=== PATIENT | female | born 1945 | race Caucasian/White ===

== ENCOUNTER 2018-11-26 12:26 | Inpatient (IN) | payer MEDICARE, OTHER ==
[2018-11-26 18:19] VITALS: BMI 45.7
[2018-11-26] MEDS ORDERED: HEPARIN SODIUM,PORCINE 5,000 UNIT/ML 1 ML VIAL SQ SCH (21:00)
[2018-11-26] MEDS ORDERED: ACETAMINOPHEN TAB 500 MG TAB PO PRN (21:32)
[2018-11-26] MEDS ORDERED: ALPRAZolam 0.25 MG TAB PO PRN (21:32)
[2018-11-26] MEDS ORDERED: VANCOMYCIN IV PER PHARMACY 1 EACH MISC MISCELLANE PRN ×3 (21:36→21:44)
[2018-11-26] MEDS ORDERED: VANCOMYCIN 1,750 MG in SODIUM CHLORIDE 0.9% 500 ML 500 ML IVPB SCH (21:45)
[2018-11-26] MEDS: FAMOTIDINE 20 MG TAB PO SCH (22:37)
[2018-11-26 22:56] LABS: Calcium 7.9 mg/dL (8.4-10.2); Potassium 4.1 mmol/L (3.5-5.1)
[2018-11-27] MEDS ORDERED: PIPERACILLIN-TAZOBACTAM 3.375 GM in SODIUM CHLORIDE 0.9% 100 ML IVPB SCH ×2
[2018-11-27] MEDS: SODIUM CHLORIDE 0.9% 1,000 ML IV SCH ×2 (00:52→13:46)
[2018-11-27] MEDS: CEFEPIME 1 GM in SODIUM CHLORIDE 0.9% 50 ML IVPB SCH ×2 (03:07→23:19)
[2018-11-27] MEDS: MULTIVITAMINS, THERA 1 EACH TAB PO SCH (07:45)
[2018-11-27] MEDS: FAMOTIDINE 20 MG TAB PO SCH (07:45)
[2018-11-27] MEDS: LOSARTAN 25 MG TAB PO SCH (07:46)
[2018-11-27] MEDS: CYANOCOBALAMIN 500 MCG TAB PO SCH (07:46)
[2018-11-27] MEDS: CARVEDILOL 6.25 MG TAB PO SCH ×2 (07:46→17:16)
[2018-11-27] MEDS: FUROSEMIDE 20 MG TAB PO SCH (07:46)
[2018-11-27] MEDS: APIXABAN 5 MG TAB PO SCH ×2 (07:46→22:28)
[2018-11-27] MEDS: NYSTATIN 100,000UNIT/GM CREAM 30 GM TUBE TOPICAL SCH ×3 (08:46→22:29)
--- NOTE | 2018-11-27 09:31 | P.CONS ---
History of Present Illness - Reason for Consult Consult date: 11/27/18 Wound care - History of Present Illness This is a 73-year-old female currently living at home with her son. She states that Tin morning she woke up and was unable to walk had extreme weakness to her lower extremities bilaterally. She was able to maneuver herself to the bathroom but was unable to get herself off the toilet. She denies having any falls and no recent injuries. She initially presented to [facility] was also found to have cellulitis. She was seen by infectious disease at that time. She presented with lactic acidosis with initial lactic acid 3.1 and a repeat down to 1.1, BUN 20 creatinine 1.3, albumin 1.9, A1c 6.2, hemoglobin 11.4, WBC 10.7 and platelet count 209. At [facility] she received Unasyn, Zosyn and vancomycin and was started on Silvadene wraps. Patient was subsequently transferred to [facility] as a direct admission for neurology consult. There is also consult in for nephrology for acute kidney injury. Wound care consult is also in place. She is currently on cefepime and vancomycin wound culture is in progress. Review of Systems Constitutional: Reports fatigue, Reports weakness, Denies chills, Denies fever, Denies malaise, Denies poor appetite Eyes: denies blurred vision, denies pain Ears, nose, mouth and throat: Denies dental pain, Denies epistaxis, Denies headache, Denies mouth pain, Denies nasal congestion, Denies nasal discharge, Denies sore throat, Denies vertigo Cardiovascular: Reports leg edema, Denies chest pain, Denies decreased exercise tolerance, Denies dyspnea on exertion, Denies edema, Denies lightheadedness, Denies palpitations, Denies shortness of breath, Denies syncope Respiratory: Denies cough, Denies cough with sputum, Denies dyspnea, Denies excessive sputum, Denies hemoptysis, Denies home oxygen, Denies wheezing Gastrointestinal: Denies abdominal pain, Denies diarrhea, Denies loss of appetite, Denies nausea, Denies vomiting Genitourinary: Denies dysuria, Denies hematuria, Denies urgency, Denies urinary frequency Musculoskeletal: Reports gait dysfunction, Reports muscle weakness, Denies frequent falls, Denies myalgias Integumentary: Reports color changes, Reports darkening of skin, Reports wounds, Denies pruritus, Denies rash Neurological: Reports gait dysfunction, Reports motor disturbance, Denies change in mentation, Denies change in speech, Denies head injury, Denies headaches, Denies numbness, Denies syncope, Denies weakness Psychiatric: Denies anxiety, Denies depression Endocrine: Denies fatigue, Denies weight change Past Medical History Past Medical History: Hypertension, Pulmonary Embolus (PE) Additional Past Medical History / Comment(s): PE in lung, hypertention, cellulitis History of Any Multi-Drug Resistant Organisms: None Reported Past Surgical History: Hysterectomy Additional Past Surgical History / Comment(s): hysterectomy 9 years ago, arm tumor removal 15 years ago Past Anesthesia/Blood Transfusion Reactions: No Reported Reaction Smoking Status: Never smoker Additional Past Alcohol Use History / Comment(s): Patient is a lifelong nonsmoker, no illicit drug use, no alcohol use. She lives at home with her son Bridger. 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. - Past Family History Mother Family Medical History: Cancer, Diabetes Mellitus Father Family Medical History: Pulmonary Embolus Additional Family Medical History / Comment(s): PE in lung, hip replacement Medications and Allergies Home Medications Medication Instructions Recorded Confirmed Type Apixaban [Eliquis] 5 mg PO BID 11/26/18 11/26/18 History Apixaban [Eliquis] 5 mg PO BID 11/26/18 11/26/18 History Aspirin EC [Ecotrin Low Dose] 81 mg PO HS 11/26/18 11/26/18 History Carvedilol [Coreg] 6.25 mg PO BID 11/26/18 11/26/18 History Cyanocobalamin [Vitamin B-12] 500 mcg PO DAILY 11/26/18 11/26/18 History Furosemide [Lasix] 20 mg PO DAILY 11/26/18 11/26/18 History Losartan [Cozaar] 25 mg PO DAILY 11/26/18 11/26/18 History Multivitamins, Thera [Multivitamin 1 tab PO DAILY 11/26/18 11/26/18 History (formulary)] Simvastatin [Zocor] 20 mg PO HS 11/26/18 11/26/18 History hydrALAZINE HCL 25 mg PO QID PRN 11/26/18 11/26/18 History Allergies Allergy/AdvReac Type Severity Reaction Status Date / Time No Known Allergies Allergy Verified 11/26/18 18:43 Physical Exam Vitals: Vital Signs Temp Pulse Resp BP Pulse Ox 11/27/18 06:49 98.0 F 81 16 147/77 92 L 11/27/18 05:29 98.4 F 86 20 152/63 94 L 11/26/18 21:30 98.9 F 79 20 127/52 94 L 11/26/18 17:30 99.6 F 80 16 132/58 97 Intake and Output 11/26/18 11/27/18 11/27/18 22:59 06:59 14:59 Intake Total 200 100 Balance 200 100 Intake: Oral 200 100 Other: Voiding Method Bedpan # Voids 1 3 1 Weight 113.398 kg Gen: This is a 73-year-old morbidly obese female. Patient is resting in bed and appears to be comfortable and in no acute distress. HEENT: Head is atraumatic, normocephalic. Pupils equal, round. Sclerae is anicteric. Conjunctiva are pink. Extremities of the mouth are moist. Patient has dentures on the top only. No thrush noted. NECK: Supple. No JVD. No lymphadenopathy. No thyromegaly. LUNGS: Clear to auscultation. No wheezes or rhonchi. No intercostal retra ctions. HEART: Regular rate and rhythm. No murmur. ABDOMEN: Soft. Bowel sounds are present. No masses. No tenderness. Minimal redness under abdominal apron. EXTREMITIES: 2+ bilateral pedal edema. Dressings in place bilateral lower extremities which were not removed for evaluation. NEUROLOGICAL: Patient is awake, alert and oriented x3. Cranial nerves 2 through 12 are grossly intact. Results Results: Laboratory Results Sodium 137 mmol/L (137-145) 11/26/18 22:30 Potassium 4.1 mmol/L (3.5-5.1) 11/26/18 22:30 Chloride 107 mmol/L (98-107) 11/26/18 22:30 Carbon Dioxide 25 mmol/L (22-30) 11/26/18 22:30 Anion Gap 5 mmol/L 11/26/18 22:30 BUN 22 mg/dL (7-17) H 11/26/18 22:30 Creatinine 1.44 mg/dL (0.52-1.04) H 11/26/18 22:30 Est GFR (CKD-EPI)AfAm 42 (>60 ml/min/1.73 sqM) 11/26/18 22:30 Est GFR (CKD-EPI)NonAf 36 (>60 ml/min/1.73 sqM) 11/26/18 22:30 Glucose 87 mg/dL (74-99) 11/26/18 22:30 Calcium 7.9 mg/dL (8.4-10.2) L 11/26/18 22:30 CBC & Chem 7: 11/26/18 22:30 Labs: Abnormal Lab Results - Last 24 Hours (Table) 11/26/18 Range/Units 22:30 BUN 22 H (7-17) mg/dL Creatinine 1.44 H (0.52-1.04) mg/dL Calcium 7.9 L (8.4-10.2) mg/dL Assessment and Plan Plan: This is a 73-year-old female who presents for hospital with bilateral lower extremity weakness and bilateral lower extremity cellulitis with lactic acidosis, acute kidney injury. Neurology is on consult for lower extremity weakness. Local wound care will be addressed and wound care consult is in place. Patient is currently on cefepime and vancomycin. Continue supportive care. Further recommendations as patient progresses. The above dictated assessment and findings were discussed with Dr. Colby. The impression and plan of care have been directed as dictated. Payton Landry nurse practitioner acting as scribe for Dr. Colby.
[2018-11-27 10:03] LABS: Basophils # (A) 0.1 k/uL (0-0.2); Basophils % (A) 1 %; Eosinophils # (A) 0.6 k/uL (0-0.7); Eosinophils % (A) 8 %; HCT 34.4 % (34.0-46.0); HGB 10.9 gm/dL (11.4-16.0); Lymphocytes # (A) 1.1 k/uL (1.0-4.8); Lymphocytes % (A) 13 %; MCH 30.3 pg (25.0-35.0); MCHC 31.5 g/dL (31.0-37.0); MCV 96.2 fL (80.0-100.0); Mean Platelet Volume 6.6; Monocytes # (A) 0.4 k/uL (0-1.0); Monocytes % (A) 5 %; Neutrophils # (A) 5.7 k/uL (1.3-7.7); Neutrophils % (A) 71 %; Platelet Count 213 k/uL (150-450); RBC 3.58 m/uL (3.80-5.40); WBC 8.1 k/uL (3.8-10.6)
[2018-11-27 10:14] LABS: Calcium 7.9 mg/dL (8.4-10.2); Potassium 3.7 mmol/L (3.5-5.1)
--- NOTE | 2018-11-27 12:31 | P.HPIM ---
History of Present Illness Li Bradley 73 y.o.femaleadmitted to the hospital with cellulitis of bilateral lower extremities.Patient states she has had chronic cellulitis of her bilateral lower extremities ongoing since July. States 2 days ago her lower extremities became weak, and she is not ambulatory. Also noticed increasing redness of bilateral lower extremities at this time. Denies leg pain. Elevated lactic acid at 3.1, started on IV rehydration, lactic acid improved to 1.1. White count elevated 11.5 on admission.Did have fever 101during hospitalization of 1.1, currently afebrile. Receiving antimicrobial therapy with vancomycin and Zosyn. Patient is maintained on anticoagulation with Eliquis, currently on 10 mg twice daily has history of pulmonary embolism. Creatinine elevated to 1.4 on admission, unsure of previous baseline, did improve to 1.3 with IV rehydration. Patient is maintained on Lasix 20 mg daily at home. Due to patient's bilateral lower extremity weakness patient will be transferred to [facility] with neurology consultation. Also recommend consultation to infectious disease. Currently hemodynamically stable. Blood cultures were collected, currently pending. Infectious disease team already evaluated the patient and recommended to continue with vancomycin and Zosyn or cefepime. On admission her creatinine was 1.3, went up to 1.4 and today is 1.2, nephrology consult is been called also. Anesthesia/sedation showing normal WBC as came back to normal at 8.28, hemoglobin 10.9, creatinine 1.2, echo is within normal limits. Blood culture has been sent Review of Systems CONSTITUTIONAL: No fever, no malaise, no fatigue. HEENT: No recent visual problems or hearing problems. Denied any sore throat. CARDIOVASCULAR: No orthopnea, PND, no palpitations, no syncope. PULMONARY: No shortness of breath, no cough, no hemoptysis. GASTROINTESTINAL: No diarrhea, no nausea, no vomiting, no abdominal pain. Normoactive bowel sounds. NEUROLOGICAL: No headaches, no numbness. HEMATOLOGICAL: Denies any bleeding or petechiae. GENITOURINARY: Denies any burning micturition, frequency, or urgency. MUSCULOSKELETAL/RHEUMATOLOGICAL: Denies any joint swelling, redness ENDOCRINE: Denies any polyuria or polydipsia. Past Medical History Past Medical History: Hypertension, Pulmonary Embolus (PE) Additional Past Medical History / Comment(s): PE in lung, hypertention, cellulitis History of Any Multi-Drug Resistant Organisms: None Reported Past Surgical History: Hysterectomy Additional Past Surgical History / Comment(s): hysterectomy 9 years ago, arm tumor removal 15 years ago Past Anesthesia/Blood Transfusion Reactions: No Reported Reaction Smoking Status: Never smoker Additional Past Alcohol Use History / Comment(s): Patient is a lifelong nonsmoker, no illicit drug use, no alcohol use. She lives at home with her son Bridger. 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. - Past Family History Mother Family Medical History: Cancer, Diabetes Mellitus Father Family Medical History: Pulmonary Embolus Additional Family Medical History / Comment(s): PE in lung, hip replacement Medications and Allergies Home Medications Medication Instructions Recorded Confirmed Type Apixaban [Eliquis] 5 mg PO BID 11/26/18 11/26/18 History Apixaban [Eliquis] 5 mg PO BID 11/26/18 11/26/18 History Aspirin EC [Ecotrin Low Dose] 81 mg PO HS 11/26/18 11/26/18 History Carvedilol [Coreg] 6.25 mg PO BID 11/26/18 11/26/18 History Cyanocobalamin [Vitamin B-12] 500 mcg PO DAILY 11/26/18 11/26/18 History Furosemide [Lasix] 20 mg PO DAILY 11/26/18 11/26/18 History Losartan [Cozaar] 25 mg PO DAILY 11/26/18 11/26/18 History Multivitamins, Thera [Multivitamin 1 tab PO DAILY 11/26/18 11/26/18 History (formulary)] Simvastatin [Zocor] 20 mg PO HS 11/26/18 11/26/18 History hydrALAZINE HCL 25 mg PO QID PRN 11/26/18 11/26/18 History Allergies Allergy/AdvReac Type Severity Reaction Status Date / Time No Known Allergies Allergy Verified 11/26/18 18:43 Physical Exam Vitals: Vital Signs Temp Pulse Resp BP Pulse Ox 11/27/18 08:00 16 11/27/18 06:49 98.0 F 81 16 147/77 92 L 11/27/18 05:29 98.4 F 86 20 152/63 94 L 11/26/18 21:30 98.9 F 79 20 127/52 94 L 11/26/18 17:30 99.6 F 80 16 132/58 97 Intake and Output 11/26/18 11/27/18 11/27/18 22:59 06:59 14:59 Intake Total 200 100 Balance 200 100 Intake: Oral 200 100 Other: Voiding Method Bedpan Bedpan # Voids 1 3 1 Weight 113.398 kg GENERAL: The patient is alert and oriented x3, not in any acute distress. Well developed, well nourished. HEENT: Pupils are round and equally reacting to light. EOMI. No scleral icterus. No conjunctival pallor. Normocephalic, atraumatic. No pharyngeal erythema. No thyromegaly. CARDIOVASCULAR: S1 and S2 present. No murmurs, rubs, or gallops. PULMONARY: Chest is clear to auscultation, no wheezing or crackles. ABDOMEN: Soft, nontender, nondistended, normoactive bowel sounds. No palpable organomegaly. MUSCULOSKELETAL: No joint swelling or deformity. -EXTREMITIES: No cyanosis, clubbing, or pedal edema. Bilateral leg cellulitis with oozing once throughout both legs between the knee and ankles, with dry scaling NEUROLOGICAL: Gross neurological examination did not reveal any focal deficits. SKIN: No rashes. No petechiae Results CBC & Chem 7: 11/27/18 09:19 11/27/18 09:19 Labs: Abnormal Lab Results - Last 24 Hours (Table) 11/26/18 11/27/18 11/27/18 Range/Units 22:30 09: 09:19 RBC 3.58 L (3.80-5.40) m/uL Hgb 10.9 L (11.4-16.0) gm/dL Chloride 110 H (98-107) mmol/L BUN 22 H 20 H (7-17) mg/dL Creatinine 1.44 H 1.28 H (0.52-1.04) mg/dL Glucose 144 H (74-99) mg/dL Calcium 7.9 L 7.9 L (8.4-10.2) mg/dL Microbiology - Last 24 Hours (Table) 11/27/18 00:00 Anaerobic Culture - Preliminary Leg - Left 11/27/18 00:00 Anaerobic Culture - Preliminary Leg - Right Thrombosis Risk Factor Assmnt - Choose All That Apply Any of the Below Risk Factors Present?: Yes Each Risk Factor Represents 2 Points: Age 61-74 years, Patient confined to bed Each Risk Factor Represents 3 Points: Family history of DVT/PE, History of DVT/PE Thrombosis Risk Factor Assessment Total Risk Factor Score: 10 Thrombosis Risk Factor Assessment Level: High Risk Assessment and Plan Assessment: Cellulitis of both legs Weakness of both legs, could be related to her leg cellulitis, knee ost eoarthritis. However rule out neurological disease Difficulty walking secondary to above Essential hypertension Morbid obesity Hyperlipidemia Chronic kidney disease, stage III History of PE on Eliquis Plan: This is a pleasant 73 years old female who presents with bilateral lower leg cellulitis and weakness. Follow-up recommendation from infectious, nephrology and neurology consultation. Continue with antibiotics. Continue with IV flu ids. Follow-up culture results Labs and medication were reviewed.. Continue same treatment. Continue with symptomatic treatment. Resume home medication. Monitor lytes and vitals. DVT and GI prophylaxis. Further recommendations of the clinical course of the patient DVT prophylaxis: Eliquis GI Prophylaxis: Pepcid PT/OT: Pending Prognosis is guarded
--- NOTE | 2018-11-27 21:22 | P.CNNES ---
History of Present Illness Consult date: 11/27/18 Reason for Consult: Sudden bilateral Chief complaint: History and weakness to her lower extremities bilaterally History of Present Illness: HISTORY OF PRESENT ILLNESS: Thank you for allowing me to evaluate Mrs. Li Santamaria. Ms. Santamaria is a 73-year-old female past medical history of hypertension, pulmonary embolus, cellulitis, presenting with sudden onset difficulty LE weakness. Patient states that she's been having issues with cellulitis since 07/2018. She underwent physical therapy but she was initially not given any antibiotics. Patient has never had these symptoms previously even with cellulitis. Patient reports stiffness in her LE bilaterally and some pain. She does not report any numbness or tingling sensation. Denies any headache, nausea, vomiting, dizziness, LOC, CP, SOB, double/blurry vision, urinary/bowel incontinence. Patient does not endorse any weakness of her hands or arms. No recent sickness other than her LE weakness. No fever, coughing, sneezing, abdominal pain, diarrhea or constipation. Does not endorse any improvement in LE weakness early in the morning or late in the afternoon. Denies any dysphagia, dyspnea, droopy eyelids. PAST MEDICAL HISTORY: hypertension, pulmonary embolus, cellulitis PAST SURGICAL HISTORY: Hysterectomy, arm tumor removal 15 years ago HOME MEDICATIONS: Simvastatin, multivitamin, furosemide, cyanocobalamin, carvedilol, aspirin, apixaban, hydralazine, losartan ALLERGIES: NKDA SOCIAL HISTORY: Never smoker. Denies any alcohol or illicit drug abuse history. She lives at home with her son. 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 FAMILY HISTORY: Mother with cancer and diabetes. Father had similar embolus. REVIEW OF SYSTEMS: The 14 systems are reviewed and no additional points are identified compared to the review of systems documented history and physical PHYSICAL EXAMINATION: VITAL SIGNS: T 98.0 HR 81 RR 16 BP 147/77 O2 sat 92% on RA GEN.: Morbid obesity, NAD, pleasant and cooperative HEENT: NCAT, sclera without icterus NECK: Supple SKIN AND EXTREMITIES: Warm to touch, no edema NEURO: MENTAL STATUS: Patient alert and oriented to self, place, time. Able to name the current president. Speech fluent, able to name and repeat, following all commands readily. No right and left disorientation, neglect. CRANIAL NERVES II THROUGH XII: II: Pupils are equal and reactive to light symmetrically. No afferent pupillary defect. Visual avendaño are intact. III, IV, : No ptosis. Extraocular movements full. No nystagmus. V: Facial sensation intact from V1-3. VII. No clear facial asymmetry. VIII: Hearing intact to finger rub bilaterally. IX, X: Symmetric palate elevation. XI: Shoulder shrug intact. XII: Tongue midline without fasciculation or atrophy. MOTOR: Normal bulk/tone. No pronator drift or tremor. Strength is in b/l UE. LE hip flexor/extensor, knee flexor/extensor, plantarflexion/dorsiflexion at least 4+/5 strength, but patient having difficulty standing up from chair and taking steps forward while using a walker SENSORY: Intact to light touch in all 4 extremities. REFLEXES: mute throughout. Toes are mute. No clonus. COORDINATION: Finger to nose intact. No dysmetria. GAIT: Barely able to stand on her own while using walker as support. DIAGNOSTIC TESTING: LABORATORY: WBC 8.1 hemoglobin 10.9 platelet 213 sodium 139 potassium 3.7 chloride 110 bicarb 24 BUN 20 creatinine 1.28 glucose 144 IMAGING: No brain imaging available at this time. ASSESSMENT: Ms. Santamaria is a 73-year-old female past medical history of hypertension, pulmonary embolus, cellulitis, presenting with sudden onset difficulty LE weakness. Patient with difficulty standing up from sitting position along with taking steps forward even in the setting of patient having at least 4+/5 strength in different LE muscle groups. High on the differential at this time is myopathy, and differential for myopathy include inflammatory (such as polymyosit is, dermatomyositis, inclusion body myositis), infection, toxic (such as steroids, statins, EtOH, amiodarone, etc) and systemic (such as thyroid disorder, autoimmune, amyloid). highest on my differential at this time is inflammatory etiology of myopathy, but we would need EMG/NCS along with muscle b iopsy for diagnosis. RECOMMENDATIONS: 1. Will order ESR, CRP, CK, CARRILLO, RF, TSH, LFT, parathyroid hormone 2. Will consider treatment with IV steroids (inclusion body myositis is not responsive to steroid treatment, unfortunately) 3. Patient will need follow up with neurology within 1-2 weeks of discharge, especially for EMG/NCS and muscle biopsy 4. Neurology will continue to follow. Past Medical History Past Medical History: Hypertension, Pulmonary Embolus (PE) Additional Past Medical History / Comment(s): PE in lung, hypertention, cellulitis History of Any Multi-Drug Resistant Organisms: None Reported Past Surgical History: Hysterectomy Additional Past Surgical History / Comment(s): hysterectomy 9 years ago, arm tu mor removal 15 years ago Past Anesthesia/Blood Transfusion Reactions: No Reported Reaction Smoking Status: Never smoker Additional Past Alcohol Use History / Comment(s): Patient is a lifelong nonsmoker, no illicit drug use, no alcohol use. She lives at home with her son Bridger. 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. - Past Family History Mother Family Medical History: Cancer, Diabetes Mellitus Father Family Medical History: Pulmonary Embolus Additional Family Medical History / Comment(s): PE in lung, hip replacement Medications and Allergies Home Medications Medication Instructions Recorded Confirmed Type Apixaban [Eliquis] 5 mg PO BID 11/26/18 11/26/18 History Apixaban [Eliquis] 5 mg PO BID 11/26/18 11/26/18 History Aspirin EC [Ecotrin Low Dose] 81 mg PO HS 11/26/18 11/26/18 History Carvedilol [Coreg] 6.25 mg PO BID 11/26/18 11/26/18 History Cyanocobalamin [Vitamin B-12] 500 mcg PO DAILY 11/26/18 11/26/18 History Furosemide [Lasix] 20 mg PO DAILY 11/26/18 11/26/18 History Losartan [Cozaar] 25 mg PO DAILY 11/26/18 11/26/18 History Multivitamins, Thera [Multivitamin 1 tab PO DAILY 11/26/18 11/26/18 History (formulary)] Simvastatin [Zocor] 20 mg PO HS 11/26/18 11/26/18 History hydrALAZINE HCL 25 mg PO QID PRN 11/26/18 11/26/18 History Allergies Allergy/AdvReac Type Severity Reaction Status Date / Time No Known Allergies Allergy Verified 11/26/18 18:43 Physical Examination - Vital Signs Vital Signs: Vital Signs Temp Pulse Resp BP Pulse Ox 11/27/18 06:49 98.0 F 81 16 147/77 92 L 11/27/18 05:29 98.4 F 86 20 152/63 94 L 11/26/18 21:30 98.9 F 79 20 127/52 94 L 11/26/18 17:30 99.6 F 80 16 132/58 97 Intake and Output 11/26/18 11/27/18 11/27/18 22:59 06:59 14:59 Intake Total 200 100 Balance 200 100 Intake: Oral 200 100 Other: Voiding Method Bedpan # Voids 1 3 1 Weight 113.398 kg Results - Laboratory Findings CBC and BMP: 11/27/18 09:19 11/27/18 09:19 Abnormal Lab Findings: Abnormal Labs 11/26/18 11/27/18 11/27/18 22:30 09:19 09:19 RBC 3.58 L Hgb 10.9 L Chloride 110 H BUN 22 H 20 H Creatinine 1.44 H 1.28 H Glucose 144 H Calcium 7.9 L 7.9 L
--- NOTE | 2018-11-27 22:01 | P.CON ---
Consult Note - . Consult date: 11/27/18 Assessment/Plan:: This is a 73-year-old female currently living at home with her son. She states that Tin morning she woke up and was unable to walk had extreme weakness to her lower extremities bilaterally. She was able to maneuver herself to the bathroom but was unable to get herself off the toilet. She denies having any falls and no recent injuries. She initially presented to [facility] was also found to have cellulitis. She was seen by infectious disease at that time. She presented with lactic acidosis with initial lactic acid 3.1 and a repeat down to 1.1, BUN 20 creatinine 1.3, albumin 1.9, A1c 6.2, hemoglobin 11.4, WBC 10.7 and platelet count 209. At [facility] she received Unasyn, Zosyn and vancomycin and was started on Silvadene wraps. Patient was subsequently transferred to [facility] as a direct admission for neurology consult. There is also consult in for nephrology for acute kidney injury. Wound care consult is also in place. She is currently on cefepime and vancomycin wound culture is in progress. Please see the consult note is dictated by nurse practitioner Mrs. Payton Landry. He has noted the patient was seen at the outside hospital prior to her transfer to our facility. She is relating that since she has been placed on antibiotic therapy she started to feel somewhat better. Neurologic evaluation is in process. Portion she certainly feels somewhat better. She finds the Silvadene and leg wraps has been extremely helpful for the discomfort to her legs. She believes that she is getting some improved strength. She is denying high-grade fevers chills rigors or sweats. Antibiotic therapy at this time while cultures are processes with cefepime and vancomycin given her prior history and concerns to pseudomonas and MRSA. Her progress will be followed and plans for her ongoing antibiotic therapy. I believe she will be going to rehabilitation and consequently completion of a course of antibiotic therapy should be extremely helpful. I agree with evaluation, assessment and plan as dictated by nurse practitioner Mrs. Payton Landry.
--- NOTE | 2018-11-27 22:25 | CONS ---
CONSULTATION REASON FOR CONSULT: Renal failure. HISTORY OF PRESENT ILLNESS: Patient is a 73-year-old female who was admitted to the hospital for pain and swelling in her lower extremities. She is currently being treated for bilateral lower extremity cellulitis. Currently patient is maintained on vancomycin. She states that her kidney function was weak on one of her previous admissions as well for cellulitis. Her creatinine is noted to be 1.4 mg/dL yesterday. Today it is down to 1.28. Review of previous labs shows a creatinine of 0.97 on 08/20/2018. Blood pressure has not been significantly low. At home, patient was taking Cozaar. I do not see any nonsteroidal anti-inflammatory agents on her med list and patient denies use of any NSAIDs. She has been voiding fairly okay. Currently patient is status post IV fluids. She does take Lasix at home. PAST MEDICAL HISTORY: Significant for obesity, hypertension, history of PE, previous lower extremity cellulitis. 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 SOCIAL HISTORY: Negative for smoking, drug abuse or alcohol abuse. MEDICATIONS: Medications at home prior to admission included Eliquis, aspirin, Coreg, vitamin B12, Lasix, Cozaar, multivitamin, Zocor, hydralazine. ALLERGIES: None. REVIEW OF SYSTEMS: As per HPI. Other systems negative. PHYSICAL EXAMINATION: Patient is comfortable, awake, alert, oriented x3, not in any acute distress. On examination, blood pressure is 141/67, heart rate 74 per minute. She is afebrile. Examination of the heart S1, S2. Examination of the lungs, bilateral breath sounds are heard. ABDOMEN: Soft. Morbidly obese. Examination of lower extremities shows bilateral extremities to be wrapped. LABS: Labs show sodium 139, potassium 3.7, BUN 20, creatinine 1.28, hemoglobin 10.9 g/dL. ASSESSMENT: Acute kidney injury, mostly associated with underlying infection. Check urinalysis. If renal function does not improve further, we will need to check a bladder scan to rule out underlying urine retention. May continue with the Cozaar for now as serum creatinine is improving. Continue with the IV fluids and we need to be careful with the vancomycin and monitor levels closely. Thank you for this consultation. We will continue to follow the patient with you during her hospitalization. MMODL / IJN: [id number] /
[2018-11-27] MEDS: ASPIRIN 81 MG PO SCH (22:28)
[2018-11-27] MEDS: ATORVASTATIN 10 MG TAB PO SCH (22:28)
[2018-11-28] MEDS: SODIUM CHLORIDE 0.9% 1,000 ML IV SCH ×2 (06:14→15:08)
[2018-11-28] MEDS: CARVEDILOL 6.25 MG TAB PO SCH ×2 (07:57→15:07)
[2018-11-28] MEDS: LOSARTAN 25 MG TAB PO SCH (07:57)
[2018-11-28] MEDS: MULTIVITAMINS, THERA 1 EACH TAB PO SCH (07:57)
[2018-11-28] MEDS: APIXABAN 5 MG TAB PO SCH ×2 (07:58→21:52)
[2018-11-28] MEDS: CYANOCOBALAMIN 500 MCG TAB PO SCH (07:58)
[2018-11-28] MEDS: FAMOTIDINE 20 MG TAB PO SCH (07:58)
[2018-11-28] MEDS: FUROSEMIDE 20 MG TAB PO SCH (07:58)
[2018-11-28] MEDS: NYSTATIN 100,000UNIT/GM CREAM 30 GM TUBE TOPICAL SCH ×3 (07:59→21:54)
--- NOTE | 2018-11-28 08:26 | P.PN ---
Subjective Li Bradley 73 y.o.femaleadmitted to the hospital with cellulitis of bilateral lower extremities.Patient states she has had chronic cellulitis of her bilateral lower extremities ongoing since July. States 2 days ago her lower extremities became weak, and she is not ambulatory. Also noticed increasing redness of bilateral lower extremities at this time. Denies leg pain. Elevated lactic acid at 3.1, started on IV rehydration, lactic acid improved to 1.1. White count elevated 11.5 on admission.Did have fever 101during hospitaliz ation of 1.1, currently afebrile. Receiving antimicrobial therapy with vancomycin and Zosyn. Patient is maintained on anticoagulation with Eliquis, currently on 10 mg twice daily has history of pulmonary embolism. Creatinine elevated to 1.4 on admission, unsure of previous baseline, did improve to 1.3 with IV rehydration. Patient is maintained on Lasix 20 mg daily at home. Due to patient's bilateral lower extremity weakness patient will be transferred to [facility] with neurology consultation. Also recommend consultation to infectious disease. Currently hemodynamically stable. Blood cultures were collected, currently pending. Infectious disease team already evaluated the patient and recommended to continue with vancomycin and Zosyn or cefepime. On admission her creatinine was 1.3, went up to 1.4 and today is 1.2, nephrology consult is been called also. Anesthesia/sedation showing normal WBC as came back to normal at 8.28, hemoglobin 10.9, creatinine 1.2, echo is within normal limits. Blood culture has been sent 11/28/2018 Patient is a little short of breath today, however she denies chest pain or abdominal pain, no coughing. No change in urine or bowel habits. She says that she can move her legs little bit better today. She is currently on antibiotics as per ID team for her bilateral lower extremity with cellulitis. Vitals are stable and patient is afebrile. Labs from today are still pending. Nephrology input is appreciated she recommended a bladder scan and urinalysis. Continue with Cozaar on gentle hydration will monitor vancomycin. Risk of nephrotoxicity is explained to the patient and Mr. Sparks son at bedside yesterday and both agre ed to continue with antibiotics for now. Patient is currently on cefepime and vancomycin given her prior history of similar denies and MRSA as per infectious disease recommendation. 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 Review of systems CONSTITUTIONAL: No fever, no malaise, no fatigue. HEENT: No recent visual problems or hearing problems. Denied any sore throat. CARDIOVASCULAR: No orthopnea, PND, no palpitations, no syncope. PULMONARY: no hemoptysis. GASTROINTESTINAL: Normoactive bowel sounds. NEUROLOGICAL: No headaches, no weakness, no numbness. HEMATOLOGICAL: Denies any bleeding or petechiae. GENITOURINARY: Denies any burning micturition, frequency, or urgency. MUSCULOSKELETAL/RHEUMATOLOGICAL: Denies any joint pain, swelling ENDOCRINE: Denies any polyuria or polydipsia. Active Medications Generic Name Dose Route Start Last Admin Trade Name Freq PRN Reason Stop Dose Admin Acetaminophen 500 mg 11/26/18 21:32 Tylenol Tab PO Q6HR PRN Fever and/ or Pain Alprazolam 0.25 mg 11/26/18 21:32 Xanax PO TID PRN Anxiety Apixaban 5 mg 11/27/18 09:00 11/28/18 07:58 Eliquis PO 5 mg BID YONG Administration Aspirin 81 mg 11/27/18 21:00 11/27/18 22:28 Aspirin PO 81 mg HS YONG Administration Atorvastatin Calcium 10 mg 11/27/18 21:00 11/27/18 22:28 Lipitor PO 10 mg HS YONG Administration Carvedilol 6.25 mg 11/27/18 07:30 11/28/18 07:57 Coreg PO 6.25 mg AC-BID YONG Administration Cyanocobalamin 500 mcg 11/27/18 09:00 11/28/18 07:58 Vitamin B-12 PO 500 mcg DAILY YONG Administration Famotidine 20 mg 11/28/18 09:00 11/28/18 07:58 Pepcid PO 20 mg DAILY YONG Administration Furosemide 20 mg 11/27/18 09:00 11/28/18 07:58 Lasix PO 20 mg DAILY YONG Administration Hydralazine HCl 25 mg 11/26/18 21:31 Apresoline PO QID PRN systolic >150 Cefepime HCl 1 gm/ Sodium 50 mls @ 100 mls/hr 11/26/18 23:15 11/27/18 23:19 Chloride IVPB 100 mls/hr Q24H YONG Administration Sodium Chloride 1,000 mls @ 75 mls/hr 11/26/18 23:15 11/28/18 06:14 Saline 0.9% IV 75 mls/hr .[id number] YONG Administration Vancomycin HCl 1,750 mg/ 500 mls @ 167 mls/hr 11/28/18 22:00 Sodium Chloride IVPB Q48H YONG Losartan Potassium 25 mg 11/27/18 09:00 11/28/18 07:57 Cozaar PO 25 mg DAILY YONG Administration Multivitamins 1 each 11/27/18 09:00 11/28/18 07:57 Theragran PO 1 each DAILY YONG Administration Nystatin 1 applic 11/27/18 09:00 11/28/18 07:59 Mycostatin Cream TOPICAL 1 applic TID YONG Administration Objective - Vital Signs Vital signs: Vital Signs Temp 98 F 11/28/18 04:48 Pulse 78 11/28/18 04:48 Resp 20 11/28/18 04:48 BP 136/69 11/28/18 04:48 Pulse Ox 95 11/28/18 04:48 Intake & Output 11/27/18 11/28/18 11/28/18 18:59 06:59 18:59 Intake Total 800 300 Output Total 1 Balance 800 299 Intake: Oral 800 300 Output: Urine/Stool Mix 1 Other: Voiding Method Bedpan Bedpan Bedpan # Voids 4 1 # Bowel Movements 2 1 - Exam GENERAL: The patient is alert and oriented x3, not in any acute distress. Well developed, well nourished. HEENT: Pupils are round and equally reacting to light. EOMI. No scleral icterus. No conjunctival pallor. Normocephalic, atraumatic. No pharyngeal erythema. No thyromegaly. CARDIOVASCULAR: S1 and S2 present. No murmurs, rubs, or gallops. PULMONARY: Chest is clear to auscultation, no wheezing or crackles. ABDOMEN: Soft, nontender, nondistended, normoactive bowel sounds. No palpable organomegaly. MUSCULOSKELETAL: No joint swelling or deformity. -EXTREMITIES: No cyanosis, clubbing, or pedal edema. Bilateral leg cellulitis with oozing once throughout both legs between the knee and ankles, with dry scaling NEUROLOGICAL: Gross neurological examination did not reveal any focal deficits. SKIN: No rashes. No petechiae - Labs CBC & Chem 7: 11/27/18 09:19 11/27/18 09:19 Labs: Abnormal Lab Results - Last 24 Hours (Table) 11/27/18 11/27/18 11/27/18 Range/Units :19 09: 09:19 RBC 3.58 L (3.80-5.40) m/uL Hgb 10.9 L (11.4-16.0) gm/dL ESR 72 H (0-20) mm/hr Chloride 110 H (98-107) mmol/L BUN 20 H (7-17) mg/dL Creatinine 1.28 H (0.52-1.04) mg/dL Glucose 144 H (74-99) mg/dL Calcium 7.9 L (8.4-10.2) mg/dL Microbiology - Last 24 Hours (Table) 11/27/18 00:00 Gram Stain - Preliminary Leg - Left Wound Culture - Preliminary 11/27/18 00:00 Gram Stain - Preliminary Leg - Right Wound Culture - Preliminary 11/27/18 00:00 Anaerobic Culture - Preliminary Leg - Left 11/27/18 00:00 Anaerobic Culture - Preliminary Leg - Right Assessment and Plan Assessment: Cellulitis of both legs Weakness of both legs, 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 Follow-up recommendation from infectious, nephrology and neurology consultation. Continue with antibiotics. Continue with IV fluids and gentle hydration. Follow-up culture results. Monitor creatinine closely. Monitor vancomycin closely. Follow-up neurology recommendation with workup Labs and medication were reviewed.. Continue same treatment. Continue with symptomatic treatment. Resume home medication. Monitor lytes and vitals. DVT and GI prophylaxis. Further recommendations of the clinical course of the patient DVT prophylaxis: Eliquis GI Prophylaxis: Pepcid PT/OT: Pending Prognosis is guarded
[2018-11-28 09:01] LABS: Basophils % (A) 0 %; Eosinophils # (A) 0.6 k/uL (0-0.7); Eosinophils % (A) 7 %; HCT 34.2 % (34.0-46.0); HGB 10.7 gm/dL (11.4-16.0); Lymphocytes # (A) 1.2 k/uL (1.0-4.8); Lymphocytes % (A) 14 %; MCH 29.7 pg (25.0-35.0); MCHC 31.2 g/dL (31.0-37.0); Mean Platelet Volume 6.3; Monocytes # (A) 0.4 k/uL (0-1.0); Monocytes % (A) 5 %; Neutrophils # (A) 6.2 k/uL (1.3-7.7); Neutrophils % (A) 72 %; Platelet Count 240 k/uL (150-450); RDW 14.3 % (11.5-15.5); WBC 8.6 k/uL (3.8-10.6)
[2018-11-28 09:15] LABS: Albumin 2.5 g/dL (3.5-5.0); C Reactive Protein 27.3 mg/L (<10.0); Calcium 7.9 mg/dL (8.4-10.2); Total Bilirubin 0.2 mg/dL (0.2-1.3); Total Protein 5.6 g/dL (6.3-8.2)
[2018-11-28 09:18] LABS: Vancomycin,Random 10.7 ug/mL
--- NOTE | 2018-11-28 09:18 | XR ---
EXAMINATION TYPE: XR chest 1V DATE OF EXAM: 11/28/2018 COMPARISON: NONE HISTORY: Wheezing TECHNIQUE: Single frontal view of the chest is obtained. FINDINGS: There is no focal air space opacity, pleural effusion, or pneumothorax seen. The cardiac silhouette size is within normal limits. The osseous structures are intact. Limited inspiration wit h arthropathy of the shoulders. Heart is enlarged. Hypertrophic change of the spine. Mild central pro minence of the interstitium. IMPRESSION: 1. Mild central prominence of the interstitium may be related to poor inspiration rather than early i nterstitial pneumonitis or venous congestion. Correlate clinically.
[2018-11-28 10:39] LABS: T4, Free (Free Thyroxine) 1.42 ng/dL (0.78-2.19)
--- NOTE | 2018-11-28 11:35 | CDI ---
Documentation Clarification Form Date: 11/28/2018 11:28:25 AM From: Jamia Duron RN, CCDS Admit Date: 11/26/2018 5:10:00 PM Patient Name: Li Santamaria Visit Number: [id number] ATTENTION: The Clinical Documentation Specialists (CDI) and [facility] Coding Staff appreciate your assistance in clarifying documentation. Please respond to the clarification below the line at the bottom and electronically sign. The CDI & [facility] Coding staff will review the response and follow-up if needed. Please note: Queries are made part of the Legal Health Record. If you have any questions, please contact the author of this message via ITS. Dr. Viramontes Sheet A declining Hgb and Hct hve been noted and lacks specificity to accurately reflect your patients severity of condition and clarification is needed. History/Risk Factors: CKD Stage 3, Hx of PE on Eliquis, New onset dyspnea Clinical indicators: Hemoglobin: 10.9/10.7 Hematocrit: 34.4/34.2 Treatment: Labs AM Daily IVF @ 75 cc/hr In order to capture the severity of condition, please clarify the clincal significance of the low Hgb and etiology if known: Acute on chronic blood loss anemia Chronic blood loss anemia Iron deficiency anemia Drug induced anemia Nutritional anemia Anemia of chronic kidney disease Unable to determine Other, please specify (Last Revision: November 2016) Unable to determine now MTDD
[2018-11-28] MEDS ORDERED: VANCOMYCIN 2,000 MG in SODIUM CHLORIDE 0.9% 500 ML 500 ML IVPB SCH (12:00)
[2018-11-28 13:26] LABS: Appearance,Urine Clear (Clear); Bilirubin,Urine Negative (Negative); Blood,Urine Negative (Negative); Color,Urine Light Yellow; Glucose,Urine (UA) Negative (Negative); Ketones,Urine Negative (Negative); Leukocyte Esterase,Urine Negative (Negative); Nitrite,Urine Negative (Negative); Protein,Urine Negative (Negative); Specific Gravity,Urine 1.007 (1.001-1.035); Urobilinogen,Urine <2.0 mg/dL (<2.0)
[2018-11-28 17:43] LABS: Rheumatoid Factor <4 IU/mL (0-15)
--- NOTE | 2018-11-28 20:29 | P.PN ---
Progress Note - Text Progress Note Date: 11/28/18 SUBJECTIVE/INTERVAL EVENTS: No acute overnight events. Patient has been doing better. Her LE strength is improving, and she was able to actually take several steps today. Denies any headache, nausea, vomiting. PHYSICAL EXAMINATION: VITAL SIGNS: T 98.4 HR 77 RR 18 BP 152/71 O2 sat 95% on RA GEN.: Morbid obesity, NAD, pleasant and cooperative HEENT: NCAT, sclera without icterus NECK: Supple SKIN AND EXTREMITIES: Warm to touch, no edema NEURO: MENTAL STATUS: Patient alert and oriented to self, place, time. Able to name the current president. Speech fluent, able to name and repeat, following all commands readily. No right and left disorientation, neglect. CRANIAL NERVES II THROUGH XII: II: Pupils are equal and reactive to light symmetrically. No afferent pupillary defect. Visual avendaño are intact. III, IV, : No ptosis. Extraocular movements full. No nystagmus. V: Facial sensation intact from V1-3. VII. No clear facial asymmetry. VIII: Hearing intact to finger rub bilaterally. IX, X: Symmetric palate elevation. XI: Shoulder shrug intact. XII: Tongue midline without fasciculation or atrophy. MOTOR: Normal bulk/tone. No pronator drift or tremor. Strength is in b/l UE. LE hip flexor/extensor, knee flexor/extensor, plantarflexion/dorsiflexion at least 4+/5 strength. Patient able to lift b/l LE against gravity while lying down. Did not walk her today. SENSORY: Intact to light touch in all 4 extremities. REFLEXES: mute throughout. Toes are mute. No clonus. COORDINATION: Finger to nose intact. No dysmetria. DIAGNOSTIC TESTING: LABORATORY: WBC 8.1 hemoglobin 10.9 platelet 213 sodium 139 potassium 3.7 chloride 110 bicarb 24 BUN 20 creatinine 1.28 glucose 144 ESR 72 CRP 27.3 CK, CARRILLO positive, RF <4, TSH 6.5 fT4 1.42 OT 156.5 (H) AST 21 ALT 17 AlkPhos 53 IMAGING: No brain imaging available at this time. ASSESSMENT: Ms. Santamaria is a 73-year-old female past medical history of hypertension, pulmonary embolus, cellulitis, presenting with sudden onset difficulty LE weakness. Patient with difficulty standing up from sitting position along with taking steps forward even in the setting of patient having at least 4+/5 s trength in different LE muscle groups. High on the differential at this time is myopathy, and differential for myopathy include inflammatory (such as polymyositis, dermatomyositis, inclusion body myositis), infection, toxic (such as steroids, statins, EtOH, amiodarone, etc) and systemic (such as thyroid disorder, autoimmune, amyloid). highest on my differential at this time is inflammatory etiology of myopathy, but we would need EMG/NCS along with muscle biopsy for diagnosis. Patient with more proximal than distal LE weakness. Patient with no rash other than her LE cellulitis bilaterally. Patient's strength is improving. Patient is currently getting treated for UTI, and as such, would start steroid treatment as outpatient. RECOMMENDATIONS: 1. ESR/CRP/parathyroid hormone high, CARRILLO reactive, RF neg, TSH high but fT4 normal, LFT unremarkable; awaiting CK level 2. Patient will need follow up with neurology within 1-2 weeks of discharge, especially for EMG/NCS and muscle biopsy and possible steroid treatment 3. PT/OT 4. Neurology will continue to follow.
[2018-11-28] MEDS: ASPIRIN 81 MG PO SCH (21:52)
[2018-11-28] MEDS: ATORVASTATIN 10 MG TAB PO SCH (21:52)
[2018-11-28] MEDS ORDERED: VANCOMYCIN 1,750 MG in SODIUM CHLORIDE 0.9% 500 ML 500 ML IVPB SCH (22:00)
[2018-11-28] MEDS: CEFEPIME 1 GM in SODIUM CHLORIDE 0.9% 50 ML IVPB SCH (22:19)
[2018-11-29] MEDS: SODIUM CHLORIDE 0.9% 1,000 ML IV SCH (04:40)
[2018-11-29] MEDS: CARVEDILOL 6.25 MG TAB PO SCH ×2 (07:05→16:58)
[2018-11-29] MEDS: CYANOCOBALAMIN 500 MCG TAB PO SCH (07:05)
[2018-11-29] MEDS: FAMOTIDINE 20 MG TAB PO SCH (07:05)
[2018-11-29] MEDS: FUROSEMIDE 20 MG TAB PO SCH (07:06)
[2018-11-29] MEDS: NYSTATIN 100,000UNIT/GM CREAM 30 GM TUBE TOPICAL SCH ×3 (07:06→21:23)
[2018-11-29] MEDS: LOSARTAN 25 MG TAB PO SCH (07:06)
[2018-11-29] MEDS: MULTIVITAMINS, THERA 1 EACH TAB PO SCH (07:06)
[2018-11-29] MEDS: APIXABAN 5 MG TAB PO SCH ×2 (07:06→21:19)
--- NOTE | 2018-11-29 09:16 | P.PN ---
Subjective Li Bradley 73 y.o.femaleadmitted to the hospital with cellulitis of bilateral lower extremities.Patient states she has had chronic cellulitis of her bilateral lower extremities ongoing since July. States 2 days ago her lower extremities became weak, and she is not ambulatory. Also noticed increasing redness of bilateral lower extremities at this time. Denies leg pain. Elevated lactic acid at 3.1, started on IV rehydration, lactic acid improved to 1.1. White count elevated 11.5 on admission.Did have fever 101during hospitaliz ation of 1.1, currently afebrile. Receiving antimicrobial therapy with vancomycin and Zosyn. Patient is maintained on anticoagulation with Eliquis, currently on 10 mg twice daily has history of pulmonary embolism. Creatinine elevated to 1.4 on admission, unsure of previous baseline, did improve to 1.3 with IV rehydration. Patient is maintained on Lasix 20 mg daily at home. Due to patient's bilateral lower extremity weakness patient will be transferred to [facility] with neurology consultation. Also recommend consultation to infectious disease. Currently hemodynamically stable. Blood cultures were collected, currently pending. Infectious disease team already evaluated the patient and recommended to continue with vancomycin and Zosyn or cefepime. On admission her creatinine was 1.3, went up to 1.4 and today is 1.2, nephrology consult is been called also. Anesthesia/sedation showing normal WBC as came back to normal at 8.28, hemoglobin 10.9, creatinine 1.2, echo is within normal limits. Blood culture has been sent 11/28/2018 Patient is a little short of breath today, however she denies chest pain or abdominal pain, no coughing. No change in urine or bowel habits. She says that she can move her legs little bit better today. She is currently on antibiotics as per ID team for her bilateral lower extremity with cellulitis. Vitals are stable and patient is afebrile. Labs from today are still pending. Nephrology input is appreciated she recommended a bladder scan and urinalysis. Continue with Cozaar on gentle hydration will monitor vancomycin. Risk of nephrotoxicity is explained to the patient and Mr. Sparks son at bedside yesterday and both agre ed to continue with antibiotics for now. Patient is currently on cefepime and vancomycin given her prior history of similar denies and MRSA as per infectious disease recommendation. 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 11/29/2018 Patient is breathing quietly. She is awake and oriented. She denies chest pain or abdominal pain. Her both lower legs are still treated with broad-spectrum antibiotics per infectious disease Bill is place, however her weakness in her both lower extremity most likely from myopathy are improving. Yesterday patient could use a walker and walk to the chair for some distance which sounds and she could not do her coming to the hospital and she is happy about that. Neurology team R following the case for her lower extremity weakness and recommended an neurology follow-up as an outpatient. However given the complex medical course of the patient she might benefit from ECF for rehab upon discharge. Currently patient is hemodynamically stable and her labs show no elvia kocytosis and creatinine down to 1.1 yesterday, repeat labs from today are pending. C-reactive protein and ESR are elevated. Wound culture is growing staph and beta-hemolytic streptococcus Objective - Vital Signs Vital signs: Vital Signs Temp 98.1 F 11/29/18 05:25 Pulse 80 11/29/18 05:25 Resp 18 11/29/18 05:25 BP 155/74 11/29/18 05:25 Pulse Ox 93 L 11/29/18 05:25 Intake & Output 11/28/18 11/29/18 11/29/18 18:59 06:59 18:59 Other: Voiding Method Bedside Commode Bedside Commode Bedside Commode # Voids 0 1 2 # Bowel Movements 1 1 - Exam GENERAL: The patient is alert and oriented x3, not in any acute distress. Well developed, well nourished. HEENT: Pupils are round and equally reacting to light. EOMI. No scleral icterus. No conjunctival pallor. Normocephalic, atraumatic. No pharyngeal erythema. No thyromegaly. CARDIOVASCULAR: S1 and S2 present. No murmurs, rubs, or gallops. PULMONARY: Chest is clear to auscultation, no wheezing or crackles. ABDOMEN: Soft, nontender, nondistended, normoactive bowel sounds. No palpable organomegaly. MUSCULOSKELETAL: No joint swelling or deformity. -EXTREMITIES: No cyanosis, clubbing, or pedal edema. Bilateral leg cellulitis with oozing once throughout both legs between the knee and ankles, with dry scaling NEUROLOGICAL: Gross neurological examination did not reveal any focal deficits. SKIN: No rashes. No petechiae - Labs CBC & Chem 7: 11/28/18 08:24 11/28/18 08:24 Labs: Abnormal Lab Results - Last 24 Hours (Table) 11/28/18 11/28/18 11/28/18 Range/Units 08:24 08:24 08:24 Chloride 110 H (98-107) mmol/L BUN 19 H (7-17) mg/dL Creatinine 1.18 H (0.52-1.04) mg/dL Glucose 113 H (74-99) mg/dL Calcium 7.9 L (8.4-10.2) mg/dL C-Reactive Protein 27.3 H (<10.0) mg/L Total Protein 5.6 L (6.3-8.2) g/dL Albumin 2.5 L (3.5-5.0) g/dL TSH 6.500 H (0.465-4.680) mIU/L PTH Intact 156.5 H (14.0-72.0) pg/mL CARRILLO Screen POSITIVE H (NEGATIVE) Microbiology - Last 24 Hours (Table) 11/27/18 00:00 Gram Stain - Preliminary Leg - Left Wound Culture - Preliminary Beta Hemolytic Strep Group G 11/27/18 00:00 Gram Stain - Preliminary Leg - Right Wound Culture - Preliminary Presumptive Staph aureus Beta Hemolytic Strep Group G Assessment and Plan Assessment: Cellulitis of both legs Weakness of both legs, 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 Resolved Essential hypertension Morbid obesity Hyperlipidemia Chronic kidney disease, stage III History of PE on Eliquis Plan: This is a pleasant 73 years old female who presents with bilateral lower leg cellulitis and weakness. Follow-up recommendation from infectious, nephrology and neurology consultation. Continue with antibiotics. Continue with IV fluids and gentle hydration. Follow-up culture results. Monitor creatinine closely. Monitor vancomycin closely. Follow-up neurology recommendation with workup Labs and medication were reviewed.. Continue same treatment. Continue with symptomatic treatment. Resume home medication. Monitor lytes and vitals. DVT and GI prophylaxis. Further recommendations of the clinical course of the patient DVT prophylaxis: Eliquis GI Prophylaxis: Pepcid PT/OT: Pending Prognosis is guarded
[2018-11-29 09:22] LABS: Basophils % (A) 0 %; Eosinophils # (A) 0.6 k/uL (0-0.7); Eosinophils % (A) 7 %; HCT 33.3 % (34.0-46.0); HGB 10.3 gm/dL (11.4-16.0); Lymphocytes % (A) 12 %; MCH 29.6 pg (25.0-35.0); MCHC 30.9 g/dL (31.0-37.0); MCV 95.6 fL (80.0-100.0); Mean Platelet Volume 6.4; Monocytes # (A) 0.4 k/uL (0-1.0); Monocytes % (A) 5 %; Neutrophils # (A) 6.4 k/uL (1.3-7.7); Neutrophils % (A) 74 %; Platelet Count 212 k/uL (150-450); RBC 3.48 m/uL (3.80-5.40); RDW 14.3 % (11.5-15.5); WBC 8.7 k/uL (3.8-10.6)
[2018-11-29 09:31] LABS: Calcium 7.6 mg/dL (8.4-10.2); Potassium 3.8 mmol/L (3.5-5.1)
--- NOTE | 2018-11-29 09:53 | P.PN ---
Progress Note - Text Progress Note Date: 11/29/18 SUBJECTIVE/INTERVAL EVENTS: No acute overnight events. Patient doing well. Denies any worsening weakness, numbness or tingling. Patient with difficulty sitting up but she was able to sit up on her own. Patient able to take at least 10 steps on her own with a walker, which she was not able to do 2 days ago. PHYSICAL EXAMINATION: VITAL SIGNS: T 98.1 H$ 80 RR 18 BP 155/74 O2 sat 93% on RA GEN.: Morbid obesity, NAD, pleasant and cooperative HEENT: NCAT, sclera without icterus NECK: Supple SKIN AND EXTREMITIES: Warm to touch, no edema NEURO: MENTAL STATUS: Patient alert and oriented to self, place, time. Able to name the current president. Speech fluent, able to name and repeat, following all commands readily. No right and left disorientation, neglect. CRANIAL NERVES II THROUGH XII: II: Pupils are equal and reactive to light symmetrically. No afferent pupillary defect. Visual avendaño are intact. III, IV, : No ptosis. Extraocular movements full. No nystagmus. V: Facial sensation intact from V1-3. VII. No clear facial asymmetry. VIII: Hearing intact to finger rub bilaterally. IX, X: Symmetric palate elevation. XI: Shoulder shrug intact. XII: Tongue midline without fasciculation or atrophy. MOTOR: Normal bulk/tone. No pronator drift or tremor. Strength is in b/l UE. LE hip flexor/extensor, knee flexor/extensor, plantarflexion/dorsiflexion at least 4+/5 strength. Patient able to lift b/l LE against gravity while lying down. Did not walk her today. SENSORY: Intact to light touch in all 4 extremities. REFLEXES: mute throughout. Toes are mute. No clonus. COORDINATION: Finger to nose intact. No dysmetria. DIAGNOSTIC TESTING: LABORATORY: WBC 8.1 hemoglobin 10.9 platelet 213 sodium 139 potassium 3.7 chloride 110 bicarb 24 BUN 20 creatinine 1.28 glucose 144 ESR 72 CRP 27.3 CK, CARRILLO positive, RF <4, TSH 6.5 fT4 1.42 OT 156.5 (H) AST 21 ALT 17 AlkPhos 53 CK 1.2 IMAGING: No brain imaging available at this time. ASSESSMENT: Ms. Santamaria is a 73-year-old female past medical history of hypertension, pulmonary embolus, cellulitis, presenting with sudden onset difficulty LE weakness. Patient with difficulty standing up from sitting position along with taking steps forward even in the setting of patient having at least 4+/5 strength in different LE muscle groups. High on the differential at this time is myopathy, and differential for myopathy include inflammatory (such as polymyositis, dermatomyositis, inclusion body myositis), infection, toxic (such as steroids, statins, EtOH, amiodarone, etc) and systemic (such as thyroid disorder, autoimmune, amyloid). highest on my differential at this time is inflammatory etiology of myopathy, but we would need EMG/NCS along with muscle biopsy for diagnosis. Patient with more proximal than distal LE weakness. Patient with no rash other than her LE cellulitis bilaterally. Patient's strength is improving. CK is normal, myopathy lower on the differential at this time and higher on the differential is her cellulitis causing generalized LE weakness. Patient is currently getting treated for UTI RECOMMENDATIONS: 1. ESR/CRP/parathyroid hormone high, CARRILLO reactive, RF neg, TSH high but fT4 normal, LFT unremarkable; CK normal 2. Patient will need follow up with neurology within 1-2 weeks of discharge, especially for EMG/NCS and muscle biopsy 3. PT/OT 4. Neurology will sign off at this time. Neurology is not available over the weekend in-house. However, feel free to [employer] message me over the weekend if you have any questions or concerns
[2018-11-29 12:13] LABS: ANA Pattern Speckled
[2018-11-29] MEDS: VANCOMYCIN 2,000 MG in SODIUM CHLORIDE 0.9% 500 ML 500 ML IVPB SCH (13:36)
--- NOTE | 2018-11-29 18:26 | PN ---
PROGRESS NOTE Patient is seen for followup for acute kidney injury. Patient was admitted to the hospital with cellulitis. She is maintained on antibiotics. Renal function has been improving. Creatinine is down from 1.4 to 1.01 mg/dL. Patient is maintained on vancomycin. Levels have not been high. On examination, blood pressure this morning was 155/74, heart rate 80 per minute. Patient is afebrile. EXAMINATION OF THE HEART: S1 and S2. EXAMINATION OF LUNGS: Bilateral breath sounds are heard. ABDOMEN: Soft, obese. Examination of lower extremities shows bilateral extremities to be wrapped. Labs show sodium 139, potassium 3.8, BUN 18, creatinine 1.01, calcium 7.6, hemoglobin 10.3 g/dL. ASSESSMENT: 1. Acute kidney injury secondary to underlying infection, currently improved. May continue with the low-dose angiotensin receptor blockers, as blood pressure is not low and renal function continues to improve. We may also continue with the vancomycin with close monitoring of levels. 2. Lower extremity cellulitis, maintained on antibiotics. 3. Morbid obesity. PLAN: Encourage increased oral intake. Discontinue IV fluids. Hold off on Lasix as well. Repeat labs in a.m. Monitor vancomycin levels closely. MMODL / IJN: [id number] /
[2018-11-29] MEDS: ATORVASTATIN 10 MG TAB PO SCH (21:19)
[2018-11-29] MEDS: ASPIRIN 81 MG PO SCH (21:19)
[2018-11-29] MEDS: CEFEPIME 1 GM in SODIUM CHLORIDE 0.9% 50 ML IVPB SCH (23:36)
[2018-11-30 07:52] LABS: Calcium 7.9 mg/dL (8.4-10.2); Potassium 3.8 mmol/L (3.5-5.1)
[2018-11-30] MEDS: MULTIVITAMINS, THERA 1 EACH TAB PO SCH (08:11)
[2018-11-30] MEDS: CYANOCOBALAMIN 500 MCG TAB PO SCH (08:11)
[2018-11-30] MEDS: FAMOTIDINE 20 MG TAB PO SCH (08:11)
[2018-11-30] MEDS: APIXABAN 5 MG TAB PO SCH ×2 (08:11→21:39)
[2018-11-30] MEDS: LOSARTAN 25 MG TAB PO SCH (08:11)
[2018-11-30] MEDS: CARVEDILOL 6.25 MG TAB PO SCH ×2 (08:11→17:37)
[2018-11-30] MEDS: NYSTATIN 100,000UNIT/GM CREAM 30 GM TUBE TOPICAL SCH ×3 (10:00→21:39)
--- NOTE | 2018-11-30 10:38 | P.PN ---
Subjective Patient is seen in follow for acute kidney injury. Renal function is fairly stable. Oral intake is good. No vomiting or diarrhea. Denies chest pain or shortness of breath. Vital signs are stable. General: The patient appeared well nourished and normally developed. HEENT: Head exam is unremarkable. Neck is without jugular venous distension. LUNGS: Lungs are clear to auscultation and percussion. Breath sounds decreased. HEART: Rate and Rhythm are regular. First and second heart sounds normal. No murmurs, rubs or gallops. ABDOMEN: Abdominal exam reveals normal bowel sounds. Non-tender and non- distended. Obese. EXTREMITITES: Trace edema. Chronic changes noted. Objective - Vital Signs Vital signs: Vital Signs Temp 98.6 F 11/30/18 07:00 Pulse 83 11/30/18 07:00 Resp 16 11/30/18 07:00 BP 175/71 11/30/18 07:00 Pulse Ox 95 11/30/18 07:00 Intake & Output 11/29/18 11/30/18 11/30/18 18:59 06:59 18:59 Intake Total 540 Balance 540 Intake: Oral 540 Other: Voiding Method Bedside Commode Bedside Commode # Voids 1 1 1 # Bowel Movements 1 - Labs CBC & Chem 7: 11/29/18 08:45 11/30/18 07:12 Labs: Abnormal Lab Results - Last 24 Hours (Table) 11/30/18 Range/Units 07:12 Chloride 110 H (98-107) mmol/L Creatinine 1.09 H (0.52-1.04) mg/dL Calcium 7.9 L (8.4-10.2) mg/dL Microbiology - Last 24 Hours (Table) 11/27/18 00:00 Anaerobic Culture - Preliminary Leg - Right 11/27/18 00:00 Gram Stain - Final Leg - Left Wound Culture - Final Beta Hemolytic Strep Group G 11/27/18 00:00 Gram Stain - Final Leg - Right Wound Culture - Final Staphylococcus aureus Beta Hemolytic Strep Group G Assessment and Plan Plan: Assessment: 1. Acute kidney injury mostly prerenal secondary to infection. Renal function stable. Urinalysis benign. 2. Lower extremity cellulitis maintained on antibiotics. 3. Morbid obesity. 4. Benign hypertension. Controlled. Plan: Remains off IV fluids and diuretics. Continue to monitor renal function and urine output. Monitor vancomycin levels.
--- NOTE | 2018-11-30 12:13 | P.PN ---
Subjective Li Bradley 73 y.o.femaleadmitted to the hospital with cellulitis of bilateral lower extremities.Patient states she has had chronic cellulitis of her bilateral lower extremities ongoing since July. States 2 days ago her lower extremities became weak, and she is not ambulatory. Also noticed increasing redness of bilateral lower extremities at this time. Denies leg pain. Elevated lactic acid at 3.1, started on IV rehydration, lactic acid improved to 1.1. White count elevated 11.5 on admission.Did have fever 101during hospitaliz ation of 1.1, currently afebrile. Receiving antimicrobial therapy with vancomycin and Zosyn. Patient is maintained on anticoagulation with Eliquis, currently on 10 mg twice daily has history of pulmonary embolism. Creatinine elevated to 1.4 on admission, unsure of previous baseline, did improve to 1.3 with IV rehydration. Patient is maintained on Lasix 20 mg daily at home. Due to patient's bilateral lower extremity weakness patient will be transferred to [facility] with neurology consultation. Also recommend consultation to infectious disease. Currently hemodynamically stable. Blood cultures were collected, currently pending. Infectious disease team already evaluated the patient and recommended to continue with vancomycin and Zosyn or cefepime. On admission her creatinine was 1.3, went up to 1.4 and today is 1.2, nephrology consult is been called also. Anesthesia/sedation showing normal WBC as came back to normal at 8.28, hemoglobin 10.9, creatinine 1.2, echo is within normal limits. Blood culture has been sent 11/28/2018 Patient is a little short of breath today, however she denies chest pain or abdominal pain, no coughing. No change in urine or bowel habits. She says that she can move her legs little bit better today. She is currently on antibiotics as per ID team for her bilateral lower extremity with cellulitis. Vitals are stable and patient is afebrile. Labs from today are still pending. Nephrology input is appreciated she recommended a bladder scan and urinalysis. Continue with Cozaar on gentle hydration will monitor vancomycin. Risk of nephrotoxicity is explained to the patient and Mr. Sparks son at bedside yesterday and both agre ed to continue with antibiotics for now. Patient is currently on cefepime and vancomycin given her prior history of similar denies and MRSA as per infectious disease recommendation. 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 11/29/2018 Patient is breathing quietly. She is awake and oriented. She denies chest pain or abdominal pain. Her both lower legs are still treated with broad-spectrum antibiotics per infectious disease Bill is place, however her weakness in her both lower extremity most likely from myopathy are improving. Yesterday patient could use a walker and walk to the chair for some distance which sounds and she could not do her coming to the hospital and she is happy about that. Neurology team R following the case for her lower extremity weakness and recommended an neurology follow-up as an outpatient. However given the complex medical course of the patient she might benefit from ECF for rehab upon discharge. Currently patient is hemodynamically stable and her labs show no elvia kocytosis and creatinine down to 1.1 yesterday, repeat labs from today are pending. C-reactive protein and ESR are elevated. Wound culture is growing staph and beta-hemolytic streptococcus 11/30/2018 Patient lower extremity are significantly improving and her erythema and inflammation are regressing. Patient states that her gait is improving gradually and now she is up to 50% of her usual state. Vital signs stable. Creatinine 1.09 and her IV fluids and Lasix were held. A culture of the wound is showing staph aureus with beta-hemolytic streptococcus. Rest of the cultures are pending to finalize. Chest x-ray is of poor inspiration quality. Patient remains on Eliquis as well as IV vancomycin and cefepime. Objective - Vital Signs Vital signs: Vital Signs Temp 98.6 F 11/30/18 07:00 Pulse 83 11/30/18 07:00 Resp 16 11/30/18 07:00 BP 175/71 11/30/18 07:00 Pulse Ox 95 11/30/18 07:00 Intake & Output 11/29/18 11/30/18 11/30/18 18:59 06:59 18:59 Intake Total 540 Balance 540 Intake: Oral 540 Other: Voiding Method Bedside Commode Bedside Commode # Voids 1 1 1 # Bowel Movements 1 - Exam GENERAL: The patient is alert and oriented x3, not in any acute distress. Well developed, well nourished. HEENT: Pupils are round and equally reacting to light. EOMI. No scleral icterus. No conjunctival pallor. Normocephalic, atraumatic. No pharyngeal erythema. No thyromegaly. CARDIOVASCULAR: S1 and S2 present. No murmurs, rubs, or gallops. PULMONARY: Chest is clear to auscultation, no wheezing or crackles. ABDOMEN: Soft, nontender, nondistended, normoactive bowel sounds. No palpable organomegaly. MUSCULOSKELETAL: No joint swelling or deformity. -EXTREMITIES: No cyanosis, clubbing, or pedal edema. Bilateral leg cellulitis with oozing once throughout both legs between the knee and ankles, with dry scaling, improvement NEUROLOGICAL: Gross neurological examination did not reveal any focal deficits. SKIN: No rashes. No petechiae - Labs CBC & Chem 7: 11/29/18 08:45 11/30/18 07:12 Labs: Abnormal Lab Results - Last 24 Hours (Table) 11/30/18 Range/Units 07:12 Chloride 110 H (98-107) mmol/L Creatinine 1.09 H (0.52-1.04) mg/dL Calcium 7.9 L (8.4-10.2) mg/dL Microbiology - Last 24 Hours (Table) 11/27/18 00:00 Anaerobic Culture - Preliminary Leg - Right 11/27/18 00:00 Gram Stain - Final Leg - Left Wound Culture - Final Beta Hemolytic Strep Group G 11/27/18 00:00 Gram Stain - Final Leg - Right Wound Culture - Final Staphylococcus aureus Beta Hemolytic Strep Group G Assessment and Plan Assessment: Cellulitis of both legs. 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 Resolved Essential hypertension Morbid obesity Hyperlipidemia Chronic kidney disease, stage III History of PE on Eliquis Plan: This is a pleasant 73 years old female who presents with bilateral lower leg cellulitis and weakness. Follow-up recommendation from infectious, nephrology and neurology consultation. Continue with antibiotics. Continue with IV fluids and gentle hydration. Follow-up culture results. Monitor creatinine closely. Monitor vancomycin closely. Follow-up neurology recommendation with workup Labs and medication were reviewed.. Continue same treatment. Continue with symptomatic treatment. Resume home medication. Monitor lytes and vitals. DVT and GI prophylaxis. Further recommendations of the clinical course of the patient DVT prophylaxis: Eliquis GI Prophylaxis: Pepcid PT/OT: Pending Prognosis is guarded
[2018-11-30] MEDS: VANCOMYCIN 2,000 MG in SODIUM CHLORIDE 0.9% 500 ML 500 ML IVPB SCH (12:21)
[2018-11-30] MEDS: ASPIRIN 81 MG PO SCH (21:39)
[2018-11-30] MEDS: ATORVASTATIN 10 MG TAB PO SCH (21:39)
[2018-12-01] MEDS: CEFEPIME 1 GM in SODIUM CHLORIDE 0.9% 50 ML IVPB SCH ×2 (00:47→22:11)
[2018-12-01 06:04] LABS: Calcium 7.8 mg/dL (8.4-10.2); Potassium 3.9 mmol/L (3.5-5.1)
[2018-12-01] MEDS: FAMOTIDINE 20 MG TAB PO SCH (08:43)
[2018-12-01] MEDS: LOSARTAN 25 MG TAB PO SCH (08:43)
[2018-12-01] MEDS: CARVEDILOL 6.25 MG TAB PO SCH ×2 (08:43→17:47)
[2018-12-01] MEDS: MULTIVITAMINS, THERA 1 EACH TAB PO SCH (08:43)
[2018-12-01] MEDS: APIXABAN 5 MG TAB PO SCH ×2 (08:44→22:02)
[2018-12-01] MEDS: CYANOCOBALAMIN 500 MCG TAB PO SCH (08:44)
[2018-12-01] MEDS: NYSTATIN 100,000UNIT/GM CREAM 30 GM TUBE TOPICAL SCH ×3 (08:44→22:02)
--- NOTE | 2018-12-01 10:50 | P.PN ---
Subjective Patient is seen in follow for acute kidney injury. Renal function is better. Oral intake is good. No vomiting or diarrhea. Denies chest pain or shortness of breath. No active complaints at this time. Vital signs are stable. General: The patient appeared well nourished and normally developed. HEENT: Head exam is unremarkable. Neck is without jugular venous distension. LUNGS: Lungs are clear to auscultation and percussion. Breath sounds decreased. HEART: Rate and Rhythm are regular. First and second heart sounds normal. No murmurs, rubs or gallops. ABDOMEN: Abdominal exam reveals normal bowel sounds. Non-tender and non- distended. Obese. EXTREMITITES: Trace edema. Chronic changes noted. Objective - Vital Signs Vital signs: Vital Signs Temp 97.8 F 12/01/18 04:30 Pulse 84 12/01/18 04:30 Resp 20 12/01/18 04:30 BP 158/75 12/01/18 04:30 Pulse Ox 97 12/01/18 04:30 Intake & Output 11/30/18 12/01/18 12/01/18 18:59 06:59 18:59 Other: Voiding Method Bedside Commode # Voids 0 3 1 # Bowel Movements 0 1 - Labs CBC & Chem 7: 11/29/18 08:45 12/01/18 05:17 Labs: Abnormal Lab Results - Last 24 Hours (Table) 12/01/18 Range/Units 05:17 Chloride 111 H (98-107) mmol/L BUN 18 H (7-17) mg/dL Glucose 105 H (74-99) mg/dL Calcium 7.8 L (8.4-10.2) mg/dL Microbiology - Last 24 Hours (Table) 11/27/18 00:00 Anaerobic Culture - Final Leg - Left 11/27/18 00:00 Anaerobic Culture - Final Leg - Right Assessment and Plan Plan: Assessment: 1. Acute kidney injury mostly prerenal secondary to infection. Renal function stable. Urinalysis benign. 2. Lower extremity cellulitis maintained on antibiotics. 3. Morbid obesity. 4. Benign hypertension. Blood pressure has been on the higher side. Plan: Remains off IV fluids and diuretics. Continue to monitor renal function and urine output. Monitor vancomycin levels. Increase Cozaar to 50 mg daily.
[2018-12-01] MEDS ORDERED: VANCOMYCIN TROUGH DUE 1 EACH MISC MISCELLANE ONE (11:00)
--- NOTE | 2018-12-01 11:57 | P.PN ---
Subjective Li Bradley 73 y.o.femaleadmitted to the hospital with cellulitis of bilateral lower extremities.Patient states she has had chronic cellulitis of her bilateral lower extremities ongoing since July. States 2 days ago her lower extremities became weak, and she is not ambulatory. Also noticed increasing redness of bilateral lower extremities at this time. Denies leg pain. Elevated lactic acid at 3.1, started on IV rehydration, lactic acid improved to 1.1. White count elevated 11.5 on admission.Did have fever 101during hospitaliz ation of 1.1, currently afebrile. Receiving antimicrobial therapy with vancomycin and Zosyn. Patient is maintained on anticoagulation with Eliquis, currently on 10 mg twice daily has history of pulmonary embolism. Creatinine elevated to 1.4 on admission, unsure of previous baseline, did improve to 1.3 with IV rehydration. Patient is maintained on Lasix 20 mg daily at home. Due to patient's bilateral lower extremity weakness patient will be transferred to [facility] with neurology consultation. Also recommend consultation to infectious disease. Currently hemodynamically stable. Blood cultures were collected, currently pending. Infectious disease team already evaluated the patient and recommended to continue with vancomycin and Zosyn or cefepime. On admission her creatinine was 1.3, went up to 1.4 and today is 1.2, nephrology consult is been called also. Anesthesia/sedation showing normal WBC as came back to normal at 8.28, hemoglobin 10.9, creatinine 1.2, echo is within normal limits. Blood culture has been sent 11/28/2018 Patient is a little short of breath today, however she denies chest pain or abdominal pain, no coughing. No change in urine or bowel habits. She says that she can move her legs little bit better today. She is currently on antibiotics as per ID team for her bilateral lower extremity with cellulitis. Vitals are stable and patient is afebrile. Labs from today are still pending. Nephrology input is appreciated she recommended a bladder scan and urinalysis. Continue with Cozaar on gentle hydration will monitor vancomycin. Risk of nephrotoxicity is explained to the patient and Mr. Sparks son at bedside yesterday and both agre ed to continue with antibiotics for now. Patient is currently on cefepime and vancomycin given her prior history of similar denies and MRSA as per infectious disease recommendation. 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 11/29/2018 Patient is breathing quietly. She is awake and oriented. She denies chest pain or abdominal pain. Her both lower legs are still treated with broad-spectrum antibiotics per infectious disease [facility] is place, however her weakness in her both lower extremity most likely from myopathy are improving. Yesterday patient could use a walker and walk to the chair for some distance which sounds and she could not do her coming to the hospital and she is happy about that. Neurology team R following the case for her lower extremity weakness and recommended an neurology follow-up as an outpatient. However given the complex medical course of the patient she might benefit from ECF for rehab upon discharge. Currently patient is hemodynamically stable and her labs show no elvia kocytosis and creatinine down to 1.1 yesterday, repeat labs from today are pending. C-reactive protein and ESR are elevated. Wound culture is growing staph and beta-hemolytic streptococcus 11/30/2018 Patient lower extremity are significantly improving and her erythema and inflammation are regressing. Patient states that her gait is improving gradually and now she is up to 50% of her usual state. Vital signs stable. Creatinine 1.09 and her IV fluids and Lasix were held. A culture of the wound is showing staph aureus with beta-hemolytic streptococcus. Rest of the cultures are pending to finalize. Chest x-ray is of poor inspiration quality. Patient remains on Eliquis as well as IV vancomycin and cefepime. 12/01/2018 Patient keep improving regarding her still O2 sats of her both legs and her walking however is not back to normal or usual state. Vitals are stable and blood pressure 158/78 creatinine is at normal level of 0.9. And vancomycin trough is 16.2.. Nephrology follow-up is appreciated. We'll keep monitoring Objective - Vital Signs Vital signs: Vital Signs Temp 97.8 F 12/01/18 04:30 Pulse 84 12/01/18 04:30 Resp 20 12/01/18 04:30 BP 158/75 12/01/18 04:30 Pulse Ox 97 12/01/18 04:30 Intake & Output 11/30/18 12/01/18 12/01/18 18:59 06:59 18:59 Other: Voiding Method Bedside Commode # Voids 0 3 1 # Bowel Movements 0 1 - Exam GENERAL: The patient is alert and oriented x3, not in any acute distress. Well developed, well nourished. HEENT: Pupils are round and equally reacting to light. EOMI. No scleral icterus. No conjunctival pallor. Normocephalic, atraumatic. No pharyngeal erythema. No thyromegaly. CARDIOVASCULAR: S1 and S2 present. No murmurs, rubs, or gallops. PULMONARY: Chest is clear to auscultation, no wheezing or crackles. ABDOMEN: Soft, nontender, nondistended, normoactive bowel sounds. No palpable organomegaly. MUSCULOSKELETAL: No joint swelling or deformity. -EXTREMITIES: No cyanosis, clubbing, or pedal edema. Bilateral leg cellulitis with oozing once throughout both legs between the knee and ankles, with dry scaling, improvement NEUROLOGICAL: Gross neurological examination did not reveal any focal deficits. SKIN: No rashes. No petechiae - Labs CBC & Chem 7: 11/29/18 08:45 12/01/18 05:17 Labs: Abnormal Lab Results - Last 24 Hours (Table) 12/01/18 Range/Units 05:17 Chloride 111 H (98-107) mmol/L BUN 18 H (7-17) mg/dL Glucose 105 H (74-99) mg/dL Calcium 7.8 L (8.4-10.2) mg/dL Microbiology - Last 24 Hours (Table) 11/27/18 00:00 Anaerobic Culture - Final Leg - Left 11/27/18 00:00 Anaerobic Culture - Final Leg - Right Assessment and Plan Assessment: Cellulitis of both legs. 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 Resolved Essential hypertension Morbid obesity Hyperlipidemia Chronic kidney disease, stage III History of PE on Eliquis Plan: This is a pleasant 73 years old female who presents with bilateral lower leg cellulitis and weakness. Follow-up recommendation from infectious, nephrology and neurology consultation. Continue with antibiotics. Continue with IV fluids and gentle hydration. Follow-up culture results. Monitor creatinine closely. Monitor vancomycin closely. Follow-up neurology recommendation with workup Labs and medication were reviewed.. Continue same treatment. Continue with symptomatic treatment. Resume home medication. Monitor lytes and vitals. DVT and GI prophylaxis. Further recommendations of the clinical course of the patient DVT prophylaxis: Eliquis GI Prophylaxis: Pepcid PT/OT: Pending Prognosis is guarded
[2018-12-01] MEDS: VANCOMYCIN 2,000 MG in SODIUM CHLORIDE 0.9% 500 ML 500 ML IVPB SCH (12:26)
[2018-12-01] MEDS: ASPIRIN 81 MG PO SCH (22:02)
[2018-12-01] MEDS: ATORVASTATIN 10 MG TAB PO SCH (22:02)
[2018-12-02 08:00] LABS: Basophils # (A) 0.1 k/uL (0-0.2); Basophils % (A) 1 %; Eosinophils # (A) 0.7 k/uL (0-0.7); Eosinophils % (A) 7 %; HCT 34.2 % (34.0-46.0); HGB 11.2 gm/dL (11.4-16.0); Lymphocytes # (A) 1.3 k/uL (1.0-4.8); Lymphocytes % (A) 13 %; MCH 30.8 pg (25.0-35.0); MCHC 32.7 g/dL (31.0-37.0); Mean Platelet Volume 6.4; Monocytes # (A) 0.6 k/uL (0-1.0); Monocytes % (A) 6 %; Neutrophils # (A) 6.9 k/uL (1.3-7.7); Neutrophils % (A) 70 %; Platelet Count 255 k/uL (150-450); RBC 3.64 m/uL (3.80-5.40); RDW 14.7 % (11.5-15.5); WBC 9.8 k/uL (3.8-10.6)
[2018-12-02 08:11] LABS: Calcium 8.1 mg/dL (8.4-10.2)
[2018-12-02] MEDS: MULTIVITAMINS, THERA 1 EACH TAB PO SCH (08:11)
[2018-12-02] MEDS: LOSARTAN 50 MG TAB PO SCH (08:11)
[2018-12-02] MEDS: CARVEDILOL 6.25 MG TAB PO SCH ×2 (08:11→16:53)
[2018-12-02] MEDS: APIXABAN 5 MG TAB PO SCH ×2 (08:11→21:57)
[2018-12-02] MEDS: CYANOCOBALAMIN 500 MCG TAB PO SCH (08:11)
[2018-12-02] MEDS: FAMOTIDINE 20 MG TAB PO SCH (08:11)
[2018-12-02] MEDS: NYSTATIN 100,000UNIT/GM CREAM 30 GM TUBE TOPICAL SCH ×2 (08:12→16:53)
[2018-12-02] MEDS: VANCOMYCIN 2,000 MG in SODIUM CHLORIDE 0.9% 500 ML 500 ML IVPB SCH (11:14)
--- NOTE | 2018-12-02 13:46 | PN ---
PROGRESS NOTE Patient is seen for followup for acute kidney injury. Her renal function has improved. She is currently walking with the physical therapy. PHYSICAL EXAMINATION: On examination today, blood pressure was 159/75, heart rate 87 per minute, she is afebrile. Examination shows bilateral extremities to be wrapped. Abdomen is morbidly obese. LABS: Show sodium 141, potassium 4.0, chloride 112, BUN 15, creatinine 0.9, hemoglobin 11.2 g/dL. ASSESSMENT: 1. Acute kidney injury, currently improved. 2. Bilateral lower extremity cellulitis, maintained on antibiotics. 3. Morbid obesity. 4. Hypertension, currently controlled. PLAN: Continue to monitor vancomycin levels closely. May continue with the Cozaar. Once patient is discharged, her labs should be monitored for electrolytes and renal function. MMODL / IJN: [id number] /
--- NOTE | 2018-12-02 21:16 | PN ---
PROGRESS NOTE 73-year-old white female with severe cellulitis of the legs. Remains on IV vancomycin. Dr. Colby apparently saw her and is going to switch to oral antibiotics for discharge tomorrow. She wants to go home. Sitting up in a chair. She has lymphedema type changes. Extreme large amounts of peripheral edema in her legs, in her entire legs and her abdomen area. She remains on diuretics once a day. She states she is back to her baseline. Wants to go home. Her legs looks extremely swollen, red, swollen with scab formation. She has got Otis wraps on. CARDIOVASCULAR: S1, S2. Lungs clear. ASSESSMENT: 1. Lymphedema type changes. 2. Severe cellulitis of the legs. Continue with IV antibiotics. Switch to oral diuretics. Possible discharge home tomorrow. MMODL / IJN: [id number] /
[2018-12-02] MEDS: ASPIRIN 81 MG PO SCH (21:57)
[2018-12-02] MEDS: ATORVASTATIN 10 MG TAB PO SCH (21:57)
[2018-12-02] MEDS: hydrALAZINE HCL 25 MG TAB PO PRN (22:04)
--- NOTE | 2018-12-02 22:16 | P.PN ---
Subjective Progress Note Date: 12/02/18 This is a 73-year-old female currently living at home with her son. She states that Tin morning she woke up and was unable to walk had extreme weakness to her lower extremities bilaterally. She was able to maneuver herself to the bathroom but was unable to get herself off the toilet. She denies having any falls and no recent injuries. She initially presented to [facility] was also found to have cellulitis. She was seen by infectious disease at that time. She presented with lactic acidosis with initial lactic acid 3.1 and a repeat down to 1.1, BUN 20 creatinine 1.3, albumin 1.9, A1c 6.2, hemoglobin 11.4, WBC 10.7 and platelet count 209. At [facility] she received Unasyn, Zosyn and vancomycin and was started on Silvadene wraps. Patient was subsequently transferred to [facility] as a direct admission for neurology consult. There is also consult in for nephrology for acute kidney injury. Wound care consult is also in place. She is currently on cefepime and vancomycin wound culture is in progress. 12/02/2018 the patient is now had a marked improvement. She did develop by neurology in there are plans for her to go home with home PT and OT. Objective - Vital Signs Vital signs: Vital Signs Temp 98.3 F 12/02/18 13:30 Pulse 74 12/02/18 13:30 Resp 16 12/02/18 16:00 BP 172/73 12/02/18 13:30 Pulse Ox 97 12/02/18 13:30 Intake & Output 12/02/18 12/02/18 12/03/18 06:59 18:59 06:59 Intake Total 1530 900 Balance 1530 900 Intake: Intake, IV Titration 150 Amount Cefepime 1 gm In Sodium 150 Chloride 0.9% 50 ml @ 100 mls/hr IVPB Q24H [facility] Rx# :[id number] Oral 1380 900 Other: Voiding Method Bedside Commode Bedside Commode # Voids 2 2 # Bowel Movements 1 - Exam Gen: This is a 73-year-old morbidly obese female. Patient is resting in bed and appears to be comfortable and in no acute distress. HEENT: Head is atraumatic, normocephalic. Pupils equal, round. Sclerae is anicteric. Conjunctiva are pink. Extremities of the mouth are moist. Patient has dentures on the top only. No thrush noted. NECK: Supple. No JVD. No lymphadenopathy. No thyromegaly. LUNGS: Clear to auscultation. No wheezes or rhonchi. No intercostal retractions. HEART: Regular rate and rhythm. No murmur. ABDOMEN: Soft. Bowel sounds are present. No masses. No tenderness. Minimal redness under abdominal apron. EXTREMITIES: 2+ bilateral pedal edema. The bilateral lower extremities evidence of chronic venous stasis with chronic venous stasis changes and some evidence of some chronic ulcerations. Right leg is a few more ulcerations in the left naris and some scant bloody drainage. However the overall edema continues to improve with the Silvadene rolled gauze and Otis wrap therapy that has been utilized. The patient's considerably more comfortable and is pleased that she's had such a marked improvement. NEUROLOGICAL: Patient is awake, alert and oriented x3. the lower extremity weakness has improved - Labs CBC & Chem 7: 12/02/18 07:21 12/02/18 07:21 Labs: Abnormal Lab Results - Last 24 Hours (Table) 12/02/18 12/02/18 Range/Units 07: 07:21 RBC 3.64 L (3.80-5.40) m/uL Hgb 11.2 L (11.4-16.0) gm/dL Chloride 112 H (98-107) mmol/L Glucose 103 H (74-99) mg/dL Calcium 8.1 L (8.4-10.2) mg/dL Laboratory Results WBC 9.8 k/uL (3.8-10.6) 12/02/18 07:21 RBC 3.64 m/uL (3.80-5.40) L 12/02/18 07:21 Hgb 11.2 gm/dL (11.4-16.0) L 12/02/18 07:21 Hct 34.2 % (34.0-46.0) 12/02/18 07:21 MCV 94.0 fL (80.0-100.0) 12/02/18 07:21 MCH 30.8 pg (25.0-35.0) 12/02/18 07:21 MCHC 32.7 g/dL (31.0-37.0) 12/02/18 07:21 RDW 14.7 % (11.5-15.5) 12/02/18 07:21 Plt Count 255 k/uL (150-450) 12/02/18 07:21 Neutrophils % 70 % 12/02/18 07:21 Lymphocytes % 13 % 12/02/18 07:21 Monocytes % 6 % 12/02/18 07:21 Eosinophils % 7 % 12/02/18 07:21 Basophils % 1 % 12/02/18 07:21 Neutrophils # 6.9 k/uL (1.3-7.7) 12/02/18 07:21 Lymphocytes # 1.3 k/uL (1.0-4.8) 12/02/18 07:21 Monocytes # 0.6 k/uL (0-1.0) 12/02/18 07:21 Eosinophils # 0.7 k/uL (0-0.7) 12/02/18 07:21 Basophils # 0.1 k/uL (0-0.2) 12/02/18 07:21 ESR 72 mm/hr (0-20) H 11/27/18 09:19 Sodium 141 mmol/L (137-145) 12/02/18 07:21 Potassium 4.0 mmol/L (3.5-5.1) 12/02/18 07:21 Chloride 112 mmol/L (98-107) H 12/02/18 07:21 Carbon Dioxide 22 mmol/L (22-30) 12/02/18 07:21 Anion Gap 7 mmol/L 12/02/18 07:21 BUN 15 mg/dL (7-17) 12/02/18 07:21 Creatinine 0.90 mg/dL (0.52-1.04) 12/02/18 07:21 Est GFR (CKD-EPI)AfAm 74 (>60 ml/min/1.73 sqM) 12/02/18 07:21 Est GFR (CKD-EPI)NonAf 64 (>60 ml/min/1.73 sqM) 12/02/18 07:21 Glucose 103 mg/dL (74-99) H 12/02/18 07:21 Calcium 8.1 mg/dL (8.4-10.2) L 12/02/18 07:21 Total Bilirubin 0.2 mg/dL (0.2-1.3) 11/28/18 08:24 AST 21 U/L (14-36) 11/28/18 08:24 ALT 17 U/L (9-52) 11/28/18 08:24 Alkaline Phosphatase 53 U/L (38-126) 11/28/18 08:24 CK-MB (CK-2) 1.2 ng/mL (0.0-2.4) 11/29/18 08:45 C-Reactive Protein 27.3 mg/L (<10.0) H 11/28/18 08:24 Total Protein 5.6 g/dL (6.3-8.2) L 11/28/18 08:24 Albumin 2.5 g/dL (3.5-5.0) L 11/28/18 08:24 TSH 6.500 mIU/L (0.465-4.680) H 11/28/18 08:24 Free T4 1.42 ng/dL (0.78-2.19) 11/28/18 08:24 PTH Intact 156.5 pg/mL (14.0-72.0) H 11/28/18 08:24 Urine Color Light Yellow 11/27/18 13:09 Urine Appearance Clear (Clear) 11/27/18 13:09 Urine pH 5.0 (5.0-8.0) 11/27/18 13:09 Ur Specific [place] 1.007 (1.001-1.035) 11/27/18 13:09 Urine Protein Negative (Negative) 11/27/18 13:09 Urine Glucose (UA) Negative (Negative) 11/27/18 13:09 Urine Ketones Negative (Negative) 11/27/18 13:09 Urine Blood Negative (Negative) 11/27/18 13:09 Urine Nitrite Negative (Negative) 11/27/18 13:09 Urine Bilirubin Negative (Negative) 11/27/18 13:09 Urine Urobilinogen <2.0 mg/dL (<2.0) 11/27/18 13:09 Ur Leukocyte Esterase Negative (Negative) 11/27/18 13:09 Vancomycin Trough 16.2 ug/mL 12/01/18 11:10 Random Vancomycin 15.3 ug/mL 11/29/18 08:45 Rheumatoid Factor <4 IU/mL (0-15) 11/28/18 08:24 CARRILLO Screen POSITIVE (NEGATIVE) H 11/28/18 08:24 CARRILLO Titer Titer 1:80 11/28/18 08:24 CARRILLO Pattern Speckled 11/28/18 08:24 Microbiology 11/27/18 00:00 Leg - Left Anaerobic Culture - Final 11/27/18 00:00 Leg - Right Anaerobic Culture - Final 11/27/18 00:00 Leg - Left Gram Stain - Final 11/27/18 00:00 Leg - Left Wound Culture - Final Beta Hemolytic Strep Group G 11/27/18 00:00 Leg - Right Gram Stain - Final 11/27/18 00:00 Leg - Right Wound Culture - Final Staphylococcus aureus Beta Hemolytic Strep Group G Assessment and Plan (1) Bilateral lower leg cellulitis Narrative/Plan: As noted the patient was seen at the outside hospital prior to her transfer to our facility. She is relating that since she has been placed on antibiotic therapy she started to feel somewhat better. Neurologic evaluation is in process. Portion she certainly feels somewhat better. She finds the Silvadene and leg wraps has been extremely helpful for the discomfort to her legs. She believes that she is getting some improved strength. She is denying high-grade fevers chills rigors or sweats. Antibiotic therapy at this time while cultures are processes with cefepime and vancomycin given her prior history and concerns to pseudomonas and MRSA. Her progress will be followed and plans for her ongoing antibiotic therapy. I believe she will be going to rehabilitation and consequently completion of a course of antibiotic therapy should be extremely helpful. December 02 2018 reveals the patient be considerably improved. The edema lower extremities improved. He open ulcerations have improved originally some scant pinpoint areas in the right leg that had some bloody drainage otherwise is improvement of the skin the edema and the discomfort lower extremities. Her weakness is also improved. With culture showing MSSA and strep species will de-escalate antibiotic therapy to Ancef until her discharge. The oral cephalexin 100 mg 8 hours will be utilized in the home setting. Local wound care should continue with the Silvadene wraps with follow-up in the outpatient clinic. Current Visit: Yes Status: Acute Code(s): L03.116 - CELLULITIS OF LEFT LOWER LIMB; L03.115 - CELLULITIS OF RIGHT LOWER LIMB SNOMED Code(s): 779778636 (2) Weakness Current Visit: Yes Status: Acute Code(s): R53.1 - WEAKNESS SNOMED Code(s): 16855931
[2018-12-03] MEDS: NYSTATIN 100,000UNIT/GM CREAM 30 GM TUBE TOPICAL SCH ×3 (00:48→16:06)
[2018-12-03] MEDS: APIXABAN 5 MG TAB PO SCH (08:03)
[2018-12-03] MEDS: CYANOCOBALAMIN 500 MCG TAB PO SCH (08:03)
[2018-12-03] MEDS: FAMOTIDINE 20 MG TAB PO SCH (08:04)
[2018-12-03] MEDS: hydrALAZINE HCL 25 MG TAB PO PRN (08:04)
[2018-12-03] MEDS: LOSARTAN 50 MG TAB PO SCH (08:04)
[2018-12-03] MEDS: MULTIVITAMINS, THERA 1 EACH TAB PO SCH (08:04)
[2018-12-03] MEDS: CARVEDILOL 6.25 MG TAB PO SCH (08:04)
[2018-12-03 08:08] LABS: Calcium 8.3 mg/dL (8.4-10.2)
[2018-12-03 08:19] LABS: Basophils # (A) 0.1 k/uL (0-0.2); Basophils % (A) 1 %; Eosinophils # (A) 0.5 k/uL (0-0.7); Eosinophils % (A) 5 %; HCT 32.5 % (34.0-46.0); HGB 10.5 gm/dL (11.4-16.0); Lymphocytes # (A) 1.5 k/uL (1.0-4.8); Lymphocytes % (A) 17 %; MCH 30.2 pg (25.0-35.0); MCHC 32.4 g/dL (31.0-37.0); MCV 93.5 fL (80.0-100.0); Mean Platelet Volume 6.5; Monocytes # (A) 0.6 k/uL (0-1.0); Monocytes % (A) 7 %; Neutrophils # (A) 6.3 k/uL (1.3-7.7); Neutrophils % (A) 68 %; Platelet Count 229 k/uL (150-450); RBC 3.47 m/uL (3.80-5.40); RDW 14.7 % (11.5-15.5); WBC 9.2 k/uL (3.8-10.6)
--- NOTE | 2018-12-03 13:03 | P.DS ---
Providers Date of admission: 11/26/18 17:10 Expected date of discharge: 12/03/18 Attending physician: Howie Ching Consults: 11/26/18 18:30 Consult Physician Routine Consulting Provider: Rachel Joseph Consult Reason/Comments: sudden bilateral weakness Do you want consulting provider notified?: Yes Placement Type Exists?: Yes 11/26/18 21:29 Consult Physician Routine Consulting Provider: Howie Colby Consult Reason/Comments: wound care Do you want consulting provider notified?: Yes, Notify in am 11/26/18 23:15 Consult Physician Routine Consulting Provider: Courtney Villavicencio Consult Reason/Comments: acute kidney injury Do you want consulting provider notified?: Yes Primary care physician: [facility] Course: Final Diagnoses: Cellulitis of both legs cultures reporting MSSA and strep species. Improving. Weakness of both legs, 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 Resolved Essential hypertension Morbid obesity Hyperlipidemia Chronic kidney disease, stage III History of PE on Eliquis History of present illness:Li Bradley 73 y.o.femaleadmitted to the hospital with cellulitis of bilateral lower extremities.Patient states she has had chronic cellulitis of her bilateral lower extremities ongoing since July. States 2 days ago her lower extremities became weak, and she is not ambulatory. Also noticed increasing redness of bilateral lower extremities at this time. Denies leg pain. Elevated lactic acid at 3.1, started on IV rehydration, lactic acid improved to 1.1. White count elevated 11.5 on admission.Did have fever 101during hospitalization of 1.1, currently afebrile. Receiving antimicrobial therapy with vancomycin and Zosyn. Patient is maintained on anticoagulation with Eliquis, currently on 10 mg twice daily has history of pulmonary embolism. Creatinine elevated to 1.4 on admission, unsure of previous baseline, did improve to 1.3 with IV rehydration. Patient is maintained on Lasix 20 mg daily at home. Due to patient's bilateral lower extremity weakness patient will be transferred to [facility] with neurology consultation. Also recommend consultation to infectious disease. Currently hemodynamically stable. Blood cultures were collected, currently pending. Infectious disease team already evaluated the patient and recommended to cont inue with vancomycin and Zosyn or cefepime. On admission her creatinine was 1.3, went up to 1.4 and today is 1.2, nephrology consult is been called also. Anesthesia/sedation showing normal WBC as came back to normal at 8.28, hemoglobin 10.9, creatinine 1.2, echo is within normal limits. Blood culture has been sent Evaluated by nephrology, neurology, infectious disease. Maintained on IV antibiotics. Cultures reporting MSSA and strep species. Antibiotics further adjusted per ID. Patient cleared for discharge per all consults. Diuretics/Lasix remains on hold, Yasmeenzaar felipe as per nephrology. Significant clinical improvement. Patient is being discharged home in a stable condition with guarded prognosis. EXAM:GENERAL: alert and oriented x3, not in any acute distress. CARDIOVASCULAR: S1 and S2 present. No murmurs, rubs, or gallops. PULMONARY: Chest is clear to auscultation, no wheezing or crackles. ABDOMEN: Soft, nontender, nondistended, normoactive bowel sounds. No palpable or ganomegaly. EXTREMITIES: Bilateral lower leg dressings with Otis wraps clean ,dry and intact NEUROLOGICAL: Gross neurological examination did not reveal any focal deficits. Microbiology 11/27/18 00:00 Leg - Left Anaerobic Culture - Final 11/27/18 00:00 Leg - Right Anaerobic Culture - Final 11/27/18 00:00 Leg - Left Gram Stain - Final 11/27/18 00:00 Leg - Left Wound Culture - Final Beta Hemolytic Strep Group G 11/27/18 00:00 Leg - Right Gram Stain - Final 11/27/18 00:00 Leg - Right Wound Culture - Final Staphylococcus aureus Beta Hemolytic Strep Group G The impression and plan of care has been dictated as directed. : I performed a history and examination of this patient, discussed the same with the dictator. I agree with the dictator's note ,documented as a scribe. Any additional findings or plans will be noted. Patient Condition at Discharge: Stable Plan - Discharge Summary Discharge Rx Participant: No New Discharge Prescriptions: New Cephalexin [Keflex] 500 mg PO Q8HR #42 cap Losartan [Cozaar] 50 mg PO DAILY #30 tab Nystatin 100,000Unit/gm Cream [Mycostatin Cream] 1 applic TOPICAL TID applic Famotidine [Pepcid] 20 mg PO DAILY #30 tab SILVER sulfADIAZINE CREAM [Silvadene Cream] 1 applic TOPICAL DAILY #400 gm Continue Simvastatin [Zocor] 20 mg PO HS Multivitamins, Thera [Multivitamin (formulary)] 1 tab PO DAILY Cyanocobalamin [Vitamin B-12] 500 mcg PO DAILY Carvedilol [Coreg] 6.25 mg PO BID Aspirin EC [Ecotrin Low Dose] 81 mg PO HS Apixaban [Eliquis] 5 mg PO BID hydrALAZINE HCL 25 mg PO QID PRN PRN Reason: systolic >150 Discontinued Furosemide [Lasix] 20 mg PO DAILY Apixaban [Eliquis] 5 mg PO BID Losartan [Cozaar] 25 mg PO DAILY Discharge Medication List Apixaban [Eliquis] 5 mg PO BID 11/26/18 [History] Aspirin EC [Ecotrin Low Dose] 81 mg PO HS 11/26/18 [History] Carvedilol [Coreg] 6.25 mg PO BID 11/26/18 [History] Cyanocobalamin [Vitamin B-12] 500 mcg PO DAILY 11/26/18 [History] Multivitamins, Thera [Multivitamin (formulary)] 1 tab PO DAILY 11/26/18 [History] Simvastatin [Zocor] 20 mg PO HS 11/26/18 [History] hydrALAZINE HCL 25 mg PO QID PRN 11/26/18 [History] Cephalexin [Keflex] 500 mg PO Q8HR #42 cap 12/02/18 [Rx] Famotidine [Pepcid] 20 mg PO DAILY #30 tab 12/03/18 [Rx] Losartan [Cozaar] 50 mg PO DAILY #30 tab 12/03/18 [Rx] Nystatin 100,000Unit/gm Cream [Mycostatin Cream] 1 applic TOPICAL TID applic 12/03/18 [Rx] SILVER sulfADIAZINE CREAM [Silvadene Cream] 1 applic TOPICAL DAILY #400 gm 12/03/18 [Rx] Follow up Appointment(s)/Referral(s): Howie Ching MD [Primary Care Provider] - 1 Week [facility], [NON-STAFF] - Raimundo Guerra MD [STAFF PHYSICIAN] - 1 Week (schedule EMG / muscle biopsy for 1-2 weeks) Claudio Green DO [STAFF PHYSICIAN] - 1 Week Ambulatory/Diagnostic Orders: Complete Blood Count w/diff [LAB.AMB] Time Frame: 3 Days, Location: None Selected Activity/Diet/Wound Care/Special Instructions: Please arrange appointment at wound care center prior to discharge. Lasix/diuretics currently on hold secondary to renal function/Kelsey wang as per nephrology.
[2018-12-03 14:23] VITALS: BP 155/83; PULSE 77; RESP 18; TEMP 98.7
--- NOTE | 2018-12-03 19:56 | P.PN ---
Subjective Progress Note Date: 12/03/18 This is a 73-year-old female currently living at home with her son. She states that Tin morning she woke up and was unable to walk had extreme weakness to her lower extremities bilaterally. She was able to maneuver herself to the bathroom but was unable to get herself off the toilet. She denies having any falls and no recent injuries. She initially presented to [facility] was also found to have cellulitis. She was seen by infectious disease at that time. She presented with lactic acidosis with initial lactic acid 3.1 and a repeat down to 1.1, BUN 20 creatinine 1.3, albumin 1.9, A1c 6.2, hemoglobin 11.4, WBC 10.7 and platelet count 209. At [facility] she received Unasyn, Zosyn and vancomycin and was started on Silvadene wraps. Patient was subsequently transferred to [facility] as a direct admission for neurology consult. There is also consult in for nephrology for acute kidney injury. Wound care consult is also in place. She is currently on cefepime and vancomycin wound culture is in progress. 12/02/2018 the patient is now had a marked improvement. She did develop by neurology in there are plans for her to go home with home PT and OT. 12/03/2018 patient has improved is ready for discharge to home with home care for wound care. Also will have neurology follow up. Objective - Vital Signs Vital signs: Vital Signs Temp 98.7 F 12/03/18 13:34 Pulse 77 12/03/18 13:34 Resp 18 12/03/18 13:34 BP 155/83 12/03/18 13:34 Pulse Ox 96 12/03/18 13:34 Intake & Output 12/03/18 12/03/18 12/04/18 06:59 18:59 06:59 Intake Total 300 540 Output Total 2 Balance 298 540 Weight 113.398 kg Intake: Oral 300 540 Output: Urine 1 Urine/Stool Mix 1 Other: Voiding Method Bedside Commode # Voids 1 2 # Bowel Movements 1 1 - Exam Gen: This is a 73-year-old morbidly obese female. Patient is resting in bed and appears to be comfortable and in no acute distress. HEENT: Head is atraumatic, normocephalic. Pupils equal, round. Sclerae is anicteric. Conjunctiva are pink. Extremities of the mouth are moist. Patient has dentures on the top only. No thrush noted. NECK: Supple. No JVD. No lymphadenopathy. No thyromegaly. LUNGS: Clear to auscultation. No wheezes or rhonchi. No intercostal retractions. HEART: Regular rate and rhythm. No murmur. ABDOMEN: Soft. Bowel sounds are present. No masses. No tenderness. Minimal redness under abdominal apron. EXTREMITIES: 2+ bilateral pedal edema. The bilateral lower extremities evidence of chronic venous stasis with chronic venous stasis changes and some evidence of some chronic ulcerations. Right leg is a few more ulcerations in the left naris and some scant bloody drainage. However the overall edema continues to improve with the Silvadene rolled gauze and Otis wrap therapy that has been utilized. The patient's considerably more comfortable and is pleased that she's had such a marked improvement. NEUROLOGICAL: Patient is awake, alert and oriented x3. the lower extremity weakness has improved - Labs CBC & Chem 7: 12/03/18 07:24 12/03/18 07:24 Labs: Abnormal Lab Results - Last 24 Hours (Table) 12/03/18 12/03/18 Range/Units 07:24 07:24 RBC 3.47 L (3.80-5.40) m/uL Hgb 10.5 L (11.4-16.0) gm/dL Hct 32.5 L (34.0-46.0) % Chloride 111 H (98-107) mmol/L Calcium 8.3 L (8.4-10.2) mg/dL Laboratory Results WBC 9.2 k/uL (3.8-10.6) 12/03/18 07:24 RBC 3.47 m/uL (3.80-5.40) L 12/03/18 07:24 Hgb 10.5 gm/dL (11.4-16.0) L 12/03/18 07:24 Hct 32.5 % (34.0-46.0) L 12/03/18 07:24 MCV 93.5 fL (80.0-100.0) 12/03/18 07:24 MCH 30.2 pg (25.0-35.0) 12/03/18 07:24 MCHC 32.4 g/dL (31.0-37.0) 12/03/18 07:24 RDW 14.7 % (11.5-15.5) 12/03/18 07:24 Plt Count 229 k/uL (150-450) 12/03/18 07:24 Neutrophils % 68 % 12/03/18 07:24 Lymphocytes % 17 % 12/03/18 07:24 Monocytes % 7 % 12/03/18 07:24 Eosinophils % 5 % 12/03/18 07:24 Basophils % 1 % 12/03/18 07:24 Neutrophils # 6.3 k/uL (1.3-7.7) 12/03/18 07:24 Lymphocytes # 1.5 k/uL (1.0-4.8) 12/03/18 07:24 Monocytes # 0.6 k/uL (0-1.0) 12/03/18 07:24 Eosinophils # 0.5 k/uL (0-0.7) 12/03/18 07:24 Basophils # 0.1 k/uL (0-0.2) 12/03/18 07:24 ESR 72 mm/hr (0-20) H 11/27/18 09:19 Sodium 140 mmol/L (137-145) 12/03/18 07:24 Potassium 4.0 mmol/L (3.5-5.1) 12/03/18 07:24 Chloride 111 mmol/L (98-107) H 12/03/18 07:24 Carbon Dioxide 25 mmol/L (22-30) 12/03/18 07:24 Anion Gap 4 mmol/L 12/03/18 07:24 BUN 16 mg/dL (7-17) 12/03/18 07:24 Creatinine 0.98 mg/dL (0.52-1.04) 12/03/18 07:24 Est GFR (CKD-EPI)AfAm 67 (>60 ml/min/1.73 sqM) 12/03/18 07:24 Est GFR (CKD-EPI)NonAf 58 (>60 ml/min/1.73 sqM) 12/03/18 07:24 Glucose 94 mg/dL (74-99) 12/03/18 07:24 Calcium 8.3 mg/dL (8.4-10.2) L 12/03/18 07:24 Total Bilirubin 0.2 mg/dL (0.2-1.3) 11/28/18 08:24 AST 21 U/L (14-36) 11/28/18 08:24 ALT 17 U/L (9-52) 11/28/18 08:24 Alkaline Phosphatase 53 U/L (38-126) 11/28/18 08:24 CK-MB (CK-2) 1.2 ng/mL (0.0-2.4) 11/29/18 08:45 C-Reactive Protein 27.3 mg/L (<10.0) H 11/28/18 08:24 Total Protein 5.6 g/dL (6.3-8.2) L 11/28/18 08:24 Albumin 2.5 g/dL (3.5-5.0) L 11/28/18 08:24 TSH 6.500 mIU/L (0.465-4.680) H 11/28/18 08:24 Free T4 1.42 ng/dL (0.78-2.19) 11/28/18 08:24 PTH Intact 156.5 pg/mL (14.0-72.0) H 11/28/18 08:24 Urine Color Light Yellow 11/27/18 13:09 Urine Appearance Clear (Clear) 11/27/18 13:09 Urine pH 5.0 (5.0-8.0) 11/27/18 13:09 Ur Specific [place] 1.007 (1.001-1.035) 11/27/18 13:09 Urine Protein Negative (Negative) 11/27/18 13:09 Urine Glucose (UA) Negative (Negative) 11/27/18 13:09 Urine Ketones Negative (Negative) 11/27/18 13:09 Urine Blood Negative (Negative) 11/27/18 13:09 Urine Nitrite Negative (Negative) 11/27/18 13:09 Urine Bilirubin Negative (Negative) 11/27/18 13:09 Urine Urobilinogen <2.0 mg/dL (<2.0) 11/27/18 13:09 Ur Leukocyte Esterase Negative (Negative) 11/27/18 13:09 Vancomycin Trough 16.2 ug/mL 12/01/18 11:10 Random Vancomycin 15.3 ug/mL 11/29/18 08:45 Rheumatoid Factor <4 IU/mL (0-15) 11/28/18 08:24 CARRILLO Screen POSITIVE (NEGATIVE) H 11/28/18 08:24 CARRILLO Titer Titer 1:80 11/28/18 08:24 CARRILLO Pattern Speckled 11/28/18 08:24 Microbiology 11/27/18 00:00 Leg - Left Anaerobic Culture - Final 11/27/18 00:00 Leg - Right Anaerobic Culture - Final 11/27/18 00:00 Leg - Left Gram Stain - Final 11/27/18 00:00 Leg - Left Wound Culture - Final Beta Hemolytic Strep Group G 11/27/18 00:00 Leg - Right Gram Stain - Final 11/27/18 00:00 Leg - Right Wound Culture - Final Staphylococcus aureus Beta Hemolytic Strep Group G Assessment and Plan (1) Bilateral lower leg cellulitis Narrative/Plan: As noted the patient was seen at the outside hospital prior to her transfer to our facility. She is relating that since she has been placed on antibiotic therapy she started to feel somewhat better. Neurologic evaluation is in process. Portion she certainly feels somewhat better. She finds the Silvadene and leg wraps has been extremely helpful for the discomfort to her legs. She believes that she is getting some improved strength. She is denying high-grade fevers chills rigors or sweats. Antibiotic therapy at this time while cultures are processes with cefepime and vancomycin given her prior history and concerns to pseudomonas and MRSA. Her progress will be followed and plans for her ongoing antibiotic therapy. I believe she will be going to rehabilitation and consequently completion of a course of antibiotic therapy should be extremely helpful. December 02 2018 reveals the patient be considerably improved. The edema lower extremities improved. He open ulcerations have improved originally some scant pinpoint areas in the right leg that had some bloody drainage otherwise is improvement of the skin the edema and the discomfort lower extremities. Her weakness is also improved. With culture showing MSSA and strep species will de-escalate antibiotic therapy to Ancef until her discharge. The oral cephalexin 500 mg 8 hours will be utilized in the home setting. Local wound care should continue with the Silvadene wraps with follow-up in the outpatient clinic. 12/03/2018 now improving with local care and antibiotics, continue with silvadene and OTIS wraps foot to knee, antibiotic sent to pharmacy Status: Acute Code(s): L03.116 - CELLULITIS OF LEFT LOWER LIMB; L03.115 - CELLULITIS OF RIGHT LOWER LIMB SNOMED Code(s): 845693667 (2) Weakness Status: Acute Code(s): R53.1 - WEAKNESS SNOMED Code(s): 59564979
== END 2018-12-03 16:47 | disposition home health service (06) | DRG 603 ==
LOC: 4MS4W 17:10
PROVIDERS: ADMIT Family Medicine; ATTEND Family Medicine
DX: L03.116 Cellulitis of left lower limb (principal); Z68.42 Body mass index [BMI] 45.0-49.9, adult; E87.2 Acidosis; N17.9 Acute kidney failure, unspecified; N39.0 Urinary tract infection, site not specified; L03.115 Cellulitis of right lower limb; E66.01 Morbid (severe) obesity due to excess calories; E78.5 Hyperlipidemia, unspecified; I12.9 Hypertensive chronic kidney disease with stage 1 through stage 4 chronic kidney disease, or unspecified chronic kidney disease; I89.0 Lymphedema, not elsewhere classified; M17.10 Unilateral primary osteoarthritis, unspecified knee; N18.3 Chronic kidney disease, stage 3 (moderate); Z79.01 Long term (current) use of anticoagulants; Z79.899 Other long term (current) drug therapy; Z79.82 Long term (current) use of aspirin; Z80.9 Family history of malignant neoplasm, unspecified; Z83.3 Family history of diabetes mellitus; Z86.711 Personal history of pulmonary embolism; Z90.710 Acquired absence of both cervix and uterus; Z83.2 Family history of diseases of the blood and blood-forming organs and certain disorders involving the immune mechanism; G72.9 Myopathy, unspecified; R26.2 Difficulty in walking, not elsewhere classified; B95.61 Methicillin susceptible Staphylococcus aureus infection as the cause of diseases classified elsewhere; B95.4 Other streptococcus as the cause of diseases classified elsewhere
CPT/HCPCS: 71045; 80048; 80053; 80202; 81003; 82553; 83970; 84439; 84443; 85025; 85652; 86038; 86039; 86140; 86431; 87070; 87075; 87077; 87186; 87205

== ENCOUNTER → 2019-01-30 | Outpatient (CLI) | payer MEDICARE ==
--- NOTE | 2019-01-30 10:05 | US ---
EXAMINATION TYPE: US abdomen limited DATE OF EXAM: 01/30/2019 COMPARISON: NONE CLINICAL HISTORY: R19.04 ABD SWELLING. Morbidly obese patient with lower abdominal area of swelling a nd redness Lower abdomen area of concern: edematous tissue, no solid mass or fluid collections seen at this time . IMPRESSION: Edematous tissue without evidence for abscess.
== END ==
LOC: RADUSWWP 09:23
PROVIDERS: ATTEND Family Medicine
DX: R60.0 Localized edema (principal)
CPT/HCPCS: 76705

== ENCOUNTER 2020-02-08 09:07 | Inpatient (IN) | payer MEDICARE ==
--- NOTE | 2020-02-08 09:19 | ED ---
General Adult HPI - General Stated complaint: Weakness Time Seen by Provider: 02/08/20 09:12 Source: patient, EMS, RN notes reviewed, old records reviewed Mode of arrival: EMS Limitations: no limitations - History of Present Illness Initial comments: Patient is a pleasant 74-year-old female presenting to the emergency Department with bilateral leg weakness. Onset of symptoms was around a year ago, symptoms are worsened today. Patient is unable to get up on her own and bear weight. No confusion. No fever. No trauma. No lower back pain. No loss of sensation. - Related Data Home Medications Medication Instructions Recorded Confirmed Apixaban [Eliquis] 5 mg PO BID 11/26/18 11/26/18 Aspirin EC [Ecotrin Low Dose] 81 mg PO HS 11/26/18 11/26/18 Cyanocobalamin [Vitamin B-12] 500 mcg PO DAILY 11/26/18 11/26/18 Multivitamins, Thera [Multivitamin 1 tab PO DAILY 11/26/18 11/26/18 (formulary)] Simvastatin [Zocor] 20 mg PO HS 11/26/18 11/26/18 carvediloL [Coreg] 6.25 mg PO BID 11/26/18 11/26/18 hydrALAZINE HCL 25 mg PO QID PRN 11/26/18 11/26/18 Previous Rx's Medication Instructions Recorded Cephalexin [Keflex] 500 mg PO Q8HR #42 cap 12/02/18 Famotidine [Pepcid] 20 mg PO DAILY #30 tab 12/03/18 Furosemide [Lasix] 20 mg PO DAILY #1 tab 12/03/18 Losartan [Cozaar] 50 mg PO DAILY #30 tab 12/03/18 Nystatin 100,000Unit/gm Cream 1 applic TOPICAL TID applic 12/03/18 [Mycostatin Cream] SILVER sulfADIAZINE CREAM 1 applic TOPICAL DAILY #400 gm 12/03/18 [Silvadene Cream] Allergies Allergy/AdvReac Type Severity Reaction Status Date / Time No Known Allergies Allergy Verified 02/08/20 11:05 Review of Systems ROS Statement: Those systems with pertinent positive or pertinent negative responses have been documented in the HPI. ROS Other: All systems not noted in ROS Statement are negative. Constitutional: Denies: fever Eyes: Denies: eye pain ENT: Denies: ear pain Respiratory: Denies: cough Cardiovascular: Denies: chest pain Endocrine: Denies: fatigue Gastrointestinal: Denies: abdominal pain Genitourinary: Denies: dysuria Musculoskeletal: Denies: back pain Skin: Denies: rash Neurological: Reports: as per HPI, weakness. Denies: headache, paresthesias, confusion Past Medical History Past Medical History: Hypertension, Pulmonary Embolus (PE) Additional Past Medical History / Comment(s): PE in lung, hypertention, cellul itis History of Any Multi-Drug Resistant Organisms: None Reported Past Surgical History: Hysterectomy Additional Past Surgical History / Comment(s): hysterectomy 9 years ago, arm tumor removal 15 years ago Past Anesthesia/Blood Transfusion Reactions: No Reported Reaction Additional Past Alcohol Use History / Comment(s): Patient is a lifelong nonsmoker, no illicit drug use, no alcohol use. She lives at home with her son Bridger. 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. - Past Family History Mother Family Medical History: Cancer, Diabetes Mellitus Father Family Medical History: Pulmonary Embolus Additional Family Medical History / Comment(s): PE in lung, hip replacement General Exam Limitations: no limitations General appearance: alert, in no apparent distress, obese Head exam: Present: normocephalic Eye exam: Present: normal appearance, PERRL, EOMI ENT exam: Present: normal oropharynx Neck exam: Present: normal inspection Respiratory exam: Present: normal lung sounds bilaterally Cardiovascular Exam: Present: regular rate, normal rhythm GI/Abdominal exam: Present: soft. Absent: tenderness Extremities exam: Present: pedal edema. Absent: calf tenderness Neurological exam: Present: alert Expanded Neurological exam: Present: protecting the airway Patient oriented to: Present: person, place, time Speech: Present: fluid speech Sensory exam: Upper Extremity Light Touch: Normal, Lower Extremity Light Touch: Normal Motor strength exam: RUE: 5, LUE: 5, RLE: 3, LLE: 3 Eye Response: (4) open spontaneously Motor Response: (6) obeys commands Verbal Response: (5) oriented Psychiatric exam: Present: normal affect, normal mood Skin exam: Present: erythema (Bilateral lower legs) Course Vital Signs 02/08/20 02/08/20 02/08/20 09:09 09:13 09:30 Temperature 98.7 F Pulse Rate 113 H Respiratory 19 Rate Blood Pressure 143/77 143/77 O2 Sat by Pulse 96 98 Oximetry 02/08/20 02/08/20 10:00 10:30 Temperature Pulse Rate 96 Respiratory 18 Rate Blood Pressure 143/77 138/61 O2 Sat by Pulse 96 Oximetry - Reevaluation(s) Reevaluation #1: 02/08/20 10:14 Patient has ideal body weight of 110 pounds, 50 kg. Patient will be provided 30 mL/kg of ideal body weight being 1500 mL. Patient is a 5 foot 2 female. 02/08/20 11:06 Patient does meet criteria for sepsis diagnosed at 11 AM. Blood culture and lactic acid and IV antibiotics ordered. Fluid bolus ordered. EKG Findings - EKG Comments: EKG Findings:: White QRS rhythm with rate of 109. QRS 160. QT 408. QTC 549. Left axis. Left bundle branch block. Nonspecific ST-T. Medical Decision Making - Medical Decision Making Patient reevaluated and updated. Dr. Ching has been paged for admission of his patient. - Lab Data Result diagrams: 02/08/20 09:39 02/08/20 09:39 Lab Results 02/08/20 02/08/20 02/08/20 Range/Units 09:39 09:39 09:39 WBC 15.1 H (3.8-10.6) k/uL RBC 3.38 L (3.80-5.40) m/uL Hgb 10.9 L (11.4-16.0) gm/dL Hct 32.4 L (34.0-46.0) % MCV 95.7 (80.0-100.0) fL MCH 32.1 (25.0-35.0) pg MCHC 33.6 (31.0-37.0) g/dL RDW 15.0 (11.5-15.5) % Plt Count 404 (150-450) k/uL MPV 7.0 Neutrophils % 77 % Lymphocytes % 13 % Monocytes % 4 % Eosinophils % 4 % Basophils % 1 % Neutrophils # 11.6 H (1.3-7.7) k/uL Lymphocytes # 1.9 (1.0-4.8) k/uL Monocytes # 0.7 (0-1.0) k/uL Eosinophils # 0.5 (0-0.7) k/uL Basophils # 0.1 (0-0.2) k/uL PT 10.2 (9.0-12.0) sec INR 1.0 (<1.2) APTT 24.6 (22.0-30.0) sec Sodium (137-145) mmol/L Potassium (3.5-5.1) mmol/L Chloride (98-107) mmol/L Carbon Dioxide (22-30) mmol/L Anion Gap mmol/L BUN (7-17) mg/dL Creatinine (0.52-1.04) mg/dL Est GFR (CKD-EPI)AfAm (>60 ml/min/1.73 sqM) Est GFR (CKD-EPI)NonAf (>60 ml/min/1.73 sqM) Glucose (74-99) mg/dL Plasma Lactic Acid Braydon (0.7-2.0) mmol/L Calcium (8.4-10.2) mg/dL Phosphorus (2.5-4.5) mg/dL Magnesium (1.6-2.3) mg/dL Total Bilirubin (0.2-1.3) mg/dL AST (14-36) U/L ALT (4-34) U/L Alkaline Phosphatase (38-126) U/L Troponin I (0.000-0.034) ng/mL Total Protein (6.3-8.2) g/dL Albumin (3.5-5.0) g/dL TSH (0.465-4.680) mIU/L Free T4 (0.78-2.19) ng/dL Free T3 pg/mL (2.8-5.3) pg/ml Urine Color Yellow Urine Appearance Cloudy H (Clear) Urine pH 5.5 (5.0-8.0) Ur Specific Dahlgren 1.023 (1.001-1.035) Urine Protein 1+ H (Negative) Urine Glucose (UA) Negative (Negative) Urine Ketones Negative (Negative) Urine Blood Large H (Negative) Urine Nitrite Negative (Negative) Urine Bilirubin Negative (Negative) Urine Urobilinogen 2.0 (<2.0) mg/dL Ur Leukocyte Esterase Large H (Negative) Urine RBC 6 H (0-5) /hpf Urine WBC 7 H (0-5) /hpf Ur Squamous Epith Cells 5 H (0-4) /hpf Urine Bacteria Rare H (None) /hpf Hyaline Casts 4 H (0-2) /lpf 02/08/20 02/08/20 02/08/20 Range/Units 09:39 09:39 09:39 WBC (3.8-10.6) k/uL RBC (3.80-5.40) m/uL Hgb (11.4-16.0) gm/dL Hct (34.0-46.0) % MCV (80.0-100.0) fL MCH (25.0-35.0) pg MCHC (31.0-37.0) g/dL RDW (11.5-15.5) % Plt Count (150-450) k/uL MPV Neutrophils % % Lymphocytes % % Monocytes % % Eosinophils % % Basophils % % Neutrophils # (1.3-7.7) k/uL Lymphocytes # (1.0-4.8) k/uL Monocytes # (0-1.0) k/uL Eosinophils # (0-0.7) k/uL Basophils # (0-0.2) k/uL PT (9.0-12.0) sec INR (<1.2) APTT (22.0-30.0) sec Sodium 136 L (137-145) mmol/L Potassium 3.8 (3.5-5.1) mmol/L Chloride 107 (98-107) mmol/L Carbon Dioxide 18 L (22-30) mmol/L Anion Gap 11 mmol/L BUN 36 H (7-17) mg/dL Creatinine 1.58 H (0.52-1.04) mg/dL Est GFR (CKD-EPI)AfAm 37 (>60 ml/min/1.73 sqM) Est GFR (CKD-EPI)NonAf 32 (>60 ml/min/1.73 sqM) Glucose 166 H (74-99) mg/dL Plasma Lactic Acid Braydon 4.4 H* (0.7-2.0) mmol/L Calcium 8.0 L (8.4-10.2) mg/dL Phosphorus 3.5 (2.5-4.5) mg/dL Magnesium 2.1 (1.6-2.3) mg/dL Total Bilirubin 0.5 (0.2-1.3) mg/dL AST 46 H (14-36) U/L ALT 29 (4-34) U/L Alkaline Phosphatase 84 (38-126) U/L Troponin I 0.013 (0.000-0.034) ng/mL Total Protein 6.0 L (6.3-8.2) g/dL Albumin 2.8 L (3.5-5.0) g/dL TSH 7.600 H (0.465-4.680) mIU/L Free T4 1.64 (0.78-2.19) ng/dL Free T3 pg/mL 2.6 L (2.8-5.3) pg/ml Urine Color Urine Appearance (Clear) Urine pH (5.0-8.0) Ur Specific Dahlgren (1.001-1.035) Urine Protein (Negative) Urine Glucose (UA) (Negative) Urine Ketones (Negative) Urine Blood (Negative) Urine Nitrite (Negative) Urine Bilirubin (Negative) Urine Urobilinogen (<2.0) mg/dL Ur Leukocyte Esterase (Negative) Urine RBC (0-5) /hpf Urine WBC (0-5) /hpf Ur Squamous Epith Cells (0-4) /hpf Urine Bacteria (None) /hpf Hyaline Casts (0-2) /lpf - Radiology Data Radiology results: report reviewed (Computed tomography scan of the brain shows no acute process), image reviewed (Chest x-ray shows no acute process) Critical Care Time Critical Care Time: Yes Total Critical Care Time: 33 Disposition Clinical Impression: Bilateral lower leg cellulitis, Weakness, Septic shock Disposition: ADMITTED IP TO THIS HOSP Is patient prescribed a controlled substance at d/c from ED?: No Referrals: Howie Ching MD [Primary Care Provider] - 1-2 days Decision Time: 11:06
[2020-02-08 09:59] LABS: Basophils # (A) 0.1 k/uL (0-0.2); Basophils % (A) 1 %; Eosinophils # (A) 0.5 k/uL (0-0.7); Eosinophils % (A) 4 %; HCT 32.4 % (34.0-46.0); HGB 10.9 gm/dL (11.4-16.0); Lymphocytes # (A) 1.9 k/uL (1.0-4.8); Lymphocytes % (A) 13 %; MCH 32.1 pg (25.0-35.0); MCHC 33.6 g/dL (31.0-37.0); MCV 95.7 fL (80.0-100.0); Monocytes # (A) 0.7 k/uL (0-1.0); Monocytes % (A) 4 %; Neutrophils # (A) 11.6 k/uL (1.3-7.7); Neutrophils % (A) 77 %; Platelet Count 404 k/uL (150-450); RBC 3.38 m/uL (3.80-5.40); WBC 15.1 k/uL (3.8-10.6)
[2020-02-08 10:10] LABS: Albumin 2.8 g/dL (3.5-5.0); Magnesium 2.1 mg/dL (1.6-2.3); Phosphorus 3.5 mg/dL (2.5-4.5); Potassium 3.8 mmol/L (3.5-5.1); Total Bilirubin 0.5 mg/dL (0.2-1.3)
[2020-02-08 10:11] LABS: Appearance,Urine Cloudy (Clear); Bacteria,Urine Rare /hpf; Bilirubin,Urine Negative (Negative); Blood,Urine Large (Negative); Color,Urine Yellow; Glucose,Urine (UA) Negative (Negative); Hyaline Casts,Urine 4 /lpf (0-2); Ketones,Urine Negative (Negative); Leukocyte Esterase,Urine Large (Negative); Nitrite,Urine Negative (Negative); PH, Urine 5.5 (5.0-8.0); Protein,Urine 1+ (Negative); RBC,Urine 6 /hpf (0-5); Specific Gravity,Urine 1.023 (1.001-1.035); Squamous Epithelial Cell,Urine 5 /hpf (0-4); WBC,Urine 7 /hpf (0-5)
[2020-02-08] MEDS ORDERED: SODIUM CHLORIDE 0.9% 1,000 ML IV STA (10:14)
[2020-02-08] MEDS ORDERED: SODIUM CHLORIDE 0.9% 500 ML 500 ML IV STA (10:14)
[2020-02-08 10:21] LABS: Partial Thromboplastin Time 24.6 sec (22.0-30.0); Prothrombin Time 10.2 sec (9.0-12.0)
[2020-02-08 10:26] LABS: T4, Free (Free Thyroxine) 1.64 ng/dL (0.78-2.19)
--- NOTE | 2020-02-08 10:42 | CT ---
EXAMINATION TYPE: CT brain wo con DATE OF EXAM: 02/08/2020 COMPARISON: None HISTORY: Weakness Unenhanced CT of the brain was performed. The ventricles, basal cisterns and sulci overlying the cerebral convexities demonstrate mild enlargem ent. There is no evidence for intracranial hemorrhage or sulcal effacement. There is decreased attenuation about the periventricular white matter and deep white matter of both c erebral hemispheres, compatible with chronic small vessel ischemia. Differential diagnosis does inclu de demyelination. No mass effects are seen.No midline shift. Osseous calvarium is intact. If symptoms persist consider MRI. IMPRESSION: 1. Age related atrophic and chronic small vessel ischemic change without acute intracranial process s een at this time.
--- NOTE | 2020-02-08 10:43 | XR ---
EXAMINATION TYPE: XR chest 2V DATE OF EXAM: 02/08/2020 COMPARISON: 11/28/2018 HISTORY: Shortness of breath TECHNIQUE: Frontal and lateral views of the chest are obtained. FINDINGS: Scattered senescent parenchymal changes noted. Hyperinflation compatible with COPD. No evidence for infiltrate. No evidence for atelectasis. Heart size is stable. Mediastinal structures are stable and grossly unremarkable. No evidence for hilar prominence. Degenerative changes dorsal spine. IMPRESSION: 1. No evidence for acute pulmonary disease.
[2020-02-08] MEDS ORDERED: AMPICILLIN-SULBACTAM 3 GM in SODIUM CHLORIDE 0.9% 100 ML IVPB STA (11:06)
[2020-02-08] MEDS ORDERED: VANCOMYCIN IV PER PHARMACY 1 EACH MISC MISCELLANE PRN (11:06)
[2020-02-08] MEDS ORDERED: NALOXONE 0.4 MG/ML 1 ML VIAL IV PRN (11:07)
[2020-02-08] MEDS ORDERED: VANCOMYCIN 2,250 MG in SODIUM CHLORIDE 0.9% 500 ML 500 ML IVPB ONE (11:30)
[2020-02-08] MEDS: SODIUM CHLORIDE 0.9% 1,000 ML IV SCH ×2 (11:41→21:52)
[2020-02-08] MEDS ORDERED: hydrALAZINE HCL 25 MG TAB PO PRN (15:08)
--- NOTE | 2020-02-08 15:41 | HP ---
HISTORY AND PHYSICAL 74 -year-old white female with bilateral leg weakness. Symptoms worse over the past year, unable to get up on her own and bear weight. No confusion. No fever. No trauma. No lower back pain or loss of sensation. She was found to have elevated lactic acid and elevated white count. No difficulty with history atrial fibrillation, dyslipidemia, hypertension, diastolic heart failure. Home medicines: Eliquis 5 mg b.i.d., aspirin 81 daily, B12 500 daily, multivitamin daily, Zocor 20 daily, Coreg 6.25 b.i.d., hydralazine 25 q.i.d., Keflex 500 q.8h, Pepcid 20 mg daily, Lasix 20 mg daily, Cozaar 50 mg daily. Nystatin suspension topical cream b.i.d. Silvadene cream daily. ALLERGIES: Negative. REVIEW OF SYSTEMS: Fourteen-point review of systems negative except for mentioned in HPI. PAST MEDICAL HISTORY: Pulmonary embolism, hypertension, A-fib, cellulitis of the legs, diastolic heart failure. SURGICAL HISTORY: Hysterectomy 9 years ago, arm tumor removal 15 years ago. SOCIAL HISTORY: Lives at home with her son Bridger. No drugs or alcohol. Nonsmoker. 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. FAMILY HISTORY: Mother cancer and diabetes mellitus. Father of pulmonary embolism. PE of the lung. PHYSICAL EXAMINATION: No acute distress. Pupils equal, round, reactive. Lungs are clear. CARDIAC: S1, S2. Extremities: Pedal edema bilaterally. Negative Homans. She is alert, giving appropriate answers. Cranial nerves are intact. Strength apparently is 3 out of 5 in the lower extremities, 5 out of 5 in the uppers. Obeying commands. Alert, oriented x3. Erythema with pedal edema bilateral legs, lower legs, temp 98.7, pulse 113, respiratory rate 16 to 18, blood pressure 140s/70s, O2 96 to 98%. EKG some sinus rhythm. White count 15.1, hemoglobin 10.9, BUN 16, creatinine 1.53, sodium 136. Chest x-ray is negative. ASSESSMENT: 1. Lactic acidosis. 2. Hypothyroidism with elevated TSH. 3. Right lower leg cellulitis. 4. Weakness. 5. Septic shock. Continue current treatment. Broad-spectrum antibiotics. Consult Dr. Evin. Await for further recommendations. Possible cardiology will be involved. MMODL / IJN: [id number] /
[2020-02-08] MEDS: carvediloL 6.25 MG TAB PO SCH (17:16)
[2020-02-08] MEDS ORDERED: AMPICILLIN-SULBACTAM 1.5 GM in SODIUM CHLORIDE 0.9% 50 ML IVPB SCH ×2 (18:00→21:00)
[2020-02-08] MEDS: ASPIRIN 81 MG PO SCH (22:00)
[2020-02-08] MEDS: NYSTATIN 100,000 UNIT/GM POWD 15 GM TOPICAL SCH (22:01)
[2020-02-08] MEDS: APIXABAN 5 MG TAB PO SCH (22:01)
[2020-02-08] MEDS: ATORVASTATIN 20 MG TAB PO SCH (22:01)
[2020-02-09] MEDS: LEVOTHYROXINE 75 MCG TAB PO SCH (05:19)
--- NOTE | 2020-02-09 05:41 | CONS ---
CONSULTATION DATE OF SERVICE: 02/08/2020 REASON FOR CONSULTATION: Bilateral lower extremity cellulitis and extensive chronic kidney disease. HISTORY OF PRESENT ILLNESS: The patient is a 74-year-old female presenting to the ER this morning for evaluation of bilateral lower extremity weakness in this patient who has been complaining of increasing swelling and redness to the lower extremities. She has been complaining of pain, more of a dull aching, 4-5 out of 10 and no radiation. The patient did not have any skin breakdown or any drainage. The patient also noted to have significant cutaneous candidiasis over bilateral groin and breast fold area. The patient did have some dull aching at times sharp pain 3-4 out of 10 and no radiation. On arrival to the ER, the patient was afebrile. Patient did have white count 15.1. Creatinine was 1.5. Lactic acid was 4.4. Urine was positive. Foley PCR was negative. She was started on Unasyn and admitted to the hospital. Infectious Disease was consulted for further management of antibiotic therapy. The patient did have a chest x- ray that was negative for any acute pulmonary process. REVIEW OF SYSTEMS: Positive points have been mentioned in HPI. Rest of systems are negative. PAST MEDICAL HISTORY: Hypertension, pulmonary embolism, bilateral lower extremity lymphedema and cellulitis. PAST SURGICAL HISTORY: Hysterectomy. SOCIAL HISTORY: Denies smoking, drinking or drug use. FAMILY HISTORY: Mother history of cancer and diabetes mellitus. ALLERGIES: No known drug allergies. MEDICATIONS: Medications include the patient is currently on Unasyn, Tylenol, Eliquis, aspirin, Lipitor, Coreg, Pepcid, Lasix, hydralazine, Cozaar, Theragran, K-Dur. PHYSICAL EXAMINATION: Blood pressure 126/64 with a pulse of 82, temperature 98.6. She is 93% on room air. General description is an elderly female lying in bed in no distress. No tachypnea or accessory muscle of respiration use. HEENT: Examination showed pallor, no scleral icterus. Oral mucous membranes dry. NECK: Trachea central. No thyromegaly. LUNGS: Unlabored breathing, clear to auscultation anteriorly. No wheeze or crackle. HEART: S1, S2. Regular rate and rhythm. ABDOMEN: Soft, no tenderness. EXTREMITIES: Did have diffuse swelling, redness throughout the lower extremities; also having extensive cutaneous candidiasis of bilateral groin and breast fold area with secondary cellulitis. NEUROLOGICAL: The patient is awake, alert, oriented x3. Mood and affect normal. LABS: Hemoglobin 10.9, white count 15.1, BUN 36, creatinine 1.58. Urine is positive. DIAGNOSTIC IMPRESSION: 1. Patient admitted to the hospital with generalized weakness in this patient who did have significant cellulitis of the lower extremity with diffuse swelling, redness and evidence of likely streptococcal disease. 2. Extensive groin and breast wall fold cutaneous candidiasis. PLAN: 1. Discontinue Unasyn. 2. Start cefazolin 2 grams q.12 hours. 3. Mycostatin powder to bilateral groin and breast fold area twice daily. 4. We will follow on clinical condition and culture to further adjust medication if needed. Thank you for this consultation. Will Follow this patient along with you. CARLYLEL / TONIEN: [id number] /
[2020-02-09 08:11] LABS: Basophils % (A) 0 %; Eosinophils # (A) 0.6 k/uL (0-0.7); Eosinophils % (A) 5 %; HCT 30.3 % (34.0-46.0); Lymphocytes # (A) 0.9 k/uL (1.0-4.8); Lymphocytes % (A) 9 %; MCH 32.1 pg (25.0-35.0); MCHC 33.2 g/dL (31.0-37.0); MCV 96.9 fL (80.0-100.0); Mean Platelet Volume 6.5; Monocytes # (A) 0.3 k/uL (0-1.0); Monocytes % (A) 3 %; Neutrophils # (A) 8.8 k/uL (1.3-7.7); Neutrophils % (A) 82 %; Platelet Count 377 k/uL (150-450); RBC 3.12 m/uL (3.80-5.40); WBC 10.8 k/uL (3.8-10.6)
[2020-02-09] MEDS: CHOLECALCIFEROL 1,000 UNIT TAB PO SCH (08:42)
[2020-02-09] MEDS: MULTIVITAMINS, THERA 1 EACH TAB PO SCH (08:42)
[2020-02-09] MEDS: FAMOTIDINE 20 MG TAB PO SCH (08:42)
[2020-02-09] MEDS: LOSARTAN 50 MG TAB PO SCH (08:42)
[2020-02-09] MEDS: APIXABAN 5 MG TAB PO SCH ×2 (08:42→21:35)
[2020-02-09] MEDS: carvediloL 6.25 MG TAB PO SCH ×2 (08:43→16:34)
[2020-02-09] MEDS: CYANOCOBALAMIN 500 MCG TAB PO SCH (08:43)
[2020-02-09] MEDS: NYSTATIN 100,000 UNIT/GM POWD 15 GM TOPICAL SCH ×2 (08:44→21:38)
[2020-02-09] MEDS ORDERED: LEVOTHYROXINE 100 MCG TAB PO SCH (09:00)
[2020-02-09] MEDS ORDERED: FUROSEMIDE 20 MG TAB PO SCH (09:00)
[2020-02-09] MEDS ORDERED: POTASSIUM CHLORIDE ER 20 MEQ TAB.ER PO SCH (09:00)
[2020-02-09 11:48] LABS: African American GFR (CKD) 47.1 (60.0-200.0); Anion Gap 6.1 mmol/L (4.00-12.00); BUN/Creat Ratio 23.08 Ratio (12.00-20.00); Calcium 7.7 mg/dL (8.7-10.3); Carbon Dioxide 22.9 mmol/L (21.6-31.8); Non-African American GFR(CKD) 40.7 (60.0-200.0); Potassium 3.9 mmol/L (3.5-5.5)
[2020-02-09 11:51] LABS: Vancomycin,Random 13.9 ug/mL (0.0-40.0)
--- NOTE | 2020-02-09 14:28 | P.CNNES ---
History of Present Illness Consult date: 02/09/20 Requesting physician: Sheng Randle Reason for Consult: weakness History of Present Illness: This is a 74-year-old woman with medical history of hypertension, pulmonary embolism and bilateral lower extremity cellulitis who presented emergency department on 02/08/2020 for bilateral leg weakness for the past 1-2 day. She has been having the cellulitis of the lower extremities since July 2018 and has been on/off antibiotic for the past 1 1/2 years. She said that since 02/07/2020 she noticed weakness of her bilateral lower extremity. She feels its entire bilateral lower extremity. She denies any the trauma to her back, denies any lower back pain, denies any bladder or bowel incontinence or frequency. She stated that she does have numbness of the bilateral feet it's been going on for last couple months at least. Again she denies any trauma to her lower back or to the lower extremity. She uses a walker at home. She said that she had a similar episode about 1 year ago and the she was scheduled for an EMG with nerve conduction study as an outpatient but was not able to do that because of her cellulitis and edema lower extremities. She does not remember the name of this facility that she went to for EMG. She does not follow up with a neurologist as an outpatient. She denies of any neck pain, any focal weakness, denies any visual disturbance, any difficulty swallowing. Patient stated that she lives alone but her son lives with her one that helps out. Work-up in the hospital consisted of: CT of the head is reported as age-related atrophic and chronic small vessel ischemic change without acute intracranial process seen at this time. Review of Systems Review of system: The 12 point system was reviewed and apparent positive and negative per HPI. Past Medical History Past Medical History: Hypertension, Pulmonary Embolus (PE) Additional Past Medical History / Comment(s): PE in lung, hypertention, cellulitis History of Any Multi-Drug Resistant Organisms: None Reported Past Surgical History: Hysterectomy Additional Past Surgical History / Comment(s): hysterectomy 9 years ago, arm tumor removal 15 years ago Past Anesthesia/Blood Transfusion Reactions: No Reported Reaction Smoking Status: Never smoker Past Alcohol Use History: None Reported Additional Past Alcohol Use History / Comment(s): Patient is a lifelong nonsmoker, no illicit drug use, no alcohol use. She lives at home with her son Bridger. 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. Past Drug Use History: None Reported - Past Family History Mother Family Medical History: Cancer, Diabetes Mellitus Father Family Medical History: Pulmonary Embolus Additional Family Medical History / Comment(s): PE in lung, hip replacement Medications and Allergies Home Medications Medication Instructions Recorded Confirmed Type Apixaban [Eliquis] 5 mg PO BID 11/26/18 02/08/20 History Aspirin EC [Ecotrin Low Dose] 81 mg PO HS 11/26/18 02/08/20 History Cyanocobalamin [Vitamin B-12] 500 mcg PO DAILY 11/26/18 02/08/20 History Multivitamins, Thera [Multivitamin 1 tab PO DAILY 11/26/18 02/08/20 History (formulary)] carvediloL [Coreg] 6.25 mg PO BID 11/26/18 02/08/20 History hydrALAZINE HCL 25 mg PO QID PRN 11/26/18 02/08/20 History Famotidine [Pepcid] 20 mg PO DAILY #30 tab 12/03/18 02/08/20 Rx Furosemide [Lasix] 20 mg PO DAILY #1 tab 12/03/18 02/08/20 Rx Losartan [Cozaar] 50 mg PO DAILY #30 tab 12/03/18 02/08/20 Rx Cephalexin [Keflex] 500 mg PO BID 02/08/20 02/08/20 History Cholecalciferol [Vitamin D3 (25 5,000 unit PO DAILY 02/08/20 02/08/20 History Mcg = 1000 Iu)] Levothyroxine Sodium [Synthroid] 100 mcg PO DAILY 02/08/20 02/08/20 History Potassium Chloride ER [K-Dur 20] 20 meq PO DAILY 02/08/20 02/08/20 History Simvastatin [Zocor] 40 mg PO HS 02/08/20 02/08/20 History Allergies Allergy/AdvReac Type Severity Reaction Status Date / Time No Known Allergies Allergy Verified 02/08/20 11:05 Physical Examination - Vital Signs Vital Signs: Vital Signs Temp Pulse Resp BP Pulse Ox 02/09/20 08:00 16 02/09/20 07:51 98.9 F 83 16 147/61 91 L 02/09/20 01:40 98.5 F 84 18 104/53 95 02/08/20 18:53 98.6 F 82 16 126/64 93 L 02/08/20 13:20 98.4 F 102 H 19 122/67 96 Intake and Output 02/08/20 02/09/20 02/09/20 22:59 06:59 14:59 Intake Total 540 Balance 540 Intake: Oral 540 Other: # Voids 1 GENERAL: The patient is morbidly obese, lying in bed and is not in acute distress. CHEST: The heart rate is regular rate rhythm. No murmurs to auscultation. LUNG: Clear to auscultation bilaterally no wheezing noted throughout. Not labored breathing. ABDOMEN/GI: Bowel sounds present in all 4 quadrants. No tenderness to palpation throughout. INTEGUMENTARY: Bilateral lower extremities almost just distal to the knee to the proximal ankle it's the earth Jossie bilaterally as well as the warm. She has like lymphedema of bilateral lower extremity compared to upper extremities at. NEUROLOGICAL: Higher mental function: The patient is awake, alert, oriented to self, place and time. Patient is following commands. No aphasia and no neglect. Cranial nerves: The pupils are round, equal and reactive to light and accommodation. Visual avendaño are full to confrontation throughout. Extraocular movement is intact no nystagmus is noted. Facial sensation is normal to touch throughout. The facial strength is normal throughout. Hearing is normal bilaterally to hand rub. Tongue is midline and moved [id number] without any difficulty. No dysarthria is noted. Shoulder shrug is normal bilaterally. Motor: Gait is deferred because of her condition. The strength in proximal lower extremities is 3-4 bilaterally; knee extension and flexion 4+ bilaterally; ankle flexion and extension is 5/5. Otherwise upper are 5 over 5 throughout. Normal tone and bulk. Cerebellum: Normal finger to nose bilaterally. Sensation: Sensation is normal to touch throughout. Reflexes (right/left): 2+ throughout except ankle is 0 bilaterally. Plantars are mute bilaterally. Results Patient will blood cells is 15.1 which is the elevated and is mostly neutrophilic. The plasma lactic acid the vein is 4.4. Magnesium is 2.1 which is normal. TSH is 7.6 which is elevated but the free T4 is 1.64 which is normal but the free T3 is low. Urinalysis at looks cloudy, urine nitrite was negative, leukocyte esterase is large, urine white blood cells 7, urine bacteria was rare - Laboratory Findings CBC and BMP: 02/09/20 07:41 02/09/20 07:41 Abnormal Lab Findings: Abnormal Labs 02/08/20 02/08/20 02/08/20 09:39 09:39 09:39 WBC 15.1 H RBC 3.38 L Hgb 10.9 L Hct 32.4 L Neutrophils # 11.6 H Lymphocytes # Sodium 136 L Chloride Carbon Dioxide 18 L BUN 36 H Creatinine 1.58 H Est GFR (CKD-EPI)AfAm Est GFR (CKD-EPI)NonAf BUN/Creatinine Ratio Glucose 166 H Plasma Lactic Acid Braydon Calcium 8.0 L AST 46 H Total Protein 6.0 L Albumin 2.8 L TSH 7.600 H Free T3 pg/mL 2.6 L Urine Appearance Cloudy H Urine Protein 1+ H Urine Blood Large H Ur Leukocyte Esterase Large H Urine RBC 6 H Urine WBC 7 H Ur Squamous Epith Cells 5 H Urine Bacteria Rare H Hyaline Casts 4 H 02/08/20 02/09/20 02/09/20 09:39 07:41 07:41 WBC 10.8 H RBC 3.12 L Hgb 10.0 L Hct 30.3 L Neutrophils # 8.8 H Lymphocytes # 0.9 L Sodium Chloride 111 H Carbon Dioxide BUN 30.0 H Creatinine Est GFR (CKD-EPI)AfAm 47.1 L Est GFR (CKD-EPI)NonAf 40.7 L BUN/Creatinine Ratio 23.08 H Glucose Plasma Lactic Acid Braydon 4.4 H* Calcium 7.7 L AST Total Protein Albumin TSH Free T3 pg/mL Urine Appearance Urine Protein Urine Blood Ur Leukocyte Esterase Urine RBC Urine WBC Ur Squamous Epith Cells Urine Bacteria Hyaline Casts Assessment and Plan Assessment: Acute Bilateral lower extreme any weakness. One of the possibility is a lumbar lesion. Another differential is a due to worsening bilateral lower extremity cellulitis and this could be limiting to her to ambulate. Leukocytosis likely due to cellulitis Ongoing Chronic cellulitis of the lower extremity History of pulmonary embolism Hypertension Plan: I will order a CT of the lumbar spine to rule out any lesion causing lower extremity weakness. Patient cannot get MRI because of her morbid obesity. I consulted the physical therapy and occupation therapy. I recommend the patient to get the EMG nerve conduction study as an outpatient. I ordered vitamin B12, folate and hemoglobin A1c Patient is on the vitamin B12 500 g daily. Patient is on Eliquis 5 mg 1 tablet twice a day for the history of pulmonary embolism Patient was started on the Synthroid 150mcg daily by the primary team. Infection disease is consulted for cellulitis. Upon discharge the patient needs to follow-up with a neurologist within 1-2 weeks. The plan was discussed with the patient as well as the patient's nurse. Thank you for the consultation. Raimundo Daniels M.D. Neuro-hospitalist Time with Patient: Greater than 30
--- NOTE | 2020-02-09 16:47 | CT ---
EXAMINATION TYPE: CT lumbar spine wo con DATE OF EXAM: 02/09/2020 COMPARISON: None HISTORY: 74-year-old female Low back pain. TECHNIQUE: Contiguous axial scanning of the lumbar spine without IV contrast. Coronal and sagittal re constructions performed. CT DLP: 2839.4 mGycm Automated exposure control for dose reduction was used. FINDINGS: Extensive artifacts related to patient's large body habitus. Underlying gallstones are suspected. Baastrup's disease. Grade 1 anterolisthesis at both L3-L4 and L4-L5 as well as L5-S1. Advanced hypertrophic facet arthropathy throughout the lumbar spine. There is mild multilevel degener ative disc disease. Spinal canal assessment is very limited but suspect at least mild spinal canal stenosis at multiple l evels. On the left, there may be a moderate neuroforaminal stenosis at L1-L2, mild to moderate at L5-S1, and mild at additional levels. On the right, there is at least moderate neuroforaminal stenoses at L2-L3, L3-L4, L4-L5, L5-S1. Vertebral body heights are preserved. IMPRESSION: 1. 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 2. DEGENERATIVE GRADE 1 ANTEROLISTHESIS L3-S1 LEVELS. 3. AT LEAST MODERATE NEUROFORAMINAL STENOSES ON THE RIGHT FROM L2 THROUGH S1 LEVELS. ON THE LEFT AT L 1-L2. 4. NOTE EXTENSIVE ARTIFACTS RELATING TO LARGE PATIENT BODY HABITUS LIMITING ASSESSMENT.
[2020-02-09] MEDS ORDERED: GABAPENTIN 100 MG CAP PO SCH (20:24)
[2020-02-09] MEDS ORDERED: GABAPENTIN 100 MG CAP PO PRN (20:25)
[2020-02-09] MEDS: ASPIRIN 81 MG PO SCH (21:36)
[2020-02-09] MEDS: GABAPENTIN 400 MG CAP PO SCH (21:36)
[2020-02-09] MEDS: ATORVASTATIN 20 MG TAB PO SCH (21:36)
--- NOTE | 2020-02-09 23:49 | PN ---
PROGRESS NOTE DATE OF SERVICE: 02/09/2020 REASON FOR FOLLOWUP: Bilateral lower extremity cellulitis and groin cutaneous candidiasis. INTERVAL HISTORY: The patient is currently afebrile. The patient is breathing comfortably, still having swelling to the leg. No worsening. No chest pain, shortness of breath or cough. No abdominal pain or diarrhea. PHYSICAL EXAMINATION: Blood pressure 110/59, pulse of 74, temperature 98.5. She is 92% on room air. General description: The patient is an elderly female lying in bed in no distress. Respiratory system: Unlabored breathing, clear to auscultation anteriorly. Heart S1, S2. Regular rate and rhythm. Abdomen soft, no tenderness. Legs did have significant swelling, minimal redness, no open wound or any drainage. LABS: Hemoglobin is 10, white count 10.8, BUN of 30, creatinine 1.3. DIAGNOSTIC IMPRESSION AND PLAN: 1. Patient with bilateral lower extremity cellulitis. The patient did have diffuse swelling and redness, likely streptococcal disease. Patient to continue cefazolin, local care with Otis wrap to the leg to keep the swelling down. 2. Groin area cutaneous candidiasis. Nystatin powder should continue to the bilateral breast wall area. 3. Continue supportive care. MMODL / IJN: [id number] /
--- NOTE | 2020-02-10 00:04 | PN ---
PROGRESS NOTE Li Santamaria is a 74-year-old white female who has severe fungal infection, severe leg cellulitis burning down the right leg for which can be started. Discussed the EMG as an outpatient. Remains on cefazolin for leg end cellulitis, do a BNP for CHF. Echo for CHF. Continue current treatment. Follow up in next 24 to 48 hours cardiovascular S1-S2 lungs clear. GI soft. Hematology negative Homans. Hemoglobin is 10.8, white count 7.8, hemoglobin is 10. B12 level is high. Calcium is 7.7. BNP is 2030. Continue with diuresis. Vancomycin. Await for Infectious Disease, to see as well as echo for Cardiology input. MMODL / IJN: [id number] /
[2020-02-10 00:19] LABS: Hemoglobin A1C 5.6 % (4.0-6.0)
[2020-02-10] MEDS: LEVOTHYROXINE 75 MCG TAB PO SCH (05:06)
[2020-02-10] MEDS ORDERED: FUROSEMIDE 10 MG/ML 2 ML VIAL IV ONE (08:35)
[2020-02-10] MEDS: carvediloL 6.25 MG TAB PO SCH ×2 (08:45→17:20)
[2020-02-10] MEDS: GABAPENTIN 400 MG CAP PO SCH ×3 (08:45→21:56)
[2020-02-10] MEDS: CYANOCOBALAMIN 500 MCG TAB PO SCH (08:45)
[2020-02-10] MEDS: LOSARTAN 50 MG TAB PO SCH (08:45)
[2020-02-10] MEDS: CHOLECALCIFEROL 1,000 UNIT TAB PO SCH (08:45)
[2020-02-10] MEDS: FAMOTIDINE 20 MG TAB PO SCH (08:45)
[2020-02-10] MEDS: MULTIVITAMINS, THERA 1 EACH TAB PO SCH (08:45)
[2020-02-10] MEDS: APIXABAN 5 MG TAB PO SCH ×2 (08:45→21:56)
[2020-02-10] MEDS: SPIRONOLACTONE 25 MG TAB PO SCH (08:52)
[2020-02-10] MEDS: NYSTATIN 100,000 UNIT/GM POWD 15 GM TOPICAL SCH ×2 (08:53→21:56)
[2020-02-10] MEDS ORDERED: IPRATROPIUM-ALBUTEROL 3 ML NEB INHALATION STA (10:15)
--- NOTE | 2020-02-10 10:18 | ECHOF ---
Referral Reason:chf MEASUREMENTS -------- HEIGHT: 157.5 cm WEIGHT: 127.0 kg BP: RVIDd: 3.8 cm (< 3.3) IVSd: 1.3 cm (0.6 - 1.1) LVIDd: 4.4 cm (3.9 - 5.3) LVPWd: 1.4 cm (0.6 - 1.1) IVSs: 1.5 cm LVIDs: 2.5 cm LVPWs: 2.4 cm Ao Diam: 3.3 cm (2.0 - 3.7) AV Cusp: 2.0 cm (1.5 - 2.6) LA Diam: 4.8 cm (2.7 - 3.8) MV EXCURSION: 19.913 mm (> 18.000) MV EF SLOPE: 76 mm/s (70 - 150) EPSS: 0.6 cm MV E Cabrera: 0.87 m/s MV DecT: 193 ms MV A Cabrera: 0.83 m/s MV E/A Ratio: 1.04 RAP: 5.00 mmHg RVSP: 15.17 mmHg FINDINGS -------- Sinus rhythm. This was a technically adequate study. Morbid Obesity The left ventricular size is normal. There is mild concentric left ventricular hypertrophy. Overa ll left ventricular systolic function is normal with, an EF between 55 - 60 %. The right ventricle is mild to moderately enlarged. The left atrial size is normal. The right atrial size is normal. The aortic valve is trileaflet, and appears structurally normal. No aortic stenosis or regurgitation. Mild mitral regurgitation is present. Mild tricuspid regurgitation present. Right ventricular systolic pressure is normal at < 35 mmHg. There is no pulmonic regurgitation present. The aortic root size is normal. There is no pericardial effusion. CONCLUSIONS -------- 1. This was a technically adequate study. 2. Morbid Obesity 3. The left ventricular size is normal. 4. There is mild concentric left ventricular hypertrophy. 5. Overall left ventricular systolic function is normal with, an EF between 55 - 60 %. 6. The right ventricle is mild to moderately enlarged. 7. The left atrial size is normal. 8. The right atrial size is normal. 9. Mild mitral regurgitation is present. 10. Mild tricuspid regurgitation present. 11. The aortic root size is normal. 12. There is no pericardial effusion. PRECISION ASSEMBLER: Jo Arora RDCS
--- NOTE | 2020-02-10 10:20 | P.CRDCN ---
History of Present Illness History of present illness: HISTORY OF PRESENTING ILLNESS This is a pleasant 74-year-old female past medical history significant for hypertension, pulmonary embolism, dyslipidemia, hypothyroidism, frequent lo wer extremity cellulitis and morbid obesity. She denies prior history of coronary artery disease and does not follow in the office with a business law instructor. We have been asked to see in consultation for heart failure. Isn't is in the hospital with bilateral lower extremity swelling, redness and weakness. She was diagnosed with cellulitis and sepsis. Lactic acid was elevated on admission prompting fluid administration. She is currently maintained on IV antibiotics, infectious disease is following. She is seen and examined sitting up in no acute distress. She denies symptoms of shortness of breath, dizziness, chest pain or palpitations. DIAGNOSTICS EKG reveals left bundle branch block. Chest xray negative for an acute cardiopulmonary process. Laboratory reviewed, WBC on admission 15.1 repeat today 10.8, hemoglobin 10, platelets 377, sodium 140, potassium 3.9, creatinine on admission 1.50 8 repeat today 1.3, lactic acid on admission 4. 4 repeat after hydration 1.6, troponin negative 1, and T proBNP 2030 after fluid administration, TSH 7.6, free T4 1.64 and free T3 2.6. Current cardiac medications include Eliquis 5 mg twice a day secondary to history of PE, aspirin 81 mg daily, Coreg 6.25 mg twice a day, losartan 50 mg daily, Lasix 20 mg daily and simvastatin 40 mg at bedtime. REVIEW OF SYSTEMS At the time of my exam: CONSTITUTIONAL: Denies fever or chills. CARDIOVASCULAR: Denies chest pain, shortness of breath, orthopnea, PND or palpitations. RESPIRATORY: Denies cough. GASTROINTESTINAL: Denies abdominal pain, diarrhea, constipation, nausea or vomiting. MUSCULOSKELETAL: Complains of bilateral lower extremity weakness. Denies myalgias. NEUROLOGIC: Denies numbness, tingling or weakness. ENDOCRINE: Denies fatigue, weight change, polydipsia or polyurina. GENITOURINARY: Denies burning, hematuria or urgency with micturation. HEMATOLOGIC: Denies history of anemia or bleeding. PHYSICAL EXAMINATION Blood pressure 134/62 heart rate 82 afebrile and maintaining oxygen saturation on room air. CONSTITUTIONAL: No apparent distress. Morbidly obese. HEENT: Head is normocephalic. Pupils are equal, round. Sclerae anicteric. Mucous membranes of the mouth are moist. No JVD. No carotid bruit. CHEST EXAMINATION: Bronchial wheezing. No rales or rhonchi. No chest wall tend erness is noted on palpation or with deep breathing. HEART EXAMINATION: Regular rate and rhythm. S1, S2 heard. No murmurs, gallops or rub. Distant heart sounds. ABDOMEN: Soft, nontender. Positive bowel sounds. EXTREMITIES: Bilateral lower extremity erythema and chronic skin changes. No significant pitting edema. NEUROLOGIC EXAMINATION: Patient is awake, alert and oriented x3. ASSESSMENT Bilateral lower extremity cellulitis Fluid overload secondary to fluid administration Lactic acidosis Hypertension Dyslipidemia Morbid obesity, BMI 51 History of pulmonary embolism maintained on long-term anticoagulation PLAN No evidence to suggest heart failure. Give one DuoNeb updraft treatment secondary to bronchial wheezing. Give IV Lasix 20 mg 1 now. Echocardiogram has been obtained and will be reviewed. Discontinue aspirin as she is on Eliquis. She has no prior history of coronary artery disease. Add small dose of Aldactone 12.5 mg daily and discontinue daily potassium supplementation. Ongoing medical management and treatment of lower extremity cellulitis. Thank you kindly for this consultation. Nurse Practitioner note has been reviewed, I agree with a documented findings and plan of care. Patient was seen and examined. Past Medical History Past Medical History: Hypertension, Pulmonary Embolus (PE) Additional Past Medical History / Comment(s): PE in lung, hypertention, cellulitis History of Any Multi-Drug Resistant Organisms: None Reported Past Surgical History: Hysterectomy Additional Past Surgical History / Comment(s): hysterectomy 9 years ago, arm tumor removal 15 years ago Past Anesthesia/Blood Transfusion Reactions: No Reported Reaction Smoking Status: Never smoker Past Alcohol Use History: None Reported Additional Past Alcohol Use History / Comment(s): Patient is a lifelong nonsmoker, no illicit drug use, no alcohol use. She lives at home with her son Bridger. 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. Past Drug Use History: None Reported - Past Family History Mother Family Medical History: Cancer, Diabetes Mellitus Father Family Medical History: Pulmonary Embolus Additional Family Medical History / Comment(s): PE in lung, hip replacement Medications and Allergies Home Medications Medication Instructions Recorded Confirmed Type Apixaban [Eliquis] 5 mg PO BID 11/26/18 02/08/20 History Aspirin EC [Ecotrin Low Dose] 81 mg PO HS 11/26/18 02/08/20 History Cyanocobalamin [Vitamin B-12] 500 mcg PO DAILY 11/26/18 02/08/20 History Multivitamins, Thera [Multivitamin 1 tab PO DAILY 11/26/18 02/08/20 History (formulary)] carvediloL [Coreg] 6.25 mg PO BID 11/26/18 02/08/20 History hydrALAZINE HCL 25 mg PO QID PRN 11/26/18 02/08/20 History Famotidine [Pepcid] 20 mg PO DAILY #30 tab 12/03/18 02/08/20 Rx Furosemide [Lasix] 20 mg PO DAILY #1 tab 12/03/18 02/08/20 Rx Losartan [Cozaar] 50 mg PO DAILY #30 tab 12/03/18 02/08/20 Rx Cephalexin [Keflex] 500 mg PO BID 02/08/20 02/08/20 History Cholecalciferol [Vitamin D3 (25 5,000 unit PO DAILY 02/08/20 02/08/20 History Mcg = 1000 Iu)] Levothyroxine Sodium [Synthroid] 100 mcg PO DAILY 02/08/20 02/08/20 History Potassium Chloride ER [K-Dur 20] 20 meq PO DAILY 02/08/20 02/08/20 History Simvastatin [Zocor] 40 mg PO HS 02/08/20 02/08/20 History Allergies Allergy/AdvReac Type Severity Reaction Status Date / Time No Known Allergies Allergy Verified 02/08/20 11:05 Physical Exam Vitals: Vital Signs Temp Pulse Resp BP Pulse Ox 02/10/20 02:29 97.9 F 83 16 120/66 93 L 02/09/20 20:00 74 16 02/09/20 19:41 98.5 F 74 16 110/59 92 L 02/09/20 15:30 98.8 F 83 16 136/88 91 L Intake and Output 02/09/20 02/10/20 02/10/20 22:59 06:59 14:59 Output Total 250 Balance -250 Output: Urine 250 Other: # Voids 4 # Bowel Movements 2 Results 02/09/20 07:41 02/09/20 07:41 Comprehensive Metabolic Panel 02/09/20 Range/Units 07:41 Sodium 140 (135-145) mmol/L Potassium 3.9 (3.5-5.5) mmol/L Chloride 111 H (96-109) mmol/L Carbon Dioxide 22.9 (21.6-31.8) mmol/L BUN 30.0 H (9.0-27.0) mg/dL Creatinine 1.3 (0.6-1.5) mg/dL Glucose 97 (70-110) mg/dL Calcium 7.7 L (8.7-10.3) mg/dL Current Medications Generic Name Dose Route Start Last Admin Trade Name Freq PRN Reason Stop Dose Admin Acetaminophen 650 mg 02/08/20 11:07 Acetaminophen Tab 325 Mg Tab PO Q6HR PRN Mild Pain or Fever > 100.5 Apixaban 5 mg 02/08/20 21:00 02/09/20 21:35 Apixaban 5 Mg Tab PO 5 mg BID YONG Administration Aspirin 81 mg 02/08/20 21:00 02/09/20 21:36 Aspirin 81 Mg PO 81 mg HS YONG Administration Atorvastatin Calcium 20 mg 02/08/20 21:00 02/09/20 21:36 Atorvastatin 20 Mg Tab PO 20 mg HS YONG Administration Carvedilol 6.25 mg 02/08/20 17:30 02/09/20 16:34 Carvedilol 6.25 Mg Tab PO 6.25 mg BID-W/MEALS YONG Administration Cholecalciferol 5,000 unit 02/09/20 09:00 02/09/20 08:42 Cholecalciferol 1,000 Unit Tab PO 5,000 unit DAILY YONG Administration Cyanocobalamin 500 mcg 02/09/20 09:00 02/09/20 08:43 Cyanocobalamin 500 Mcg Tab PO 500 mcg DAILY YONG Administration Famotidine 20 mg 02/09/20 09:00 02/09/20 08:42 Famotidine 20 Mg Tab PO 20 mg DAILY YONG Administration Furosemide 20 mg 02/09/20 09:00 02/09/20 08:43 Furosemide 20 Mg Tab PO 20 mg DAILY YONG Administration Gabapentin 800 mg 02/09/20 22:00 02/09/20 21:36 Gabapentin 400 Mg Cap PO 800 mg TID YONG Administration Gabapentin 100 mg 02/09/20 20:25 Gabapentin 100 Mg Cap PO TID PRN Pain Hydralazine HCl 25 mg 02/08/20 15:08 Hydralazine Hcl 25 Mg Tab PO QID PRN systolic >150 Cefazolin Sodium 2 gm/ Sodium 50 mls @ 100 mls/hr 02/08/20 21:00 02/09/20 21 :36 Chloride IVPB 100 mls/hr Q12HR YONG Administration Levothyroxine Sodium 150 mcg 02/09/20 06:30 02/10/20 05:06 Levothyroxine 75 Mcg Tab PO 150 mcg DAILY@0630 YONG Administration Losartan Potassium 50 mg 02/09/20 09:00 02/09/20 08:42 Losartan 50 Mg Tab PO 50 mg DAILY YONG Administration Multivitamins 1 each 02/09/20 09:00 02/09/20 08:42 Multivitamins, Thera 1 Each Tab PO 1 each DAILY YONG Administration Naloxone HCl 0.2 mg 02/08/20 11:07 Naloxone 0.4 Mg/Ml 1 Ml Vial IV Q2M PRN Opioid Reversal Nystatin 1 applic 02/08/20 21:00 02/09/20 21:38 Nystatin 100,000 Unit/Gm Powd 15 Gm TOPICAL 1 applic BID YONG Administration Potassium Chloride 20 meq 02/09/20 09:00 02/09/20 08:42 Potassium Chloride Er 20 Meq Tab.Er PO 20 meq DAILY YONG Administration Intake and Output 02/09/20 02/10/20 02/10/20 22:59 06:59 14:59 Output Total 250 Balance -250 Output: Urine 250 Other: # Voids 4 # Bowel Movements 2 02/09/20 07:41 02/09/20 07:41
[2020-02-10 15:06] VITALS: BMI 51.2
--- NOTE | 2020-02-10 16:49 | P.PN ---
Subjective Progress Note Date: 02/10/20 Patient was seen at bedside and she stated that she's doing somewhat better today compared to yesterday. Denies any worsening weakness of lower extremities. Denies any urinary bowel problems. Denies of any upper extremity weakness. Denies of any visual disturbance or difficulty in her words out. Objective - Vital Signs Vital signs: Vital Signs Temp 98.0 F 02/10/20 14:00 Pulse 109 H 02/10/20 14:00 Resp 22 02/10/20 14:00 BP 116/65 02/10/20 14:00 Pulse Ox 99 02/10/20 14:00 Intake & Output 02/09/20 02/10/20 02/10/20 18:59 06:59 18:59 Output Total 250 Balance -250 Weight 127.006 kg Output: Urine 250 Other: # Voids 4 # Bowel Movements 2 - Exam GENERAL: The patient is morbidly obese, lying in bed and is not in acute distre ss. INTEGUMENTARY: Bilateral lower extremities almost just distal to the knee to the proximal ankle it's the earth Jossie bilaterally as well as the warm. She has like lymphedema of bilateral lower extremity compared to upper extremities at. NEUROLOGICAL: Higher mental function: The patient is awake, alert, oriented to self, place and time. Patient is following commands. No aphasia and no neglect. Cranial nerves: The pupils are round, equal and reactive to light and accommodation. Visual avendaño are full to confrontation throughout. Extraocular movement is intact no nystagmus is noted. Facial sensation is normal to touch throughout. The facial strength is normal throughout. Hearing is normal bilaterally to hand rub. Tongue is midline and moved [id number] without any difficulty. No dysarthria is noted. Shoulder shrug is normal bilaterally. Motor: Gait is deferred because of her condition. The strength in proximal lower extremities is 3-4 bilaterally; knee extension and flexion 4+ bilaterally; ankle flexion and extension is 5/5. Otherwise upper are 5 over 5 throughout. N ormal tone and bulk. Cerebellum: Normal finger to nose bilaterally. Sensation: Sensation is normal to touch throughout. Reflexes (right/left): 2+ throughout except ankle is 0 bilaterally. Plantars are mute bilaterally. - Labs CBC & Chem 7: 02/09/20 07:41 02/09/20 07:41 Labs: Abnormal Lab Results - Last 24 Hours (Table) 02/08/20 02/09/20 Range/Units 13:30 13:36 Vitamin B12 2114.0 H (200.0-944.0) pg/mL RBC Folate 1,383 H (280 - 791) ng/mL Microbiology - Last 24 Hours (Table) 02/08/20 09:39 Blood Culture - Preliminary Blood No Growth after 48 hours Assessment and Plan Assessment: Acute Bilateral lower extreme any weakness due to Lumbosacral spondylosis. Leukocytosis likely due to cellulitis Ongoing Chronic cellulitis of the lower extremity History of pulmonary embolism Hypertension Plan: * CT of the lumbar spine: Reported as advanced hypertrophic facet arthropathic 3 at throughout as well as Basstrup's Disease. Degenerative grade 1 anterolishtesis L3-S1 levels. At least moderate neural foraminal stenosis on the right from L2 through S1 levels. On the left at L1 to L2. Note extensive artifacts relating to a large patient body habitus limiting assessment * Patient cannot get MRI because of her morbid obesity. * I told orthopedic surgery and the per the patient's she stated that she was told that no intervention is needed for her lumbar region and that she is to follow up with orthopedic surgeon as an outpatient. * Physical therapy and occupation therapy are consulted. * I recommend the patient to get the EMG nerve conduction study as an outpatient. * Vitamin B12: 2114 (high which is considered normal). * Folate: 1383 (high which is considered normal). * Hemoglobin A1c: 5.6 (normal). * Patient is on the vitamin B12 500 g daily (home dose). * Patient is on Eliquis 5 mg 1 tablet twice a day for the history of pulmonary embolism * Patient was started on the Synthroid 150mcg daily by the primary team. * Infection disease is consulted for cellulitis. Upon discharge the patient needs to follow-up with a neurologist within 1-2 weeks. The plan was discussed with the patient as well as the patient's nurse. Raimundo Daniels M.D. Neuro-hospitalist Time with Patient: Less than 30
--- NOTE | 2020-02-10 17:06 | P.CNOR ---
History of Present Illness - [facility] Consult date: 02/10/20 Requesting physician: Raimundo Daniels Consult reason: other (Lower extremity weakness and radiculopathy) History of present illness: Patient is a very pleasant 74-year-old female who is seen and examined at bedside for further evaluation of her lumbar spine and consultation was placed for lower extremity numbness and radiculopathy. Patient states at the bedside today she is not currently experiencing any significant back pain or lower extremity radiculopathy. She does have some generalized weakness. She admits she is not very active and spends most of her day sitting at home. She states she does not have very much activity to do so she does not significantly ambulate. She denies any recent injuries. She does not have significant cellulitis with swelling of the bilateral lower extremities which has been ongoing since July 2018. Prior to being seen at the bedside she has had CT imaging of the lumbar spine. She has been seen by neurology, cardiology and medicine. Patient states at the bedside she did have an episode of general weakness previously about 2 years ago and was treated with medication and her symptoms improved. She strongly states at the bedside she does not wish to have any surgical intervention at her lumbar spine. She would be willing to work through conservative treatment as needed. Patient's past medical history includes hypertension, lower extremity cellulitis, morbid obesity and history of pulmonary embolism. Patient denies previous surgical intervention to her lumbosacral spine. Past Medical History Past Medical History: Hypertension, Pulmonary Embolus (PE) Additional Past Medical History / Comment(s): PE in lung, hypertention, cellulitis History of Any Multi-Drug Resistant Organisms: None Reported Past Surgical History: Hysterectomy Additional Past Surgical History / Comment(s): hysterectomy 9 years ago, arm tumor removal 15 years ago Past Anesthesia/Blood Transfusion Reactions: No Reported Reaction Smoking Status: Never smoker Past Alcohol Use History: None Reported Additional Past Alcohol Use History / Comment(s): Patient is a lifelong nonsmoker, no illicit drug use, no alcohol use. She lives at home with her son Bridger. 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. Past Drug Use History: None Reported - Past Family History Mother Family Medical History: Cancer, Diabetes Mellitus Father Family Medical History: Pulmonary Embolus Additional Family Medical History / Comment(s): PE in lung, hip replacement Medications and Allergies Home Medications Medication Instructions Recorded Confirmed Type Apixaban [Eliquis] 5 mg PO BID 11/26/18 02/08/20 History Aspirin EC [Ecotrin Low Dose] 81 mg PO HS 11/26/18 02/08/20 History Cyanocobalamin [Vitamin B-12] 500 mcg PO DAILY 11/26/18 02/08/20 History Multivitamins, Thera [Multivitamin 1 tab PO DAILY 11/26/18 02/08/20 History (formulary)] carvediloL [Coreg] 6.25 mg PO BID 11/26/18 02/08/20 History hydrALAZINE HCL 25 mg PO QID PRN 11/26/18 02/08/20 History Famotidine [Pepcid] 20 mg PO DAILY #30 tab 12/03/18 02/08/20 Rx Furosemide [Lasix] 20 mg PO DAILY #1 tab 12/03/18 02/08/20 Rx Losartan [Cozaar] 50 mg PO DAILY #30 tab 12/03/18 02/08/20 Rx Cephalexin [Keflex] 500 mg PO BID 02/08/20 02/08/20 History Cholecalciferol [Vitamin D3 (25 5,000 unit PO DAILY 02/08/20 02/08/20 History Mcg = 1000 Iu)] Levothyroxine Sodium [Synthroid] 100 mcg PO DAILY 02/08/20 02/08/20 History Potassium Chloride ER [K-Dur 20] 20 meq PO DAILY 02/08/20 02/08/20 History Simvastatin [Zocor] 40 mg PO HS 02/08/20 02/08/20 History Allergies Allergy/AdvReac Type Severity Reaction Status Date / Time No Known Allergies Allergy Verified 02/08/20 11:05 Physical Examination Physical Exam: Patient is awake, alert, and oriented 3; patient currently receiving a breathing treatment Vital signs stable Adequate chest excursion with deep inspiration and expiration No signs or symptoms of DVT; no calf pain Evidence of significant swelling of the bilateral lower extremities Cellulitis of the lower extremities bilaterally below the knee Evidence of significant skin change of the bilateral lower extremities below the knees Extensor hallucis longus, plantarflexion, and dorsiflexion positive sustained bilateral lower extremities Patient has some difficulty with lifting her legs off the bed No pain with palpation along the lumbar spine Examination of the lumbar spine shows no erythema, bruising, laceration, or obvious sign of infection No hyperreflexia bilateral lower extremities Neurovascular intact bilateral lower extremities Results Assessment: CT of the lumbar spine taken on 12/10/2019: L4-5 spondylolisthesis; L5-S1 spondylolisthesis; multilevel moderate foraminal stenosis on the right at L2-S1 and on the left L3-S1; advanced facet degenerative changes; extensive artifact related to patient's body habitus; Baastrup's disease - Labs Labs: Abnormal Lab Results - Last 24 Hours (Table) 02/08/20 02/09/20 Range/Units 13:30 13:36 Vitamin B12 2114.0 H (200.0-944.0) pg/mL RBC Folate 1,383 H (280 - 791) ng/mL Microbiology - Last 24 Hours (Table) 02/08/20 09:39 Blood Culture - Preliminary Blood No Growth after 48 hours H & H 02/08/20 02/09/20 Range/Units 09:39 07:41 Hgb 10.9 L 10.0 L (11.4-16.0) gm/dL Hct 32.4 L 30.3 L (34.0-46.0) % Coagulation 02/08/20 Range/Units 09:39 INR 1.0 (<1.2) Result Diagrams: 02/09/20 07:41 02/09/20 07:41 Assessment and Plan Assessment: Assessment: L4-5 spondylolisthesis L5-S1 spondylolisthesis Lumbar neuroforaminal stenosis Advanced facet degenerative changes Lower extremity weakness Baastrup's disease Skin changes bilateral lower extremities Chronic bilateral lower extremity cellulitis Hypertension Morbid obesity History of pulmonary embolism (1) Lower extremity weakness Current Visit: Yes Status: Acute Code(s): R29.898 - OTH SYMPTOMS AND SIGNS INVOLVING THE MUSCULOSKELETAL SYSTEM SNOMED Code(s): 956738929 (2) Spondylolisthesis, lumbar region Current Visit: Yes Status: Acute Code(s): M43.16 - SPONDYLOLISTHESIS, LUMBAR REGION SNOMED Code(s): 570256580237647 (3) Spondylolisthesis, lumbosacral region Current Visit: Yes Status: Acute Code(s): M43.17 - SPONDYLOLISTHESIS, LUMBOSACRAL REGION SNOMED Code(s): 784421161 (4) Foraminal stenosis of lumbar region Current Visit: Yes Status: Acute Code(s): M48.061 - SPINAL STENOSIS, LUMBAR REGION WITHOUT NEUROGENIC AKIRA SNOMED Code(s): 775329470 (5) Facet arthritis, degenerative, lumbar spine Current Visit: Yes Status: Acute Code(s): M47.816 - SPONDYLOSIS W/O MYELOPATHY OR RADICULOPATHY, LUMBAR REGION SNOMED Code(s): 756245698 (6) Baastrup's syndrome Current Visit: Yes Status: Acute Code(s): M48.20 - KISSING SPINE, SITE UNSPECIFIED SNOMED Code(s): 32570547 (7) Cellulitis Current Visit: Yes Status: Acute Code(s): L03.90 - CELLULITIS, UNSPECIFIED SNOMED Code(s): 569186318 (8) Hypertension Current Visit: Yes Status: Acute Code(s): I10 - ESSENTIAL (PRIMARY) HYPERTENSION SNOMED Code(s): 01595153 (9) Morbid obesity with BMI of 50.0-59.9, adult Current Visit: Yes Status: Acute Code(s): E66.01 - MORBID (SEVERE) OBESITY DUE TO EXCESS CALORIES; Z68.43 - BODY MASS INDEX [BMI] 50.0-59.9, ADULT SNOMED Code(s): 099805576 (10) History of pulmonary embolism Current Visit: Yes Status: Acute Code(s): Z86.711 - PERSONAL HISTORY OF PULMONARY EMBOLISM SNOMED Code(s): 106973769 Plan: Plan: 1. After physical examination the patient, further discussion with the patient, and reviewed of imaging, we are not currently planning for any surgical intervention in regards to her lumbar spine. She does have significant degenerative changes at her lumbar spine. Patient states she does not wish to have any surgical intervention at her lumbar spine. She would be willing to work through conservative treatment. She has had an episode of generalized weakness approximately 2 years ago which improved during hospitalization with conservative treatment. She is not currently complaining of any low back pain or significant lower extremity radiculopathy. At this time we would defer from consultation with pain management given her lack of pain. At this time patient may continue with conservative treatment as set forth by medicine and other caregivers. From an orthopedic spine standpoint, patient is clear for discharge. We will plan to have the patient follow-up in the outpatient setting on as-needed basis. 2. Patient may continue following other medical providers including medicine, neurology, and cardiology Time with Patient: Greater than 30 (Including obtaining history, physical examination, reviewing of imaging, and dictation.)
[2020-02-10] MEDS: ATORVASTATIN 20 MG TAB PO SCH (21:56)
--- NOTE | 2020-02-10 23:14 | PN ---
PROGRESS NOTE DATE OF SERVICE: 02/10/2020. REASON FOR FOLLOWUP: Bilateral lower extremity INTERVAL HISTORY: The patient is afebrile. Patient is breathing comfortably. swelling in the legs. Redness has decreased. PHYSICAL EXAMINATION: Blood pressure . He is 93% on room air. General description: The patient is an elderly female up in the chair in no distress. clear to auscultation anteriorly. Heart S1, S2 abdomen soft, swelling. LABS: No new labs obtained. Blood culture negative. DIAGNOSTIC IMPRESSION AND PLAN: 1. Patient with bilateral lower extremity cellulitis in this patient who did have diffuse swelling and redness likely streptococcal disease responding to cefazolin to continue along with Otis wrap to the leg to keep the swelling down. 2. Patient bilateral breast wall cutaneous candidiasis. Nystatin powder. MMODL / IJN: [id number] /
[2020-02-11] MEDS: LEVOTHYROXINE 75 MCG TAB PO SCH (06:12)
[2020-02-11] MEDS: CHOLECALCIFEROL 1,000 UNIT TAB PO SCH (08:22)
[2020-02-11] MEDS: FUROSEMIDE 20 MG TAB PO SCH (08:23)
[2020-02-11] MEDS: CYANOCOBALAMIN 500 MCG TAB PO SCH (08:23)
[2020-02-11] MEDS: carvediloL 6.25 MG TAB PO SCH ×2 (08:23→17:25)
[2020-02-11] MEDS: APIXABAN 5 MG TAB PO SCH ×2 (08:23→20:58)
[2020-02-11] MEDS: SPIRONOLACTONE 25 MG TAB PO SCH (08:23)
[2020-02-11] MEDS: LOSARTAN 50 MG TAB PO SCH (08:23)
[2020-02-11] MEDS: FAMOTIDINE 20 MG TAB PO SCH (08:23)
[2020-02-11] MEDS: GABAPENTIN 400 MG CAP PO SCH ×3 (08:23→20:58)
[2020-02-11] MEDS: NYSTATIN 100,000 UNIT/GM POWD 15 GM TOPICAL SCH ×2 (08:24→20:58)
[2020-02-11] MEDS: MULTIVITAMINS, THERA 1 EACH TAB PO SCH (08:24)
--- NOTE | 2020-02-11 11:15 | P.PN ---
Subjective Progress Note Date: 02/11/20 Patient was seen at bedside and the she stated that the she said feeling minimally at a better of her lower externa compared to prior. She denies of any lower back pain, urinary or bowel frequency urgency or incontinence. She denies of any numbness or any worsening of her weakness. Denies of upper extremity weakness numbness. Denies of difficulty getting her words out visual disturbance. Objective - Vital Signs Vital signs: Vital Signs Temp 98 F 02/11/20 07:29 Pulse 76 02/11/20 07:29 Resp 23 02/11/20 07:29 BP 118/67 02/11/20 07:29 Pulse Ox 95 02/11/20 07:29 Intake & Output 02/10/20 02/11/20 02/11/20 18:59 06:59 18:59 Intake Total 540 Output Total 400 1000 Balance -400 -460 Weight 127.006 kg Intake: Oral 540 Output: Urine 400 1000 Other: Voiding Method Indwelling Catheter # Voids 4 # Bowel Movements 2 - Exam GENERAL: The patient is morbidly obese, lying in bed and is not in acute distress. INTEGUMENTARY: Bilateral lower extremities almost just distal to the knee to the proximal ankle it's the earth Jossie bilaterally as well as the warm. She has like lymphedema of bilateral lower extremity compared to upper extremities at. NEUROLOGICAL: Higher mental function: The patient is awake, alert, oriented to self, place and time. Patient is following commands. No aphasia and no neglect. Cranial nerves: The pupils are round, equal and reactive to light and accommodation. Visual avendaño are full to confrontation throughout. Extraocular movement is intact no nystagmus is noted. Facial sensation is normal to touch throughout. The facial strength is normal throughout. Hearing is normal b ilaterally to hand rub. Tongue is midline and moved [id number] without any difficulty. No dysarthria is noted. Shoulder shrug is normal bilaterally. Motor: Gait is deferred because of her condition. The strength in proximal lower extremities is 3-4 bilaterally; knee extension and flexion 4+ bilaterally; ankle flexion and extension is 5/5. Otherwise upper are 5 over 5 throughout. Normal tone and bulk. Cerebellum: Normal finger to nose bilaterally. Sensation: Sensation is normal to touch throughout. Reflexes (right/left): 2+ throughout except ankle is 0 bilaterally. Plantars are mute bilaterally. - Labs CBC & Chem 7: 02/09/20 07:41 02/09/20 07:41 Labs: Abnormal Lab Results - Last 24 Hours (Table) 02/09/20 Range/Units 13:36 RBC Folate 1,383 H (280 - 791) ng/mL Microbiology - Last 24 Hours (Table) 02/08/20 09:39 Blood Culture - Preliminary Blood No Growth after 48 hours Assessment and Plan Assessment: Acute Bilateral lower extreme any weakness due to Lumbosacral spondylosis. Lumbosacral spondylosis (L3 to S1) Baastrup's disease Leukocytosis likely due to cellulitis Ongoing Chronic cellulitis of the lower extremity History of pulmonary embolism Hypertension Morbid Obesity Plan: * CT of the lumbar spine: Reported as advanced hypertrophic facet arthropathic 3 at throughout as well as Basstrup's Disease. Degenerative grade 1 anterolishtesis L3-S1 levels. At least moderate neural foraminal stenosis on the right from L2 through S1 levels. On the left at L1 to L2. Note extensive artifacts relating to a large patient body habitus limiting assessment * Patient cannot get MRI because of her morbid obesity. * Orthopedic surgery on board and they stated that the patient the does not wish to have any surgical intervention at her lumbar spine that. And rather wishes conservative treatment. * Physical therapy and occupation therapy are consulted. * I recommended the patient to follow-up with a neurologist as an outpatient and to see if she can get MRI of the lumbar spine if possible as an outpatient (at facility where she can fit for MRI). I also recommended that she follows up with a neurosurgeon as an outpatient. * I recommend the patient to get the EMG nerve conduction study as an outpatient. * Vitamin B12: 2114 (high which is considered normal). * Folate: 1383 (high which is considered normal). * Hemoglobin A1c: 5.6 (normal). * Patient is on the vitamin B12 500 g daily (home dose). * Patient is on Eliquis 5 mg 1 tablet twice a day for the history of pulmonary embolism * Patient was started on the Synthroid 150mcg daily by the primary team. * Infection disease is consulted for cellulitis. Upon discharge the patient needs to follow-up with a neurologist within 1-2 weeks. The plan was discussed with the patient as well as the patient's nurse. Raimundo Daniels M.D. Neuro-hospitalist Time with Patient: Less than 30
--- NOTE | 2020-02-11 18:12 | PN ---
PROGRESS NOTE DATE OF SERVICE: 02/10/2020 This patient came in with bilateral lower extremity cellulitis. She is afebrile, breathing comfortably. Swelling in her legs is improving. Redness is improving. Her vital signs are stable. She is 93% on room air. She has lymphedema-type changes, anasarca-type changes. HEART: S1, S2. Lungs clear. Abdomen soft. Extremities have extreme edema. The culture is negative. ASSESSMENT: 1. Bilateral lower extremity cellulitis with streptococcal disease. Cefazolin . 2. Cutaneous candidiasis bilaterally, breast wall and abdomen. Nystatin powder. Wait for Cardiology to review the echo and get their opinion. Physical therapy will be ordered. MMODL / IJN: [id number] /
--- NOTE | 2020-02-11 18:33 | PN ---
PROGRESS NOTE This is a 74-year-old white female with lymphedema, cellulitis of extremities infection, hypocalcemia. BNP is 2030. She had a normal echo. Cardiology saw her for lymphedema, shortness of breath. EKG shows left bundle branch block. ASSESSMENT: 1. Bilateral lower extremity cellulitis. 2. Fluid overload. 3. Lactic acidosis. 4. Hypertension. 5. Dyslipidemia. 6. Obesity. 7. on anticoagulation. We gave her some Lasix, DuoNeb. Continue with Eliquis. They added Aldactone. Discontinue potassium. Prognosis guarded. Please see further orders. PT/OT. Possible discharge home soon. MMODL / IJN: [id number] /
[2020-02-11] MEDS: ATORVASTATIN 20 MG TAB PO SCH (20:57)
--- NOTE | 2020-02-11 23:05 | PN ---
PROGRESS NOTE DATE OF SERVICE: 02/11/2020 REASON FOR FOLLOWUP: 1. Bilateral lower extremity cellulitis. 2. Groin and breast fold areas cutaneous candidiasis. INTERVAL HISTORY: The patient is currently afebrile. The patient did have significant swelling of the lower extremities. Unfortunately Otis wraps were not applied as requested. Denies having any chest pain or shortness of breath or cough. No abdominal pain or diarrhea. PHYSICAL EXAMINATION: Blood pressure 124/60 with a pulse of 78, temperature 98.1. She is 91% on room air. General description is an elderly female lying in bed in no distress. RESPIRATORY SYSTEM: Unlabored breathing with decreased intensity of breath sounds. No wheeze. HEART: S1, S2. Regular rate and rhythm. ABDOMEN: Soft. No tenderness. LABS: Creatinine is up to 1.3. DIAGNOSTIC IMPRESSION AND PLAN: 1. Patient with bilateral lower extremity cellulitis in this patient who did have overall improvement in her kidney function. Cellulitis is not improving; more likely related to the low-dose cefazolin. Will adjust the cefazolin back to 3 grams q.8 hours. Otis wraps to the legs. 2. Bilateral groin and breast fold areas cutaneous candidiasis. Nystatin powder to bilateral groin and breast fold areas. MMODL / IJN: [id number] /
[2020-02-12] MEDS: ceFAZolin 3 GM in SODIUM CHLORIDE 0.9% 100 ML IVPB SCH ×4 (00:45→23:08)
[2020-02-12] MEDS: ACETAMINOPHEN TAB 325 MG TAB PO PRN ×2 (02:43→11:28)
[2020-02-12] MEDS: LEVOTHYROXINE 75 MCG TAB PO SCH (05:19)
[2020-02-12] MEDS: CHOLECALCIFEROL 1,000 UNIT TAB PO SCH (07:44)
[2020-02-12] MEDS: SPIRONOLACTONE 25 MG TAB PO SCH (07:44)
[2020-02-12] MEDS: GABAPENTIN 400 MG CAP PO SCH ×3 (07:45→20:14)
[2020-02-12] MEDS: MULTIVITAMINS, THERA 1 EACH TAB PO SCH (07:45)
[2020-02-12] MEDS: FAMOTIDINE 20 MG TAB PO SCH (07:45)
[2020-02-12] MEDS: carvediloL 6.25 MG TAB PO SCH ×2 (07:45→17:32)
[2020-02-12] MEDS: CYANOCOBALAMIN 500 MCG TAB PO SCH (07:45)
[2020-02-12] MEDS: LOSARTAN 50 MG TAB PO SCH (07:45)
[2020-02-12] MEDS: APIXABAN 5 MG TAB PO SCH ×2 (07:45→20:14)
[2020-02-12] MEDS: FUROSEMIDE 20 MG TAB PO SCH (07:45)
[2020-02-12] MEDS: NYSTATIN 100,000 UNIT/GM POWD 15 GM TOPICAL SCH ×2 (07:46→20:14)
--- NOTE | 2020-02-12 12:54 | P.PN ---
Subjective Progress Note Date: 02/12/20 The patient was seen at bedside and she stated she is feeling better compared to her initial presentation. She is on IV antibiotics. She denies any worsening of her weakness. Denies of any numbness, urinary bowel incontinence. Denies visual disturbance. Denies difficulty getting her words out. Objective - Vital Signs Vital signs: Vital Signs Temp 98.7 F 02/12/20 07:49 Pulse 72 02/12/20 07:49 Resp 18 02/12/20 02:45 BP 113/59 02/12/20 07:49 Pulse Ox 90 L 02/12/20 07:49 Intake & Output 02/11/20 02/12/20 02/12/20 18:59 06:59 18:59 Intake Total 540 Output Total 1450 1450 510 Balance -1450 -1450 30 Intake: Oral 540 Output: Urine 1450 1450 510 Other: Voiding Method Indwelling Catheter Indwelling Catheter # Voids 3 900 # Bowel Movements 1 1 - Exam GENERAL: The patient is morbidly obese, lying in bed and is not in acute distress. INTEGUMENTARY: Bilateral lower extremities almost just distal to the knee to the proximal ankle it's the earth Jossie bilaterally as well as the warm. She has like lymphedema of bilateral lower extremity compared to upper extremities at. NEUROLOGICAL: Higher mental function: The patient is awake, alert, oriented to self, place and time. Patient is following commands. No aphasia and no neglect. Cranial nerves: The pupils are round, equal and reactive to light and accommodation. Visual avendaño are full to confrontation throughout. Extraocular movement is intact no nystagmus is noted. Facial sensation is normal to touch throughout. The facial strength is normal throughout. Hearing is normal bilaterally to hand rub. Tongue is midline and moved [id number] without any difficulty. No dysarthria is noted. Shoulder shrug is normal bilaterally. Motor: Gait is deferred because of her condition. The strength in proximal lower extremities is 3-4 bilaterally; knee extension and flexion 4+ bilaterally; ankle flexion and extension is 5/5. Otherwise upper are 5 over 5 throughout. Normal tone and bulk. Cerebellum: Normal finger to nose bilaterally. Sensation: Sensation is normal to touch throughout. Reflexes (right/left): 2+ throughout except ankle is 0 bilaterally. Plantars are mute bilaterally. - Labs CBC & Chem 7: 02/09/20 07:41 02/09/20 07:41 Labs: Microbiology - Last 24 Hours (Table) 02/08/20 09:39 Blood Culture - Preliminary Blood No Growth after 96 hours Assessment and Plan Assessment: Acute Bilateral lower extreme any weakness due to Lumbosacral spondylosis. Lumbosacral spondylosis (L3 to S1) Baastrup's disease Leukocytosis likely due to cellulitis Ongoing Chronic cellulitis of the lower extremity History of pulmonary embolism Hypertension Morbid Obesity Plan: * CT of the lumbar spine: Reported as advanced hypertrophic facet arthropathic 3 at throughout as well as Basstrup's Disease. Degenerative grade 1 anterolishtesis L3-S1 levels. At least moderate neural foraminal stenosis on the right from L2 through S1 levels. On the left at L1 to L2. Note extensive artifacts relating to a large patient body habitus limiting assessment * Patient cannot get MRI because of her morbid obesity. * Orthopedic surgery on board and they stated that the patient the does not wish to have any surgical intervention at her lumbar spine that. And rather wishes conservative treatment. * Physical therapy and occupation therapy are consulted. * I recommended the patient to follow-up with a neurologist as an outpatient and to see if she can get MRI of the lumbar spine if possible as an outpatient (at facility where she can fit for MRI). I also recommended that she follows up with a neurosurgeon as an outpatient. * I recommend the patient to get the EMG nerve conduction study as an outpatient. * Vitamin B12: 2114 (high which is considered normal). * Folate: 1383 (high which is considered normal). * Hemoglobin A1c: 5.6 (normal). * Patient is on the vitamin B12 500 g daily (home dose). * Patient is on Eliquis 5 mg 1 tablet twice a day for the history of pulmonary embolism * Patient was started on the Synthroid 150mcg daily by the primary team. * Infection disease are on board for cellulitis. Upon discharge the patient needs to follow-up with a neurologist within 1-2 weeks. The plan was discussed with the patient. There is no further work-up from neurology perspective. We will sign off. Please reconsult if needed. Raimundo Daniels M.D. Neuro-hospitalist Time with Patient: Less than 30
[2020-02-12] MEDS: ATORVASTATIN 20 MG TAB PO SCH (20:14)
--- NOTE | 2020-02-12 23:20 | PN ---
PROGRESS NOTE DATE OF SERVICE: 02/12/2020 REASON FOR FOLLOWUP: 1. Bilateral lower extremity cellulitis. 2. Breast and groin area fold cutaneous candidiasis. INTERVAL HISTORY: The patient is currently afebrile. The patient is feeling slightly better today, breathing comfortably. Denies having any chest pain or cough. No abdominal pain. Swelling to the back has slightly decreased. PHYSICAL EXAMINATION: Her blood pressure 113/55 with a pulse of 81, temperature 98.2. She is 90% on room air. General description is an elderly female lying in bed in no distress. RESPIRATORY SYSTEM: Unlabored breathing. Clear to auscultation anteriorly. HEART: S1, S2. Regular rate and rhythm. ABDOMEN: Soft. No tenderness. Legs are currently wrapped up. Redness has slightly decreased. DIAGNOSTIC IMPRESSION AND PLAN: 1. Patient with bilateral lower extremity cellulitis in this patient who did have diffuse swelling and redness, likely streptococcal disease, currently covered with cefazolin along with Otis wrap to keep the swelling down. 2. Patient with bilateral groin fold as well as breast fold area cutaneous candidiasis, covered with nystatin powder. Continue with supportive care. MMODL / IJN: [id number] /
[2020-02-13] MEDS: LEVOTHYROXINE 75 MCG TAB PO SCH (05:35)
[2020-02-13 07:00] LABS: Basophils % (A) 0 %; Eosinophils # (A) 0.4 k/uL (0-0.7); Eosinophils % (A) 4 %; HCT 31.7 % (34.0-46.0); HGB 10.6 gm/dL (11.4-16.0); Lymphocytes # (A) 1.3 k/uL (1.0-4.8); Lymphocytes % (A) 13 %; MCH 31.9 pg (25.0-35.0); MCHC 33.4 g/dL (31.0-37.0); MCV 95.5 fL (80.0-100.0); Mean Platelet Volume 6.5; Monocytes # (A) 0.4 k/uL (0-1.0); Monocytes % (A) 4 %; Neutrophils # (A) 7.5 k/uL (1.3-7.7); Neutrophils % (A) 77 %; Platelet Count 356 k/uL (150-450); RBC 3.32 m/uL (3.80-5.40); RDW 15.4 % (11.5-15.5); WBC 9.8 k/uL (3.8-10.6)
[2020-02-13] MEDS: NYSTATIN 100,000 UNIT/GM POWD 15 GM TOPICAL SCH ×2 (08:04→21:23)
[2020-02-13] MEDS: CYANOCOBALAMIN 500 MCG TAB PO SCH (08:04)
[2020-02-13] MEDS: ceFAZolin 3 GM in SODIUM CHLORIDE 0.9% 100 ML IVPB SCH ×3 (08:04→23:34)
[2020-02-13] MEDS: CHOLECALCIFEROL 1,000 UNIT TAB PO SCH (08:04)
[2020-02-13] MEDS: APIXABAN 5 MG TAB PO SCH ×2 (08:05→21:23)
[2020-02-13] MEDS: GABAPENTIN 400 MG CAP PO SCH ×3 (08:05→21:23)
[2020-02-13] MEDS: SPIRONOLACTONE 25 MG TAB PO SCH (08:05)
[2020-02-13] MEDS: LOSARTAN 50 MG TAB PO SCH (08:05)
[2020-02-13] MEDS: FUROSEMIDE 20 MG TAB PO SCH (08:05)
[2020-02-13] MEDS: MULTIVITAMINS, THERA 1 EACH TAB PO SCH (08:05)
[2020-02-13] MEDS: FAMOTIDINE 20 MG TAB PO SCH (08:05)
[2020-02-13] MEDS: carvediloL 6.25 MG TAB PO SCH ×2 (08:05→17:07)
[2020-02-13] MEDS: ACETAMINOPHEN TAB 325 MG TAB PO PRN (10:55)
[2020-02-13 10:57] LABS: African American GFR (CKD) 51.9 (60.0-200.0); Anion Gap 4.2 mmol/L (4.00-12.00); BUN/Creat Ratio 33.33 Ratio (12.00-20.00); C Reactive Protein 1.9 mg/dL (0.0-0.8); Calcium 8.2 mg/dL (8.7-10.3); Carbon Dioxide 25.8 mmol/L (21.6-31.8); Non-African American GFR(CKD) 44.8 (60.0-200.0)
[2020-02-13] MEDS: ATORVASTATIN 20 MG TAB PO SCH (21:23)
--- NOTE | 2020-02-13 22:45 | PN ---
PROGRESS NOTE DATE OF SERVICE: 02/13/2020 REASON FOR FOLLOWUP: Bilateral lower extremity cellulitis, groin and breast fold cutaneous candidiasis. INTERVAL HISTORY: The patient is currently afebrile. The patient is feeling better. Breathing comfortably. Denies having any chest pain or shortness of breath or cough. No nausea. No vomiting. No abdominal pain or pain to the lower extremity. PHYSICAL EXAMINATION: Blood pressure 127/72 with a pulse of 73, temperature 98.6. She is 91% on room air. General description: The patient is an elderly female lying in bed in no distress. Respiratory system: Unlabored breathing. Clear to auscultation anteriorly. Heart S1, S2. Regular rate and rhythm. Neck: Swelling persists. Redness has improved. LABS: Hemoglobin is 10.2, white count 9.8. BUN of 14, creatinine is 1.2. DIAGNOSTIC IMPRESSION AND PLAN: 1. Patient with bilateral lower extremity cellulitis with diffuse swelling and redness, likely streptococcal disease, clinically responding to cefazolin finished the oral Keflex. 2. Groin and breast fold cutaneous candidiasis continue with nystatin powder and monitor clinical course closely. MMODL / IJN: [id number] /
[2020-02-14] MEDS: LEVOTHYROXINE 75 MCG TAB PO SCH (05:54)
[2020-02-14] MEDS: carvediloL 6.25 MG TAB PO SCH ×2 (08:41→16:15)
[2020-02-14] MEDS: FAMOTIDINE 20 MG TAB PO SCH (08:41)
[2020-02-14] MEDS: APIXABAN 5 MG TAB PO SCH ×2 (08:41→22:07)
[2020-02-14] MEDS: GABAPENTIN 400 MG CAP PO SCH ×3 (08:41→22:07)
[2020-02-14] MEDS: FUROSEMIDE 20 MG TAB PO SCH (08:42)
[2020-02-14] MEDS: SPIRONOLACTONE 25 MG TAB PO SCH (08:42)
[2020-02-14] MEDS: CHOLECALCIFEROL 1,000 UNIT TAB PO SCH (08:42)
[2020-02-14] MEDS: LOSARTAN 50 MG TAB PO SCH (08:42)
[2020-02-14] MEDS: ceFAZolin 3 GM in SODIUM CHLORIDE 0.9% 100 ML IVPB SCH ×3 (08:42→23:07)
[2020-02-14] MEDS: CYANOCOBALAMIN 500 MCG TAB PO SCH (08:42)
[2020-02-14] MEDS: MULTIVITAMINS, THERA 1 EACH TAB PO SCH (08:42)
[2020-02-14] MEDS: NYSTATIN 100,000 UNIT/GM POWD 15 GM TOPICAL SCH ×2 (08:43→22:09)
--- NOTE | 2020-02-14 12:09 | P.PN ---
Subjective Patient is admitted for bilateral lower x-ray cellulitis patient is on Keflex. Patient was also treated for fluid overload with the Lasix 20 mg daily and patient is presently on that medication. Patient at creatinine is 1.2 and is stable at that level. Physical therapy and occupational therapy evaluated the patient and they recommended subacute rehabitation patient will be discharged to subacute rehab on Sunday. Constitutional: Denied any fatigue denied any fever. Cardio vascular: denied any chest pain, palpitations Gastrointestinal denied any nausea vomiting Pulmonary: Denied any shortness of breath cough Neurologic denied any new focal deficits All inpatient medications were reviewed and appropriate changes in these medications as dictated in the interval history and assessment and plan. Objective - Vital Signs Vital signs: Vital Signs Temp 98.6 F 02/14/20 08:00 Pulse 102 H 02/14/20 08:00 Resp 17 02/14/20 08:00 BP 128/62 02/14/20 08:00 Pulse Ox 91 L 02/14/20 08:00 Intake & Output 02/13/20 02/14/20 02/14/20 18:59 06:59 18:59 Intake Total 760 200 800 Output Total 3100 1000 Balance -2340 -800 800 Intake: Oral 760 200 800 Output: Urine 3100 1000 Uretheral (Covarrubias) 1000 Other: Voiding Method Indwelling Catheter Indwelling Catheter Indwelling Catheter # Voids 1,000 - Exam PHYSICAL EXAMINATION: GENERAL: The patient is alert and oriented x3, not in any acute distress. Well developed, well nourished. HEENT: Pupils are round and equally reacting to light. EOMI. No scleral icterus. No conjunctival pallor. Normocephalic, atraumatic. No pharyngeal erythema. No thyromegaly. CARDIOVASCULAR: S1 and S2 present. No murmurs, rubs, or gallops. PULMONARY: Chest is clear to auscultation, no wheezing or crackles. ABDOMEN: Soft, nontender, nondistended, normoactive bowel sounds. No palpable organomegaly. MUSCULOSKELETAL: No joint swelling or deformity. EXTREMITIES: No cyanosis, clubbing, patient has a bilateral lower extremity swelling and some redness NEUROLOGICAL: Gross neurological examination did not reveal any focal deficits. SKIN: No rashes. - Labs CBC & Chem 7: 02/13/20 06:35 02/13/20 06:35 Labs: Microbiology - Last 24 Hours (Table) 02/08/20 09:39 Blood Culture - Final Blood No Growth after 144 hours Assessment and Plan Plan: Bilateral lower extremity cellulitis: Patient on Keflex which will be continued Fluid overload secondary to fluid administration: Patient is on oral Lasix Hypertension Dyslipidemia Morbid obesity, BMI 51 History of pulmonary embolism maintained on long-term anticoagulation -Generalized deconditioning: Patient will need subacute rehabilitation.
[2020-02-14] MEDS: ATORVASTATIN 20 MG TAB PO SCH (22:07)
--- NOTE | 2020-02-15 01:16 | PN ---
PROGRESS NOTE DATE OF SERVICE: 02/14/2020 REASON FOR FOLLOWUP: Bilateral lower extremity cellulitis and breast/groin cutaneous candidiasis. INTERIM HISTORY: The patient is currently afebrile. The patient is breathing comfortably. Denies any chest pain or shortness of breath or cough. No nausea, no vomiting or diarrhea. No abdominal pain. PHYSICAL EXAMINATION: Blood pressure 130/55 with a pulse of 91. Temperature 97.8. She is 92% on room air. General description: The patient is an elderly female lying in bed in no distress. Respiratory system: Unlabored breathing, clear to auscultation anteriorly. Heart S1, S2. Regular rate and rhythm. Abdomen soft, no tenderness. LABS: No new labs have been obtained today. DIAGNOSTIC IMPRESSION AND PLAN: Patient with bilateral lower extremity cellulitis in this patient with diffuse tenderness likely streptococcal disease and is currently covered with cefazolin to continue. patient with groin and breast fold cutaneous candidiasis. Continue with Nystatin powder. MMODL / IJN: [id number] /
[2020-02-15] MEDS: LEVOTHYROXINE 75 MCG TAB PO SCH (05:56)
[2020-02-15] MEDS: LOSARTAN 50 MG TAB PO SCH (08:23)
[2020-02-15] MEDS: APIXABAN 5 MG TAB PO SCH ×2 (08:23→20:14)
[2020-02-15] MEDS: GABAPENTIN 400 MG CAP PO SCH ×3 (08:23→20:14)
[2020-02-15] MEDS: MULTIVITAMINS, THERA 1 EACH TAB PO SCH (08:24)
[2020-02-15] MEDS: CHOLECALCIFEROL 1,000 UNIT TAB PO SCH (08:24)
[2020-02-15] MEDS: SPIRONOLACTONE 25 MG TAB PO SCH (08:24)
[2020-02-15] MEDS: FUROSEMIDE 20 MG TAB PO SCH (08:24)
[2020-02-15] MEDS: carvediloL 6.25 MG TAB PO SCH ×2 (08:25→15:52)
[2020-02-15] MEDS: FAMOTIDINE 20 MG TAB PO SCH (08:25)
[2020-02-15] MEDS: ceFAZolin 3 GM in SODIUM CHLORIDE 0.9% 100 ML IVPB SCH ×3 (08:25→23:02)
[2020-02-15] MEDS: CYANOCOBALAMIN 500 MCG TAB PO SCH (08:25)
[2020-02-15] MEDS: NYSTATIN 100,000 UNIT/GM POWD 15 GM TOPICAL SCH ×2 (08:27→20:14)
--- NOTE | 2020-02-15 12:28 | P.PN ---
Subjective Patient is admitted for bilateral lower x-ray cellulitis patient is on Keflex. Patient was also treated for fluid overload with the Lasix 20 mg daily and patient is presently on that medication. Patient at creatinine is 1.2 and is stable at that level. Physical therapy and occupational therapy evaluated the patient and they recommended subacute rehabitation patient will be discharged to subacute rehab on Sunday. 02/15/2020 I do not have any labs available at this time. No significant change compared to yesterday. Constitutional: Denied any fatigue denied any fever. Cardio vascular: denied any chest pain, palpitations Gastrointestinal denied any nausea vomiting Pulmonary: Denied any shortness of breath cough Neurologic denied any new focal deficits All inpatient medications were reviewed and appropriate changes in these medications as dictated in the interval history and assessment and plan. Objective - Vital Signs Vital signs: Vital Signs Temp 98.3 F 02/15/20 07:38 Pulse 82 02/15/20 07:38 Resp 16 02/15/20 07:38 BP 138/70 02/15/20 07:38 Pulse Ox 90 L 02/15/20 07:38 Intake & Output 02/14/20 02/15/20 02/15/20 18:59 06:59 18:59 Intake Total 1340 200 Balance 1340 200 Intake: Oral 1340 200 Other: Voiding Method Indwelling Catheter Bedside Commode Bedpan # Voids 2 5 # Bowel Movements 1 - Exam PHYSICAL EXAMINATION: GENERAL: The patient is alert and oriented x3, not in any acute distress. Well developed, well nourished. HEENT: Pupils are round and equally reacting to light. EOMI. No scleral icterus. No conjunctival pallor. Normocephalic, atraumatic. No pharyngeal erythema. No thyromegaly. CARDIOVASCULAR: S1 and S2 present. No murmurs, rubs, or gallops. PULMONARY: Chest is clear to auscultation, no wheezing or crackles. ABDOMEN: Soft, nontender, nondistended, normoactive bowel sounds. No palpable organomegaly. MUSCULOSKELETAL: No joint swelling or deformity. EXTREMITIES: No cyanosis, clubbing, patient has a bilateral lower extremity sw elling and some redness NEUROLOGICAL: Gross neurological examination did not reveal any focal deficits. SKIN: No rashes. - Labs CBC & Chem 7: 02/13/20 06:35 02/13/20 06:35 Labs: Microbiology - Last 24 Hours (Table) 02/08/20 09:39 Blood Culture - Final Blood No Growth after 144 hours Assessment and Plan Plan: Bilateral lower extremity cellulitis: Patient on Keflex which will be continued Fluid overload secondary to fluid administration: Patient is on oral Lasix Hypertension Dyslipidemia Morbid obesity, BMI 51 History of pulmonary embolism maintained on long-term anticoagulation -Generalized deconditioning: Patient will need subacute rehabilitation.
[2020-02-15 12:31] LABS: African American GFR (CKD) 51.9 (60.0-200.0); Anion Gap 7.4 mmol/L (4.00-12.00); BUN/Creat Ratio 32.5 Ratio (12.00-20.00); Calcium 8.7 mg/dL (8.7-10.3); Carbon Dioxide 28.6 mmol/L (21.6-31.8); Non-African American GFR(CKD) 44.8 (60.0-200.0); Potassium 4.5 mmol/L (3.5-5.5)
[2020-02-15] MEDS: ATORVASTATIN 20 MG TAB PO SCH (20:14)
--- NOTE | 2020-02-15 23:36 | PN ---
PROGRESS NOTE DATE OF SERVICE: 02/15/2020 REASON FOR FOLLOWUP: 1. Bilateral lower extremity cellulitis. 2. Groin and breast fold cutaneous candidiasis. INTERVAL HISTORY: The patient is currently afebrile. Patient is breathing comfortably. The patient denies having any chest pain. No shortness of breath or cough. No abdominal pain or pain to the lower extremities. No diarrhea with antibiotic therapy. PHYSICAL EXAMINATION: Blood pressure 131/77, pulse of 82, temperature 98.2. She is 94% on room air. General description: The patient is an elderly female lying in bed in no distress. Respiratory system: Unlabored breathing, clear to auscultation anteriorly. Heart S1, S2. Regular rate and rhythm. Abdomen soft, no tenderness. LABS: Hemoglobin is 10.7, white count 9.8, BUN of 39, creatinine 1.2. DIAGNOSTIC IMPRESSION AND PLAN: 1. Patient with bilateral lower extremity cellulitis in this patient who did have diffuse swelling and redness, likely streptococcal disease. The patient is currently covered with cefazolin. Finish therapy with oral Keflex. 2. Patient with bilateral groin and breast fold cutaneous candidiasis. Nystatin powder to continue for about a week. MMODL / IJN: [id number] /
[2020-02-16] MEDS: LEVOTHYROXINE 75 MCG TAB PO SCH (05:34)
[2020-02-16] MEDS: FAMOTIDINE 20 MG TAB PO SCH (07:30)
[2020-02-16] MEDS: APIXABAN 5 MG TAB PO SCH ×2 (07:30→20:22)
[2020-02-16] MEDS: CYANOCOBALAMIN 500 MCG TAB PO SCH (07:30)
[2020-02-16] MEDS: LOSARTAN 50 MG TAB PO SCH (07:30)
[2020-02-16] MEDS: GABAPENTIN 400 MG CAP PO SCH ×3 (07:30→20:22)
[2020-02-16] MEDS: CHOLECALCIFEROL 1,000 UNIT TAB PO SCH (07:30)
[2020-02-16] MEDS: FUROSEMIDE 20 MG TAB PO SCH (07:31)
[2020-02-16] MEDS: SPIRONOLACTONE 25 MG TAB PO SCH (07:31)
[2020-02-16] MEDS: carvediloL 6.25 MG TAB PO SCH ×2 (07:31→17:22)
[2020-02-16] MEDS: MULTIVITAMINS, THERA 1 EACH TAB PO SCH (07:31)
[2020-02-16] MEDS: NYSTATIN 100,000 UNIT/GM POWD 15 GM TOPICAL SCH ×2 (07:31→20:22)
[2020-02-16] MEDS: ceFAZolin 3 GM in SODIUM CHLORIDE 0.9% 100 ML IVPB SCH ×3 (07:41→23:31)
[2020-02-16 09:49] LABS: African American GFR (CKD) 57.7 (60.0-200.0); BUN/Creat Ratio 38.18 Ratio (12.00-20.00); Non-African American GFR(CKD) 49.8 (60.0-200.0)
--- NOTE | 2020-02-16 10:30 | XR ---
EXAMINATION TYPE: XR chest 1V DATE OF EXAM: 02/16/2020 COMPARISON: Prior chest x-ray 02/08/2020 HISTORY: Congestive heart failure, shortness of breath TECHNIQUE: Single frontal view of the chest is obtained. FINDINGS: Patient is rotated. Lung volumes are low. Question some minimal patchy subsegmental basilar atelectatic changes. Arthropathy noted in the shoulders. There is no focal air space opacity, pleur al effusion, or pneumothorax seen. The cardiac silhouette size is within normal limits. The osseou s structures are intact. IMPRESSION: Possible basilar atelectatic changes. Rotated expiratory exam
--- NOTE | 2020-02-16 11:15 | P.DS ---
Providers Date of admission: 02/08/20 11:07 Attending physician: Howie Ching Consults: 02/08/20 11:07 Consult Physician Urgent Consulting Provider: Indy Cleary Consult Reason/Comments: cellulitis, sepsis Do you want consulting provider notified?: Yes 02/08/20 11:08 Consult Physician Routine Consulting Provider: Mai Hernandez Consult Reason/Comments: weakness Do you want consulting provider notified?: Yes, Notify in am 02/08/20 15:18 Consult Physician Routine Consulting Provider: Indy Cleary Consult Reason/Comments: sepsis Do you want consulting provider notified?: Yes 02/09/20 23:40 Consult Physician Routine Consulting Provider: Parker Morrell Consult Reason/Comments: chf Do you want consulting provider notified?: Yes Primary care physician: [facility] Course: Patient is admitted for bilateral lower x-ray cellulitis patient is on Keflex. Patient was also treated for fluid overload with the Lasix 20 mg daily and patient is presently on that medication. Patient at creatinine is 1.2 and is stable at that level. Physical therapy and occupational therapy evaluated the patient and they recommended subacute rehabitation patient will be discharged to subacute rehab on Sunday. 02/15/2020 I do not have any labs available at this time. No significant change compared to yesterday. 02/16/2020 Chest x-ray from today showing bibasilar atelectasis serum potassium remains at 5 because of which Aldactone will be discontinued patient will continue her losartan and patient will be discharged on Keflex for 7 days to subacute rehabilitation. PHYSICAL EXAMINATION: GENERAL: The patient is alert and oriented x3, not in any acute distress. Well developed, well nourished. HEENT: Pupils are round and equally reacting to light. EOMI. No scleral icterus. No conjunctival pallor. Normocephalic, atraumatic. No pharyngeal erythema. No thyromegaly. CARDIOVASCULAR: S1 and S2 present. No murmurs, rubs, or gallops. PULMONARY: Chest is clear to auscultation, no wheezing or crackles. ABDOMEN: Soft, nontender, nondistended, normoactive bowel sounds. No palpable organomegaly. MUSCULOSKELETAL: No joint swelling or deformity. EXTREMITIES: No cyanosis, clubbing, patient has a bilateral lower extremity swelling and some redness NEUROLOGICAL: Gross neurological examination did not reveal any focal deficits. SKIN: No rashes. Assessment and Plan Plan: Bilateral lower extremity cellulitis: Patient on Keflex which will be continued Fluid overload secondary to fluid administration: Patient is on oral Lasix Hypertension Dyslipidemia Morbid obesity, BMI 51 History of pulmonary embolism maintained on long-term anticoagulation -Generalized deconditioning: Patient will need subacute rehabilitation. Plan - Discharge Summary Discharge Rx Participant: Yes New Discharge Prescriptions: New Nystatin 100,000 Unit/gm Powd [Mycostatin Powder] 1 applic TOPICAL TID #1 day Gabapentin [Neurontin] 600 mg PO TID #10 cap Continue Multivitamins, Thera [Multivitamin (formulary)] 1 tab PO DAILY Cyanocobalamin [Vitamin B-12] 500 mcg PO DAILY carvediloL [Coreg] 6.25 mg PO BID Aspirin EC [Ecotrin Low Dose] 81 mg PO HS Apixaban [Eliquis] 5 mg PO BID hydrALAZINE HCL 25 mg PO QID PRN PRN Reason: systolic >150 Losartan [Cozaar] 50 mg PO DAILY #30 tab Famotidine [Pepcid] 20 mg PO DAILY #30 tab Furosemide [Lasix] 20 mg PO DAILY #1 tab Simvastatin [Zocor] 40 mg PO HS Cholecalciferol [Vitamin D3 (25 Mcg = 1000 Iu)] 5,000 unit PO DAILY Levothyroxine Sodium [Synthroid] 100 mcg PO DAILY Changed Cephalexin [Keflex] 500 mg PO TID #21 Discontinued Potassium Chloride ER [K-Dur 20] 20 meq PO DAILY Discharge Medication List Apixaban [Eliquis] 5 mg PO BID 11/26/18 [History] Aspirin EC [Ecotrin Low Dose] 81 mg PO HS 11/26/18 [History] Cyanocobalamin [Vitamin B-12] 500 mcg PO DAILY 11/26/18 [History] Multivitamins, Thera [Multivitamin (formulary)] 1 tab PO DAILY 11/26/18 [History] carvediloL [Coreg] 6.25 mg PO BID 11/26/18 [History] hydrALAZINE HCL 25 mg PO QID PRN 11/26/18 [History] Famotidine [Pepcid] 20 mg PO DAILY #30 tab 12/03/18 [Rx] Furosemide [Lasix] 20 mg PO DAILY #1 tab 12/03/18 [Rx] Losartan [Cozaar] 50 mg PO DAILY #30 tab 12/03/18 [Rx] Cholecalciferol [Vitamin D3 (25 Mcg = 1000 Iu)] 5,000 unit PO DAILY 02/08/20 [History] Levothyroxine Sodium [Synthroid] 100 mcg PO DAILY 02/08/20 [History] Simvastatin [Zocor] 40 mg PO HS 02/08/20 [History] Cephalexin [Keflex] 500 mg PO TID #21 02/16/20 [Rx] Gabapentin [Neurontin] 600 mg PO TID #10 cap 02/16/20 [Rx] Nystatin 100,000 Unit/gm Powd [Mycostatin Powder] 1 applic TOPICAL TID #1 day 02/16/20 [Rx] Follow up Appointment(s)/Referral(s): Herminio Walters PAC [PHYSICIAN PROTEIN CHEMIST] - As Needed (Patient may follow-up with Herminio Walters PA-C or Dr. Dihn Hogue at [facility] on an as-needed basis weeks following discharge. ) Howie Ching MD [Primary Care Provider] - 1-2 days
[2020-02-16] MEDS: ATORVASTATIN 20 MG TAB PO SCH (20:22)
--- NOTE | 2020-02-16 23:27 | PN ---
PROGRESS NOTE DATE OF SERVICE: 02/16/2020 REASON FOR FOLLOWUP: 1. Bilateral lower extremity cellulitis. 2. Groin and breast fold cutaneous candidiasis. INTERVAL HISTORY: The patient is currently afebrile. Patient is breathing comfortably. The patient denies having any chest pain. No shortness of breath or cough. No nausea. No abdominal pain. No diarrhea. Currently waiting for placement. PHYSICAL EXAMINATION: Blood pressure 121/70 with a pulse of 87, temperature 99.8. She is 90% on room air. General description is an elderly female up in the chair in no distress. Respiratory system: Unlabored breathing. Clear to auscultation anteriorly. Heart S1, S2. Regular rate and rhythm. ABDOMEN: Soft, no tenderness. LABS: BUN of 42, creatinine 1.1. DIAGNOSTIC IMPRESSION AND PLAN: 1. Patient with bilateral lower extremity cellulitis in this patient currently responding to the cefazolin. Finish therapy with oral Keflex for about a week. 2. Patient with bilateral groin and left breast wall cutaneous candidiasis to continue with nystatin powder. MMODL / IJN: [id number] /
[2020-02-17] MEDS: LEVOTHYROXINE 75 MCG TAB PO SCH (05:59)
[2020-02-17 07:11] VITALS: BP 137/67; PULSE 80; RESP 16; TEMP 98.6
[2020-02-17] MEDS: FAMOTIDINE 20 MG TAB PO SCH (08:24)
[2020-02-17] MEDS: LOSARTAN 50 MG TAB PO SCH (08:24)
[2020-02-17] MEDS: APIXABAN 5 MG TAB PO SCH (08:24)
[2020-02-17] MEDS: CHOLECALCIFEROL 1,000 UNIT TAB PO SCH (08:24)
[2020-02-17] MEDS: MULTIVITAMINS, THERA 1 EACH TAB PO SCH (08:24)
[2020-02-17] MEDS: FUROSEMIDE 20 MG TAB PO SCH (08:25)
[2020-02-17] MEDS: carvediloL 6.25 MG TAB PO SCH (08:25)
[2020-02-17] MEDS: GABAPENTIN 400 MG CAP PO SCH (08:25)
[2020-02-17] MEDS: CYANOCOBALAMIN 500 MCG TAB PO SCH (08:25)
[2020-02-17] MEDS: NYSTATIN 100,000 UNIT/GM POWD 15 GM TOPICAL SCH (08:25)
[2020-02-17] MEDS: SPIRONOLACTONE 25 MG TAB PO SCH (08:25)
[2020-02-17] MEDS: ceFAZolin 3 GM in SODIUM CHLORIDE 0.9% 100 ML IVPB SCH (08:33)
--- NOTE | 2020-02-17 14:47 | PN ---
PROGRESS NOTE DATE OF SERVICE: 02/17/2020. REASON FOR FOLLOWUP: 1. Bilateral lower extremity cellulitis. 2. Groin and breast fold cutaneous candidiasis. INTERVAL HISTORY: The patient is currently afebrile. The patient is feeling comfortably. Denies having any chest. No shortness of breath or cough. No abdominal pain. No diarrhea. PHYSICAL EXAMINATION: Blood pressure 137/67 with pulse of 80, temperature 98.6. She is 94% on room air. General description is an elderly female lying in bed in no distress. RESPIRATORY SYSTEM: Unlabored breathing, clear to auscultation anteriorly. HEART: S1, S2. Regular rate and rhythm. ABDOMEN: Soft, no tenderness. Legs improved. LABS: Creatinine is 1.1. DIAGNOSTIC IMPRESSION AND PLAN: 1. Patient with bilateral lower extremity cellulitis in this patient who did . 2. Patient with groin and breast fold cutaneous candidiasis. To continue nystatin powder twice a day for about a week. MMODL / IJN: [id number] /
--- NOTE | 2020-02-17 17:26 | PN ---
PROGRESS NOTE I am covering for Dr. Howie Ching. DATE OF SERVICE: 02/17/2020 This 74-year-old woman was admitted with bilateral leg cellulitis and is being closely monitored. ECF rehab is being planned at this time. The patient also had some gait dysfunction. Fluid overload secondary to fluid retention was also noted. No chest pain. No palpitations. No fever. PHYSICAL EXAMINATION: Alert and oriented x3. Pulse 85, blood pressure 152/78, respirations 17, temperature 98 degrees, pulse ox 90% on room air. HEENT: Conjunctivae normal. NECK: No jugular venous distention. CARDIOVASCULAR SYSTEM: S1, S2 muffled. RESPIRATORY SYSTEM: Breath sounds diminished at the bases. No rhonchi. No crackles. ABDOMEN: Soft, non-tender. NERVOUS SYSTEM: No focal deficit. LEGS: Bilateral leg cellulitis. LABS: Hemoglobin 10.6. Other labs are reviewed. ASSESSMENT: 1. Acute bilateral leg cellulitis. 2. Fluid overload secondary to fluid administration. 3. Hypertension. 4. Dyslipidemia. 5. Obesity. 6. History of pulmonary embolism. RECOMMENDATIONS AND DISCUSSION: I recommend to continue current medications, continue with the monitoring, symptomatic treatment. Continue with antibiotics. PT/OT evaluation and possible ECF rehab. Dr. Ching will follow. MMODL / IJN: [id number] /
--- NOTE | 2020-02-24 16:43 | CDI ---
Documentation Clarification Form Date: 02/24/2020 04:29:00 PM From: Deborah Campbell Phone: If you have a question about this query, please contact Na Almeida Pony Worker at [phone] between 8am and 5pm. Admit Date: 02/08/2020 11:07:00 AM Patient Name: Li Santamaria Visit Number: [id number] Discharge Date: 02/17/2020 01:30:00 PM ATTENTION: The Clinical Documentation Specialists (CDI) and [facility] Coding Staff appreciate your assistance in clarifying documentation. Please respond to the clarification below the line at the bottom and electronically sign. The CDI & [facility] Coding staff will review the response and follow-up if needed. Please note: Queries are made part of the Legal Health Record. If you have any questions, please contact the author of this message via ITS. Dr. Howie Ching Septic shock is documented in ED notes and H and P. Cardiac consult documents patient admitted with cellulitis and sepsis. Documentation of sepsis is not carried through chart. History/Risk Factors: chronic cellulitis WBC/Left Shift: 15.1 Lactic acid: 4.4 Blood cultures: negative Vitals signs on admission: 98.7 F, 113 bpm, 143/77, 96 RA Treatment: Cefazolin 2 gms q 12 hrs. ID Consult: cellulitis Antibiotics:Cefazolin In your professional opinion, can you please clarify if these findings signify one of the following conditions, whether the condition is POA, and cause, if known? SIRS, without underlying infectious process Sepsis Severe Sepsis Septic Shock Unable to determine Other, please specify Shock SIRS Criteria (2 or more of the following may indicate SIRS): -Core Temperature: < 96.8F(36C) or > 101.3F (38.5C) -Heart Rate: Tachycardia > 2 SD above normal for age or Bradycardia <10th percentile for age (not due to other stimuli or specific causes) -Respiratory Rate: > 2 SD above normal for age or mechanical ventilation (not due to anesthesia or neuromuscular disease) -White Blood Cell Count: Elevated or depressed for age or > 10% bands (not due to chemo) MTDD
--- NOTE | 2020-02-28 11:34 | PN ---
PROGRESS NOTE ADDENDUM: Please add sepsis. CARLYLEL / IJN: [id number] /
== END 2020-02-17 13:30 | DRG 871 ==
LOC: EC 09:07 → 4SSUR 11:07
PROVIDERS: ADMIT Family Medicine; ATTEND Family Medicine
DX: A41.9 Sepsis, unspecified organism (principal); R65.21 Severe sepsis with septic shock; L03.115 Cellulitis of right lower limb; E87.2 Acidosis; J98.11 Atelectasis; I13.0 Hypertensive heart and chronic kidney disease with heart failure and stage 1 through stage 4 chronic kidney disease, or unspecified chronic kidney disease; I50.30 Unspecified diastolic (congestive) heart failure; Z68.43 Body mass index [BMI] 50.0-59.9, adult; L03.116 Cellulitis of left lower limb; E66.01 Morbid (severe) obesity due to excess calories; B37.2 Candidiasis of skin and nail; Z86.711 Personal history of pulmonary embolism; Z79.01 Long term (current) use of anticoagulants; Z20.828 Contact with and (suspected) exposure to other viral communicable diseases; E03.9 Hypothyroidism, unspecified; E78.5 Hyperlipidemia, unspecified; E83.51 Hypocalcemia; M51.36 Other intervertebral disc degeneration, lumbar region; M48.061 Spinal stenosis, lumbar region without neurogenic claudication; M43.16 Spondylolisthesis, lumbar region; M43.17 Spondylolisthesis, lumbosacral region; M48.20 Kissing spine, site unspecified; N18.9 Chronic kidney disease, unspecified; I44.7 Left bundle-branch block, unspecified; I48.91 Unspecified atrial fibrillation; M47.817 Spondylosis without myelopathy or radiculopathy, lumbosacral region; Z79.82 Long term (current) use of aspirin; Z79.890 Hormone replacement therapy; Z79.899 Other long term (current) drug therapy; Z83.3 Family history of diabetes mellitus; Z90.710 Acquired absence of both cervix and uterus; Z80.9 Family history of malignant neoplasm, unspecified; R26.9 Unspecified abnormalities of gait and mobility
CPT/HCPCS: 36415; 70450; 71045; 71046; 72131; 80048; 80053; 80202; 81001; 82607; 82747; 83036; 83605; 83735; 83880; 84100; 84439; 84443; 84481; 84484; 85025; 85610; 85730; 86140; 87040; 87635; 93005; 93306; 94640; 94760; 96360; 96361; 99291

== ENCOUNTER 2021-02-06 14:20 | Inpatient (IN) | payer MEDICARE ==
--- NOTE | 2021-02-06 15:18 | XR ---
EXAMINATION TYPE: XR chest 1V portable DATE OF EXAM: 02/06/2021 COMPARISON: NONE HISTORY: Short of breath. Cough TECHNIQUE: Single view FINDINGS: There is some patchy interstitial and airspace infiltrates throughout both lungs. Heart is borderline enlarged. There is arthritic changes in the left shoulder joint. IMPRESSION: Bilateral moderate interstitial and airspace pneumonia which is new compared to old exam. No pleural fluid seen to suggest heart failure. Heart failure not excluded.
[2021-02-06 15:24] LABS: Basophils # (A) 0.1 k/uL (0-0.2); Basophils % (A) 1 %; Eosinophils % (A) 0 %; HCT 42.2 % (34.0-46.0); HGB 14.1 gm/dL (11.4-16.0); Lymphocytes # (A) 0.7 k/uL (1.0-4.8); Lymphocytes % (A) 6 %; MCH 30.2 pg (25.0-35.0); MCHC 33.3 g/dL (31.0-37.0); MCV 90.8 fL (80.0-100.0); Monocytes # (A) 0.3 k/uL (0-1.0); Monocytes % (A) 2 %; Neutrophils # (A) 10.9 k/uL (1.3-7.7); Neutrophils % (A) 90 %; Platelet Count 212 k/uL (150-450); RBC 4.65 m/uL (3.80-5.40); RDW 13.8 % (11.5-15.5); WBC 12.2 k/uL (3.8-10.6)
--- NOTE | 2021-02-06 15:33 | ED ---
SOB HPI - General Chief Complaint: Shortness of Breath Stated Complaint: covid+/weakness Time Seen by Provider: 02/06/21 14:20 Source: patient, EMS, RN notes reviewed, old records reviewed Mode of arrival: EMS Limitations: no limitations - History of Present Illness Initial Comments: 75-year-old female presents by EMS with complaints of cough and shortness of breath with fatigue and exertional dyspnea. Patient was diagnosed with COVID-19 6 days ago. She denies any current fevers chills or sweats she does have a cough along with this shortness of breath she states. Minimal phlegm production MD Complaint: shortness of breath - Related Data Home Medications Medication Instructions Recorded Confirmed Apixaban [Eliquis] 5 mg PO BID 11/26/18 02/06/21 Aspirin EC [Ecotrin Low Dose] 81 mg PO DAILY 11/26/18 02/06/21 Cyanocobalamin [Vitamin B-12] 500 mcg PO DAILY 11/26/18 02/06/21 Multivitamins, Thera [Multivitamin 1 tab PO DAILY 11/26/18 02/06/21 (formulary)] carvediloL [Coreg] 6.25 mg PO BID 11/26/18 02/06/21 hydrALAZINE HCL 25 mg PO QID PRN 11/26/18 02/06/21 Levothyroxine Sodium [Synthroid] 100 mcg PO DAILY 02/08/20 02/06/21 Simvastatin [Zocor] 40 mg PO HS 02/08/20 02/06/21 Cholecalciferol [Vitamin D3 (125 125 mcg PO DAILY 02/06/21 02/06/21 Mcg = 5000 Iu)] Dexamethasone 6 mg PO DAILY 02/06/21 02/06/21 Famotidine [Pepcid AC] 20 mg PO DAILY 02/06/21 02/06/21 Furosemide [Lasix] 40 mg PO DAILY 02/06/21 02/06/21 Potassium Chloride ER [K-Dur 20] 20 meq PO DAILY 02/06/21 02/06/21 Previous Rx's Medication Instructions Recorded Losartan [Cozaar] 50 mg PO DAILY #30 tab 12/03/18 Allergies Allergy/AdvReac Type Severity Reaction Status Date / Time No Known Allergies Allergy Verified 02/06/21 16:52 Review of Systems ROS Statement: Those systems with pertinent positive or pertinent negative responses have been documented in the HPI. ROS Other: All systems not noted in ROS Statement are negative. Past Medical History Past Medical History: Hypertension, Pulmonary Embolus (PE) Additional Past Medical History / Comment(s): PE in lung, hypertention, cellulitis History of Any Multi-Drug Resistant Organisms: None Reported Past Surgical History: Hysterectomy Additional Past Surgical History / Comment(s): hysterectomy 9 years ago, arm tumor removal 15 years ago Past Anesthesia/Blood Transfusion Reactions: No Reported Reaction Smoking Status: Never smoker Past Alcohol Use History: None Reported Past Drug Use History: None Reported - Past Family History Mother Family Medical History: Cancer, Diabetes Mellitus Father Family Medical History: Pulmonary Embolus Additional Family Medical History / Comment(s): PE in lung, hip replacement General Exam - General Exam Comments Initial Comments: Is a well-developed well-nourished awake alert oriented 3 female Limitations: no limitations General appearance: alert, in no apparent distress Head exam: Present: atraumatic, normocephalic, normal inspection Eye exam: Present: normal appearance, PERRL, EOMI. Absent: scleral icterus, conjunctival injection, periorbital swelling ENT exam: Present: mucous membranes dry Neck exam: Present: normal inspection, full ROM, other. Absent: tenderness, meningismus, lymphadenopathy Respiratory exam: Present: normal lung sounds bilaterally, rhonchi (No history of urinary bruits), decreased breath sounds. Absent: respiratory distress, wheezes, rales, stridor Cardiovascular Exam: Present: regular rate, normal rhythm, normal heart sounds. Absent: systolic murmur, diastolic murmur, rubs, gallop, clicks GI/Abdominal exam: Present: soft, normal bowel sounds. Absent: distended, tenderness, guarding, rebound, rigid Extremities exam: Present: full ROM, normal capillary refill, other (Edema with evidence of cellulitis). Absent: tenderness, pedal edema, joint swelling, calf tenderness Back exam: Present: normal inspection Neurological exam: Present: alert, oriented X3, CN II-XII intact Psychiatric exam: Present: normal affect, normal mood Skin exam: Present: warm, dry, intact, normal color. Absent: rash Course Vital Signs 02/06/21 02/06/21 14:21 15:06 Temperature 98.7 F Pulse Rate 78 Respiratory 20 20 Rate Blood Pressure 136/86 O2 Sat by Pulse 95 94 L Oximetry Medical Decision Making - Medical Decision Making I did discuss findings with the patient and with Dr. Ching patient will be admitted for inpatient evaluation and treatment she does appear to have bilateral infiltrates pneumonia is considered as the patient is coated positive. She does have elevated white count with left shift which may indicate bacterial component. She will be started on IV antibiotics and dizzy she did appear to be clinically dehydrated over BNP is elevated. The patient does have an elevated lactic acid partially due to avascular viral depletion infectious etiology not totally ruled out - Lab Data Result diagrams: 02/06/21 15:05 02/06/21 15:05 Lab Results 02/06/21 02/06/21 02/06/21 Range/Units 15:05 15:05 15:05 WBC 12.2 H (3.8-10.6) k/uL RBC 4.65 (3.80-5.40) m/uL Hgb 14.1 (11.4-16.0) gm/dL Hct 42.2 (34.0-46.0) % MCV 90.8 (80.0-100.0) fL MCH 30.2 (25.0-35.0) pg MCHC 33.3 (31.0-37.0) g/dL RDW 13.8 (11.5-15.5) % Plt Count 212 (150-450) k/uL MPV 8.0 Neutrophils % 90 % Lymphocytes % 6 % Monocytes % 2 % Eosinophils % 0 % Basophils % 1 % Neutrophils # 10.9 H (1.3-7.7) k/uL Lymphocytes # 0.7 L (1.0-4.8) k/uL Monocytes # 0.3 (0-1.0) k/uL Eosinophils # 0.0 (0-0.7) k/uL Basophils # 0.1 (0-0.2) k/uL PT 11.0 (9.0-12.0) sec INR 1.0 (<1.2) APTT 22.9 (22.0-30.0) sec D-Dimer 6.46 H (<0.60) mg/L FEU Sodium 132 L (137-145) mmol/L Potassium 4.5 (3.5-5.1) mmol/L Chloride 102 (98-107) mmol/L Carbon Dioxide 22 (22-30) mmol/L Anion Gap 8 mmol/L BUN 41 H (7-17) mg/dL Creatinine 1.37 H (0.52-1.04) mg/dL Est GFR (CKD-EPI)AfAm 44 (>60 ml/min/1.73 sqM) Est GFR (CKD-EPI)NonAf 38 (>60 ml/min/1.73 sqM) Glucose 118 H (74-99) mg/dL Plasma Lactic Acid Braydon (0.7-2.0) mmol/L Calcium 8.4 (8.4-10.2) mg/dL Magnesium 1.6 (1.6-2.3) mg/dL Total Bilirubin 1.5 H (0.2-1.3) mg/dL AST 59 H (14-36) U/L ALT 24 (4-34) U/L Alkaline Phosphatase 48 (38-126) U/L Lactate Dehydrogenase 1348 H (313-618) U/L Troponin I (0.000-0.034) ng/mL C-Reactive Protein 5.3 H (<1.0) mg/dL NT-Pro-B Natriuret Pep pg/mL Total Protein 7.0 (6.3-8.2) g/dL Albumin 3.3 L (3.5-5.0) g/dL Coronavirus (PCR) (Not Detectd) 02/06/21 02/06/21 02/06/21 Range/Units 15:05 15:05 15:05 WBC (3.8-10.6) k/uL RBC (3.80-5.40) m/uL Hgb (11.4-16.0) gm/dL Hct (34.0-46.0) % MCV (80.0-100.0) fL MCH (25.0-35.0) pg MCHC (31.0-37.0) g/dL RDW (11.5-15.5) % Plt Count (150-450) k/uL MPV Neutrophils % % Lymphocytes % % Monocytes % % Eosinophils % % Basophils % % Neutrophils # (1.3-7.7) k/uL Lymphocytes # (1.0-4.8) k/uL Monocytes # (0-1.0) k/uL Eosinophils # (0-0.7) k/uL Basophils # (0-0.2) k/uL PT (9.0-12.0) sec INR (<1.2) APTT (22.0-30.0) sec D-Dimer (<0.60) mg/L FEU Sodium (137-145) mmol/L Potassium (3.5-5.1) mmol/L Chloride (98-107) mmol/L Carbon Dioxide (22-30) mmol/L Anion Gap mmol/L BUN (7-17) mg/dL Creatinine (0.52-1.04) mg/dL Est GFR (CKD-EPI)AfAm (>60 ml/min/1.73 sqM) Est GFR (CKD-EPI)NonAf (>60 ml/min/1.73 sqM) Glucose (74-99) mg/dL Plasma Lactic Acid Braydon 2.1 H* (0.7-2.0) mmol/L Calcium (8.4-10.2) mg/dL Magnesium (1.6-2.3) mg/dL Total Bilirubin (0.2-1.3) mg/dL AST (14-36) U/L ALT (4-34) U/L Alkaline Phosphatase (38-126) U/L Lactate Dehydrogenase (313-618) U/L Troponin I 0.021 (0.000-0.034) ng/mL C-Reactive Protein (<1.0) mg/dL NT-Pro-B Natriuret Pep 04263 pg/mL Total Protein (6.3-8.2) g/dL Albumin (3.5-5.0) g/dL Coronavirus (PCR) (Not Detectd) 02/06/21 Range/Units 15:06 WBC (3.8-10.6) k/uL RBC (3.80-5.40) m/uL Hgb (11.4-16.0) gm/dL Hct (34.0-46.0) % MCV (80.0-100.0) fL MCH (25.0-35.0) pg MCHC (31.0-37.0) g/dL RDW (11.5-15.5) % Plt Count (150-450) k/uL MPV Neutrophils % % Lymphocytes % % Monocytes % % Eosinophils % % Basophils % % Neutrophils # (1.3-7.7) k/uL Lymphocytes # (1.0-4.8) k/uL Monocytes # (0-1.0) k/uL Eosinophils # (0-0.7) k/uL Basophils # (0-0.2) k/uL PT (9.0-12.0) sec INR (<1.2) APTT (22.0-30.0) sec D-Dimer (<0.60) mg/L FEU Sodium (137-145) mmol/L Potassium (3.5-5.1) mmol/L Chloride (98-107) mmol/L Carbon Dioxide (22-30) mmol/L Anion Gap mmol/L BUN (7-17) mg/dL Creatinine (0.52-1.04) mg/dL Est GFR (CKD-EPI)AfAm (>60 ml/min/1.73 sqM) Est GFR (CKD-EPI)NonAf (>60 ml/min/1.73 sqM) Glucose (74-99) mg/dL Plasma Lactic Acid Braydon (0.7-2.0) mmol/L Calcium (8.4-10.2) mg/dL Magnesium (1.6-2.3) mg/dL Total Bilirubin (0.2-1.3) mg/dL AST (14-36) U/L ALT (4-34) U/L Alkaline Phosphatase (38-126) U/L Lactate Dehydrogenase (313-618) U/L Troponin I (0.000-0.034) ng/mL C-Reactive Protein (<1.0) mg/dL NT-Pro-B Natriuret Pep pg/mL Total Protein (6.3-8.2) g/dL Albumin (3.5-5.0) g/dL Coronavirus (PCR) Detected A (Not Detectd) - EKG Data -: EKG Interpreted by Nh EKG shows normal: sinus rhythm EKG Comments: Sinus rhythm with frequent PVCs rate 74. Interval 192 QRS 170 QT since QTC 480/532 that exodeviation left bundle-branch block - Radiology Data Radiology results: report reviewed (Imaging reviewed evidence of bilateral infiltrates no PE.), image reviewed Disposition Clinical Impression: Pneumonia due to COVID-19 virus, Dehydration, Failure of outpatient treatment, Elevated lactic acid level, Elevated d-dimer Disposition: ADMITTED IP TO THIS HOSP Condition: Fair Referrals: Howie Ching MD [Primary Care Provider] - 1-2 days
[2021-02-06 15:36] LABS: Albumin 3.3 g/dL (3.5-5.0); C Reactive Protein 5.3 mg/dL (<1.0); Calcium 8.4 mg/dL (8.4-10.2); Magnesium 1.6 mg/dL (1.6-2.3); Potassium 4.5 mmol/L (3.5-5.1); Total Bilirubin 1.5 mg/dL (0.2-1.3)
[2021-02-06 15:47] LABS: Partial Thromboplastin Time 22.9 sec (22.0-30.0)
[2021-02-06] MEDS ORDERED: SODIUM CHLORIDE 0.9% 1,000 ML IV STA ×2 (15:52)
--- NOTE | 2021-02-06 17:11 | CT ---
EXAMINATION TYPE: CT angio chest DATE OF EXAM: 02/06/2021 COMPARISON: None HISTORY: Covid, elevated d-dimer. CT DLP: 962.9 mGycm Automated exposure control for dose reduction was used. CONTRAST: Performed with IV Contrast, patient injected with 80ml mL of Isovue 370. There are 3-D post processed images. There is extensive patchy interstitial and airspace infiltrates in both lungs. Heart is enlarged. The re is no pericardial effusion. Exam limited slightly by motion and patient's size. There is no eviden ce of filling defect in the pulmonary arteries. There is no hilar mass. There are a few paratracheal lymph nodes up to 1.5 cm. There is spurring in the thoracic spine. IMPRESSION: No evidence of pulmonary embolism. Extensive bilateral pulmonary infiltrates consistent with multifocal pneumonia or RDS. Cardiomegaly.
[2021-02-06] MEDS ORDERED: PNEUMONIA PROTOCOL UTILIZED 1 EACH MISC PO PRN (17:33)
[2021-02-06] MEDS ORDERED: AZITHROMYCIN 500 MG in SODIUM CHLORIDE 0.9% 250 ML IVPB STA (17:33)
[2021-02-06] MEDS ORDERED: hydrALAZINE HCL 25 MG TAB PO PRN (17:38)
[2021-02-06] MEDS: carvediloL 6.25 MG TAB PO SCH (18:59)
[2021-02-06] MEDS: ATORVASTATIN 20 MG TAB PO SCH (20:19)
[2021-02-06] MEDS: APIXABAN 5 MG TAB PO SCH (20:19)
[2021-02-07] MEDS: LEVOTHYROXINE 100 MCG TAB PO SCH (05:41)
[2021-02-07] MEDS: FAMOTIDINE 20 MG TAB PO SCH (08:55)
[2021-02-07] MEDS: CYANOCOBALAMIN 500 MCG TAB PO SCH (08:55)
[2021-02-07] MEDS: MULTIVITAMINS, THERA 1 EACH TAB PO SCH (08:55)
[2021-02-07] MEDS: CHOLECALCIFEROL 125 MCG (5000 IU) TABLET PO SCH (08:55)
[2021-02-07] MEDS: POTASSIUM CHLORIDE ER 20 MEQ TAB.ER PO SCH (08:55)
[2021-02-07] MEDS: LOSARTAN 50 MG TAB PO SCH (08:56)
[2021-02-07] MEDS: carvediloL 6.25 MG TAB PO SCH ×2 (08:56→16:51)
[2021-02-07] MEDS: ASPIRIN 81 MG PO SCH (08:56)
[2021-02-07] MEDS: AZITHROMYCIN 500 MG TAB PO SCH (08:56)
[2021-02-07] MEDS: FUROSEMIDE 40 MG TAB PO SCH (08:56)
[2021-02-07] MEDS: APIXABAN 5 MG TAB PO SCH ×2 (08:56→20:01)
[2021-02-07] MEDS ORDERED: dexAMETHasone 2 MG TAB PO SCH (09:00)
--- NOTE | 2021-02-07 09:40 | P.CNPUL ---
History of Present Illness Consult date: 02/07/21 Reason for consult: dyspnea, cough, hypoxemia, pneumonia Chief complaint: Progressive shortness of breath History of present illness: Patient is a 75-year-old non-vaccinated female came into the hospital with progressive shortness of breath, patient was diagnosed COVID-19 infection 6 days ago, initially patient was asymptomatic but progressively started developing symptoms associated with cough shortness of breath and weakness came into the hospital for further evaluation, patient has prior history of pulmonary embolism has been on direct oral anticoagulant also hypertension hypertensive cardiovascular disease and chronic cellulitis of the lower extremity, initial chest x-ray upon in for bilateral interstitial opacities, computed tomography scan of the chest confirmed the finding bilaterally diffuse however negative for pulmonary embolism, labs were significant for white cell count of 12,400, d- dimer 6.46, sodium 132, BUN/creatinine 41/1.37, lactic acid is 2.1 came down to 1.4, LDH is 1348, C-reactive protein is 5.3, currently patient is treated with the L request 5 mg 2 times a day Zithromax and Rocephin dexamethasone by mouth Past Medical History Past Medical History: Hypertension, Pulmonary Embolus (PE) Additional Past Medical History / Comment(s): PE in lung, hypertention, cellulitis History of Any Multi-Drug Resistant Organisms: None Reported Past Surgical History: Hysterectomy Additional Past Surgical History / Comment(s): hysterectomy 9 years ago, arm tumor removal 15 years ago Past Anesthesia/Blood Transfusion Reactions: No Reported Reaction Past Psychological History: No Psychological Hx Reported Smoking Status: Never smoker Past Alcohol Use History: None Reported Additional Past Alcohol Use History / Comment(s): Patient is a lifelong nonsmoker, no illicit drug use, no alcohol use. She lives at home with her son Bridger. 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. Past Drug Use History: None Reported - Past Family History Mother Family Medical History: Cancer, Diabetes Mellitus Father Family Medical History: Pulmonary Embolus Additional Family Medical History / Comment(s): PE in lung, hip replacement Medications and Allergies Home Medications Medication Instructions Recorded Confirmed Type Apixaban [Eliquis] 5 mg PO BID 11/26/18 02/06/21 History Aspirin EC [Ecotrin Low Dose] 81 mg PO DAILY 11/26/18 02/06/21 History Cyanocobalamin [Vitamin B-12] 500 mcg PO DAILY 11/26/18 02/06/21 History Multivitamins, Thera [Multivitamin 1 tab PO DAILY 11/26/18 02/06/21 History (formulary)] carvediloL [Coreg] 6.25 mg PO BID 11/26/18 02/06/21 History hydrALAZINE HCL 25 mg PO QID PRN 11/26/18 02/06/21 History Losartan [Cozaar] 50 mg PO DAILY #30 tab 12/03/18 02/06/21 Rx Levothyroxine Sodium [Synthroid] 100 mcg PO DAILY 02/08/20 02/06/21 History Simvastatin [Zocor] 40 mg PO HS 02/08/20 02/06/21 History Cholecalciferol [Vitamin D3 (125 125 mcg PO DAILY 02/06/21 02/06/21 History Mcg = 5000 Iu)] Dexamethasone 6 mg PO DAILY 02/06/21 02/06/21 History Famotidine [Pepcid AC] 20 mg PO DAILY 02/06/21 02/06/21 History Furosemide [Lasix] 40 mg PO DAILY 02/06/21 02/06/21 History Potassium Chloride ER [K-Dur 20] 20 meq PO DAILY 02/06/21 02/06/21 History Allergies Allergy/AdvReac Type Severity Reaction Status Date / Time No Known Allergies Allergy Verified 02/06/21 16:52 Physical Exam Vitals: Vital Signs Temp Pulse Pulse Resp BP BP Pulse Ox 02/07/21 05:43 97.6 F 63 16 139/70 95 02/07/21 02:34 97.5 F L 68 147/64 95 02/06/21 21:17 18 02/06/21 20:19 74 18 137/63 95 02/06/21 18:53 98.9 F 68 20 144/62 95 02/06/21 15:06 20 94 L 02/06/21 14:21 98.7 F 78 20 136/86 95 Intake and Output 02/06/21 02/07/21 02/07/21 22:59 06:59 14:59 Output Total 800 Balance -800 Output: Urine 800 Other: Voiding Method Indwelling Catheter # Bowel Movements 0 Weight 141 kg - Constitutional General appearance: average body habitus, cooperative, disheveled - EENT Eyes: EOMI, PERRLA Ears: bilateral: normal - Neck Neck: normal ROM Carotids: bilateral: upstroke normal Thyroid: bilateral: normal size - Respiratory Respiratory: bilateral: rhonchi, wheezing - Cardiovascular Rhythm: regular Heart sounds: normal: S1, S2 - Gastrointestinal General gastrointestinal: normal bowel sounds - Integumentary Integumentary: normal turgor - Neurologic Neurologic: CNII-XII intact - Musculoskeletal Musculoskeletal: gait normal, strength equal bilaterally, left sided weakness Results - Laboratory Findings CBC and BMP: 02/06/21 15:05 02/06/21 15:05 PT/INR, D-dimer PT 11.0 sec (9.0-12.0) 02/06/21 15:05 INR 1.0 (<1.2) 02/06/21 15:05 D-Dimer 6.46 mg/L FEU (<0.60) H 02/06/21 15:05 Abnormal lab findings: Abnormal Labs 02/06/21 02/06/21 02/06/21 15:05 15:05 15:05 WBC 12.2 H Neutrophils # 10.9 H Lymphocytes # 0.7 L D-Dimer 6.46 H Sodium 132 L BUN 41 H Creatinine 1.37 H Glucose 118 H Plasma Lactic Acid Braydon Total Bilirubin 1.5 H AST 59 H Lactate Dehydrogenase 1348 H C-Reactive Protein 5.3 H Albumin 3.3 L Procalcitonin Coronavirus (PCR) 02/06/21 02/06/21 02/06/21 15:05 15:05 15:06 WBC Neutrophils # Lymphocytes # D-Dimer Sodium BUN Creatinine Glucose Plasma Lactic Acid Braydon 2.1 H* Total Bilirubin AST Lactate Dehydrogenase C-Reactive Protein Albumin Procalcitonin 0.32 H Coronavirus (PCR) Detected A - Diagnostic Findings Chest x-ray: report reviewed, image reviewed CT scan - chest: report reviewed, image reviewed (Finding as noted above) Assessment and Plan Assessment: Acute progressive hypoxic respiratory failure due to COVID-19 pneumonia Sepsis due to COVID-19 pneumonia Hypertension hypertensive cardiovascular disease History of DVT PE Electrolyte imbalance Chronic cellulitis the lower extremity Congestive heart failure with unknown ejection fraction Plan: Continue antibiotics Bronchodilators Supplemental oxygen Director oral anticoagulant Deep breathing sense incentive spirometry IV REMdesevir Change Decadron to high-dose steroids, change it to 60 mg IV every 6 Time with Patient: Greater than 30
--- NOTE | 2021-02-07 09:48 | XR ---
EXAMINATION TYPE: XR chest 1V DATE OF EXAM: 02/07/2021 COMPARISON: 02/06/2021 HISTORY: Cough TECHNIQUE: Single frontal view of the chest is obtained. FINDINGS: Diffuse bilateral infiltrates are noted. Exam limited due to motion artifact. Arthropathy of the shoulders. No pneumothorax. Heart size stable. Hypertrophic and degenerative change of the spi ne. Atherosclerotic change aorta. IMPRESSION: Bilateral infiltrate stable
--- NOTE | 2021-02-07 11:07 | P.HPIM ---
History of Present Illness This is a pleasant 75 years old female with past medical history of Hypertension, Pulmonary Embolus on Eliquis, hyperlipidemia, hypothyroidism. Possible sleep apnea. Patient states that she uses oxygen 3 L/m at night She presents because of dyspnea on cough and with difficulty walking for about a week, she has been diagnosed with Covid infection on Sunday. Progressive dyspnea. Associated with cough and clear phlegm since then and diarrhea about watery stool twice per day but no abdominal pain or nausea vomiting. She denies any urinary complaints. No headache or dizziness or weakness but patient feels generally weak. Patient lives with her son however last day before coming to the hospital she was sitting in her feces and urine, she says that her son did not know so she called 911 and came to emergency room. She denies smoking, alcohol or illicit drugs. On admission her vitals showed slight tachypnea with a breathing rate 20 and tachycardia with heart rate around 102, a febrile, currently she is saturating 94-95% on 3-4 L/m. Labs showed mild leukocytosis of 12.2 and lymphopenia. D-dimer elevated at 6.4. Creatinine is slightly elevated at 1.3. Lactic acid came back to normal 1.4 was slightly elevated on admission at 2.1. Liver enzymes not significantly elevated. High inflammatory markers LDH 1348 and CRP 5.3. Portcalcitonin is 0.32 Coronavirus detected. Chest x-ray showed bilateral infiltrates CT of the chest showing no PE and bilateral pneumonia which is multifocal. Patient already started on ceftriaxone and emergency room at 2 g daily and Zithromax by mouth daily Also patient already started on Solu-Medrol 60 mg by solderer. IV fluids started and stopped. Patient currently on 60 g of oral Lasix at home. Review of Systems CONSTITUTIONAL: No fever, no malaise, no fatigue. HEENT: No recent visual problems or hearing problems. Denied any sore throat. CARDIOVASCULAR: No orthopnea, PND, no palpitations, no syncope. PULMONARY: No chest wall tenderness, no hemoptysis. GASTROINTESTINAL: No diarrhea, no nausea, no vomiting, no abdominal pain. Normoactive bowel sounds. NEUROLOGICAL: No headaches, no weakness, no numbness. HEMATOLOGICAL: Denies any bleeding or petechiae. GENITOURINARY: Denies any burning micturition, frequency, or urgency. MUSCULOSKELETAL/RHEUMATOLOGICAL: Denies any joint pain, swelling, or any muscle pain. ENDOCRINE: Denies any polyuria or polydipsia. Past Medical History Past Medical History: Hypertension, Pulmonary Embolus (PE) Additional Past Medical History / Comment(s): PE in lung, hypertention, cellulitis History of Any Multi-Drug Resistant Organisms: None Reported Past Surgical History: Hysterectomy Additional Past Surgical History / Comment(s): hysterectomy 9 years ago, arm tumor removal 15 years ago Past Anesthesia/Blood Transfusion Reactions: No Reported Reaction Past Psychological History: No Psychological Hx Reported Smoking Status: Never smoker Past Alcohol Use History: None Reported Additional Past Alcohol Use History / Comment(s): Patient is a lifelong nonsmoker, no illicit drug use, no alcohol use. She lives at home with her son Bridger. 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. Past Drug Use History: None Reported - Past Family History Mother Family Medical History: Cancer, Diabetes Mellitus Father Family Medical History: Pulmonary Embolus Additional Family Medical History / Comment(s): PE in lung, hip replacement Medications and Allergies Home Medications Medication Instructions Recorded Confirmed Type Apixaban [Eliquis] 5 mg PO BID 11/26/18 02/06/21 History Aspirin EC [Ecotrin Low Dose] 81 mg PO DAILY 11/26/18 02/06/21 History Cyanocobalamin [Vitamin B-12] 500 mcg PO DAILY 11/26/18 02/06/21 History Multivitamins, Thera [Multivitamin 1 tab PO DAILY 11/26/18 02/06/21 History (formulary)] carvediloL [Coreg] 6.25 mg PO BID 11/26/18 02/06/21 History hydrALAZINE HCL 25 mg PO QID PRN 11/26/18 02/06/21 History Losartan [Cozaar] 50 mg PO DAILY #30 tab 12/03/18 02/06/21 Rx Levothyroxine Sodium [Synthroid] 100 mcg PO DAILY 02/08/20 02/06/21 History Simvastatin [Zocor] 40 mg PO HS 02/08/20 02/06/21 History Cholecalciferol [Vitamin D3 (125 125 mcg PO DAILY 02/06/21 02/06/21 History Mcg = 5000 Iu)] Dexamethasone 6 mg PO DAILY 02/06/21 02/06/21 History Famotidine [Pepcid AC] 20 mg PO DAILY 02/06/21 02/06/21 History Furosemide [Lasix] 40 mg PO DAILY 02/06/21 02/06/21 History Potassium Chloride ER [K-Dur 20] 20 meq PO DAILY 02/06/21 02/06/21 History Allergies Allergy/AdvReac Type Severity Reaction Status Date / Time No Known Allergies Allergy Verified 02/06/21 16:52 Physical Exam Vitals: Vital Signs Temp Pulse Pulse Resp BP BP Pulse Ox 02/07/21 10:34 97.5 F L 66 17 136/71 94 L 02/07/21 05:43 97.6 F 63 16 139/70 95 02/07/21 02:34 97.5 F L 68 147/64 95 02/06/21 21:17 18 02/06/21 20:19 74 18 137/63 95 02/06/21 18:53 98.9 F 68 20 144/62 95 02/06/21 15:06 20 94 L 02/06/21 14:21 98.7 F 78 20 136/86 95 Intake and Output 02/06/21 02/07/21 02/07/21 22:59 06:59 14:59 Output Total 800 Balance -800 Output: Urine 800 Other: Voiding Method Indwelling Catheter # Bowel Movements 0 Weight 141 kg -GENERAL: The patient is alert and oriented x3, not in any acute distress. Well developed, well nourished. Obese with very pendulous abdomen reaching of the middle of the thighs level HEENT: Pupils are round and equally reacting to light. EOMI. No scleral icterus. No conjunctival pallor. Normocephalic, atraumatic. No pharyngeal erythema. No thyromegaly. CARDIOVASCULAR: S1 and S2 present. No murmurs, rubs, or gallops. -PULMONARY: Chest is clear to auscultation, no wheezing. Bilateral crepitation ABDOMEN: Soft, nontender, nondistended, normoactive bowel sounds. No palpable organomegaly. MUSCULOSKELETAL: No joint swelling or deformity. Lower back erythema, and blanches with pressure EXTREMITIES: No cyanosis, clubbing, or pedal edema. Bilateral distal leg cellulitis with scaling of the skin especially on the right side posteriorly with more thickened scaling skin NEUROLOGICAL: Gross neurological examination did not reveal any focal deficits. SKIN: No rashes. No petechiae Results CBC & Chem 7: 02/06/21 15:05 02/06/21 15:05 Labs: Abnormal Lab Results - Last 24 Hours (Table) 02/06/21 02/06/21 02/06/21 Range/Units 15:05 15:05 15:05 WBC 12.2 H (3.8-10.6) k/uL Neutrophils # 10.9 H (1.3-7.7) k/uL Lymphocytes # 0.7 L (1.0-4.8) k/uL D-Dimer 6.46 H (<0.60) mg/L FEU Sodium 132 L (137-145) mmol/L BUN 41 H (7-17) mg/dL Creatinine 1.37 H (0.52-1.04) mg/dL Glucose 118 H (74-99) mg/dL Plasma Lactic Acid Braydon (0.7-2.0) mmol/L Ferritin 1095.0 H (10.0-291.0) ng/mL Total Bilirubin 1.5 H (0.2-1.3) mg/dL AST 59 H (14-36) U/L Lactate Dehydrogenase 1348 H (313-618) U/L C-Reactive Protein 5.3 H (<1.0) mg/dL Albumin 3.3 L (3.5-5.0) g/dL Procalcitonin (0.02-0.09) ng/mL Coronavirus (PCR) (Not Detectd) 02/06/21 02/06/21 02/06/21 Range/Units 15: 15:05 15:06 WBC (3.8-10.6) k/uL Neutrophils # (1.3-7.7) k/uL Lymphocytes # (1.0-4.8) k/uL D-Dimer (<0.60) mg/L FEU Sodium (137-145) mmol/L BUN (7-17) mg/dL Creatinine (0.52-1.04) mg/dL Glucose (74-99) mg/dL Plasma Lactic Acid Braydon 2.1 H* (0.7-2.0) mmol/L Ferritin (10.0-291.0) ng/mL Total Bilirubin (0.2-1.3) mg/dL AST (14-36) U/L Lactate Dehydrogenase (313-618) U/L C-Reactive Protein (<1.0) mg/dL Albumin (3.5-5.0) g/dL Procalcitonin 0.32 H (0.02-0.09) ng/mL Coronavirus (PCR) Detected A (Not Detectd) Thrombosis Risk Factor Assmnt - Choose All That Apply Any of the Below Risk Factors Present?: Yes Each Risk Factor Represents 2 Points: Age 61-74 years, Patient confined to bed Each Risk Factor Represents 3 Points: History of DVT/PE Thrombosis Risk Factor Assessment Total Risk Factor Score: 7 Thrombosis Risk Factor Assessment Level: High Risk Assessment and Plan Assessment: Bilateral Covid pneumonia, possible superimposed bacterial infection and pneumonia Acute hypoxic respiratory failure Increased inflammatory markers Bilateral cellulitis and possible also lower back cellulitis Metabolic encephalopathy Stage I pressure ulcer Possible sleep apnea, she uses 3 L of oxygen chronic kidney disease, stage III at night. Bilateral lower extremity dermatitis Deconditioning and inability to take care of herself History of pulmonary embolism on Eliquis Hypertension hypothyroidism Hyperlipidemia Plan: This is a pleasant 75 years old female who presents with bilateralcovid pneumonia, possible bacterial pneumonia and cellulitis Continue with dsteroids per pulmonary services Continue with vitamin C, vitamin D and zinc Pulmonary consult Continue with antibiotics currently on ceftriaxone and Zithromax Labs and medication were reviewed.. Continue same treatment. Continue with symptomatic treatment. Resume home medication. Monitor lytes and vitals. DVT and GI prophylaxis. Further recommendations depends on the clinical course of the patient DVT prophylaxis: EliquisGI Prophylaxis: Pepcid PT/OT: Pending Prognosis is guarded
--- NOTE | 2021-02-07 11:15 | P.CONS ---
History of Present Illness - Reason for Consult Consult date: 02/07/21 wound care - History of Present Illness Is a 75-year-old patient being seen on 4 [address]. for dry scaly edematous weeping bilateral lower extremities. Patient does not have any open ulcerations. She does have a large amount of dry scaly skin noted to bilateral lower extremities. Positive edema at 2+. Patient's past medical history significant for attention pulmonary embolism and COVID-19. She is a lifelong nonsmoker. Denies diabetes. Review Of Systems: Constitutional: No fever, no chills, no night sweats. No weight change. No weakness, fatigue or lethargy. No daytime sleepiness. Integumentary:reports wounds, no lesions. No rash or pruritus. No unusual bruising. No change in hair or nails. Physical exam: General Appearance: Alert, cooperative, no distress, appears stated age. Skin: See HPI all other Skin color, texture, tugor normal, no rashes or lesions. Neurologic: Alert oriented x3 Assessment: 1. Venous insufficiency. 2. Edema Plan: 1. Apply moisturizing lotion to bilateral lower extremities and wrap with Otis wrap for compression. Change daily. Thank you for the consultation any questions was contact the wound care center DNP note has been reviewed and discussed with Dr. Albarran and the impression and plan of care has been directed as dictated. Past Medical History Past Medical History: Hypertension, Pulmonary Embolus (PE) Additional Past Medical History / Comment(s): PE in lung, hypertention, cellulitis History of Any Multi-Drug Resistant Organisms: None Reported Past Surgical History: Hysterectomy Additional Past Surgical History / Comment(s): hysterectomy 9 years ago, arm tumor removal 15 years ago Past Anesthesia/Blood Transfusion Reactions: No Reported Reaction Past Psychological History: No Psychological Hx Reported Smoking Status: Never smoker Past Alcohol Use History: None Reported Additional Past Alcohol Use History / Comment(s): Patient is a lifelong nonsmoker, no illicit drug use, no alcohol use. She lives at home with her son Bridger. 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. Past Drug Use History: None Reported - Past Family History Mother Family Medical History: Cancer, Diabetes Mellitus Father Family Medical History: Pulmonary Embolus Additional Family Medical History / Comment(s): PE in lung, hip replacement Medications and Allergies Home Medications Medication Instructions Recorded Confirmed Type Apixaban [Eliquis] 5 mg PO BID 11/26/18 02/06/21 History Aspirin EC [Ecotrin Low Dose] 81 mg PO DAILY 11/26/18 02/06/21 History Cyanocobalamin [Vitamin B-12] 500 mcg PO DAILY 11/26/18 02/06/21 History Multivitamins, Thera [Multivitamin 1 tab PO DAILY 11/26/18 02/06/21 History (formulary)] carvediloL [Coreg] 6.25 mg PO BID 11/26/18 02/06/21 History hydrALAZINE HCL 25 mg PO QID PRN 11/26/18 02/06/21 History Losartan [Cozaar] 50 mg PO DAILY #30 tab 12/03/18 02/06/21 Rx Levothyroxine Sodium [Synthroid] 100 mcg PO DAILY 02/08/20 02/06/21 History Simvastatin [Zocor] 40 mg PO HS 02/08/20 02/06/21 History Cholecalciferol [Vitamin D3 (125 125 mcg PO DAILY 02/06/21 02/06/21 History Mcg = 5000 Iu)] Dexamethasone 6 mg PO DAILY 02/06/21 02/06/21 History Famotidine [Pepcid AC] 20 mg PO DAILY 02/06/21 02/06/21 History Furosemide [Lasix] 40 mg PO DAILY 02/06/21 02/06/21 History Potassium Chloride ER [K-Dur 20] 20 meq PO DAILY 02/06/21 02/06/21 History Allergies Allergy/AdvReac Type Severity Reaction Status Date / Time No Known Allergies Allergy Verified 02/06/21 16:52 Physical Exam Vitals: Vital Signs Temp Pulse Pulse Resp BP BP Pulse Ox 02/07/21 10:58 20 02/07/21 10:34 97.5 F L 66 17 136/71 94 L 02/07/21 05:43 97.6 F 63 16 139/70 95 02/07/21 02:34 97.5 F L 68 147/64 95 02/06/21 21:17 18 02/06/21 20:19 74 18 137/63 95 02/06/21 18:53 98.9 F 68 20 144/62 95 02/06/21 15:06 20 94 L 02/06/21 14:21 98.7 F 78 20 136/86 95 Intake and Output 02/06/21 02/07/21 02/07/21 22:59 06:59 14:59 Output Total 800 Balance -800 Output: Urine 800 Other: Voiding Method Indwelling Catheter Indwelling Catheter # Bowel Movements 0 Weight 141 kg Results CBC & Chem 7: 02/06/21 15:05 02/06/21 15:05 Labs: Abnormal Lab Results - Last 24 Hours (Table) 02/06/21 02/06/21 02/06/21 Range/Units 15:05 15:05 15:05 WBC 12.2 H (3.8-10.6) k/uL Neutrophils # 10.9 H (1.3-7.7) k/uL Lymphocytes # 0.7 L (1.0-4.8) k/uL D-Dimer 6.46 H (<0.60) mg/L FEU Sodium 132 L (137-145) mmol/L BUN 41 H (7-17) mg/dL Creatinine 1.37 H (0.52-1.04) mg/dL Glucose 118 H (74-99) mg/dL Plasma Lactic Acid Braydon (0.7-2.0) mmol/L Ferritin 1095.0 H (10.0-291.0) ng/mL Total Bilirubin 1.5 H (0.2-1.3) mg/dL AST 59 H (14-36) U/L Lactate Dehydrogenase 1348 H (313-618) U/L C-Reactive Protein 5.3 H (<1.0) mg/dL Albumin 3.3 L (3.5-5.0) g/dL Procalcitonin (0.02-0.09) ng/mL Coronavirus (PCR) (Not Detectd) 02/06/21 02/06/21 02/06/21 Range/Units 15:05 15:05 15:06 WBC (3.8-10.6) k/uL Neutrophils # (1.3-7.7) k/uL Lymphocytes # (1.0-4.8) k/uL D-Dimer (<0.60) mg/L FEU Sodium (137-145) mmol/L BUN (7-17) mg/dL Creatinine (0.52-1.04) mg/dL Glucose (74-99) mg/dL Plasma Lactic Acid Braydon 2.1 H* (0.7-2.0) mmol/L Ferritin (10.0-291.0) ng/mL Total Bilirubin (0.2-1.3) mg/dL AST (14-36) U/L Lactate Dehydrogenase (313-618) U/L C-Reactive Protein (<1.0) mg/dL Albumin (3.5-5.0) g/dL Procalcitonin 0.32 H (0.02-0.09) ng/mL Coronavirus (PCR) Detected A (Not Detectd) Assessment and Plan (1) Venous (peripheral) insufficiency Current Visit: Yes Status: Acute Code(s): I87.2 - VENOUS INSUFFICIENCY (CHRONIC) (PERIPHERAL) SNOMED Code(s): 59836498 (2) Edema Current Visit: Yes Status: Acute Code(s): R60.9 - EDEMA, UNSPECIFIED SNOMED Code(s): 928844403
--- NOTE | 2021-02-07 11:55 | US ---
EXAMINATION TYPE: US venous doppler duplex LE DATE OF EXAM: 02/07/2021 11:05 AM COMPARISON: NONE CLINICAL HISTORY: leg swelling. COVID-19 patient SIDE PERFORMED: Bilateral TECHNIQUE: The lower extremity deep venous system is examined utilizing real time linear array sonog pilo with graded compression, doppler sonography and color-flow sonography. VESSELS IMAGED: Common Femoral Vein Deep Femoral Vein Greater Saphenous Vein * Femoral Vein Popliteal Vein Small Saphenous Vein * Proximal Calf Veins (* superficial vessels) Right Leg: Non-visualization of the proximal calf veins. Negative for DVT Left Leg: Negative for DVT Difficult study due to large patient body habitus. IMPRESSION: 1. Limited exam of the right lower extremity as discussed above. Within the visualized deep venous st ructures no diagnostic evidence of DVT. Note the proximal calf veins on the right were not visualized .
[2021-02-07] MEDS: methylPREDNISolone SOD SUCCI 125 MG/2 ML VIAL IV SCH ×2 (12:27→16:51)
[2021-02-07] MEDS: ATORVASTATIN 20 MG TAB PO SCH (20:01)
--- NOTE | 2021-02-07 23:34 | P.CONS ---
History of Present Illness - Reason for Consult Consult date: 02/07/21 covid 19 pneumonia Requesting physician: Howie Ching - Chief Complaint cough and shortness of breath x 1 week - History of Present Illness History of present illness : Patient is 75-year-old female presented to the ER yesterday afternoon for evaluation of increasing shortness of breath fatigue and cough in this patient symptom has been going on for more than a week and apparently was diagnosed with a COVID-19 6 days before presentation to the hospital patient notes intermittent shortness of breath on minimal exertion and the patient also have a cough which is moderate intensity but not bringing up any sputum patient denies having URI symptoms decreased oral intake but no vomiting no abdominal pain no diarrhea on presentation to the hospital the patient has been afebrile patient was noted hypoxic requiring supplemental oxygen she did have a white count of 12.2 with creatinine 0.7 D-dimer was 6.46 lactic acid was elevated (0.32 no enzymes are mildly elevated patient did have a chest x-ray bilateral interstitial and airspace pneumonia recently completed oral exam patient also have a series of normal chest that was negative for PE did shows extensive bilateral pulmonary infiltrate patient has been admitted to hospital infectious was consulted for further management, Review of system: CONSTITUTIONAL: Positive for weakness denies fever. EYES: No complaint. ENT: No complaint. RESPIRATORY: As per history of present illness. CARDIOVASCULAR: No complaint. GENITOURINARY: No complaint. GASTROINTESTINAL: No complaint. MUSCULOSKELETAL: No complaint. INTEGUMENTARY: No complaint. PSYCHOLOGIC: No complaint. ENDOCRINE: No complaint. NEUROLOGIC: No complaint. Past medical history : Reviewed, documented below Past surgical history : Reviewed, documented below Social history: Reviewed, documented below Medications: Reviewed, as documented below EXAMINATION: Vital sigans= Reviewed and documented below GENERAL DESCRIPTION: Elderly female lying in bed, no distress. No tachypnea or accessory muscle of respiration use. HEENT: Shows Pallor , no scleral icterus. Oral mucous membrane is dry. NECK: Trachea central, no thyromegaly. LUNGS: Unlabored breathing. Decrease intensity of breath sounds. No wheeze or crackle. HEART: S1, S2, regular rate and rhythm. ABDOMEN: Soft, no tenderness , guarding or rigidity EXTREMITIES: Bilateral lower extremity currently wrapped in Otis wraps. SKIN: No rash, no masses palpable. NEUROLOGICAL: The patient is awake, alert, oriented x3, mood and affect normal. LABS AND RADIOLOGY: Reviewed results see below Assessment : Patient presented to hospital with increased shortness of breath and cough in this patient symptom has been going on for more than 7 to 10 days and was exposed to the sun living with the patient who has recovered from the COVID-19 and this patient is unvaccinated patient is currently out of the therapeutic window for remdesivir per [facility] clinic suspicion low for underlying secondary bacterial pneumonia however the patient did have mild elevated procalcitonin and CO2 covered with antibiotics Plan: 1-patient to continue with Eliquis and Solu-Medrol zinc and ascorbic acid 2-Rocephin plus Zithromax 3-obtain a sputum for Gram stain and culture 4-droplet isolation and respiratory support We will follow on clinical condition and cultures to further adjust medication if needed Thank you for this consultation we will follow the patient along with you Past Medical History Past Medical History: Hypertension, Pulmonary Embolus (PE) Additional Past Medical History / Comment(s): PE in lung, hypertention, cellulitis History of Any Multi-Drug Resistant Organisms: None Reported Past Surgical History: Hysterectomy Additional Past Surgical History / Comment(s): hysterectomy 9 years ago, arm tumor removal 15 years ago Past Anesthesia/Blood Transfusion Reactions: No Reported Reaction Past Psychological History: No Psychological Hx Reported Smoking Status: Never smoker Past Alcohol Use History: None Reported Additional Past Alcohol Use History / Comment(s): Patient is a lifelong nonsmoker, no illicit drug use, no alcohol use. She lives at home with her son Bridger. 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 Past Drug Use History: None Reported - Past Family History Mother Family Medical History: Cancer, Diabetes Mellitus Father Family Medical History: Pulmonary Embolus Additional Family Medical History / Comment(s): PE in lung, hip replacement Medications and Allergies Home Medications Medication Instructions Recorded Confirmed Type Apixaban [Eliquis] 5 mg PO BID 11/26/18 02/06/21 History Aspirin EC [Ecotrin Low Dose] 81 mg PO DAILY 11/26/18 02/06/21 History Cyanocobalamin [Vitamin B-12] 500 mcg PO DAILY 11/26/18 02/06/21 History Multivitamins, Thera [Multivitamin 1 tab PO DAILY 11/26/18 02/06/21 History (formulary)] carvediloL [Coreg] 6.25 mg PO BID 11/26/18 02/06/21 History hydrALAZINE HCL 25 mg PO QID PRN 11/26/18 02/06/21 History Losartan [Cozaar] 50 mg PO DAILY #30 tab 12/03/18 02/06/21 Rx Levothyroxine Sodium [Synthroid] 100 mcg PO DAILY 02/08/20 02/06/21 History Simvastatin [Zocor] 40 mg PO HS 02/08/20 02/06/21 History Cholecalciferol [Vitamin D3 (125 125 mcg PO DAILY 02/06/21 02/06/21 History Mcg = 5000 Iu)] Dexamethasone 6 mg PO DAILY 02/06/21 02/06/21 History Famotidine [Pepcid AC] 20 mg PO DAILY 02/06/21 02/06/21 History Furosemide [Lasix] 40 mg PO DAILY 02/06/21 02/06/21 History Potassium Chloride ER [K-Dur 20] 20 meq PO DAILY 02/06/21 02/06/21 History Allergies Allergy/AdvReac Type Severity Reaction Status Date / Time No Known Allergies Allergy Verified 02/06/21 16:52 Physical Exam Vitals: Vital Signs Temp Pulse Pulse Resp BP BP Pulse Ox 02/07/21 10:58 20 02/07/21 10:34 97.5 F L 66 17 136/71 94 L 02/07/21 05:43 97.6 F 63 16 139/70 95 02/07/21 02:34 97.5 F L 68 147/64 95 02/06/21 21:17 18 02/06/21 20:19 74 18 137/63 95 02/06/21 18:53 98.9 F 68 20 144/62 95 02/06/21 15:06 20 94 L 02/06/21 14:21 98.7 F 78 20 136/86 95 Intake and Output 02/06/21 02/07/21 02/07/21 22:59 06:59 14:59 Output Total 800 Balance -800 Output: Urine 800 Other: Voiding Method Indwelling Catheter Indwelling Catheter # Bowel Movements 0 Weight 141 kg Results CBC & Chem 7: 02/06/21 15:05 02/06/21 15:05 Labs: Abnormal Lab Results - Last 24 Hours (Table) 02/06/21 02/06/21 02/06/21 Range/Units 15:05 15:05 15:05 WBC 12.2 H (3.8-10.6) k/uL Neutrophils # 10.9 H (1.3-7.7) k/uL Lymphocytes # 0.7 L (1.0-4.8) k/uL D-Dimer 6.46 H (<0.60) mg/L FEU Sodium 132 L (137-145) mmol/L BUN 41 H (7-17) mg/dL Creatinine 1.37 H (0.52-1.04) mg/dL Glucose 118 H (74-99) mg/dL Plasma Lactic Acid Braydon (0.7-2.0) mmol/L Ferritin 1095.0 H (10.0-291.0) ng/mL Total Bilirubin 1.5 H (0.2-1.3) mg/dL AST 59 H (14-36) U/L Lactate Dehydrogenase 1348 H (313-618) U/L C-Reactive Protein 5.3 H (<1.0) mg/dL Albumin 3.3 L (3.5-5.0) g/dL Procalcitonin (0.02-0.09) ng/mL Coronavirus (PCR) (Not Detectd) 02/06/21 02/06/21 02/06/21 Range/Units 15:05 15:05 15:06 WBC (3.8-10.6) k/uL Neutrophils # (1.3-7.7) k/uL Lymphocytes # (1.0-4.8) k/uL D-Dimer (<0.60) mg/L FEU Sodium (137-145) mmol/L BUN (7-17) mg/dL Creatinine (0.52-1.04) mg/dL Glucose (74-99) mg/dL Plasma Lactic Acid Braydon 2.1 H* (0.7-2.0) mmol/L Ferritin (10.0-291.0) ng/mL Total Bilirubin (0.2-1.3) mg/dL AST (14-36) U/L Lactate Dehydrogenase (313-618) U/L C-Reactive Protein (<1.0) mg/dL Albumin (3.5-5.0) g/dL Procalcitonin 0.32 H (0.02-0.09) ng/mL Coronavirus (PCR) Detected A (Not Detectd)
[2021-02-08] MEDS: methylPREDNISolone SOD SUCCI 125 MG/2 ML VIAL IV SCH ×4 (00:19→17:54)
[2021-02-08] MEDS: LEVOTHYROXINE 100 MCG TAB PO SCH (05:59)
[2021-02-08] MEDS: carvediloL 6.25 MG TAB PO SCH ×2 (08:34→17:54)
[2021-02-08] MEDS: MULTIVITAMINS, THERA 1 EACH TAB PO SCH (08:34)
[2021-02-08] MEDS: ASPIRIN 81 MG PO SCH (08:34)
[2021-02-08] MEDS: LOSARTAN 50 MG TAB PO SCH (08:34)
[2021-02-08] MEDS: FAMOTIDINE 20 MG TAB PO SCH (08:34)
[2021-02-08] MEDS: CHOLECALCIFEROL 125 MCG (5000 IU) TABLET PO SCH (08:34)
[2021-02-08] MEDS: POTASSIUM CHLORIDE ER 20 MEQ TAB.ER PO SCH (08:34)
[2021-02-08] MEDS: AZITHROMYCIN 500 MG TAB PO SCH (08:34)
[2021-02-08] MEDS: FUROSEMIDE 40 MG TAB PO SCH (08:35)
[2021-02-08] MEDS: CYANOCOBALAMIN 500 MCG TAB PO SCH (08:35)
[2021-02-08] MEDS: APIXABAN 5 MG TAB PO SCH ×2 (08:35→21:31)
--- NOTE | 2021-02-08 09:19 | P.PN ---
Subjective Progress Note Date: 02/08/21 Principal diagnosis: Acute progressive hypoxic respiratory failure due to COVID-19 pneumonia Sepsis due to COVID-19 pneumonia Hypertension hypertensive cardiovascular disease History of DVT PE Electrolyte imbalance Chronic cellulitis the lower extremity Congestive heart failure with unknown ejection fraction 02/08/2021, patient seen and evaluated examined during the rounds labs reviewed medications reviewed care plan discussed, respiratory status is stable, denies any chest pain, still short of breath, patient is on 3 L nasal cannula saturation is 94%, remains afebrile heart rate is 55 blood pressure 163/67, patient remains on therapy with Solu-Medrol direct oral anticoagulant anti- inflammatory vitamins and minerals and broad-spectrum antibiotics Patient is a 75-year-old non-vaccinated female came into the hospital with progressive shortness of breath, patient was diagnosed COVID-19 infection 6 days ago, initially patient was asymptomatic but progressively started developing symptoms associated with cough shortness of breath and weakness came into the hospital for further evaluation, patient has prior history of pulmonary embolism has been on direct oral anticoagulant also hypertension hypertensive cardiovascular disease and chronic cellulitis of the lower extremity, initial chest x-ray upon in for bilateral interstitial opacities, computed tomography scan of the chest confirmed the finding bilaterally diffuse however negative for pulmonary embolism, labs were significant for white cell count of 12,400, d- dimer 6.46, sodium 132, BUN/creatinine 41/1.37, lactic acid is 2.1 came down to 1.4, LDH is 1348, C-reactive protein is 5.3, currently patient is treated with the L request 5 mg 2 times a day Zithromax and Rocephin dexamethasone by mouth Objective - Vital Signs Vital signs: Vital Signs Temp 97.4 F L 02/08/21 05:05 Pulse 55 L 02/08/21 05:05 Resp 18 02/08/21 05:05 BP 163/71 02/08/21 05:05 Pulse Ox 94 L 02/08/21 07:53 Intake & Output 02/07/21 02/08/21 02/08/21 18:59 06:59 18:59 Output Total 2300 400 Balance -2300 -400 Weight 133 kg Output: Urine 2300 400 Other: Voiding Method Indwelling Catheter Indwelling Catheter - Exam - Constitutional General appearance: average body habitus, cooperative, disheveled - EENT Eyes: EOMI, PERRLA Ears: bilateral: normal - Neck Neck: normal ROM Carotids: bilateral: upstroke normal Thyroid: bilateral: normal size - Respiratory Respiratory: bilateral: rhonchi, wheezing - Cardiovascular Rhythm: regular Heart sounds: normal: S1, S2 - Gastrointestinal General gastrointestinal: normal bowel sounds - Integumentary Integumentary: normal turgor - Neurologic Neurologic: CNII-XII intact - Musculoskeletal Musculoskeletal: gait normal, strength equal bilaterally, left sided weakness - Labs CBC & Chem 7: 02/06/21 15:05 02/06/21 15:05 Labs: Abnormal Lab Results - Last 24 Hours (Table) 02/06/21 Range/Units 15:05 Ferritin 1095.0 H (10.0-291.0) ng/mL Microbiology - Last 24 Hours (Table) 02/06/21 15:05 Blood Culture - Preliminary Blood No Growth after 24 hours 02/06/21 15:05 Blood Culture - Preliminary Blood No Growth after 24 hours Assessment and Plan Assessment: Acute progressive hypoxic respiratory failure due to COVID-19 pneumonia Sepsis due to COVID-19 pneumonia Hypertension hypertensive cardiovascular disease History of DVT PE Electrolyte imbalance Chronic cellulitis the lower extremity Congestive heart failure with unknown ejection fraction Plan: Continue antibiotics Bronchodilators Supplemental oxygen Director oral anticoagulant Deep breathing sense incentive spirometry Continue high-dose steroids 60 mg IV every 6 Time with Patient: Greater than 30
[2021-02-08] MEDS: ATORVASTATIN 20 MG TAB PO SCH (21:31)
--- NOTE | 2021-02-08 22:38 | PN ---
PROGRESS NOTE DATE OF SERVICE: 02/08/2021 REASON FOR FOLLOWUP: COVID-19 pneumonia. INTERVAL HISTORY: The patient is afebrile. The patient is breathing slightly comfortably today. The patient denies having any chest pain. No worsening cough or sputum production. No abdominal pain or diarrhea. PHYSICAL EXAMINATION: Blood pressure is 157/69, pulse of 68, temperature 97.3. She is 92% on 2 L nasal cannula. General description is an elderly female up in the bed in no distress. Respiratory system: Unlabored breathing, decreased intensity of breath sounds. No wheeze. Heart S1, S2. Regular rate and rhythm. Abdomen soft, no tenderness. LABS: No new labs have been obtained today. DIAGNOSTIC IMPRESSION AND PLAN: Patient with acute COVID-19 pneumonia. Patient is currently on Solu-Medrol, Eliquis, zinc and ascorbic acid; to continue along with respiratory support and monitor clinical course closely. MMODL / IJN: [id number] /
[2021-02-09] MEDS: methylPREDNISolone SOD SUCCI 125 MG/2 ML VIAL IV SCH ×4 (00:50→16:49)
--- NOTE | 2021-02-09 01:38 | PN ---
PROGRESS NOTE Admitted with bilateral pneumonia secondary to Covid possible secondary pneumonia, remains on Solu-Medrol 60 IV q.6h, multivitamins, K-Dur, Eliquis for blood thinner, Rocephin and azithromycin. Await pulmonary recommendations. Cardiovascular: S1, S2. She is sating high 90s on 2-3 L. Psych: Giving appropriate answers 91 on 2 L. Temp 97.7, pulse 50s to 60s. Respiratory 16 to 18. ASSESSMENT: Covid 19 pneumonia. Continue Solu-Medrol, Eliquis, zinc, ascorbic acid. Monitor closely. PROGNOSIS: Guarded. Steroid inhaler. Follow up in the next few days. MMODL / IJN: [id number] /
[2021-02-09] MEDS: LEVOTHYROXINE 100 MCG TAB PO SCH (06:05)
[2021-02-09] MEDS: POTASSIUM CHLORIDE ER 20 MEQ TAB.ER PO SCH (07:23)
[2021-02-09] MEDS: LOSARTAN 50 MG TAB PO SCH (07:23)
[2021-02-09] MEDS: FAMOTIDINE 20 MG TAB PO SCH (07:23)
[2021-02-09] MEDS: MULTIVITAMINS, THERA 1 EACH TAB PO SCH (07:23)
[2021-02-09] MEDS: ASPIRIN 81 MG PO SCH (07:23)
[2021-02-09] MEDS: carvediloL 6.25 MG TAB PO SCH ×2 (07:24→16:49)
[2021-02-09] MEDS: CHOLECALCIFEROL 125 MCG (5000 IU) TABLET PO SCH (07:24)
[2021-02-09] MEDS: FUROSEMIDE 40 MG TAB PO SCH (07:24)
[2021-02-09] MEDS: CYANOCOBALAMIN 500 MCG TAB PO SCH (07:24)
[2021-02-09] MEDS: APIXABAN 5 MG TAB PO SCH ×2 (07:24→22:54)
--- NOTE | 2021-02-09 14:10 | CDI ---
Documentation Clarification Form Date: 02/09/2021 02:00:16 PM From: Ayesha Cardona CCS, CCDS Admit Date: 02/06/2021 05:39:00 PM Patient Name: Li Santamaria Visit Number: [id number] Discharge Date: ATTENTION: The Clinical Documentation Specialists (CDI) and [facility] Coding Staff appreciate your assistance in clarifying documentation. Please respond to the clarification below the line at the bottom and electronically sign. The CDI & [facility] Coding staff will review the response and follow-up if needed. Please note: Queries are made part of the Legal Health Record. If you have any questions, please contact the author of this message via ITS. Dr. Howie Ching: Sepsis due to COVID-19 Pneumonia is documented in the 02/07 Pulmonary Consult and the 02/08 Pulmonary Progress Note but not in the Attending Notes. The patient presented with the following clinical indicators: SOB, Weakness, cough, fatigue, exertional dyspnea, COVID + Additional clarification regarding the etiology/cause of the clinical indicators is requested. History/Risk Factors per the 02/07 H/P: Hypertension, PE on Eliquis, Hyperlipidemia, Hypothyroidism, Possible Sleep Apnea on 3L O2 at night. Clinical Indicators: Presented to the ED on 02/06 via EMS with SOB, Weakness & Fatigue, COVID diagnosed 6 days ago. Admitted with Pneumonia due to COVID-19, Dehydration, Failed outpatient treatment, Elevated Lactic Acid, Elevated D Dimer. 02/06 VS: T 98.7, P 78, R 20 (sob), BP 136/86, PO 95 3Lnc, BMI: 51.9 02/06 LAB: WBC 12.2, Neut 10.9, Lymph 0.7, D Dimer 6.46, Na 132, BUN 41, Creatinine 1.37, Glucose 118, Lactic Acid 2.1, Ferritin 1095.0, Total Bilirubin 1.5, AST 59, LDH 1348, CRP 5.3, Albumin 3.3, Procalcitonin 0.32 02/06 CXR: Bilateral moderate interstitial & airspace pneumonia, new. 02/06 CT Chest: No PE. Extensive bilateral pulmonary infiltrates consistent with multifocal pneumonia or RDS. Cardiomegaly. 02/06 Blood Cultures x2: Neg @ 48 hours (Preliminary) 02/09 Sputum Culture: Preliminary Treatment: O2 3-4Lnc, IV Na Cl 999 mls/hr q1H, IV Na Cl 130 mls/hr q7H, IV Azithromycin x1 In your professional opinion, please clarify if these findings signify one of the following conditions: [ ] Sepsis POA [ ] Sepsis, Not POA [ ] Sepsis ruled out [ ] Severe Sepsis with organ failure [ ] Other, please specify [ ] Unable to determine SIRS Criteria: 2 or more of the following may indicate SIRS -Temperature < 96.8F (36C) or > 101.0F (38.3C) -Heart Rate > 90 bpm -Respiratory Rate > 20 breaths/min or PaCO2 < 32 mmHg -White Blood Cell Count > 12,000 or < 4,000 cells/mm3 or > 10% bands (Template Last Reviewed: March 2020) CHARLOTTED
[2021-02-09] MEDS: ATORVASTATIN 20 MG TAB PO SCH (22:55)
--- NOTE | 2021-02-09 23:30 | PN ---
PROGRESS NOTE DATE OF SERVICE: 02/09/2021 REASON FOR FOLLOWUP: COVID-19 pneumonia. INTERVAL HISTORY: The patient is afebrile. The patient is breathing comfortably. The patient is down to 3 L nasal cannula. The patient denies having any chest pain. No worsening cough or sputum production. No nausea, no vomiting. No abdominal pain or diarrhea. PHYSICAL EXAMINATION: Blood pressure 171/76, pulse of 63, temperature 97.5. She is 95% on 3 L nasal cannula. General description is an elderly female lying in bed in no distress. Respiratory system: Unlabored breathing, decreased intensity of breath sounds. No wheeze. Heart S1, S2. Regular rate and rhythm. Abdomen soft, no tenderness. Extremities with no edema of the feet. LABS: No new labs have been obtained today. DIAGNOSTIC IMPRESSION AND PLAN: Patient with acute COVID-19 pneumonia in this patient with overall slow clinical improvement. Patient to continue with Eliquis, Solu-Medrol, zinc and ascorbic acid. Monitor clinical course closely. Continue with supportive care. MMODL / IJN: [id number] /
[2021-02-10] MEDS: methylPREDNISolone SOD SUCCI 125 MG/2 ML VIAL IV SCH ×2 (00:25→06:34)
[2021-02-10] MEDS: LEVOTHYROXINE 100 MCG TAB PO SCH (06:34)
[2021-02-10] MEDS: CYANOCOBALAMIN 500 MCG TAB PO SCH (07:11)
[2021-02-10] MEDS: FUROSEMIDE 40 MG TAB PO SCH (07:11)
[2021-02-10] MEDS: POTASSIUM CHLORIDE ER 20 MEQ TAB.ER PO SCH (07:11)
[2021-02-10] MEDS: APIXABAN 5 MG TAB PO SCH ×2 (07:11→22:50)
[2021-02-10] MEDS: carvediloL 6.25 MG TAB PO SCH ×2 (07:11→17:11)
[2021-02-10] MEDS: MULTIVITAMINS, THERA 1 EACH TAB PO SCH (07:11)
[2021-02-10] MEDS: ASPIRIN 81 MG PO SCH (07:12)
[2021-02-10] MEDS: FAMOTIDINE 20 MG TAB PO SCH (07:12)
[2021-02-10] MEDS: CHOLECALCIFEROL 125 MCG (5000 IU) TABLET PO SCH (07:12)
[2021-02-10] MEDS: LOSARTAN 50 MG TAB PO SCH (07:12)
--- NOTE | 2021-02-10 08:57 | P.PN ---
Subjective Progress Note Date: 02/09/21 Principal diagnosis: Acute progressive hypoxic respiratory failure due to COVID-19 pneumonia Sepsis due to COVID-19 pneumonia Hypertension hypertensive cardiovascular disease History of DVT PE Electrolyte imbalance Chronic cellulitis the lower extremity Congestive heart failure with unknown ejection fraction 02/09/2021, patient seen eval reexamined during the rounds labs reviewed medications reviewed shortness of breath continued to improve hemodynamic status stable, on 3 L oxygen saturation is 96%, has been down from 4 L now, labs are not done today, patient remains on direct anticoagulant, continuation of home medications including Coreg and Lipitor, broad-spectrum antibiotics and high- dose IV steroids 02/08/2021, patient seen and evaluated examined during the rounds labs reviewed medications reviewed care plan discussed, respiratory status is stable, denies any chest pain, still short of breath, patient is on 3 L nasal cannula saturation is 94%, remains afebrile heart rate is 55 blood pressure 163/67, patient remains on therapy with Solu-Medrol direct oral anticoagulant anti- inflammatory vitamins and minerals and broad-spectrum antibiotics Patient is a 75-year-old non-vaccinated female came into the hospital with progressive shortness of breath, patient was diagnosed COVID-19 infection 6 days ago, initially patient was asymptomatic but progressively started developing symptoms associated with cough shortness of breath and weakness came into the hospital for further evaluation, patient has prior history of pulmonary embolism has been on direct oral anticoagulant also hypertension hypertensive cardiovascular disease and chronic cellulitis of the lower extremity, initial chest x-ray upon in for bilateral interstitial opacities, computed tomography scan of the chest confirmed the finding bilaterally diffuse however negative for pulmonary embolism, labs were significant for white cell count of 12,400, d- dimer 6.46, sodium 132, BUN/creatinine 41/1.37, lactic acid is 2.1 came down to 1.4, LDH is 1348, C-reactive protein is 5.3, currently patient is treated with the L request 5 mg 2 times a day Zithromax and Rocephin dexamethasone by mouth Objective - Vital Signs Vital signs: Vital Signs Temp 97.6 F 02/09/21 13:24 Pulse 59 L 02/09/21 13:24 Resp 16 02/09/21 13:24 BP 167/80 02/09/21 13:24 Pulse Ox 95 02/09/21 13:24 Intake & Output 1202/09/21 02/09/21 18:59 06:59 18:59 Intake Total 50 600 Output Total 803 400 Balance 50 -203 -400 Intake: Intake, IV Titration 50 Amount cefTRIAXone 2 gm In 50 Sodium Chloride 0.9% 50 ml @ 100 mls/hr IVPB Q24HR [facility] Rx#:[id number] Oral 600 Output: Urine 803 400 Other: Voiding Method Indwelling Catheter Indwelling Catheter Indwelling Catheter - Exam - Constitutional General appearance: average body habitus, cooperative, disheveled - EENT Eyes: EOMI, PERRLA Ears: bilateral: normal - Neck Neck: normal ROM Carotids: bilateral: upstroke normal Thyroid: bilateral: normal size - Respiratory Respiratory: bilateral: rhonchi, wheezing - Cardiovascular Rhythm: regular Heart sounds: normal: S1, S2 - Gastrointestinal General gastrointestinal: normal bowel sounds - Integumentary Integumentary: normal turgor - Neurologic Neurologic: CNII-XII intact - Musculoskeletal Musculoskeletal: gait normal, strength equal bilaterally, left sided weakness - Labs CBC & Chem 7: 02/06/21 15:05 02/06/21 15:05 Labs: Microbiology - Last 24 Hours (Table) 02/09/21 07:29 Sputum Culture - Preliminary Sputum 02/06/21 15:05 Blood Culture - Preliminary Blood No Growth after 48 hours 02/06/21 15:05 Blood Culture - Preliminary Blood No Growth after 48 hours Assessment and Plan Assessment: Acute progressive hypoxic respiratory failure due to COVID-19 pneumonia Sepsis due to COVID-19 pneumonia Hypertension hypertensive cardiovascular disease History of DVT PE Electrolyte imbalance Chronic cellulitis the lower extremity Congestive heart failure with unknown ejection fraction Plan: Continue antibiotics Bronchodilators Supplemental oxygen Director oral anticoagulant Deep breathing sense incentive spirometry Continue high-dose steroids 60 mg IV every 6 Time with Patient: Greater than 30
[2021-02-10] MEDS ORDERED: methylPREDNISolone SOD SUCCI 40 MG/ML 1 ML VIAL IV SCH (09:00)
--- NOTE | 2021-02-10 09:00 | P.PN ---
Subjective Progress Note Date: 02/10/21 Principal diagnosis: Acute progressive hypoxic respiratory failure due to COVID-19 pneumonia Sepsis due to COVID-19 pneumonia Hypertension hypertensive cardiovascular disease History of DVT PE Electrolyte imbalance Chronic cellulitis the lower extremity Congestive heart failure with unknown ejection fraction 02/10/2021, patient seen eval examined during rounds, remains on 3 oxygen saturation 96%, medicines reviewed remains on antibiotics steroids and breathing treatment, patient appears more comfortable denies any chest pain, will get short of breath on activity and exertion, will lowered on Solu-Medrol to 40 every 12 02/09/2021, patient seen eval reexamined during the rounds labs reviewed medications reviewed shortness of breath continued to improve hemodynamic status stable, on 3 L oxygen saturation is 96%, has been down from 4 L now, labs are not done today, patient remains on direct anticoagulant, continuation of home medications including Coreg and Lipitor, broad-spectrum antibiotics and high- dose IV steroids 02/08/2021, patient seen and evaluated examined during the rounds labs reviewed medications reviewed care plan discussed, respiratory status is stable, denies any chest pain, still short of breath, patient is on 3 L nasal cannula saturation is 94%, remains afebrile heart rate is 55 blood pressure 163/67, patient remains on therapy with Solu-Medrol direct oral anticoagulant anti- inflammatory vitamins and minerals and broad-spectrum antibiotics Patient is a 75-year-old non-vaccinated female came into the hospital with progressive shortness of breath, patient was diagnosed COVID-19 infection 6 days ago, initially patient was asymptomatic but progressively started developing symptoms associated with cough shortness of breath and weakness came into the hospital for further evaluation, patient has prior history of pulmonary embolism has been on direct oral anticoagulant also hypertension hypertensive cardiovascular disease and chronic cellulitis of the lower extremity, initial chest x-ray upon in for bilateral interstitial opacities, computed tomography scan of the chest confirmed the finding bilaterally diffuse however negative for pulmonary embolism, labs were significant for white cell count of 12,400, d- dimer 6.46, sodium 132, BUN/creatinine 41/1.37, lactic acid is 2.1 came down to 1.4, LDH is 1348, C-reactive protein is 5.3, currently patient is treated with the L request 5 mg 2 times a day Zithromax and Rocephin dexamethasone by mouth Objective - Vital Signs Vital signs: Vital Signs Temp 97.4 F L 02/10/21 05:23 Pulse 54 L 02/10/21 05:23 Resp 17 02/09/21 22:06 BP 183/82 02/10/21 05:23 Pulse Ox 96 02/10/21 05:23 Intake & Output 02/09/21 02/10/21 02/10/21 18:59 06:59 18:59 Output Total 1100 525 Balance -1100 -525 Output: Urine 1100 525 Other: Voiding Method Indwelling Catheter Indwelling Catheter # Bowel Movements 0 - Exam - Constitutional General appearance: average body habitus, cooperative, disheveled - EENT Eyes: EOMI, PERRLA Ears: bilateral: normal - Neck Neck: normal ROM Carotids: bilateral: upstroke normal Thyroid: bilateral: normal size - Respiratory Respiratory: bilateral: rhonchi, wheezing - Cardiovascular Rhythm: regular Heart sounds: normal: S1, S2 - Gastrointestinal General gastrointestinal: normal bowel sounds - Integumentary Integumentary: normal turgor - Neurologic Neurologic: CNII-XII intact - Musculoskeletal Musculoskeletal: gait normal, strength equal bilaterally, left sided weakness - Labs CBC & Chem 7: 02/06/21 15:05 02/06/21 15:05 Labs: Microbiology - Last 24 Hours (Table) 02/06/21 15:05 Blood Culture - Preliminary Blood No Growth after 72 hours 02/06/21 15:05 Blood Culture - Preliminary Blood No Growth after 72 hours 02/09/21 07:29 Sputum Culture - Preliminary Sputum Assessment and Plan Assessment: Acute progressive hypoxic respiratory failure due to COVID-19 pneumonia Sepsis due to COVID-19 pneumonia Hypertension hypertensive cardiovascular disease History of DVT PE Electrolyte imbalance Chronic cellulitis the lower extremity Congestive heart failure with unknown ejection fraction Plan: Continue antibiotics Bronchodilators Supplemental oxygen Director oral anticoagulant Deep breathing sense incentive spirometry Start tapering down the steroids Time with Patient: Greater than 30
[2021-02-10 13:41] VITALS: BMI 51.9
[2021-02-10] MEDS: hydrALAZINE HCL 50 MG TAB PO SCH ×2 (14:21→22:50)
--- NOTE | 2021-02-10 18:52 | DS ---
DISCHARGE SUMMARY Dehydration, edema, diastolic heart failure, COPD, elevated D-dimer secondary to COVID pneumonia, lactic acidosis secondary COVID pneumonia and dehydration, prerenal renal insufficiency secondary to COVID pneumonia, chronic cellulitis of the legs, atrial fibrillation, hypertension, hypothyroidism, hypokalemia. HOME MEDICINES: 1. Hydralazine 50 mg t.i.d. 2. Multivitamin daily. 3. Vitamin B12 500 mcg daily. 4. Coreg 6.25 b.i.d. 5. Aspirin 81 daily. 6. Eliquis 5 mg b.i.d. 7. Cozaar 50 mg daily. 8. Zocor 40 mg daily. 9. Synthroid 100 mcg daily. 10.Lasix 40 mg daily. 11.K-Dur 20 mEq daily. 12.Pepcid 20 mg daily. 13.Vitamin D3 125 mcg daily. 14.Dexamethasone 6 mg daily. CONDITION: Stable. PROGNOSIS: Guarded. Ambulate as tolerated. She was admitted with COVID pneumonia with lactic acidosis, dehydration, hypoxia, hypoxemia, chronic renal insufficiency, seen by Infectious Disease, Pulmonology, started on COVID treatments, stayed on COVID treatments. She was switched over to oral prednisone and oral COVID vitamins prior to discharge. Blood pressure is elevated. Increase hydralazine to 50 t.i.d. prior to discharge. Patient will follow up at [facility] on [facility] with Dr. Howie Ching. She was on 3 L, saturating mid 90s. Will continue to wean oxygen as tolerated. PT/OT. Please see further orders. MMODL / IJN: [id number] /
[2021-02-10] MEDS: ATORVASTATIN 20 MG TAB PO SCH (22:50)
--- NOTE | 2021-02-10 23:13 | PN ---
PROGRESS NOTE DATE OF SERVICE: 02/10/2021 REASON FOR FOLLOWUP: COVID-19 pneumonia. INTERVAL HISTORY: The patient is afebrile. The patient is breathing comfortably. The patient denies having any chest pain or shortness of breath. Occasional cough. No abdominal pain or diarrhea. PHYSICAL EXAMINATION: Blood pressure 175/74, pulse of 63, temperature 97.8. She is 94% on 3 L nasal cannula. General description is a middle-aged female up in the chair in no distress. Respiratory system: Unlabored breathing, decreased intensity of breath sounds. No wheeze. Heart S1, S2. Regular rate and rhythm. Abdomen soft, no tenderness. Legs are currently wrapped. No obvious drainage on the dressing. LABS: No new labs have been obtained today. DIAGNOSTIC IMPRESSION AND PLAN: Patient with acute COVID-19 infection in this patient who seems to have shown overall clinical improvement. She is currently on dexamethasone, Eliquis, zinc and ascorbic acid; to continue while monitoring clinical course closely. No need for systemic antibiotic therapy on discharge. MMODL / IJN: [id number] /
[2021-02-11] MEDS: LEVOTHYROXINE 100 MCG TAB PO SCH (07:07)
[2021-02-11] MEDS: carvediloL 6.25 MG TAB PO SCH (08:01)
[2021-02-11] MEDS: FUROSEMIDE 40 MG TAB PO SCH (08:01)
[2021-02-11] MEDS: APIXABAN 5 MG TAB PO SCH (08:01)
[2021-02-11] MEDS: CYANOCOBALAMIN 500 MCG TAB PO SCH (08:01)
[2021-02-11] MEDS: hydrALAZINE HCL 50 MG TAB PO SCH (08:01)
[2021-02-11] MEDS: LOSARTAN 50 MG TAB PO SCH (08:01)
[2021-02-11] MEDS: POTASSIUM CHLORIDE ER 20 MEQ TAB.ER PO SCH (08:01)
[2021-02-11] MEDS: ASPIRIN 81 MG PO SCH (08:01)
[2021-02-11] MEDS: MULTIVITAMINS, THERA 1 EACH TAB PO SCH (08:01)
[2021-02-11] MEDS: FAMOTIDINE 20 MG TAB PO SCH (08:01)
[2021-02-11] MEDS: CHOLECALCIFEROL 125 MCG (5000 IU) TABLET PO SCH (08:01)
[2021-02-11] MEDS ORDERED: dexAMETHasone 2 MG TAB PO SCH (09:00)
[2021-02-11 09:31] VITALS: BP 164/68; PULSE 64; RESP 18; TEMP 97.6
--- NOTE | 2021-02-11 10:41 | PN ---
PROGRESS NOTE ADDENDUM: Sepsis secondary organ failure secondary to COVID pneumonia. MMODL / IJN: [id number] /
--- NOTE | 2021-02-11 11:05 | PN ---
PROGRESS NOTE This 75-year-old white female has COVID pneumonia, COPD, diastolic heart failure, acute hypoxemic respiratory distress, waiting for rehab placement to the detention. She is stable. She normally takes 3 L oxygen at home. She is back down to her baseline. She is breathing well. PT/OT is working with her. Awaiting discharge planning. Discharge summary in the chart. MMODL / IJN: [id number] /
== END 2021-02-11 11:17 | DRG 871 ==
LOC: EC 14:20 → 4SSUR 17:39
PROVIDERS: ADMIT Family Medicine; ATTEND Family Medicine
PROC: 3E0333Z Introduction of Anti-inflammatory into Peripheral Vein, Percutaneous Approach (ICD-10-PCS; principal; 2021-02-07)
DX: A41.89 Other specified sepsis (principal); U07.1 COVID-19; J12.82 Pneumonia due to coronavirus disease 2019; I50.31 Acute diastolic (congestive) heart failure; J96.01 Acute respiratory failure with hypoxia; J44.0 Chronic obstructive pulmonary disease with (acute) lower respiratory infection; L03.90 Cellulitis, unspecified; D72.810 Lymphocytopenia; E03.9 Hypothyroidism, unspecified; E78.5 Hyperlipidemia, unspecified; E86.0 Dehydration; I11.0 Hypertensive heart disease with heart failure; I87.2 Venous insufficiency (chronic) (peripheral); L30.9 Dermatitis, unspecified; L89.91 Pressure ulcer of unspecified site, stage 1; Z79.01 Long term (current) use of anticoagulants; Z79.82 Long term (current) use of aspirin; Z79.890 Hormone replacement therapy; Z79.899 Other long term (current) drug therapy; Z83.3 Family history of diabetes mellitus; Z86.711 Personal history of pulmonary embolism; Z86.718 Personal history of other venous thrombosis and embolism; Z90.710 Acquired absence of both cervix and uterus
CPT/HCPCS: 36415; 71045; 71275; 80053; 82728; 83605; 83615; 83735; 83880; 84145; 84484; 85025; 85379; 85610; 85730; 86140; 87040; 87070; 87205; 87635; 93005; 93970; 94760; 96360; 99285

== ENCOUNTER 2022-05-31 08:29 | Inpatient (IN) | payer MEDICARE, OTHER ==
--- NOTE | 2022-05-31 08:50 | XR ---
EXAMINATION TYPE: XR chest 2V DATE OF EXAM: 05/31/2022 8:43 AM COMPARISON: Chest radiographs from 02/07/2021 TECHNIQUE: XR chest 2V Frontal and lateral views of the chest. CLINICAL INDICATION:Female, 77 years old with history of difficulty breathing; FINDINGS: Lungs/Pleura: Blunting of the left costophrenic angle with associated atelectasis. Pulmonary vascularity: Unremarkable. Heart/mediastinum: Cardiomediastinal silhouette is enlarged and partially obscured due to overlying a nd adjacent opacities. Musculoskeletal: No acute osseous pathology. IMPRESSION: 1. Moderate left pleural effusion with associated atelectasis. 2. Cardiomegaly with superimposed pulmonary vascular congestion correlate with serum BNP.
[2022-05-31 09:50] LABS: Basophils % (A) 0 %; Eosinophils # (A) 0.2 k/uL (0-0.7); Eosinophils % (A) 2 %; HGB 14.2 gm/dL (11.4-16.0); Lymphocytes % (A) 9 %; MCH 30.4 pg (25.0-35.0); MCHC 32.9 g/dL (31.0-37.0); MCV 92.3 fL (80.0-100.0); Mean Platelet Volume 7.8; Monocytes # (A) 0.6 k/uL (0-1.0); Monocytes % (A) 5 %; Neutrophils # (A) 9.5 k/uL (1.3-7.7); Neutrophils % (A) 83 %; Platelet Count 228 k/uL (150-450); RBC 4.66 m/uL (3.80-5.40); RDW 14.7 % (11.5-15.5); WBC 11.4 k/uL (3.8-10.6)
[2022-05-31 10:06] LABS: Albumin 3.7 g/dL (3.5-5.0); Calcium 8.8 mg/dL (8.4-10.2); Total Bilirubin 1.3 mg/dL (0.2-1.3); Total Protein 7.1 g/dL (6.3-8.2)
[2022-05-31 10:07] LABS: Magnesium 1.9 mg/dL (1.6-2.3); Potassium 4.6 mmol/L (3.5-5.1)
[2022-05-31 10:14] LABS: Partial Thromboplastin Time 23.5 sec (22.0-30.0); Prothrombin Time 10.8 sec (9.0-12.0)
[2022-05-31] MEDS ORDERED: FUROSEMIDE 10 MG/ML 10 ML VIAL IV STA (10:48)
[2022-05-31] MEDS ORDERED: HEPARIN SODIUM 1,000 UN/ML (10ML VL) IV PRN (10:48)
[2022-05-31] MEDS ORDERED: HEPARIN SODIUM 1,000 UN/ML (10ML VL) IV ONE ×2 (10:48→16:13)
[2022-05-31] MEDS ORDERED: HEPARIN SOD,PORK IN 0.45% NACL 25,000 UNIT in 0.45% NACL 1 250ML.BAG IV SCH (11:00)
[2022-05-31] MEDS ORDERED: NALOXONE 0.4 MG/ML 1 ML VIAL IV PRN (11:31)
--- NOTE | 2022-05-31 11:31 | ED ---
SOB HPI <Luke Yee - Last Filed: 05/31/22 16:19> - General Source: EMS Mode of arrival: EMS Limitations: no limitations <Lorene Mcdaniels - Last Filed: 06/07/22 14:56> - General Chief Complaint: Shortness of Breath Stated Complaint: sob - History of Present Illness Initial Comments: 77 year old female with past medical history of PE, hypertension, congestive heart failure who presents to the emergency department reporting shortness of breath. Patient denies that she has been on her medications for the past 2 wee ks however further consult with the patient has not been taking any medications for the past year. States that she has been more short of breath over the past couple a days. She has noted increased weight gain and swelling to her lower extremities. She is supposed to take eliquis for PE/DVT. She is also supposed to be on a water pill. Does not do any breathing treatments that she has no underlying lung history. She denies any fevers chills or cough. No sick contacts. She denies any chest pain. No history of coronary disease. No other alleviating, precipitating or modifying factors (Lorene Mcdaniels) - Related Data Previous Rx's Medication Instructions Recorded Apixaban [Eliquis Starter Pack 5 - 10 mg PO DIRECTED 30 Days 06/02/22 (for VTE)] #1 each Allergies Allergy/AdvReac Type Severity Reaction Status Date / Time No Known Allergies Allergy Verified 05/31/22 10:54 Review of Systems ROS Other: All systems not noted in ROS Statement are negative. <Luke Yee - Last Filed: 05/31/22 16:19> ROS Other: All systems not noted in ROS Statement are negative. <Lorene Mcdaniels - Last Filed: 06/07/22 14:56> ROS Statement: Those systems with pertinent positive or pertinent negative responses have been documented in the HPI. Past Medical History Past Medical History: Hypertension, Pulmonary Embolus (PE) Additional Past Medical History / Comment(s): PE in lung, hypertention, ce llulitis History of Any Multi-Drug Resistant Organisms: None Reported Past Surgical History: Hysterectomy Additional Past Surgical History / Comment(s): hysterectomy 9 years ago, arm tumor removal 15 years ago Past Anesthesia/Blood Transfusion Reactions: No Reported Reaction Past Psychological History: No Psychological Hx Reported Smoking Status: Never smoker Past Alcohol Use History: None Reported Additional Past Alcohol Use History / Comment(s): Patient is a lifelong nonsmoker, no illicit drug use, no alcohol use. She lives at home with her son Bridger. 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. Past Drug Use History: None Reported - Past Family History Mother Family Medical History: Cancer, Diabetes Mellitus Father Family Medical History: Pulmonary Embolus Additional Family Medical History / Comment(s): PE in lung, hip replacement <ArslanLorene Rocky - Last Filed: 06/07/22 14:56> General Exam General appearance: alert, in no apparent distress Head exam: Present: atraumatic, normocephalic, normal inspection Eye exam: Present: normal appearance, PERRL, EOMI. Absent: scleral icterus, conjunctival injection, periorbital swelling ENT exam: Present: normal exam, mucous membranes moist Neck exam: Present: normal inspection. Absent: tenderness, meningismus, lymphadenopathy Respiratory exam: Present: normal lung sounds bilaterally. Absent: respiratory distress, wheezes, rales, rhonchi, stridor Cardiovascular Exam: Present: normal rhythm, tachycardia, normal heart sounds. Absent: systolic murmur, diastolic murmur, rubs, gallop, clicks GI/Abdominal exam: Present: soft, normal bowel sounds. Absent: distended, tenderness, guarding, rebound, rigid Extremities exam: Present: normal inspection, full ROM, normal capillary refill. Absent: tenderness, pedal edema, joint swelling, calf tenderness Back exam: Present: normal inspection Neurological exam: Present: alert, oriented X3, CN II-XII intact Psychiatric exam: Present: normal affect, normal mood Skin exam: Present: warm, dry, intact, normal color. Absent: rash <Luke Yee - Last Filed: 05/31/22 16:19> Limitations: no limitations General appearance: alert, anxious, in distress, obese Head exam: Present: atraumatic, normocephalic, normal inspection Eye exam: Present: normal appearance, PERRL, EOMI. Absent: scleral icterus, conjunctival injection, periorbital swelling ENT exam: Present: normal exam, mucous membranes moist Neck exam: Present: normal inspection. Absent: tenderness, meningismus, lymphadenopathy Respiratory exam: Present: rales, decreased breath sounds. Absent: respiratory distress, wheezes, rhonchi, stridor Cardiovascular Exam: Present: regular rate, normal rhythm, normal heart sounds. Absent: systolic murmur, diastolic murmur, rubs, gallop, clicks GI/Abdominal exam: Present: soft, normal bowel sounds. Absent: distended, tenderness, guarding, rebound, rigid Extremities exam: Present: normal inspection, full ROM, normal capillary refill, pedal edema. Absent: tenderness, joint swelling, calf tenderness Back exam: Present: normal inspection Neurological exam: Present: alert, oriented X3, CN II-XII intact Psychiatric exam: Present: normal affect, normal mood Skin exam: Present: warm, dry, intact, normal color. Absent: rash <Lorene Mcdaniels - Last Filed: 06/07/22 14:56> Course <Luke Yee - Last Filed: 05/31/22 16:19> Vital Signs 05/31/22 05/31/22 05/31/22 08:30 09:00 11:00 Temperature 97.4 F L Pulse Rate 89 91 87 Pulse Rate [ Mortgage Loan Coordinator ] Respiratory 22 20 20 Rate Blood Pressure 162/94 160/94 151/98 Blood Pressure [Left Arm] O2 Sat by Pulse 98 97 97 Oximetry 05/31/22 05/31/22 05/31/22 13:37 13:44 13:55 Temperature 97.3 F L Pulse Rate Pulse Rate [ 87 87 87 Mortgage Loan Coordinator ] Respiratory 19 26 H Rate Blood Pressure Blood Pressure 148/87 148/87 [Left Arm] O2 Sat by Pulse 97 95 Oximetry 05/31/22 05/31/22 05/31/22 16:32 17:35 19:00 Temperature Pulse Rate 86 Pulse Rate [ 91 86 Mortgage Loan Coordinator ] Respiratory 24 34 H 16 Rate Blood Pressure Blood Pressure 141/77 147/73 [Left Arm] O2 Sat by Pulse 93 L 91 L Oximetry - Reevaluation(s) Reevaluation #1: 05/31/22 16:20 Record is reviewed (Luke Yee) Reevaluation #2: 05/31/22 16:20 Patient has no real significant improvement here in the emergency department (Luke Yee) Reevaluation #3: 05/31/22 16:22 Patient made aware findings here in the emergency department (Luke Yee) - Consultations Consultation #1: Spoke with on-call radiologist regarding acute findings including right heart strain and saddle pulmonary embolus. (Luke Yee) Consultation #2: Spoke with Dr. Covarrubias regarding PE saddle embolus causing RIght Heart Strain (Luke Yee) Medical Decision Making - Lab Data Result diagrams: 05/31/22 09:25 05/31/22 09:25 - Radiology Data Radiology results: report reviewed (CTA chest is positive for PE saddle embolus with right heart strain), image reviewed <Luke Yee - Last Filed: 05/31/22 16:19> - Lab Data Result diagrams: 06/07/22 05:54 06/07/22 05:54 <Lorene Mcdaniels - Last Filed: 06/07/22 14:56> - Medical Decision Making 77 female to the emergency department for evaluation of significant shortness of breath patient does suffer multiple medical comorbidities underlying CHF and significant current PE with history of PE. Patient does have CTA positive for PE with right heart strain, thoracic or surgery is aware patient is increased heparin dosing here in the ER and will be admitted for further evaluation management. Vital signs are currently normal and stable (Luke Yee) Was pt. sent in by a medical professional or institution (, PA, MASONRY INSTALLER, urgent care, hospital, or [facility]...) When possible be specific @ -No Did you speak to anyone other than the patient for history (EMS, parent, family, police, friend...)? What history was obtained from this source @ -No Did you review nursing and triage notes (agree or disagree)? Why? @ -I reviewed and agree with nursing and triage notes Were old charts reviewed (outside hosp., previous admission, EMS record, old EKG, old radiological studies, urgent care reports/EKG's, [facility] records)? Report findings @ -old charts were reviewed - patient has not been hospitalized in a few years Differential Diagnosis (chest pain, altered mental status, abdominal pain women, abdominal pain men, vaginal bleeding, weakness, fever, dyspnea, syncope, headache, dizziness, GI bleed, back pain, seizure, CVA, palpatations, mental health, musculoskeletal)? @ -acs, pleurisy, chest wall pain, nstemi, pe, copd exacerbation EKG interpreted by me (3pts min.). @ -yes X-rays interpreted by me (1pt min.). @ -yes CT interpreted by me (1pt min.). @ -yes U/S interpreted by me (1pt. min.). @ -None done What testing was considered but not performed or refused? (CT, X-rays, U/S, labs)? Why? @ -None What meds were considered but not given or refused? Why? @ -None Did you discuss the management of the patient with other professionals (professionals i.e. , PA, MASONRY INSTALLER, lab, RT, psych nurse, psychiatric social worker, inspector plug seam, teacher, child support officer, case resource manager)? Give summary @ -Dr. ferreira Was smoking cessation discussed for >3mins.? @ -No Was critical care preformed (if so, how long)? @ -yes, 31 minutes Were there social determinants of health that impacted care today? How? (Homelessness, low income, unemployed, alcoholism, drug addiction, transportation, low edu. Level, literacy, decrease access to med. care, alf, rehab)? @ -low income therefore patient has not sought care in 1 year Was there de-escalation of care discussed even if they declined (Discuss DNR or withdrawal of care, Hospice)? DNR status @ -No What co-morbidities impacted this encounter? (DM, HTN, Smoking, COPD, CAD, Cance r, CVA, ARF, Chemo, Hep., AIDS, mental health diagnosis, sleep apnea, morbid obesity)? @ -obesity, chf, pe Was patient admitted / discharged? Hospital course, mention meds given and route, prescriptions, significant lab abnormalities, going to OR and other perti nent info. @ -Upon arrival patient is placed into room 3. A thorough history and physical exam was performed. IV access is established laboratory studies are conducted and reviewed. D-dimer markedly elevated at 17. Troponin 0.085. BNP 18,000. Chest x-ray demonstrates a moderate pleural effusion on the left with pulmonary edema. Patient maintaining saturations on nasal cannula without any increased work of breathing. She is given 60 mg of Lasix. I attempted to perform a CT of the patient's chest however she states she can't lay flat. Because of this she is heparinized. We will attempt to send the patient back for CT. Spoke with Dr. Ching for admission with cardiology consultation Undiagnosed new problem with uncertain prognosis? @ -yes Drug Therapy requiring intensive monitoring for toxicity (Heparin, Nitro, Insulin, Cardizem)? @ -heparin Were any procedures done? @ -No Diagnosis/symptom? @ -acute resp insuff, acute saddle pe, aechf Acute, or Chronic, or Acute on Chronic? @ -acute Uncomplicated (without systemic symptoms) or Complicated (systemic symptoms)? @ -complicated Side effects of treatment? @ -bleeding Exacerbation, Progression, or Severe Exacerbation? @ -No Poses a threat to life or bodily function? How? (Chest pain, USA, AR, pneumonia, PE, COPD, DKA, ARF, appy, cholecystitis, CVA, Diverticulitis, Homicidal, Suici holly, threat to staff... and all critical care pts) @ -yes (Lorene Mcdaniels) - Lab Data Lab Results 05/31/22 05/31/22 05/31/22 Range/Units 09:25 09:25 09:25 WBC 11.4 H (3.8-10.6) k/uL RBC 4.66 (3.80-5.40) m/uL Hgb 14.2 (11.4-16.0) gm/dL Hct 43.0 (34.0-46.0) % MCV 92.3 (80.0-100.0) fL MCH 30.4 (25.0-35.0) pg MCHC 32.9 (31.0-37.0) g/dL RDW 14.7 (11.5-15.5) % Plt Count 228 (150-450) k/uL MPV 7.8 Neutrophils % 83 % Lymphocytes % 9 % Monocytes % 5 % Eosinophils % 2 % Basophils % 0 % Neutrophils # 9.5 H (1.3-7.7) k/uL Lymphocytes # 1.0 (1.0-4.8) k/uL Monocytes # 0.6 (0-1.0) k/uL Eosinophils # 0.2 (0-0.7) k/uL Basophils # 0.0 (0-0.2) k/uL PT 10.8 (9.0-12.0) sec INR 1.0 (<1.2) APTT 23.5 (22.0-30.0) sec D-Dimer 17.31 H (<0.60) mg/L FEU Sodium 140 (137-145) mmol/L Potassium 4.6 (3.5-5.1) mmol/L Chloride 106 (98-107) mmol/L Carbon Dioxide 27 (22-30) mmol/L Anion Gap 7 mmol/L BUN 21 H (7-17) mg/dL Creatinine 1.17 H (0.52-1.04) mg/dL Est GFR (CKD-EPI)AfAm 52 (>60 ml/min/1.73 sqM) Est GFR (CKD-EPI)NonAf 45 (>60 ml/min/1.73 sqM) Glucose 123 H (74-99) mg/dL Plasma Lactic Acid Braydon (0.7-2.0) mmol/L Calcium 8.8 (8.4-10.2) mg/dL Magnesium 1.9 (1.6-2.3) mg/dL Total Bilirubin 1.3 (0.2-1.3) mg/dL AST 29 (14-36) U/L ALT 15 (4-34) U/L Alkaline Phosphatase 56 (38-126) U/L Troponin I (0.000-0.034) ng/mL NT-Pro-B Natriuret Pep pg/mL Total Protein 7.1 (6.3-8.2) g/dL Albumin 3.7 (3.5-5.0) g/dL 05/31/22 05/31/22 05/31/22 Range/Units 09:25 09:25 09:25 WBC (3.8-10.6) k/uL RBC (3.80-5.40) m/uL Hgb (11.4-16.0) gm/dL Hct (34.0-46.0) % MCV (80.0-100.0) fL MCH (25.0-35.0) pg MCHC (31.0-37.0) g/dL RDW (11.5-15.5) % Plt Count (150-450) k/uL MPV Neutrophils % % Lymphocytes % % Monocytes % % Eosinophils % % Basophils % % Neutrophils # (1.3-7.7) k/uL Lymphocytes # (1.0-4.8) k/uL Monocytes # (0-1.0) k/uL Eosinophils # (0-0.7) k/uL Basophils # (0-0.2) k/uL PT (9.0-12.0) sec INR (<1.2) APTT (22.0-30.0) sec D-Dimer (<0.60) mg/L FEU Sodium (137-145) mmol/L Potassium (3.5-5.1) mmol/L Chloride (98-107) mmol/L Carbon Dioxide (22-30) mmol/L Anion Gap mmol/L BUN (7-17) mg/dL Creatinine (0.52-1.04) mg/dL Est GFR (CKD-EPI)AfAm (>60 ml/min/1.73 sqM) Est GFR (CKD-EPI)NonAf (>60 ml/min/1.73 sqM) Glucose (74-99) mg/dL Plasma Lactic Acid Braydon 1.9 (0.7-2.0) mmol/L Calcium (8.4-10.2) mg/dL Magnesium (1.6-2.3) mg/dL Total Bilirubin (0.2-1.3) mg/dL AST (14-36) U/L ALT (4-34) U/L Alkaline Phosphatase (38-126) U/L Troponin I 0.085 H* (0.000-0.034) ng/mL NT-Pro-B Natriuret Pep 90674 pg/mL Total Protein (6.3-8.2) g/dL Albumin (3.5-5.0) g/dL - EKG Data EKG Comments: EKG demonstrates sinus rhythm with a rate of 98. NH interval 197. QRS 170. QTC of 471. She has a left bundle branch block. Negative for sgarbossa criteria (Lorene Mcdaniels) Critical Care Time Critical Care Time: Yes Total Critical Care Time: 31 <Luke Yee - Last Filed: 05/31/22 16:19> Disposition Is patient prescribed a controlled substance at d/c from ED?: No <Luke Yee - Last Filed: 05/31/22 16:19> Is patient prescribed a controlled substance at d/c from ED?: No Time of Disposition: 11:13 Decision to Admit Reason: Admit from EC Decision Date: 05/31/22 Decision Time: 11:13 <Lorene Mcdaniels - Last Filed: 06/07/22 14:56> Clinical Impression: Acute respiratory insufficiency, CHF exacerbation, Saddle pulmonary embolus, Pulmonary embolism, Weakness, Morbid obesity with BMI of 50.0-59.9, adult Narrative: PE w Right Heart Strain (Luke Yee) Disposition: ADMITTED IP TO THIS HOSP Condition: Serious
--- NOTE | 2022-05-31 16:13 | CT ---
EXAMINATION TYPE: CT chest angio for PE CT DLP: 1079.1 mGycm, Automated exposure control for dose reduction was used. DATE OF EXAM: 05/31/2022 3:59 PM COMPARISON: CTA chest 02/06/2021 CLINICAL INDICATION:Female, 77 years old with history of r/o pe; CHF exacerbation, respiratory insuff iciency. Hx. PE TECHNIQUE/CONTRAST: CTA scan of the thorax is performed with IV Contrast, patient injected with 80 mL of Isovue 370, pulm onary embolism protocol. MIP images are created and reviewed. FINDINGS: Pulmonary Artery: Saddle pulmonary embolism with multiple filling defects demonstrated within the savana ateral segmental and segmental pulmonary arteries. This is most prominent involving the left main pul monary artery. Reflux of contrast into the IVC. Lungs/Pleura: Moderate size left pleural effusion. Interlobular septal thickening demonstrated throug hout. Atelectasis of the left lower lobe. No pneumothorax. Airway: Large airways are patent. Heart: Cardiomegaly. No pericardial effusion. Straightening of the interventricular septum. Vasculature: No evidence of aortic aneurysm. Mediastinum: No gross evidence of adenopathy. Musculoskeletal: No acute osseous abnormalities. Degenerative changes of the spine. Soft Tissues: Unremarkable. Lower neck: Mildly prominent thyroid gland.. Upper Abdomen: No significant findings. IMPRESSION: 1. Saddle pulmonary embolism with multiple additional segmental subsegmental pulmonary emboli bilater ally. Findings suggest right heart strain. 2. Moderate size left pleural effusion with interlobular septal thickening and cardiomegaly suggestiv e heart failure. Findings called to and discuss with Dr. Yee at 4:09 PM on 05/31/2022.
[2022-05-31] MEDS: carvediloL 6.25 MG TAB PO SCH (16:29)
[2022-05-31] MEDS: LOSARTAN 50 MG TAB PO SCH (16:29)
[2022-05-31] MEDS: FUROSEMIDE 10 MG/ML 4 ML VIAL IV SCH ×2 (16:29→20:33)
[2022-05-31] MEDS: HEPARIN SOD,PORK IN 0.45% NACL 25,000 UNIT in 0.45% NACL 1 250ML.BAG IV SCH (16:30)
[2022-05-31] MEDS: ATORVASTATIN 40 MG TAB PO SCH (17:31)
[2022-05-31] MEDS: DAPAGLIFLOZIN PROPANEDIOL 5 MG TABLET PO SCH (17:51)
[2022-05-31 19:02] LABS: Glucose,Whole Blood 138 mg/dL (70-110)
[2022-05-31 20:12] LABS: Glucose,Whole Blood 190 mg/dL (70-110)
[2022-05-31] MEDS ORDERED: APIXABAN 5 MG TAB PO SCH (21:00)
--- NOTE | 2022-06-01 01:19 | P.CNPUL ---
History of Present Illness Consult date: 06/01/22 Requesting physician: Howie Ching Reason for consult: pulmonary embolism Chief complaint: Shortness of breath History of present illness: I'm seeing this patient in new consultation today 06/01/2022 in the intensive care unit for a pulmonary embolism. Patient is a 77-year-old white female with past medical history significant for previous pulmonary embolism, hypertension, and is a lifelong nonsmoker. She also has a family history of pulmonary embolism, her father "had a blood clot in the lung". Patient was taking Eliquis for her previous pulmonary embolism. Patient stopped taking her medications approximately 6 months ago due to financial constraints. Patient started to experience shortness of breath over the last couple days, and came to the emergency room yesterday. Denies any fever, cough, chest pain, lightheadedness, syncope. D-dimer was 17.31. Follow-up chest CTA demonstrated saddle pulmonary embolism with multiple additional subsegmental pulmonary emboli bilaterally. There was evidence of right heart strain demonstrated. There is also moderate size left pleural effusion with interlobular septal thickening and cardiomegaly. Troponins are elevated at 0.085. NT proBNP 18,000. Patient does have an echocardiogram scheduled for the morning. Patient is currently sitting up in bed, on 3 L nasal cannula, in no acute distress. Currently has high-density heparin infusion per protocol. A PTT is therapeutic. ECG shows normal sinus rhythm with left bundle branch block. CBC on arrival showed WBC count 11.4, hemoglobin 14.2, hematocrit 43, platelets 220,000. Patient's BMP shows sodium 140, potassium 4.6, chloride 106, serum CO2 27, BMI 21, creatinine 1.17, glucose 123. Patient also has Lasix 40 mg twice a day. No IV maintenance fluids infusing. Vital signs are stable. Review of Systems REVIEW OF SYSTEMS: CONSTITUTIONAL: Denies any recent significant weight loss or weight gain. EYES: Denies change in vision. EARS, NOSE, MOUTH, THROAT: Denies headaches, denies sore throat. CARDIOVASCULAR: Denies chest pain, palpitations or syncopal episodes. RESPIRATORY: See HPI GASTROINTESTINAL: Denies change in appetite, abdominal pain, nausea and vomiting, or diarrhea GENITOURINARY: Denies hematuria, denies infections. MUSKULOSKELETAL: Denies pain, denies swelling. INTEGUMENTARY: Denies rash, denies eczema. NEUROLOGICAL: Denies recent memory loss, no recent seizure activity. PSYCHIATRIC: Denies anxiety, denies depression. HEMATOLOGIC/LYMPHATIC: Denies anemia, denies enlarged lymph node Past Medical History Past Medical History: Hypertension, Pulmonary Embolus (PE) Additional Past Medical History / Comment(s): PE in lung, hypertention, cellulitis, mass on abdomen History of Any Multi-Drug Resistant Organisms: None Reported Past Surgical History: Hysterectomy Additional Past Surgical History / Comment(s): hysterectomy 9 years ago, arm tumor removal 15 years ago Past Anesthesia/Blood Transfusion Reactions: No Reported Reaction Past Psychological History: No Psychological Hx Reported Smoking Status: Never smoker Past Alcohol Use History: None Reported Additional Past Alcohol Use History / Comment(s): Patient is a lifelong nonsmoker, no illicit drug use, no alcohol use. She lives at home with her son Bridger. 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. Past Drug Use History: None Reported - Past Family History Mother Family Medical History: Cancer, Diabetes Mellitus Father Family Medical History: Pulmonary Embolus Additional Family Medical History / Comment(s): PE in lung, hip replacement Medications and Allergies Home Medications Medication Instructions Recorded Confirmed Type No Known Home Medications 05/31/22 05/31/22 History Allergies Allergy/AdvReac Type Severity Reaction Status Date / Time No Known Allergies Allergy Verified 05/31/22 10:54 Physical Exam Vitals: Vital Signs Temp Pulse Pulse Resp BP BP Pulse Ox 06/01/22 00:00 97.9 F 65 0 L 112/65 96 05/31/22 23:00 68 30 H 104/55 95 05/31/22 22:15 70 26 H 104/55 95 05/31/22 22:00 71 33 H 122/66 95 05/31/22 21:45 71 42 H 122/66 96 05/31/22 21:30 81 16 122/66 89 L 05/31/22 21:15 31 H 122/66 95 05/31/22 21:00 73 39 H 121/74 96 05/31/22 20:45 20 121/74 94 L 05/31/22 20:30 84 34 H 118/73 96 05/31/22 20:15 80 36 H 95 05/31/22 20:00 98.1 F 84 18 114/68 95 05/31/22 19:45 81 36 H 123/74 94 L 05/31/22 19:30 24 95 05/31/22 19:15 97.6 F 83 13 131/89 95 05/31/22 19:00 86 16 05/31/22 17:35 86 34 H 147/73 91 L 05/31/22 16:32 91 24 141/77 93 L 05/31/22 13:55 87 05/31/22 13:44 97.3 F L 87 26 H 148/87 95 05/31/22 13:37 87 19 148/87 97 05/31/22 11:00 87 20 151/98 97 05/31/22 09:00 91 20 160/94 97 05/31/22 08:30 97.4 F L 89 22 162/94 98 Intake and Output 05/31/22 05/31/22 06/01/22 14:59 22:59 06:59 Intake Total 240 240 Output Total 750 2600 300 Balance -510 -2360 -300 Intake: Oral 240 240 Output: Urine 750 2600 300 Other: Voiding Method External Catheter External Catheter Weight 130.635 kg GENERAL EXAM: Alert, 77-year-old white female, comfortable in no apparent distress. HEAD: Normocephalic and atraumatic EYES: Normal reaction of pupils, equal size. NOSE: Clear with pink turbinates. THROAT: No erythema or exudates. NECK: No masses, no JVD. CHEST: No chest wall deformity. LUNGS: Equal air entry with no crackles, wheeze, rhonchi or dullness. On 3 L nasal cannula. She is slightly tachycardic with respiratory rate 20s to 30s. No conversational dyspnea or accessory muscle use.. CVS: S1 and S2 normal with no audible murmur, regular rhythm. No extra heart sounds ABDOMEN: No hepatosplenomegaly, active bowel sounds, no guarding or rigidity. SPINE: No scoliosis or deformity SKIN: No rashes CENTRAL NERVOUS SYSTEM: No focal deficits, tone is normal in all 4 extremities. EXTREMITIES: There is no peripheral edema, clubbing, or cyanosis. Peripheral pulses are intact. Results - Laboratory Findings CBC and BMP: 05/31/22 09:25 05/31/22 09:25 PT/INR, D-dimer PT 10.8 sec (9.0-12.0) 05/31/22 09:25 INR 1.0 (<1.2) 05/31/22 09:25 D-Dimer 17.31 mg/L FEU (<0.60) H 05/31/22 09:25 Abnormal lab findings: Abnormal Labs 05/31/22 05/31/22 05/31/22 09:25 09:25 09:25 WBC 11.4 H Neutrophils # 9.5 H APTT D-Dimer 17.31 H BUN 21 H Creatinine 1.17 H Glucose 123 H POC Glucose (mg/dL) Troponin I 05/31/22 05/31/22 05/31/22 09:25 16:46 19:00 WBC Neutrophils # APTT 62.7 H D-Dimer BUN Creatinine Glucose POC Glucose (mg/dL) 138 H Troponin I 0.085 H* 05/31/22 20:11 WBC Neutrophils # APTT D-Dimer BUN Creatinine Glucose POC Glucose (mg/dL) 190 H Troponin I - Diagnostic Findings Chest x-ray: image reviewed CT scan - chest: image reviewed Assessment and Plan Assessment: Large saddle pulmonary embolism with evidence of right heart strain. Patient has history of pulmonary embolism. She was anticoagulated on Eliquis, but has stopped taking her Eliquis due to financial constraints approximately 6 months ago. Patient does have family history of pulmonary embolism. Moderate left pleural effusion CHF exacerbation Acute hypoxemic respiratory failure, currently requiring 3 L nasal cannula secondary to above Hypertension Morbid obesity with BMI 52.7 Medication noncompliance plan: Patient's medications, labs, chest CTA, chest x-ray reviewed Echocardiogram planned for the morning Continue high-intensity heparin infusion per protocol Cardiology was consulted for possible EKOS Continue diuresis with Lasix twice a day Continue supplemental oxygen to maintain oxygen saturation of 92% or greater Repeat labs in the morning Protonix for GI prophylaxis Patient is admitted intensive care unit, and we will continue to follow I have personally seen and examined the patient, performed the documentation and the assessment and plan as written. Number of minutes spent on the visit:20 Time with Patient: Greater than 30
[2022-06-01] MEDS: HEPARIN SOD,PORK IN 0.45% NACL 25,000 UNIT in 0.45% NACL 1 250ML.BAG IV SCH ×2 (02:33→15:44)
[2022-06-01] MEDS: PANTOPRAZOLE 40 MG TABLET PO SCH (06:28)
[2022-06-01] MEDS: carvediloL 6.25 MG TAB PO SCH ×2 (06:28→17:48)
[2022-06-01] MEDS: LEVOTHYROXINE 100 MCG TAB PO SCH (06:28)
[2022-06-01 06:46] LABS: Basophils % (A) 0 %; Eosinophils # (A) 0.2 k/uL (0-0.7); Eosinophils % (A) 2 %; HCT 40.9 % (34.0-46.0); HGB 13.5 gm/dL (11.4-16.0); Lymphocytes # (A) 1.2 k/uL (1.0-4.8); Lymphocytes % (A) 11 %; MCH 30.1 pg (25.0-35.0); MCV 91.3 fL (80.0-100.0); Mean Platelet Volume 8.3; Monocytes # (A) 0.6 k/uL (0-1.0); Monocytes % (A) 6 %; Neutrophils # (A) 7.8 k/uL (1.3-7.7); Neutrophils % (A) 78 %; Platelet Count 176 k/uL (150-450); RBC 4.48 m/uL (3.80-5.40); RDW 15.1 % (11.5-15.5); WBC 10.1 k/uL (3.8-10.6)
[2022-06-01 07:22] LABS: INR 1.2 (<1.2); Prothrombin Time 12.5 sec (9.0-12.0)
[2022-06-01 07:38] LABS: Partial Thromboplastin Time >200.0 sec (22.0-30.0)
[2022-06-01 08:22] LABS: Calcium 8.2 mg/dL (8.4-10.2); Magnesium 1.8 mg/dL (1.6-2.3); Potassium 3.5 mmol/L (3.5-5.1)
--- NOTE | 2022-06-01 08:22 | P.GSCN ---
History of Present Illness Consult date: 06/01/22 Reason for Consult: Pulmonary embolism with heart strain Requesting physician: Luke Yee History of present illness: This is a pleasant 77-year-old female who presented to the emergency department yesterday with complaints of shortness of breath on exertion and at rest. She had a CT angiogram of the chest that reported saddle pulmonary embolism with multiple segmental/subsegmental emboli bilaterally with evidence of right heart strain. Patient also was noted to have a moderate size left pleural effusion. She has a past medical history of morbid obesity, congestive heart failure, pulmonary embolism 3-4 years ago and hypertension. Patient states she wears home oxygen. Patient was noted to have elevated troponin on admission of 0.085. Echocardiogram was performed this morning, currently pending results. Patient states she states her last pulmonary embolism was 3-4 years ago. She is unsure if it was provoked however she does think that she may have been traveling to [place] prior to embolism. She denies any previous history of DVT. She does state shortness of breath has improved since hospitalization. She was started on a heparin drip. She has bilateral lower extremity lymphedema with erythema. States that this just started having swelling in her lower extremities 1-2 days ago. Patient morbidly obese with large pannus and excoriation and appears superficial wound. She denies any previous history of GI bleed or other contraindications to anticoagulation. She states that she had been on Eliquis however stopped taking it about 6 months ago due to financial constraints. Patient does live with her son, she states that she does get up into light housework and cooking however mostly sedentary lifestyle. Patient has been afebrile, heart rate 71 respiratory rate 26 blood pressure 118/64 oxygen saturation 94% on 3 L nasal cannula Review of Systems A 14 point review systems was completed all pertinent positives and negatives as stated in the HPI. Past Medical History Past Medical History: Hypertension, Pulmonary Embolus (PE) Additional Past Medical History / Comment(s): PE in lung, hypertention, cellulitis, mass on abdomen History of Any Multi-Drug Resistant Organisms: None Reported Past Surgical History: Hysterectomy Additional Past Surgical History / Comment(s): hysterectomy 9 years ago, arm tumor removal 15 years ago Past Anesthesia/Blood Transfusion Reactions: No Reported Reaction Past Psychological History: No Psychological Hx Reported Smoking Status: Never smoker Past Alcohol Use History: None Reported Additional Past Alcohol Use History / Comment(s): Patient is a lifelong nonsmoker, no illicit drug use, no alcohol use. She lives at home with her son Bridger. 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. Past Drug Use History: None Reported - Past Family History Mother Family Medical History: Cancer, Diabetes Mellitus Father Family Medical History: Pulmonary Embolus Additional Family Medical History / Comment(s): PE in lung, hip replacement Medications and Allergies Home Medications Medication Instructions Recorded Confirmed Type No Known Home Medications 05/31/22 05/31/22 History Allergies Allergy/AdvReac Type Severity Reaction Status Date / Time No Known Allergies Allergy Verified 05/31/22 10:54 Surgical - Exam Vital Signs Temp Pulse Resp BP Pulse Ox 97.4 F L 89 22 162/94 98 05/31/22 08:30 05/31/22 08:30 05/31/22 08:30 05/31/22 08:30 05/31/22 08:30 General appearance: The patient is alert, oriented, appears in no acute distress. Morbidly obese. HET: Head is normocephalic and atraumatic. Pupils are equal and reactive. Neck: Supple. Trachea midline Heart: Regular. Lungs: Equal expansion, normal respiratory effort. Abdomen: Soft, nontender, nondistended. Grossly large pannus with excoriation. Extremities: Bilateral lower extremity edema, lymphedema with erythema. Palpable DP pulses. Neurological: No focal deficits. Alert and oriented 3. Results Venous duplex bilateral lower extremities with findings of left lower extremity deep venous thrombosis within the femoral vein and popliteal vein. No suspicious changes for deep venous thrombosis right lower extremity. - Labs 06/01/22 10:37 06/01/22 10:37 Abnormal Lab Results - Last 24 Hours (Table) 05/31/22 05/31/22 05/31/22 Range/Units 09:25 09:25 09:25 WBC 11.4 H (3.8-10.6) k/uL Neutrophils # 9.5 H (1.3-7.7) k/uL PT (9.0-12.0) sec INR (<1.2) APTT (22.0-30.0) sec D-Dimer 17.31 H (<0.60) mg/L FEU BUN 21 H (7-17) mg/dL Creatinine 1.17 H (0.52-1.04) mg/dL Glucose 123 H (74-99) mg/dL POC Glucose (mg/dL) (70-110) mg/dL Troponin I (0.000-0.034) ng/mL 05/31/22 05/31/22 05/31/22 Range/Units 09:25 16:46 19:00 WBC (3.8-10.6) k/uL Neutrophils # (1.3-7.7) k/uL PT (9.0-12.0) sec INR (<1.2) APTT 62.7 H (22.0-30.0) sec D-Dimer (<0.60) mg/L FEU BUN (7-17) mg/dL Creatinine (0.52-1.04) mg/dL Glucose (74-99) mg/dL POC Glucose (mg/dL) 138 H (70-110) mg/dL Troponin I 0.085 H* (0.000-0.034) ng/mL 05/31/22 06/01/22 06/01/22 Range/Units 20:11 05:26 05:26 WBC (3.8-10.6) k/uL Neutrophils # 7.8 H (1.3-7.7) k/uL PT 12.5 H (9.0-12.0) sec INR 1.2 H (<1.2) APTT >200.0 H* (22.0-30.0) sec D-Dimer (<0.60) mg/L FEU BUN (7-17) mg/dL Creatinine (0.52-1.04) mg/dL Glucose (74-99) mg/dL POC Glucose (mg/dL) 190 H (70-110) mg/dL Troponin I (0.000-0.034) ng/mL Diabetes panel 05/31/22 Range/Units 09:25 Sodium 140 (137-145) mmol/L Potassium 4.6 (3.5-5.1) mmol/L Chloride 106 (98-107) mmol/L Carbon Dioxide 27 (22-30) mmol/L BUN 21 H (7-17) mg/dL Creatinine 1.17 H (0.52-1.04) mg/dL Glucose 123 H (74-99) mg/dL Calcium 8.8 (8.4-10.2) mg/dL AST 29 (14-36) U/L ALT 15 (4-34) U/L Alkaline Phosphatase 56 (38-126) U/L Total Protein 7.1 (6.3-8.2) g/dL Albumin 3.7 (3.5-5.0) g/dL Calcium panel 05/31/22 Range/Units 09:25 Calcium 8.8 (8.4-10.2) mg/dL Albumin 3.7 (3.5-5.0) g/dL Pituitary panel 05/31/22 Range/Units 09:25 Sodium 140 (137-145) mmol/L Potassium 4.6 (3.5-5.1) mmol/L Chloride 106 (98-107) mmol/L Carbon Dioxide 27 (22-30) mmol/L BUN 21 H (7-17) mg/dL Creatinine 1.17 H (0.52-1.04) mg/dL Glucose 123 H (74-99) mg/dL Calcium 8.8 (8.4-10.2) mg/dL Adrenal panel 05/31/22 Range/Units 09:25 Sodium 140 (137-145) mmol/L Potassium 4.6 (3.5-5.1) mmol/L Chloride 106 (98-107) mmol/L Carbon Dioxide 27 (22-30) mmol/L BUN 21 H (7-17) mg/dL Creatinine 1.17 H (0.52-1.04) mg/dL Glucose 123 H (74-99) mg/dL Calcium 8.8 (8.4-10.2) mg/dL Total Bilirubin 1.3 (0.2-1.3) mg/dL AST 29 (14-36) U/L ALT 15 (4-34) U/L Alkaline Phosphatase 56 (38-126) U/L Total Protein 7.1 (6.3-8.2) g/dL Albumin 3.7 (3.5-5.0) g/dL Assessment and Plan Assessment: 1. Sagittal pulmonary embolism with right heart strain per PT angiogram 2. Shortness of breath 3. Congestive heart failure 4. Left pleural effusion 5. History of pulmonary embolism not on anticoagulation 6. Morbidly obese Plan: 1. Await echocardiogram reviewed 2. Continue IV heparin per protocol 3. Venous duplex, bilateral lower extremities ordered and reviewed 4. Continue medical management per primary medical and ICU team 5. EKOS procedure discussed with patient including risks and benefits from Dr. Covarrubias. Discussed risks for bleeding including brain bleed. Due to patient's habitus groin approach is not favorable or recommended as patient is unable to lie flat due to increased risk of difficulty breathing as well as body habitus. Discussed approach through the neck vein which would be recommended approach versus no surgical procedure and continuing with anticoagulation. Patient states she would like some time to think about her decision, and will update us tomorrow. Patient may have heart healthy diet. Thank you for this consultation, we will continue to follow. The impression and plan of care has been dictated as directed. Dr. Covarrubias I performed a history and examination of this patient, discussed the same with the dictator. I agree with the dictator's note ,documented as a scribe. Any additional findings or plans will be noted.
--- NOTE | 2022-06-01 08:26 | HP ---
HISTORY AND PHYSICAL 1. Losartan 50 mg daily. 2. Coreg 3.125 b.i.d. at home. 3. Atorvastatin 40 mg daily. 4. Eliquis 5 mg b.i.d. These are normal home medicines. REVIEW OF SYSTEMS: Fourteen-point review of systems is otherwise negative. PAST MEDICAL HISTORY: Hypertension, PE DICTATION ENDS HERE. MMODL / IJN: [id number] /
[2022-06-01] MEDS: ATORVASTATIN 40 MG TAB PO SCH (09:06)
[2022-06-01] MEDS: LOSARTAN 50 MG TAB PO SCH (09:06)
[2022-06-01] MEDS: DAPAGLIFLOZIN PROPANEDIOL 5 MG TABLET PO SCH (09:07)
[2022-06-01] MEDS: FUROSEMIDE 10 MG/ML 4 ML VIAL IV SCH ×2 (09:07→21:42)
--- NOTE | 2022-06-01 09:19 | US ---
EXAMINATION TYPE: US venous doppler duplex LE DATE OF EXAM: 06/01/2022 8:56 AM COMPARISON: NONE CLINICAL HISTORY: PE. edema exam limitations due to large body habitus unable to scan groin area due to open wounds. SIDE PERFORMED: Bilateral TECHNIQUE: The lower extremity deep venous system is examined utilizing real time linear array sonog pilo with graded compression, doppler sonography and color-flow sonography. VESSELS IMAGED: Femoral Vein Popliteal Vein Right Leg: vessels imaged appear wnl. Left Leg: No flow visualized in Femoral and Popliteal Vein. Report was provided to the floor at the time of imaging. IMPRESSION: 1. Left lower extremity deep venous thrombosis within the femoral vein and popliteal vein. 2. No suspicious changes for deep venous thrombosis right lower extremity.
[2022-06-01] MEDS ORDERED: SODIUM CHLORIDE 0.9% 1,000 ML IV SCH ×4 (09:45)
--- NOTE | 2022-06-01 10:03 | CA ---
Transthoracic Echo Report Name: Li Santamaria Age: 77 Gender: F : 1945 Exam Date: 05/31/2022 16:30 Exam Location: [facility] Ht (in): 62 Wt (lb): 288 Ordering Physician: Luke Yee DO Attending/Referring Phys: [id number], Nakia Assistant Manager Trainee Paris Duffy RDCS Procedure CPT: Indications: PE/CHF Cardiac Hx: Technical Quality: Technically difficult study Contrast 1: Lumason Total Dose (mL): 5 Contrast 2: Total Dose (mL): MEASUREMENTS (Male / Female) Normal Values 2D ECHO LV Diastolic Diameter PLAX 5.6 cm 4.2 - 5.9 / 3.9 - 5.3 cm LV Systolic Diameter PLAX 5.1 cm IVS Diastolic Thickness 1.5 cm 0.6 - 1.0 / 0.6 - 0.9 cm LVPW Diastolic Thickness 0.8 cm 0.6 - 1.0 / 0.6 - 0.9 cm LV Relative Wall Thickness 0.4 RV Internal Dim ED PLAX 3.0 cm LA Volume 103.0 cm??? 18 - 58 / 22 - 52 cm??? M-MODE Aortic Root Diameter MM 2.9 cm LA Systolic Diameter MM 4.6 cm LA Ao Ratio MM 1.6 AV Cusp Separation MM 1.8 cm DOPPLER AV Peak Velocity 107.9 cm/s AV Peak Gradient 4.7 mmHg AV Mean Velocity 83.0 cm/s AV Mean Gradient 3.0 mmHg AV Velocity Time Integral 15.8 cm LVOT Peak Velocity 91.9 cm/s LVOT Peak Gradient 3.4 mmHg LVOT Velocity Time Integral 15.2 cm TR Peak Velocity 273.8 cm/s TR Peak Gradient 30.0 mmHg Right Ventricular Systolic Press 34.5 mmHg FINDINGS Left Ventricle Moderately increased left ventricular wall thickness. Severely reduced global left ventricular systolic function. Mild left ventricular dilatation. Left ventricular ejection fraction is estimated at 20-25 %. Right Ventricle Normal right ventricular size. Mild pulmonary hypertension. No right heart strain noted, Tapse 22mm. S' 10 cm/sec. Right Atrium Normal right atrial size. Left Atrium Severely increased left atrial volume. Mitral Valve [id number] mitral regurgitation. Aortic Valve No aortic valve stenosis or regurgitation. Tricuspid Valve Mild tricuspid regurgitation. Pulmonic Valve Structurally normal pulmonic valve. Pericardium Minimal pericardial effusion (normal variant). Pleural effusion. Aorta Normal size aortic root and proximal ascending aorta. CONCLUSIONS Dilated left ventricle with very severe reduction in LV systolic function The right ventricle does not appear dilated mild tricuspid regurgitation Large pleural effusion Previewed by: Dr. Harinder Butler MD (Electronically Signed) Final Date: 01 June 2022 10:02
[2022-06-01] MEDS ORDERED: HEPARIN SOD,PORK IN 0.45% NACL 25,000 UNIT in 0.45% NACL 1 250ML.BAG IV SCH ×2 (10:30)
[2022-06-01] MEDS ORDERED: ALTEPLASE 6 MG in SODIUM CHLORIDE 0.9% 144 ML IV ONE ×4 (10:30)
[2022-06-01 10:46] LABS: Basophils % (A) 0 %; Eosinophils # (A) 0.3 k/uL (0-0.7); Eosinophils % (A) 3 %; HCT 40.3 % (34.0-46.0); HGB 13.5 gm/dL (11.4-16.0); Lymphocytes % (A) 10 %; MCH 30.2 pg (25.0-35.0); MCHC 33.4 g/dL (31.0-37.0); MCV 90.4 fL (80.0-100.0); Mean Platelet Volume 7.8; Monocytes # (A) 0.6 k/uL (0-1.0); Monocytes % (A) 6 %; Neutrophils # (A) 7.8 k/uL (1.3-7.7); Neutrophils % (A) 79 %; Platelet Count 183 k/uL (150-450); RBC 4.46 m/uL (3.80-5.40); RDW 15.2 % (11.5-15.5); WBC 9.8 k/uL (3.8-10.6)
[2022-06-01 11:12] LABS: INR 1.2 (<1.2); Prothrombin Time 11.9 sec (9.0-12.0)
--- NOTE | 2022-06-01 11:13 | P.CONS ---
History of Present Illness - Reason for Consult Consult date: 06/01/22 wound care - History of Present Illness This is a 77-year-old patient being seen in the intensive care unit for multiple open ulcerations. Patient has a open ulceration with fat layer exposure to the abdomen measuring approximately 1.5 x 1.2 x 0.2, no granulated she noted within the wound bed significant amount of slough the wound edges are attached to the wound base. Patient has an open ulceration to the sacrum measuring approximate 2 x 0.4 x 0.2 with significant amount of slough minimal granulation and fat layer exposure, the periwound shows excoriation. Patient does have ecchymosis noted to bilateral posterior thighs. Patient also has venous dermatitis to bilateral lower extremities with scaling and flaking of the skin erythema and a open ulceration to the left lateral calf. The ulceration is Limited to skin breakdown measuring approximately 1 x 1 x 0.1 cm wound edges are attached to the wound base there is no tunneling or undermining noted. Patient also has excoriation and maceration to bilateral groins. Patient is complaining of discomfort to bilateral groins. Review Of Systems: Constitutional: No fever, no chills, no night sweats. No weight change. No weakness, fatigue or lethargy. No daytime sleepiness. Integumentary:reports wounds, no lesions. No rash or pruritus. No unusual bruising. No change in hair or nails. Physical exam: General Appearance: Alert, cooperative, no distress, appears stated age. Skin: See HPI all other Skin color, texture, tugor normal, no rashes or lesions. Neurologic: Alert oriented x3 Assessment: 1. Nonhealing ulceration with fat layer exposure abdomen 2. Stage II pressure ulcer sacrum 3. Chronic venous hypertension with inflammation and ulceration to left lower extremity 4. Chronic venous hypertension with inflammation right lower extremity 5. Excoriation and maceration bilateral groins Plan: 1. Apply honey gel to the abdominal ulceration with a border foam. 2. Sacrum: Apply honey gel and a border foam. If too much moisture is present may apply triad only 3. Apply triad to bilateral groins and bilateral lower extremities. Thank you for the consultation any questions please contact the wound care center DNP note has been reviewed and discussed with Dr. Albarran and the impression and plan of care has been directed as dictated. Past Medical History Past Medical History: Hypertension, Pulmonary Embolus (PE) Additional Past Medical History / Comment(s): PE in lung, hypertention, cellulitis, mass on abdomen History of Any Multi-Drug Resistant Organisms: None Reported Past Surgical History: Hysterectomy Additional Past Surgical History / Comment(s): hysterectomy 9 years ago, arm t umor removal 15 years ago Past Anesthesia/Blood Transfusion Reactions: No Reported Reaction Past Psychological History: No Psychological Hx Reported Smoking Status: Never smoker Past Alcohol Use History: None Reported Additional Past Alcohol Use History / Comment(s): Patient is a lifelong nonsmoker, no illicit drug use, no alcohol use. She lives at home with her son Bridger. 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. Past Drug Use History: None Reported - Past Family History Mother Family Medical History: Cancer, Diabetes Mellitus Father Family Medical History: Pulmonary Embolus Additional Family Medical History / Comment(s): PE in lung, hip replacement Medications and Allergies Home Medications Medication Instructions Recorded Confirmed Type No Known Home Medications 05/31/22 05/31/22 History Allergies Allergy/AdvReac Type Severity Reaction Status Date / Time No Known Allergies Allergy Verified 05/31/22 10:54 Physical Exam Vitals: Vital Signs Temp Pulse Pulse Resp BP BP Pulse Ox 06/01/22 10:00 57 L 39 H 112/60 96 06/01/22 09:00 57 L 40 H 111/62 96 06/01/22 08:00 97.6 F 59 L 23 107/66 94 L 06/01/22 07:00 71 26 H 118/64 94 L 06/01/22 06:00 61 24 116/63 96 06/01/22 05:00 67 34 H 115/62 97 06/01/22 04:00 98.6 F 65 33 H 117/75 94 L 06/01/22 03:00 65 28 H 102/53 95 06/01/22 02:00 65 31 H 117/67 96 06/01/22 01:00 64 27 H 116/64 96 06/01/22 00:18 67 25 H 116/64 97 06/01/22 00:00 97.9 F 65 0 L 112/65 96 05/31/22 23:00 68 30 H 104/55 95 05/31/22 22:15 70 26 H 104/55 95 05/31/22 22:00 71 33 H 122/66 95 05/31/22 21:45 71 42 H 122/66 96 05/31/22 21:30 81 16 122/66 89 L 05/31/22 21:15 31 H 122/66 95 05/31/22 21:00 73 39 H 121/74 96 05/31/22 20:45 20 121/74 94 L 05/31/22 20:30 84 34 H 118/73 96 05/31/22 20:15 80 36 H 95 05/31/22 20:00 98.1 F 84 18 114/68 95 05/31/22 19:45 81 36 H 123/74 94 L 05/31/22 19:30 24 95 05/31/22 19:15 97.6 F 83 13 131/89 95 05/31/22 19:00 86 16 05/31/22 17:35 86 34 H 147/73 91 L 05/31/22 16:32 91 24 141/77 93 L 05/31/22 13:55 87 05/31/22 13:44 97.3 F L 87 26 H 148/87 95 05/31/22 13:37 87 19 148/87 97 Intake and Output 05/31/22 06/01/22 06/01/22 22:59 06:59 14:59 Intake Total 240 231.15 125.35 Output Total 2600 1900 400 Balance -2360 -1668.85 -274.65 Intake: Intake, IV Titration 231.15 125.35 Amount Heparin Sod,Pork in 0.45% 231.15 125.35 NaCl 25,000 unit In 0.45 % NaCl 1 250ml.bag @ 17. 606 UNITS/KG/HR 23 mls/hr IV .[id number] [facility] Rx#: [id number] Oral 240 Output: Urine 2600 1900 400 Other: Voiding Method External Catheter External Catheter External Catheter Weight 171.458 kg Results CBC & Chem 7: 06/01/22 10:37 06/01/22 05:26 Labs: Abnormal Lab Results - Last 24 Hours (Table) 05/31/22 05/31/22 05/31/22 Range/Units 16:46 19:00 20:11 Neutrophils # (1.3-7.7) k/uL PT (9.0-12.0) sec INR (<1.2) APTT 62.7 H (22.0-30.0) sec BUN (7-17) mg/dL Creatinine (0.52-1.04) mg/dL Glucose (74-99) mg/dL POC Glucose (mg/dL) 138 H 190 H (70-110) mg/dL Calcium (8.4-10.2) mg/dL 06/01/22 06/01/22 06/01/22 Range/Units 05:26 05:26 05:26 Neutrophils # 7.8 H (1.3-7.7) k/uL PT 12.5 H (9.0-12.0) sec INR 1.2 H (<1.2) APTT >200.0 H* (22.0-30.0) sec BUN 25 H (7-17) mg/dL Creatinine 1.28 H (0.52-1.04) mg/dL Glucose 111 H (74-99) mg/dL POC Glucose (mg/dL) (70-110) mg/dL Calcium 8.2 L (8.4-10.2) mg/dL 06/01/22 Range/Units 10:37 Neutrophils # 7.8 H (1.3-7.7) k/uL PT (9.0-12.0) sec INR (<1.2) APTT (22.0-30.0) sec BUN (7-17) mg/dL Creatinine (0.52-1.04) mg/dL Glucose (74-99) mg/dL POC Glucose (mg/dL) (70-110) mg/dL Calcium (8.4-10.2) mg/dL Assessment and Plan (1) Non-pressure chronic ulcer of skin of other sites with fat layer exposed Current Visit: Yes Status: Acute Code(s): L98.492 - NON-PRS CHRONIC ULCER OF SKIN OF SITES W FAT LAYER EXPOSED SNOMED Code(s): 57438204 (2) Stage II pressure ulcer of sacral region Current Visit: Yes Status: Acute Code(s): L89.152 - PRESSURE ULCER OF SACRAL REGION, STAGE 2 SNOMED Code(s): 49470160635562 (3) Chronic venous hypertension (idiopathic) with inflammation of right lower extremity Current Visit: Yes Status: Acute Code(s): I87.321 - CHRONIC VENOUS HYPERTENSION W INFLAMMATION OF R LOW EXTREM SNOMED Code(s): 052834742 (4) Chronic venous hypertension (idiopathic) with ulcer and inflammation of left lower extremity Current Visit: Yes Status: Acute Code(s): I87.332 - CHRONIC VENOUS HTN W ULCER AND INFLAMMATION OF L LOW EXTREM SNOMED Code(s): 828958888573771
[2022-06-01 11:20] LABS: Partial Thromboplastin Time 139.8 sec (22.0-30.0)
[2022-06-01 11:42] LABS: Calcium 8.1 mg/dL (8.4-10.2)
--- NOTE | 2022-06-01 13:47 | CONS ---
CONSULTATION HISTORY OF PRESENT ILLNESS: This is a 77-year-old lady, who has a history of pulmonary embolism in the past, was on Eliquis apparently until 6 months ago. She has hypertension and history of congestive heart failure, unclear if it is diastolic or systolic. She also has obesity and has a lot of excoriations on her abdomen with a heavy abdominal apron. She came into the hospital with shortness of breath and said she has not taken any medications for 2 weeks and indicated that Eliquis was off for 6 months, reasons are unclear. She is not a good historian. She apparently has history of pulmonary embolism and DVT and also on a diuretic, but she is not taking any medicines. We were consulted because of 2 reasons, one was bradycardia, the other was pulmonary embolism. Apparently, CT angiogram has suggested saddle pulmonary embolus. There is evidence of strain on the CT angiogram report. Vascular Surgery is on-call for pulmonary embolism, and Dr. Covarrubias or Dr. Santo will be involved in the care in terms of addressing the pulmonary embolism for possible Inari procedure or tPA infusion. At the time of my evaluation, the patient is comfortable. She had an episode of bradycardia through the night. It appears that this is a second-degree heart block, Mobitz II type block occurred during sleep. QRS is slightly wide, but she has not had any recurrence since then. The patient was asleep at this time. She does not have any chest pain and seems to be resting comfortably. PAST MEDICAL HISTORY: Remarkable for hysterectomy, hypertension, pulmonary embolism, DVT, has not been taking medications. SOCIAL HISTORY: The patient is a smoker, does not drink alcohol. PHYSICAL EXAMINATION: VITAL SIGNS: Blood pressure is 118/70, pulse rate is 70 per minute. HEENT: Unremarkable. Fundus was not examined by me. NECK: Supple. JVD is increased significantly. HEART: Reveals S1 and S2 heard normally. Short systolic murmur. LUNGS: Reveal scattered rhonchi. Diminished air entry. ABDOMEN: Soft. There is evidence of a big abdominal apron with some excoriation underneath. EXTREMITIES: Lower extremities reveal diminished pulses. CENTRAL NERVOUS SYSTEM: The patient is able to move all 4 extremities. Detailed exam not performed. IMAGING STUDIES: EKG revealed sinus mechanism with a borderline first-degree heart block, left bundle- branch block pattern with repolarization abnormality. LABORATORY DATA: Revealed that her troponin is modestly elevated, probably related to pulmonary embolism. D-dimer is elevated, and renal function is mildly abnormal. Potassium is 3.5. IMPRESSION: 1. Acute pulmonary embolism in a patient with a known pulmonary embolism and deep venous thrombosis, who stopped taking Eliquis 6 months ago. 2. Probable heart failure, systolic or diastolic is unclear. There is evidence of significant pulmonary hypertension. 3. Hypertension. 4. Abdominal wounds with excoriation. 5. History of smoking and chronic obstructive pulmonary disease. RECOMMENDATIONS: I will await the results of echocardiogram that was done. We will avoid rate-lowering agents, obtain TSH level, and further management in terms of intervention for pulmonary embolism is by Vascular Surgery. The patient's BNP is elevated, but we will diurese her cautiously since the patient has received some contrast. Prognosis remains guarded. Thank you very much for the consult. BEAR / JOSY: [id number] /
[2022-06-01] MEDS: SODIUM CHLORIDE 0.9% 1,000 ML IV SCH (15:46)
[2022-06-01] MEDS: HYDROPHILIC CREAM 180 GM TUBE TOPICAL SCH (15:46)
--- NOTE | 2022-06-01 22:11 | CT ---
EXAMINATION TYPE: CT abdomen pelvis wo con DATE OF EXAM: 06/01/2022 HISTORY: PELVIC MASS TECHNIQUE: CT scan of the abdomen and pelvis is performed without oral or IV contrast. Total DLP: 3166 mGycm. Automated Exposure Control for Dose Reduction was Utilized. COMPARISON: NONE FINDINGS: LUNG BASES: There is dense consolidation throughout the visualized left lower lobe, with a small left pleural effusion surrounding the consolidation. Moderate cardiomegaly. LIVER/GB: No acute findings. Calcified cholelithiasis incidentally noted. PANCREAS: No significant abnormality is seen. SPLEEN: No significant abnormality is seen. ADRENALS: No significant abnormality is seen. KIDNEYS: No significant abnormality is seen. BOWEL: No significant abnormality is seen. PERITONEAL CAVITY: No fluid or pneumoperitoneum. PELVIC VISCERA: Structures of the deep pelvis are unremarkable. ANTERIOR ABDOMINAL WALL: The lowermost midline anterior abdominal wall is intact, although it protrud es anterocaudally. There is no herniation through the anterior abdominal wall musculature. LYMPH NODES: No greater than 1cm abdominal or pelvic lymph nodes are appreciated. OSSEOUS STRUCTURES: No significant abnormality is seen. MISCELLANEOUS: Prominent volume of fluid seen throughout the abdominal and pelvic pannus, associated with cutaneous thickening. CT limitations: 1. Patient motion artifact. 2. Without IV contrast there is limited sensitivity for focal visceral lesions and intraluminal defe cts and vascular pathology. IMPRESSION: 1. Prominent volume of fluid seen throughout the abdominal and pelvic pannus, associated with cutane ous thickening. 2. Incidental: Dense LLL consolidation with surrounding pleural effusion.
[2022-06-02] MEDS ORDERED: HYDROcodone/APAP 5-325MG 1 EACH TAB PO PRN (00:33)
[2022-06-02] MEDS: HEPARIN SOD,PORK IN 0.45% NACL 25,000 UNIT in 0.45% NACL 1 250ML.BAG IV SCH ×2 (02:18→04:37)
--- NOTE | 2022-06-02 02:23 | PN ---
PROGRESS NOTE DATE OF SERVICE: 06/01/2022 SUBJECTIVE: She was seen by Cardiology today as well as surgery. She had a venous Doppler study done today and showed left lower extremity deep venous thrombosis of the femoral vein and popliteal vein. Left lower extremity, said she has a blood clot in her left lower leg and she has pulmonary embolism bilaterally. She is on heparin at this time. She also is seen by Dr. Daniels for pulmonary infection and for PE as she has been off her blood thinner as mentioned as well as medicines for the last month. She was admitted in the ICU. She is a lifelong smoker and went out of all [place] [address], troponin 0.085. Seen by Cardiology, moderate size pleural effusion. OBJECTIVE: CARDIOVASCULAR: S1, S2. LUNGS: Decreased breath sounds. She is on 3 L oxygen. She has been noncompliant with her oxygen at home as well as medications. ABDOMEN: Distended. She has large panniculus in the lower abdomen. PSYCH: Fair mood and affect, giving appropriate answers. Labs reviewed, BUN 21, creatinine 1.17, white count 11.7. IMPRESSION: 1. Large saddle pulmonary embolism. 2. Evidence of right heart strain, history of PE, noncompliant with medications and oxygen at home. 3. Moderate left pleural effusion. 4. Congestive heart failure exacerbation. 5. Acute hypoxic respiratory failure requiring 3 L. 6. Morbid obesity, BMI is 52. 7. Hypertension. PLAN: planned high-intensity heparin infusion. Possibly switch over to Eliquis in a few days. Continue with Lasix IV. Monitor her oxygen levels. Go to the ICU, get Pulmonary Cardiology involved. Wait for echo report. Ultrasound shows DVT in the left lower leg. Continue current treatments. PROGNOSIS: Extremely guarded. She is in ICU at this time. MMODL / IJN: [id number] /
[2022-06-02] MEDS ORDERED: HEPARIN SOD,PORK IN 0.45% NACL 25,000 UNIT in 0.45% NACL 1 250ML.BAG IV SCH ×2 (06:00→08:00)
[2022-06-02] MEDS: carvediloL 6.25 MG TAB PO SCH (06:37)
[2022-06-02] MEDS: LEVOTHYROXINE 100 MCG TAB PO SCH (06:37)
[2022-06-02] MEDS: PANTOPRAZOLE 40 MG TABLET PO SCH (06:37)
[2022-06-02 07:04] LABS: Basophils % (A) 0 %; Eosinophils # (A) 0.3 k/uL (0-0.7); Eosinophils % (A) 4 %; HCT 39.2 % (34.0-46.0); HGB 12.7 gm/dL (11.4-16.0); Lymphocytes # (A) 1.3 k/uL (1.0-4.8); Lymphocytes % (A) 15 %; MCH 29.9 pg (25.0-35.0); MCHC 32.3 g/dL (31.0-37.0); MCV 92.4 fL (80.0-100.0); Mean Platelet Volume 8.3; Monocytes # (A) 0.7 k/uL (0-1.0); Monocytes % (A) 8 %; Neutrophils # (A) 6.6 k/uL (1.3-7.7); Neutrophils % (A) 72 %; Platelet Count 195 k/uL (150-450); RBC 4.24 m/uL (3.80-5.40); RDW 14.7 % (11.5-15.5); WBC 9.1 k/uL (3.8-10.6)
[2022-06-02 07:17] LABS: Albumin 2.6 g/dL (3.5-5.0); Calcium 7.9 mg/dL (8.4-10.2); Potassium 3.8 mmol/L (3.5-5.1); Total Bilirubin 0.8 mg/dL (0.2-1.3); Total Protein 5.4 g/dL (6.3-8.2)
[2022-06-02] MEDS ORDERED: SODIUM CHLORIDE 0.9% 1,000 ML IV SCH ×4 (08:00)
[2022-06-02] MEDS ORDERED: ALTEPLASE 6 MG in SODIUM CHLORIDE 0.9% 144 ML IV ONE ×4 (08:00)
[2022-06-02] MEDS: ATORVASTATIN 40 MG TAB PO SCH (09:50)
[2022-06-02] MEDS: FUROSEMIDE 10 MG/ML 4 ML VIAL IV SCH ×2 (09:51→21:32)
[2022-06-02] MEDS: LOSARTAN 50 MG TAB PO SCH (09:51)
[2022-06-02] MEDS: DAPAGLIFLOZIN PROPANEDIOL 5 MG TABLET PO SCH (09:51)
[2022-06-02] MEDS: SODIUM CHLORIDE 0.9% 1,000 ML IV SCH (10:24)
--- NOTE | 2022-06-02 10:49 | P.PN ---
Subjective Progress Note Date: 06/02/22 I'm seeing this patient in new consultation today 06/01/2022 in the intensive care unit for a pulmonary embolism. Patient is a 77-year-old white female with past medical history significant for previous pulmonary embolism, hypertension, and is a lifelong nonsmoker. She also has a family history of pulmonary embolism, her father "had a blood clot in the lung". Patient was taking Eliquis for her previous pulmonary embolism. Patient stopped taking her medications approximately 6 months ago due to financial constraints. Patient started to experience shortness of breath over the last couple days, and came to the emergency room yesterday. Denies any fever, cough, chest pain, lightheadedness, syncope. D-dimer was 17.31. Follow-up chest CTA demonstrated saddle pulmonary embolism with multiple additional subsegmental pulmonary emboli bilaterally. There was evidence of right heart strain demonstrated. There is also moderate size left pleural effusion with interlobular septal thickening and cardiomegaly. Troponins are elevated at 0.085. NT proBNP 18,000. Patient does have an echocardiogram scheduled for the morning. Patient is currently sitting up in bed, on 3 L nasal cannula, in no acute distress. Currently has high-density heparin infusion per protocol. A PTT is therapeutic. ECG shows normal sinus rhythm with left bundle branch block. CBC on arrival showed WBC count 11.4, he moglobin 14.2, hematocrit 43, platelets 220,000. Patient's BMP shows sodium 140, potassium 4.6, chloride 106, serum CO2 27, BMI 21, creatinine 1.17, glucose 123. Patient also has Lasix 40 mg twice a day. No IV maintenance fluids infusing. Vital signs are stable. The patient is seen today 06/02/2022 in follow-up in the intensive care unit. She is currently sitting up in bed. Awake alert no acute distress. She is maintaining O2 saturations in the 90s on 5 L/m per nasal cannula. She remains on heparin drip. Doppler of the lower extremities did reveal a left lower extremity DVT. No evidence of DVT on the right. Computed tomography scan of the abdomen and pelvis revealed prominent fluid seen throughout the abdominal and pelvis pannus, associated with cutaneous thickening. Dense left lower lung consolidation with surrounding pleural effusion. White count 9.1. Hemoglobin 12.7. Platelets 195. Sodium 138. Potassium 3.8. Bicarb 32. BUN 27. Creatinine 1.51. Glucose 92. She is continued on Lasix 40 mg IV every 12 hours. Currently in a -1.2 L balance. She she decided not to go ahead with the EKOS procedure Objective - Vital Signs Vital signs: Vital Signs Temp 97.9 F 06/02/22 04:00 Pulse 57 L 06/02/22 09:00 Resp 14 06/02/22 09:00 BP 105/64 06/02/22 09:00 Pulse Ox 99 06/02/22 09:00 FiO2 Intake & Output 06/01/22 06/02/22 06/02/22 18:59 06:59 18:59 Intake Total 850.00 250 74.942 Output Total 1600 750 0 Balance -750.00 -500 74.942 Weight 171.458 kg Intake: Intake, IV Titration 250.00 250 74.942 Amount Heparin Sod,Pork in 0.45% 250.00 250 74.942 NaCl 25,000 unit In 0.45 % NaCl 1 250ml.bag @ 17. 606 UNITS/KG/HR 23 mls/hr IV .[id number] [facility] Rx#: [id number] Oral 600 Output: Urine 1600 750 0 Other: Voiding Method External Catheter External Catheter - Exam GENERAL EXAM: Alert, very pleasant 77-year-old female, and 5 L nasal cannula com fortable in no apparent distress. HEAD: Normocephalic and atraumatic EYES: Normal reaction of pupils, equal size. NOSE: Clear with pink turbinates. THROAT: No erythema or exudates. NECK: No masses, no JVD. CHEST: No chest wall deformity. LUNGS: Equal air entry with crackles in left lung base. No conversational dyspnea or accessory muscle use.. CVS: S1 and S2 normal with no audible murmur, regular rhythm. No extra heart sounds ABDOMEN: Grossly large pannus with excoriation. No hepatosplenomegaly, active bowel sounds, no guarding or rigidity. SPINE: No scoliosis or deformity SKIN: No rashes CENTRAL NERVOUS SYSTEM: No focal deficits, tone is normal in all 4 extremities. EXTREMITIES: There is 1-2+ peripheral edema, lymphedema with excoriation, no clubbing, or cyanosis. Peripheral pulses are intact. - Labs CBC & Chem 7: 06/02/22 05:30 06/02/22 05:30 Labs: Abnormal Lab Results - Last 24 Hours (Table) 06/01/22 06/01/22 06/01/22 Range/Units 10:37 10:37 10:37 Neutrophils # 7.8 H (1.3-7.7) k/uL INR 1.2 H (<1.2) APTT 139.8 H* (22.0-30.0) sec Carbon Dioxide (22-30) mmol/L BUN 24 H (7-17) mg/dL Creatinine 1.32 H (0.52-1.04) mg/dL Glucose 114 H (74-99) mg/dL Calcium 8.1 L (8.4-10.2) mg/dL Total Protein (6.3-8.2) g/dL Albumin (3.5-5.0) g/dL 06/01/22 06/02/22 06/02/22 Range/Units 16:51 05:30 05:30 Neutrophils # (1.3-7.7) k/uL INR (<1.2) APTT 76.2 H 86.1 H (22.0-30.0) sec Carbon Dioxide 32 H (22-30) mmol/L BUN 27 H (7-17) mg/dL Creatinine 1.51 H (0.52-1.04) mg/dL Glucose (74-99) mg/dL Calcium 7.9 L (8.4-10.2) mg/dL Total Protein 5.4 L (6.3-8.2) g/dL Albumin 2.6 L (3.5-5.0) g/dL Assessment and Plan Assessment: Large saddle pulmonary embolism with evidence of right heart strain and left lower extremity DVT. Patient has history of pulmonary embolism. She was anticoagulated on Eliquis, but has stopped taking her Eliquis due to financial constraints approximately 6 months ago. Patient does have family history of pulmonary embolism. Acute exacerbation of chronic systolic congestive heart failure and ejection fraction 20-25%, remains on IV diuretics, remains in a negative balance Moderate left pleural effusion secondary to above Acute hypoxemic respiratory failure, currently requiring 5 L nasal cannula secondary to above Hypertension Morbid obesity with BMI 52.7 Medication noncompliance Plan: The patient was seen and evaluated Dopplers, computed tomography scan of the abdomen and pelvis, labs and medications reviewed No plans for EKOS procedure at this time Remains on a heparin drip Denies any significant cough or congestion Titrate down the FiO2 as tolerated Transfer to selective care unit We will continue to follow I have personally seen and examined the patient, performed the documentation and the assessment and plan as written. Number of minutes spent on the visit: 10.
[2022-06-02] MEDS: HYDROPHILIC CREAM 180 GM TUBE TOPICAL SCH (10:57)
[2022-06-02] MEDS ORDERED: POTASSIUM CHLORIDE ER 20 MEQ TAB.ER PO STA (11:04)
[2022-06-02] MEDS: IPRATROPIUM-ALBUTEROL 3 ML NEB INHALATION SCH ×3 (11:28→20:22)
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
--- NOTE | 2022-06-02 13:35 | PN ---
PROGRESS NOTE SUBJECTIVE: Ms. Santamaria came in with acute pulmonary embolism, was evaluated by Vascular Surgery also. Given her overall situation, conservative management was advised. The patient is doing well, hemodynamically stable. Echo revealed global decrease in contractility of left ventricle. Ejection fraction 25% with no significant enlargement of the right ventricle. The patient is on IV Lasix and a small dose of beta-cornelio, and I am reducing the losartan. She will be moved to the medical floor with telemetry. OBJECTIVE: VITAL SIGNS: Stable. NECK: JVD 1 cm. No carotid bruit. HEART: S1 and S2 heard normally. Short systolic murmur. LUNGS: Reveal improved air entry. ABDOMEN: Soft. EXTREMITIES: Lower extremities revealed diminished pulses. CENTRAL NERVOUS SYSTEM: Grossly, no focal deficits. PLAN: Prognosis remains guarded. She will be transferred to the medical floor with telemetry today. BEAR / JOSY: [id number] /
[2022-06-02] MEDS: carvediloL 3.125 MG TAB PO SCH (17:25)
[2022-06-02] MEDS: APIXABAN 5 MG TAB PO SCH (21:33)
--- NOTE | 2022-06-03 00:19 | P.PN ---
Subjective Covering Dr. Ching only for today This is a pleasant 77 years old female with multiple medical problems was admitted because of respiratory symptoms and found to have side of pulmonary embolism with evidence of right ventricular strain , been currently placed on anticoagulation with Eliquis and monitor closely in the ICU with pulmonary, cardiology and vascular surgery following her closely. Today she was awake and alert lying comfortably in bed with no respiratory difficulty. She is hemodynamically stable. She denies any other specific symptoms. No chest pain or GI or urinary symptoms. No headache weakness or numbness. Also she has evidence of cardiomyopathy with ejection fraction 2025%, CT of the abdomen and pelvis: Prominent volume of fluid seen throughout the abdominal and pelvic pannus associated with cutaneous thickening. Incidental left lower lobe consolidation with surrounding pleural effusion Venous ultrasound showing left lower extremity deep venous thrombosis with femoral vein and popliteal vein Labs reviewed, creatinine is slightly trending up to 1.5, most likely secondary to diuretic effect. She is currently on Eliquis 10 mg and IV Lasix 40 mg twice daily and Protonix Objective - Vital Signs Vital signs: Vital Signs Temp 97.9 F 06/02/22 04:00 Pulse 58 L 06/02/22 11:00 Resp 12 06/02/22 11:00 BP 92/48 06/02/22 10:00 Pulse Ox 97 06/02/22 11:00 FiO2 Intake & Output 06/01/22 06/02/22 06/02/22 18:59 06:59 18:59 Intake Total 850.00 250 74.942 Output Total 1600 750 0 Balance -750.00 -500 74.942 Weight 171.458 kg Intake: Intake, IV Titration 250.00 250 74.942 Amount Heparin Sod,Pork in 0.45% 250.00 250 74.942 NaCl 25,000 unit In 0.45 % NaCl 1 250ml.bag @ 17. 606 UNITS/KG/HR 23 mls/hr IV .[id number] [facility] Rx#: [id number] Oral 600 Output: Urine 1600 750 0 Other: Voiding Method External Catheter External Catheter - Exam -GENERAL: The patient is alert and oriented x3, not in any acute distress. Obese HEENT: Pupils are round and equally reacting to light. EOMI. No scleral icterus. No conjunctival pallor. Normocephalic, atraumatic. No pharyngeal erythema. No thyromegaly. CARDIOVASCULAR: S1 and S2 present. No murmurs, rubs, or gallops. PULMONARY: Chest is clear to auscultation, no wheezing or crackles. ABDOMEN: Soft, nontender, nondistended, normoactive bowel sounds. No palpable organomegaly. MUSCULOSKELETAL: No joint swelling or deformity. EXTREMITIES: No cyanosis, clubbing, or pedal edema. NEUROLOGICAL: Gross neurological examination did not reveal any focal deficits. SKIN: No rashes. no petechiae. - Labs CBC & Chem 7: 06/02/22 05:30 06/02/22 05:30 Labs: Abnormal Lab Results - Last 24 Hours (Table) 06/01/22 06/02/22 06/02/22 Range/Units 16:51 05:30 05:30 APTT 76.2 H 86.1 H (22.0-30.0) sec Carbon Dioxide 32 H (22-30) mmol/L BUN 27 H (7-17) mg/dL Creatinine 1.51 H (0.52-1.04) mg/dL Calcium 7.9 L (8.4-10.2) mg/dL Total Protein 5.4 L (6.3-8.2) g/dL Albumin 2.6 L (3.5-5.0) g/dL Assessment and Plan Assessment: Acute saddle pulmonary embolism Left leg DVT Acute systolic CHF on chronic CHF with ejection fraction 20-25% Large left pleural effusion secondary to above Mild acute kidney injury secondary to diuretic effect Obesity with BMI of 69.1 Plan: Continue with Eliquis Continue with IV Lasix per recovery analyst Pulmonary, cardiology and vascular surgery team on the case Physical therapy consult is ordered Labs and medication were reviewed.. Continue same treatment. Continue with symptomatic treatment. Resume home medication. Monitor labs and vitals. DVT and GI prophylaxis. Further recommendations as per clinical course of the patient DVT prophylaxis: Eliquis GI Prophylaxis: Ppi PT/OT: Pending Prognosis is guarded Dr. Ching will resume the care of the patient tomorrow/
[2022-06-03] MEDS: LEVOTHYROXINE 100 MCG TAB PO SCH (06:41)
[2022-06-03] MEDS: carvediloL 3.125 MG TAB PO SCH ×2 (06:41→17:11)
[2022-06-03] MEDS: PANTOPRAZOLE 40 MG TABLET PO SCH (06:41)
[2022-06-03] MEDS: IPRATROPIUM-ALBUTEROL 3 ML NEB INHALATION SCH ×4 (08:35→21:44)
[2022-06-03] MEDS: APIXABAN 5 MG TAB PO SCH ×2 (09:17→20:56)
[2022-06-03] MEDS: ATORVASTATIN 40 MG TAB PO SCH (09:17)
[2022-06-03] MEDS: DAPAGLIFLOZIN PROPANEDIOL 5 MG TABLET PO SCH (09:17)
--- NOTE | 2022-06-03 10:44 | P.PN ---
Subjective Progress Note Date: 06/03/22 I'm seeing this patient in new consultation today 06/01/2022 in the intensive care unit for a pulmonary embolism. Patient is a 77-year-old white female with past medical history significant for previous pulmonary embolism, hypertension, and is a lifelong nonsmoker. She also has a family history of pulmonary embolism, her father "had a blood clot in the lung". Patient was taking Eliquis for her previous pulmonary embolism. Patient stopped taking her medications approximately 6 months ago due to financial constraints. Patient started to experience shortness of breath over the last couple days, and came to the emergency room yesterday. Denies any fever, cough, chest pain, lightheadedness, syncope. D-dimer was 17.31. Follow-up chest CTA demonstrated saddle pulmonary embolism with multiple additional subsegmental pulmonary emboli bilaterally. There was evidence of right heart strain demonstrated. There is also moderate size left pleural effusion with interlobular septal thickening and cardiomegaly. Troponins are elevated at 0.085. NT proBNP 18,000. Patient does have an echocardiogram scheduled for the morning. Patient is currently sitting up in bed, on 3 L nasal cannula, in no acute distress. Currently has high-density heparin infusion per protocol. A PTT is therapeutic. ECG shows normal sinus rhythm with left bundle branch block. CBC on arrival showed WBC count 11.4, he moglobin 14.2, hematocrit 43, platelets 220,000. Patient's BMP shows sodium 140, potassium 4.6, chloride 106, serum CO2 27, BMI 21, creatinine 1.17, glucose 123. Patient also has Lasix 40 mg twice a day. No IV maintenance fluids infusing. Vital signs are stable. The patient is seen today 06/02/2022 in follow-up in the intensive care unit. She is currently sitting up in bed. Awake alert no acute distress. She is maintaining O2 saturations in the 90s on 5 L/m per nasal cannula. She remains on heparin drip. Doppler of the lower extremities did reveal a left lower extremity DVT. No evidence of DVT on the right. Computed tomography scan of the abdomen and pelvis revealed prominent fluid seen throughout the abdominal and pelvis pannus, associated with cutaneous thickening. Dense left lower lung consolidation with surrounding pleural effusion. White count 9.1. Hemoglobin 12.7. Platelets 195. Sodium 138. Potassium 3.8. Bicarb 32. BUN 27. Creatinine 1.51. Glucose 92. She is continued on Lasix 40 mg IV every 12 hours. Currently in a -1.2 L balance. She she decided not to go ahead with the EKOS procedure. The patient seen today 06/03/2022 in follow-up in the intensive care unit. She is currently sitting up in bed. Awake and alert in no acute distress. Maintaining O2 saturations in the 90s on 4 L/m per nasal cannula. She does have home oxygen. No chest pain, palpitations, cough or congestion. No hemoptysis. She is continued on anticoagulation in the form of Eliquis. Remains on bronchodilators. IV diuretics. Currently in a negative balance. No new labs today. Objective - Vital Signs Vital signs: Vital Signs Temp 98.4 F 06/03/22 09:38 Pulse 68 06/03/22 09:38 Resp 18 06/03/22 09:38 BP 133/69 06/03/22 09:38 Pulse Ox 98 06/03/22 09:38 FiO2 Intake & Output 06/02/22 06/03/22 06/03/22 18:59 06:59 18:59 Intake Total 262.031 0 Output Total 600 600 200 Balance -337.969 -600 -200 Weight 171.458 kg 126.8 kg Intake: IV 60 0 .9NS 60 0 Intake, IV Titration 202.031 Amount Heparin Sod,Pork in 0.45% 202.031 NaCl 25,000 unit In 0.45 % NaCl 1 250ml.bag @ 17. 606 UNITS/KG/HR 23 mls/hr IV .[id number] [facility] Rx#: [id number] Output: Urine 600 600 200 Other: Voiding Method External Catheter External Catheter External Catheter # Voids 2 - Exam GENERAL EXAM: Alert, pleasant 77-year-old female, and 4 L nasal cannula comfortable in no apparent distress. HEAD: Normocephalic and atraumatic EYES: Normal reaction of pupils, equal size. NOSE: Clear with pink turbinates. THROAT: No erythema or exudates. NECK: No masses, no JVD. CHEST: No chest wall deformity. LUNGS: Equal air entry with crackles in left lung base. No conversational dyspnea or accessory muscle use. CVS: S1 and S2 normal with no audible murmur, regular rhythm. No extra heart sounds ABDOMEN: Grossly large pannus with excoriation. No hepatosplenomegaly, active bowel sounds, no guarding or rigidity. SPINE: No scoliosis or deformity SKIN: No rashes CENTRAL NERVOUS SYSTEM: No focal deficits, tone is normal in all 4 extremities. EXTREMITIES: There is 1-2+ peripheral edema, lymphedema with excoriation, no clubbing, or cyanosis. Peripheral pulses are intact. - Labs CBC & Chem 7: 06/02/22 05:30 06/02/22 05:30 Labs: Abnormal Lab Results - Last 24 Hours (Table) 06/02/22 Range/Units 14:09 APTT 111.4 H* (22.0-30.0) sec Assessment and Plan Assessment: Large saddle pulmonary embolism with evidence of right heart strain and left lower extremity DVT. Patient has history of pulmonary embolism. She was anticoagulated on Eliquis, but has stopped taking her Eliquis due to financial constraints approximately 6 months ago. Patient does have family history of pulmonary embolism. Acute exacerbation of chronic systolic congestive heart failure and ejection fraction 20-25%, remains on IV diuretics, remains in a negative balance Moderate left pleural effusion secondary to above Acute on chronic hypoxemic respiratory failure, currently requiring 4 L nasal cannula secondary to above. She does have home oxygen Hypertension Morbid obesity with BMI 52.7 Medication noncompliance Plan: The patient was seen and evaluated Medications reviewed Transitioned to Eliquis Continued on IV diuretics, remains in a negative balance Titrate down the FiO2 as tolerated Transfer to regular medical floor We will continue to follow I have personally seen and examined the patient, performed the documentation and the assessment and plan as written. Number of minutes spent on the visit: 10.
[2022-06-03] MEDS: LOSARTAN 25 MG TAB PO SCH (11:00)
[2022-06-03] MEDS: FUROSEMIDE 10 MG/ML 4 ML VIAL IV SCH ×2 (11:09→20:56)
[2022-06-03] MEDS: HYDROPHILIC CREAM 180 GM TUBE TOPICAL SCH (11:09)
[2022-06-03] MEDS: LOSARTAN 50 MG TAB PO SCH (11:29)
--- NOTE | 2022-06-03 14:20 | P.PN ---
Subjective Progress Note Date: 06/03/22 Patient seen and examined. No complaints. Sitting in bed comfortably. On oxygen. No shortness of breath. Did well yesterday up to chair. Was initiated on oral anticoagulation. Objective - Vital Signs Vital signs: Vital Signs Temp 98.4 F 06/03/22 09:38 Pulse 72 06/03/22 12:04 Resp 18 06/03/22 09:38 BP 133/69 06/03/22 09:38 Pulse Ox 98 06/03/22 09:38 FiO2 Intake & Output 06/02/22 06/03/22 06/03/22 18:59 06:59 18:59 Intake Total 262.031 0 Output Total 600 600 200 Balance -337.969 -600 -200 Weight 171.458 kg 126.8 kg Intake: IV 60 0 .9NS 60 0 Intake, IV Titration 202.031 Amount Heparin Sod,Pork in 0.45% 202.031 NaCl 25,000 unit In 0.45 % NaCl 1 250ml.bag @ 17. 606 UNITS/KG/HR 23 mls/hr IV .[id number] COUNT [facility]CLUDES [facility] Rx#: [id number] Output: Urine 600 600 200 Other: Voiding Method External Catheter External Catheter External Catheter # Voids 2 - Exam General appearance: The patient is alert, oriented, appears in no acute distress. Morbidly obese. HET: Head is normocephalic and atraumatic. Pupils are equal and reactive. Neck: Supple. Trachea midline Heart: Regular. Lungs: Equal expansion, normal respiratory effort. Abdomen: Soft, nontender, nondistended. Grossly large pannus with excoriation. Extremities: Bilateral lower extremity edema, lymphedema with erythema. Palpable DP pulses. Neurological: No focal deficits. Alert and oriented 3. - Labs CBC & Chem 7: 06/02/22 05:30 06/02/22 05:30 Labs: Abnormal Lab Results - Last 24 Hours (Table) 06/02/22 Range/Units 14:09 APTT 111.4 H* (22.0-30.0) sec Assessment and Plan Assessment: 1. Saddle pulmonary embolism 2. Shortness of breath 3. Congestive heart failure 4. Left pleural effusion 5. Left lower extremity DVT 5. History of pulmonary embolism not on anticoagulation 6. Morbidly obese Plan: Again discussion had with the patient of the overall plan. Currently no plans for intervention due to multiple medical comorbidities and procedural risks. Pulmonary on board with this after discussion. Continue diet. Continue oral anticoagulation. We'll sign off from a vascular surgical standpoint, please let us know if the patient has worsening deterioration and would become more pertinent to go forward with intervention
--- NOTE | 2022-06-03 22:32 | PN ---
PROGRESS NOTE SUBJECTIVE: This is a 77-year-old white female with panniculitis and abdominal distention, severe cellulitis chronic in her legs and lower abdomen. She is admitted for pulmonary embolus and DVT left leg, bilateral pulmonary embolus, noncompliant with Eliquis due to financial difficulties. Noncompliant with her breathing medicines also. CAT scans reviewed. Pulmonary notes are new and vascular notes were reviewed. Dr. Covarrubias saw her did well yesterday. She was up to a chair. OBJECTIVE: VITAL SIGNS: Stable, afebrile. She is on 4 L oxygen, maintaining mid 90s. CARDIOVASCULAR: S1, S2. LUNGS: Clear. GI: Soft. PSYCH: Alert and oriented x3. LABORATORY DATA: BUN 27, creatinine 1.51. She has had a pulmonary embolism, shortness of breath secondary to chronic hypoxemic respiratory failure with acute onset due to PE, congestive heart failure, left pleural effusion, left lower extremity DVT, history of pulmonary embolism, morbidly obese, hypertension. Continue on medications, Farxiga 5 mg is ordered for CHF prevention, multiple consults. Opinions were reviewed and looked at, make sure hemoglobin stays good, back on her Eliquis. Prognosis is guarded. She is out of the ICU on the medical floor. CAT scan of abdomen and pelvis showed no mass. MMODL / IJN: [id number] /
--- NOTE | 2022-06-03 23:53 | P.PN ---
Subjective HISTORY OF PRESENTING ILLNESS Patient is pleasant 77-year-old female with history of pulmonary embolism, DVT, hypertension, hysterectomy, bradycardia. She presented secondary shortness breath and had not been taking her medications for a few weeks. She was found to be in heart failure and started on diuretics. Additionally CTA showed pulmonary embolism and was started on anticoagulation. [place] not a good candidate for any further intervention. 06/03 Patient had been having intermittent bradycardia. Currently she denies any chest pain or pressure. She is still having some edema and has significant pannus with abdominal edema as well. Echo 05/31 showed EF 20-25% with mention of normal right ventricular size with RVSP of 34. Creatinine has been going up with diuresis with creatinine 1.5 yesterday, creatinine not available today. Some of this may be related to the IV contrast use. PHYSICAL EXAMINATION Vital signs reviewed. CONSTITUTIONAL: No apparent distress, obese HEENT: Head is normocephalic. Pupils are equal, round. Sclerae anicteric. Mucous membranes of the mouth are moist. No JVD. No carotid bruit. CHEST EXAMINATION: Decreased breath sounds bilateral bases HEART EXAMINATION: Regular rate and rhythm. S1, S2 heard. No murmurs, gallops or rub. ABDOMEN: Soft, nontender. Positive bowel sounds. EXTREMITIES: 2+ peripheral pulses, 2+ lower extremity edema and no calf tenderness. NEUROLOGIC EXAMINATION: Patient is awake, alert and oriented x3. ASSESSMENT 1. Acute on chronic systolic heart failure 2. Cardiomyopathy EF 20-25% 3. Saddle pulmonary embolism 4. Noncompliance 5. Hypertension 6. Acute kidney injury, may be related to contrast use with CTA 7. Morbid obesity 8. Bradycardia mainly at night appears asymptomatic PLAN Continue current dose of diuretics however monitor creatinine closely. Check repeat blood work tomorrow. Optimize heart failure regimen as able. If creatinine continue to elevate we will discontinue losartan. Further recommendations to follow. Objective - Vital Signs Vital signs: Vital Signs Temp 99.0 F 06/03/22 20:20 Pulse 72 06/03/22 21:56 Resp 18 06/03/22 20:20 BP 134/67 06/03/22 20:20 Pulse Ox 97 06/03/22 20:20 FiO2 Intake & Output 06/03/22 06/03/22 06/04/22 06:59 18:59 06:59 Intake Total 0 1505 Output Total 600 1300 Balance -600 205 Weight 126.8 kg Intake: IV 0 .9NS 0 Oral 1505 Output: Urine 600 1300 Other: Voiding Method External Catheter External Catheter External Catheter # Voids 2 - Labs CBC & Chem 7: 06/02/22 05:30 06/02/22 05:30
[2022-06-04] MEDS: carvediloL 3.125 MG TAB PO SCH ×2 (06:30→17:35)
[2022-06-04] MEDS: PANTOPRAZOLE 40 MG TABLET PO SCH (06:30)
[2022-06-04] MEDS: LEVOTHYROXINE 100 MCG TAB PO SCH (06:30)
[2022-06-04] MEDS: IPRATROPIUM-ALBUTEROL 3 ML NEB INHALATION SCH ×4 (07:47→21:22)
[2022-06-04] MEDS: FUROSEMIDE 10 MG/ML 4 ML VIAL IV SCH (08:14)
[2022-06-04 08:47] LABS: Basophils % (A) 0 %; Eosinophils # (A) 0.3 k/uL (0-0.7); Eosinophils % (A) 4 %; HCT 36.6 % (34.0-46.0); Lymphocytes # (A) 0.8 k/uL (1.0-4.8); Lymphocytes % (A) 12 %; MCH 30.3 pg (25.0-35.0); MCHC 32.9 g/dL (31.0-37.0); MCV 92.1 fL (80.0-100.0); Mean Platelet Volume 7.7; Monocytes # (A) 0.7 k/uL (0-1.0); Monocytes % (A) 10 %; Neutrophils # (A) 5.1 k/uL (1.3-7.7); Neutrophils % (A) 72 %; Platelet Count 185 k/uL (150-450); RBC 3.97 m/uL (3.80-5.40); RDW 14.6 % (11.5-15.5); WBC 7.2 k/uL (3.8-10.6)
[2022-06-04 08:58] LABS: ALT 12 U/L (4-34); AST 15 U/L (14-36); African American GFR (CKD) 35 (>60 ml/min/1.73 sqM); Albumin 2.6 g/dL (3.5-5.0); Albumin/Globulin Ratio 0.9; Alkaline Phosphatase 53 U/L (38-126); Anion Gap 6 mmol/L; Blood Urea Nitrogen 36 mg/dL (7-17); Calcium 7.9 mg/dL (8.4-10.2); Carbon Dioxide 30 mmol/L (22-30); Chloride 100 mmol/L (98-107); Globulin 2.8 g/dL; Glucose 94 mg/dL (74-99); Non-African American GFR(CKD) 30 (>60 ml/min/1.73 sqM); Potassium 3.6 mmol/L (3.5-5.1); Sodium 136 mmol/L (137-145); Total Bilirubin 0.6 mg/dL (0.2-1.3); Total Protein 5.4 g/dL (6.3-8.2)
[2022-06-04] MEDS: DAPAGLIFLOZIN PROPANEDIOL 5 MG TABLET PO SCH (10:00)
[2022-06-04] MEDS: APIXABAN 5 MG TAB PO SCH ×2 (10:00→22:38)
[2022-06-04] MEDS: ATORVASTATIN 40 MG TAB PO SCH (10:00)
[2022-06-04] MEDS: LOSARTAN 25 MG TAB PO SCH (10:00)
[2022-06-04] MEDS: HYDROPHILIC CREAM 180 GM TUBE TOPICAL SCH (10:01)
--- NOTE | 2022-06-04 11:53 | P.PN ---
Subjective Progress Note Date: 06/04/22 I'm seeing this patient in new consultation today 06/01/2022 in the intensive care unit for a pulmonary embolism. Patient is a 77-year-old white female with past medical history significant for previous pulmonary embolism, hypertension, and is a lifelong nonsmoker. She also has a family history of pulmonary embolism, her father "had a blood clot in the lung". Patient was taking Eliquis for her previous pulmonary embolism. Patient stopped taking her medications approximately 6 months ago due to financial constraints. Patient started to experience shortness of breath over the last couple days, and came to the emergency room yesterday. Denies any fever, cough, chest pain, lightheadedness, syncope. D-dimer was 17.31. Follow-up chest CTA demonstrated saddle pulmonary embolism with multiple additional subsegmental pulmonary emboli bilaterally. There was evidence of right heart strain demonstrated. There is also moderate size left pleural effusion with interlobular septal thickening and cardiomegaly. Troponins are elevated at 0.085. NT proBNP 18,000. Patient does have an echocardiogram scheduled for the morning. Patient is currently sitting up in bed, on 3 L nasal cannula, in no acute distress. Currently has high-density heparin infusion per protocol. A PTT is therapeutic. ECG shows normal sinus rhythm with left bundle branch block. CBC on arrival showed WBC count 11.4, he moglobin 14.2, hematocrit 43, platelets 220,000. Patient's BMP shows sodium 140, potassium 4.6, chloride 106, serum CO2 27, BMI 21, creatinine 1.17, glucose 123. Patient also has Lasix 40 mg twice a day. No IV maintenance fluids infusing. Vital signs are stable. The patient is seen today 06/02/2022 in follow-up in the intensive care unit. She is currently sitting up in bed. Awake alert no acute distress. She is maintaining O2 saturations in the 90s on 5 L/m per nasal cannula. She remains on heparin drip. Doppler of the lower extremities did reveal a left lower extremity DVT. No evidence of DVT on the right. Computed tomography scan of the abdomen and pelvis revealed prominent fluid seen throughout the abdominal and pelvis pannus, associated with cutaneous thickening. Dense left lower lung consolidation with surrounding pleural effusion. White count 9.1. Hemoglobin 12.7. Platelets 195. Sodium 138. Potassium 3.8. Bicarb 32. BUN 27. Creatinine 1.51. Glucose 92. She is continued on Lasix 40 mg IV every 12 hours. Currently in a -1.2 L balance. She she decided not to go ahead with the EKOS procedure. The patient seen today 06/03/2022 in follow-up in the intensive care unit. She is currently sitting up in bed. Awake and alert in no acute distress. Maintaining O2 saturations in the 90s on 4 L/m per nasal cannula. She does have home oxygen. No chest pain, palpitations, cough or congestion. No hemoptysis. She is continued on anticoagulation in the form of Eliquis. Remains on bronchodilators. IV diuretics. Currently in a negative balance. No new labs today. The patient is seen today 06/04/2022 in follow-up on the regular medical floor. She is currently sitting up in a chair at the bedside. Awake and alert in no acute distress. Maintaining good O2 saturations in the 90s on 4 L/m per nasal cannula. Denies any shortness of breath, cough or congestion. No hemoptysis. No chest pain or palpitations. She has been transitioned to Eliquis. Remains on IV diuretics. Remains on bronchodilators. She is currently in a positive balance. White count 7.2. Hemoglobin 12.0. Platelets 185. Sodium 136. Potassium 3.6. Bicarb 30. BUN 36. Creatinine 1.65. Objective - Vital Signs Vital signs: Vital Signs Temp 98.5 F 06/04/22 07:04 Pulse 66 06/04/22 08:00 Resp 20 06/04/22 08:00 BP 108/56 06/04/22 07:04 Pulse Ox 95 06/04/22 07:04 FiO2 Intake & Output 06/03/22 06/04/22 06/04/22 18:59 06:59 18:59 Intake Total 1505 480 120 Output Total 1300 300 Balance 205 180 120 Weight 106 kg Intake: Oral 1505 480 120 Output: Urine 1300 300 Other: Voiding Method External Catheter External Catheter External Catheter # Voids 1 - Exam GENERAL EXAM: Alert, pleasant 77-year-old female, sitting up in a chair, on 4 L nasal cannula, comfortable in no apparent distress. HEAD: Normocephalic and atraumatic EYES: Normal reaction of pupils, equal size. NOSE: Clear with pink turbinates. THROAT: No erythema or exudates. NECK: No masses, no JVD. CHEST: No chest wall deformity. LUNGS: Equal air entry with crackles in left lung base. No conversational dyspnea or accessory muscle use. CVS: S1 and S2 normal with no audible murmur, regular rhythm. No extra heart sounds ABDOMEN: Grossly large pannus with excoriation. No hepatosplenomegaly, active bowel sounds, no guarding or rigidity. SPINE: No scoliosis or deformity SKIN: No rashes CENTRAL NERVOUS SYSTEM: No focal deficits, tone is normal in all 4 extremities. EXTREMITIES: There is 1-2+ peripheral edema, lymphedema with excoriation, no clubbing, or cyanosis. Peripheral pulses are intact. - Labs CBC & Chem 7: 06/04/22 06:47 06/04/22 06:47 Labs: Abnormal Lab Results - Last 24 Hours (Table) 06/04/22 06/04/22 Range/Units 06:47 06:47 Lymphocytes # 0.8 L (1.0-4.8) k/uL Sodium 136 L (137-145) mmol/L BUN 36 H (7-17) mg/dL Creatinine 1.65 H (0.52-1.04) mg/dL Calcium 7.9 L (8.4-10.2) mg/dL Total Protein 5.4 L (6.3-8.2) g/dL Albumin 2.6 L (3.5-5.0) g/dL Assessment and Plan Assessment: Large saddle pulmonary embolism with evidence of right heart strain and left lower extremity DVT. Patient has history of pulmonary embolism. She was anticoagulated on Eliquis, but has stopped taking her Eliquis due to financial constraints approximately 6 months ago. Patient does have family history of pulmonary embolism. Transitioned to Eliquis. Acute exacerbation of chronic systolic congestive heart failure and ejection fraction 20-25%, remains on IV diuretics, remains in a negative balance Moderate left pleural effusion secondary to above Acute on chronic hypoxemic respiratory failure, currently requiring 4 L nasal cannula secondary to above. She does have home oxygen Acute kidney injury suspect secondary to diuretics Hypertension Morbid obesity with BMI 52.7 Medication noncompliance Plan: The patient was seen and evaluated Medications and labs reviewed Continued on IV diuretics, remains in a negative balance Anticoagulated with Eliquis Titrate down the FiO2 as tolerated May require subacute rehabilitation We will continue to follow I have personally seen and examined the patient, performed the documentation and the assessment and plan as written. Number of minutes spent on the visit: 10.
--- NOTE | 2022-06-04 14:00 | PN ---
PROGRESS NOTE SUBJECTIVE: This is a 77-year-old white female admitted with congestive heart failure, seen by Dr. Wheeler. She has an ejection fraction of 20% to 25%. She has saddle pulmonary embolism bilaterally, DVT in her left leg, noncompliance with medicine, hypertension, acute kidney injury, morbid obesity. She has pulmonary hypertension with bradycardia. OBJECTIVE: VITAL SIGNS: Blood pressure 134/67, O2 97, respiratory rate 16 to 18, pulse 72, and temperature 99. CARDIOVASCULAR: S1, S2. LUNGS: Scattered rales at the base lungs are improving. HEMATOLOGY: Negative for Homans. EXTREMITIES: Her legs look better, less swelling, less redness. HEMATOLOGY: Negative for Homans. ABDOMEN: Distended. She has large pannus in her lower abdomen which has been chronic for many years. CT of the abdomen and pelvis shows no tumor. PLAN: Continue with diuresis. Monitor creatinine. Systolic CHF, treatment will be done. Prognosis is guarded. Follow up in next 24 to 48 hours for possible discharge. MMODL / IJN: [id number] /
--- NOTE | 2022-06-04 14:08 | P.PN ---
Subjective HISTORY OF PRESENTING ILLNESS Patient is pleasant 77-year-old female with history of pulmonary embolism, DVT, hypertension, hysterectomy, bradycardia. She presented secondary shortness breath and had not been taking her medications for a few weeks. She was found to be in heart failure and started on diuretics. Additionally CTA showed pulmonary embolism and was started on anticoagulation. S[place] not a good candidate for any further intervention. 06/03 Patient had been having intermittent bradycardia. Currently she denies any chest pain or pressure. She is still having some edema and has significant pannus with abdominal edema as well. Echo 05/31 showed EF 20-25% with mention of normal right ventricular size with RVSP of 34. Creatinine has been going up with diuresis with creatinine 1.5 yesterday, creatinine not available today. So me of this may be related to the IV contrast use. 06/04 She has been receiving Lasix 40 mg IV twice a day with good urine output. Blood pressure is borderline 100s to 120s. We therefore will decrease the losartan at 12.5 mg daily. Creatinine up to 1.6 today from 1.5. PHYSICAL EXAMINATION Vital signs reviewed. CONSTITUTIONAL: No apparent distress, obese HEENT: Head is normocephalic. Pupils are equal, round. Sclerae anicteric. Mucous membranes of the mouth are moist. No JVD. No carotid bruit. CHEST EXAMINATION: Decreased breath sounds bilateral bases HEART EXAMINATION: Regular rate and rhythm. S1, S2 heard. No murmurs, gallops or rub. ABDOMEN: Soft, nontender. Positive bowel sounds. EXTREMITIES: 2+ peripheral pulses, 2+ lower extremity edema and no calf tenderness. NEUROLOGIC EXAMINATION: Patient is awake, alert and oriented x3. ASSESSMENT 1. Acute on chronic systolic heart failure 2. Cardiomyopathy EF 20-25% 3. Saddle pulmonary embolism 4. Noncompliance 5. Hypertension 6. Acute kidney injury, may be related to contrast use with CTA 7. Morbid obesity 8. Bradycardia mainly at night appears asymptomatic PLAN Continue current dose of diuretics however monitor creatinine closely. RAFAL may be related to contrast however also borderline BP's and we will decreased Losartan to 12.5mg daily. Transition to Lasix 40mg IV daily tomorrow. Optimize heart failure regimen as able. Further recommendations to follow. Objective - Vital Signs Vital signs: Vital Signs Temp 98.5 F 06/04/22 07:04 Pulse 72 06/04/22 12:05 Resp 20 06/04/22 08:00 BP 108/56 06/04/22 07:04 Pulse Ox 95 06/04/22 07:04 FiO2 Intake & Output 06/03/22 06/04/22 06/04/22 18:59 06:59 18:59 Intake Total 1505 480 120 Output Total 1300 300 Balance 205 180 120 Weight 106 kg Intake: Oral 1505 480 120 Output: Urine 1300 300 Other: Voiding Method External Catheter External Catheter External Catheter # Voids 1 - Labs CBC & Chem 7: 06/04/22 06:47 06/04/22 06:47 Labs: Abnormal Lab Results - Last 24 Hours (Table) 06/04/22 06/04/22 Range/Units 06:47 06:47 Lymphocytes # 0.8 L (1.0-4.8) k/uL Sodium 136 L (137-145) mmol/L BUN 36 H (7-17) mg/dL Creatinine 1.65 H (0.52-1.04) mg/dL Calcium 7.9 L (8.4-10.2) mg/dL Total Protein 5.4 L (6.3-8.2) g/dL Albumin 2.6 L (3.5-5.0) g/dL
[2022-06-05] MEDS: LEVOTHYROXINE 100 MCG TAB PO SCH (06:23)
[2022-06-05] MEDS: APIXABAN 5 MG TAB PO SCH ×2 (07:45→22:02)
[2022-06-05] MEDS: ATORVASTATIN 40 MG TAB PO SCH (07:46)
[2022-06-05] MEDS: DAPAGLIFLOZIN PROPANEDIOL 5 MG TABLET PO SCH (07:46)
[2022-06-05] MEDS: LOSARTAN 25 MG TAB PO SCH (07:46)
[2022-06-05] MEDS: PANTOPRAZOLE 40 MG TABLET PO SCH (07:46)
[2022-06-05] MEDS: carvediloL 3.125 MG TAB PO SCH ×2 (07:46→17:06)
[2022-06-05] MEDS: HYDROPHILIC CREAM 180 GM TUBE TOPICAL SCH (07:48)
[2022-06-05] MEDS: FUROSEMIDE 10 MG/ML 4 ML VIAL IV SCH (08:52)
--- NOTE | 2022-06-05 09:40 | P.PN ---
Subjective Progress Note Date: 06/05/22 HISTORY OF PRESENTING ILLNESS Patient is pleasant 77-year-old female with history of pulmonary embolism, DVT, hypertension, hysterectomy, bradycardia. She presented secondary shortness breath and had not been taking her medications for a few weeks. She was found to be in heart failure and started on diuretics. Additionally CTA showed pulmonary embolism and was started on anticoagulation. [place] not a good candidate for any further intervention. 06/03 Patient had been having intermittent bradycardia. Currently she denies any chest pain or pressure. She is still having some edema and has significant pannus with abdominal edema as well. Echo 05/31 showed EF 20-25% with mention of normal right ventricular size with RVSP of 34. Creatinine has been going up with diuresis with creatinine 1.5 yesterday, creatinine not available today. Some of this may be related to the IV contrast use. 06/04 She has been receiving Lasix 40 mg IV twice a day with good urine output. Blood pressure is borderline 100s to 120s. We therefore will decrease the losartan at 12.5 mg daily. Creatinine up to 1.6 today from 1.5. 06/05 Patient is seen today in follow-up on the Med[facility] floor. Yesterday, losartan was decreased due to acute kidney injury. Patient's blood has been drawn this morning but report is pending at the time of this dictation. She is currently on IV Lasix 40 mg daily and diuresing well. I&O and Weights appear to be in accurate. Heart rate has been in the 70s and 80s, blood pressure 108/61, pulse ox 96% on 4 L nasal cannula. PHYSICAL EXAMINATION Vital signs reviewed. CONSTITUTIONAL: No apparent distress, obese HEENT: Head is normocephalic. Pupils are equal, round. Sclerae anicteric. Mucous membranes of the mouth are moist. No JVD. No carotid bruit. CHEST EXAMINATION: Decreased breath sounds bilateral bases HEART EXAMINATION: Regular rate and rhythm. S1, S2 heard. No murmurs, gallops or rub. ABDOMEN: Soft, nontender. Positive bowel sounds. EXTREMITIES: 2+ peripheral pulses, 1+ lower extremity edema and no calf tenderness. NEUROLOGIC EXAMINATION: Patient is awake, alert and oriented x3. ASSESSMENT 1. Acute on chronic systolic heart failure 2. Cardiomyopathy EF 20-25% 3. Saddle pulmonary embolism 4. Noncompliance 5. Hypertension 6. Acute kidney injury, may be related to contrast use with CTA 7. Morbid obesity 8. Bradycardia mainly at night appears asymptomatic PLAN Continue current dose of diuretics however monitor creatinine closely. RAFAL may be related to contrast however also borderline BP's and Losartan was decreased to 12.5mg daily on 06/04. Lasix 40mg IV daily. Optimize heart failure regimen as able. Further recommendations to follow. Nurse practitioner note has been reviewed, I agree with the documented findings and plan of care. Patient was seen and examined. Objective - Vital Signs Vital signs: Vital Signs Temp 99.1 F 06/05/22 03:08 Pulse 79 06/05/22 03:08 Resp 20 06/05/22 03:08 BP 120/62 06/05/22 03:08 Pulse Ox 92 L 06/05/22 03:08 FiO2 Intake & Output 06/04/22 06/05/22 06/05/22 18:59 06:59 18:59 Intake Total 2080 680 Output Total 500 1450 Balance 1580 -770 Weight 106 kg Intake: Oral 2080 680 Output: Urine 500 1450 Other: Voiding Method External Catheter # Voids 3 # Bowel Movements 1 - Labs CBC & Chem 7: 06/04/22 06:47 06/04/22 06:47 Labs: Abnormal Lab Results - Last 24 Hours (Table) 06/04/22 Range/Units 06:47 Sodium 136 L (137-145) mmol/L BUN 36 H (7-17) mg/dL Creatinine 1.65 H (0.52-1.04) mg/dL Calcium 7.9 L (8.4-10.2) mg/dL Total Protein 5.4 L (6.3-8.2) g/dL Albumin 2.6 L (3.5-5.0) g/dL
[2022-06-05 10:16] LABS: African American GFR (CKD) 38 (>60 ml/min/1.73 sqM); Anion Gap 7 mmol/L; Blood Urea Nitrogen 35 mg/dL (7-17); Carbon Dioxide 31 mmol/L (22-30); Chloride 100 mmol/L (98-107); Glucose 116 mg/dL (74-99); Magnesium 1.8 mg/dL (1.6-2.3); Non-African American GFR(CKD) 33 (>60 ml/min/1.73 sqM); Potassium 3.7 mmol/L (3.5-5.1); Sodium 138 mmol/L (137-145)
[2022-06-05] MEDS: IPRATROPIUM-ALBUTEROL 3 ML NEB INHALATION SCH ×4 (10:25→21:20)
--- NOTE | 2022-06-05 12:50 | P.PN ---
Subjective Progress Note Date: 06/05/22 Principal diagnosis: Shortness of breath. I'm seeing this patient in new consultation today 06/01/2022 in the intensive care unit for a pulmonary embolism. Patient is a 77-year-old white female with past medical history significant for previous pulmonary embolism, hypertension, and is a lifelong nonsmoker. She also has a family history of pulmonary embolism, her father "had a blood clot in the lung". Patient was taking Eliquis for her previous pulmonary embolism. Patient stopped taking her medications approximately 6 months ago due to financial constraints. Patient started to experience shortness of breath over the last couple days, and came to the emergency room yesterday. Denies any fever, cough, chest pain, lightheadedness, syncope. D-dimer was 17.31. Follow-up chest CTA demonstrated saddle pulmonary embolism with multiple additional subsegmental pulmonary emboli bilaterally. There was evidence of right heart strain demonstrated. There is also moderate size left pleural effusion with interlobular septal thickening and cardiomegaly. Troponins are elevated at 0.085. NT proBNP 18,000. Patient does have an echocardiogram scheduled for the morning. Patient is currently sitting up in bed, on 3 L nasal cannula, in no acute distress. Currently has high-density heparin infusion per protocol. A PTT is therapeutic. ECG shows normal sinus rhythm with left bundle branch block. CBC on arrival showed WBC count 11.4, hemoglobin 14.2, hematocrit 43, platelets 220,000. Patient's BMP shows sodium 140, potassium 4.6, chloride 106, serum CO2 27, BMI 21, creatinine 1.17, glucose 123. Patient also has Lasix 40 mg twice a day. No IV maintenance fluids infusing. Vital signs are stable. The patient is seen today 06/02/2022 in follow-up in the intensive care unit. She is currently sitting up in bed. Awake alert no acute distress. She is maintaining O2 saturations in the 90s on 5 L/m per nasal cannula. She remains on heparin drip. Doppler of the lower extremities did reveal a left lower extremity DVT. No evidence of DVT on the right. Computed tomography scan of the abdomen and pelvis revealed prominent fluid seen throughout the abdominal and pelvis pannus, associated with cutaneous thickening. Dense left lower lung consolidation with surrounding pleural effusion. White count 9.1. Hemoglobin 12.7. Platelets 195. Sodium 138. Potassium 3.8. Bicarb 32. BUN 27. Creatinine 1.51. Glucose 92. She is continued on Lasix 40 mg IV every 12 hours. Currently in a -1.2 L balance. She she decided not to go ahead with the EKOS procedure. The patient seen today 06/03/2022 in follow-up in the intensive care unit. She is currently sitting up in bed. Awake and alert in no acute distress. Maintaining O2 saturations in the 90s on 4 L/m per nasal cannula. She does have home oxygen. No chest pain, palpitations, cough or congestion. No hemoptysis. She is continued on anticoagulation in the form of Eliquis. Remains on broncho dilators. IV diuretics. Currently in a negative balance. No new labs today. The patient is seen today 06/04/2022 in follow-up on the regular medical floor. She is currently sitting up in a chair at the bedside. Awake and alert in no acute distress. Maintaining good O2 saturations in the 90s on 4 L/m per nasal cannula. Denies any shortness of breath, cough or congestion. No hemoptysis. No chest pain or palpitations. She has been transitioned to Eliquis. Remains on IV diuretics. Remains on bronchodilators. She is currently in a positive balance. White count 7.2. Hemoglobin 12.0. Platelets 185. Sodium 136. Potassium 3.6. Bicarb 30. BUN 36. Creatinine 1.65. Progress note dated 06/05/2022. The patient is seen today in room 478. She remains on O2 at 4 L. We have converted her to a factor X a inhibitor for her blood thinner. The patient is not receiving any IV fluids. Clinically she is doing well. She sitting in the chair next to the bed. She denies any chest pain or chest discomfort. Denies any shortness of breath, cough, wheezing, or phlegm production. Labs today include a sodium 138, potassium 3.7, chlorides 100, CO2 31, BUN 35, and creatinine 1.53. Her calcium was 8. The patient was initially in the intensive care unit, and the plan was to possibly do ultrasound disruption of the clot, with catheter directed TPA. Once the patient heard about the procedure, she decided not to agree to it. Objective - Vital Signs Vital signs: Vital Signs Temp 98.4 F 06/05/22 07:21 Pulse 78 06/05/22 10:39 Resp 19 06/05/22 07:21 BP 108/61 06/05/22 07:21 Pulse Ox 97 06/05/22 10:26 FiO2 Intake & Output 06/04/22 06/05/22 06/05/22 18:59 06:59 18:59 Intake Total 2080 680 Output Total 500 1450 Balance 1580 -770 Weight 106 kg Intake: Oral 2080 680 Output: Urine 500 1450 Other: Voiding Method External Catheter External Catheter # Voids 3 # Bowel Movements 1 - Exam No acute distress, oriented 3. No respiratory difficulty or distress. Currently on 4 L. No conversational dyspnea. HEENT examination is grossly unremarkable. Mucous membranes are moist. No oral lesions. Neck supple. Full range of motion. No adenopathy thyromegaly or neck vein distention. Cardiovascular examination reveals regular rhythm rate. S1-S2 normal. No S3 or S4. No discernible murmur noted. Heart sounds are distant. Heart rate 70 bpm. Lungs reveal mostly clear breath sounds. Minimal scattered rhonchi are noted. Breath sounds are equal bilaterally. No adventitious lung sounds including wheezes or crackles. Saturations are 97%. Abdomen soft bowel sounds are heard. No masses or tenderness. Extremities are intact. No cyanosis clubbing or edema. Skin is without rash or lesion. Neurologic examination is brief but nonfocal. - Labs CBC & Chem 7: 06/04/22 06:47 06/05/22 09:12 Labs: Abnormal Lab Results - Last 24 Hours (Table) 06/05/22 Range/Units 09:12 Carbon Dioxide 31 H (22-30) mmol/L BUN 35 H (7-17) mg/dL Creatinine 1.53 H (0.52-1.04) mg/dL Glucose 116 H (74-99) mg/dL Calcium 8.0 L (8.4-10.2) mg/dL Assessment and Plan Assessment: Large saddle pulmonary embolism with evidence of right heart strain and left lower extremity DVT. Patient has history of pulmonary embolism. She was anticoagulated on Eliquis, but has stopped taking her Eliquis due to financial constraints approximately 6 months ago. Patient does have family history of pulmonary embolism. Transitioned to Eliquis. Acute exacerbation of chronic systolic congestive heart failure and ejection fra ction 20-25%, remains on IV diuretics, remains in a negative balance. Moderate left pleural effusion secondary to above. Acute on chronic hypoxemic respiratory failure, currently requiring 4 L nasal cannula secondary to above. She does have home oxygen. Acute kidney injury suspect secondary to diuretics. Hypertension. Morbid obesity with BMI 52.7. Medication noncompliance. Plan: Plan dated 06/05/2022. The patient appears to be relatively stable. He continues on 4 L of oxygen. No IV fluids. The patient has been converted to a factor X a inhibitor for her blood thinner. Labs, x-rays, and medications are reviewed. We will continue to follow the patient make recommendations along the way. Prognosis is guarded. Time with Patient: Less than 30
[2022-06-06] MEDS: LEVOTHYROXINE 100 MCG TAB PO SCH (06:54)
[2022-06-06 08:30] LABS: African American GFR (CKD) 48 (>60 ml/min/1.73 sqM); Anion Gap 5 mmol/L; Blood Urea Nitrogen 36 mg/dL (7-17); Carbon Dioxide 29 mmol/L (22-30); Chloride 101 mmol/L (98-107); Glucose 94 mg/dL (74-99); Non-African American GFR(CKD) 41 (>60 ml/min/1.73 sqM); Potassium 3.9 mmol/L (3.5-5.1); Sodium 135 mmol/L (137-145)
[2022-06-06] MEDS: IPRATROPIUM-ALBUTEROL 3 ML NEB INHALATION SCH ×4 (08:49→21:11)
[2022-06-06] MEDS: ATORVASTATIN 40 MG TAB PO SCH (09:26)
[2022-06-06] MEDS: DAPAGLIFLOZIN PROPANEDIOL 5 MG TABLET PO SCH (09:26)
[2022-06-06] MEDS: FUROSEMIDE 10 MG/ML 4 ML VIAL IV SCH (09:26)
[2022-06-06] MEDS: APIXABAN 5 MG TAB PO SCH ×2 (09:26→21:23)
[2022-06-06] MEDS: PANTOPRAZOLE 40 MG TABLET PO SCH (09:26)
[2022-06-06] MEDS: LOSARTAN 25 MG TAB PO SCH (09:26)
[2022-06-06] MEDS: carvediloL 3.125 MG TAB PO SCH ×2 (09:26→16:57)
[2022-06-06] MEDS: HYDROPHILIC CREAM 180 GM TUBE TOPICAL SCH (09:27)
--- NOTE | 2022-06-06 10:06 | P.PN ---
Subjective Progress Note Date: 06/06/22 HISTORY OF PRESENTING ILLNESS Patient is pleasant 77-year-old female with history of pulmonary embolism, DVT, hypertension, hysterectomy, bradycardia. She presented secondary shortness breath and had not been taking her medications for a few weeks. She was found to be in heart failure and started on diuretics. Additionally CTA showed pulmonary embolism and was started on anticoagulation. [place] not a good candidate for any further intervention. 06/03 Patient had been having intermittent bradycardia. Currently she denies any chest pain or pressure. She is still having some edema and has significant pannus with abdominal edema as well. Echo 05/31 showed EF 20-25% with mention of normal right ventricular size with RVSP of 34. Creatinine has been going up with diuresis with creatinine 1.5 yesterday, creatinine not available today. Some of this may be related to the IV contrast use. 06/04 She has been receiving Lasix 40 mg IV twice a day with good urine output. Blood pressure is borderline 100s to 120s. We therefore will decrease the losartan at 12.5 mg daily. Creatinine up to 1.6 today from 1.5. 06/05 Patient is seen today in follow-up on the [facility] floor. Yesterday, losartan was decreased due to acute kidney injury. Patient's blood has been drawn this morning but report is pending at the time of this dictation. She is currently on IV Lasix 40 mg daily and diuresing well. I&O and Weights appear to be in accurate. Heart rate has been in the 70s and 80s, blood pressure 108/61, pulse ox 96% on 4 L nasal cannula. 06/06 Patient is seen immediately following bed bath. She has shortness of breath with minimal movement within the bed. She denies having chest pain. She is currently on Lasix 40 mg IV daily. Sodium 135, potassium 3.9, BUN 36 creatinine 1.26 which is improved renal function from yesterday which was a BUN of 35 creatinine 1.53. Patient remains on 4 L of oxygen with pulse ox of 97%. Heart rate is in the 80s, blood pressure 113/59. PHYSICAL EXAMINATION Vital signs reviewed. CONSTITUTIONAL: No apparent distress, obese HEENT: Head is normocephalic. Pupils are equal, round. Sclerae anicteric. Mucous membranes of the mouth are moist. CHEST EXAMINATION: Decreased breath sounds bilateral bases HEART EXAMINATION: Regular rate and rhythm. S1, S2 heard. No murmurs, gallops or rub. ABDOMEN: Soft, nontender. Large abdominal apron EXTREMITIES: 2+ peripheral pulses, no lower extremity edema and no calf tenderness. NEUROLOGIC EXAMINATION: Patient is awake, alert and oriented x3. ASSESSMENT 1. Acute on chronic systolic heart failure 2. Cardiomyopathy EF 20-25% 3. Saddle pulmonary embolism 4. Noncompliance 5. Hypertension 6. Acute kidney injury, may be related to contrast use with CTA 7. Morbid obesity 8. Bradycardia mainly at night appears asymptomatic PLAN Continue patient on IV Lasix 40 mg daily Continue other cardiac medications Continue anticoagulation with eliquis Optimize heart failure regimen as able. Further recommendations to follow. Nurse practitioner note has been reviewed, I agree with the documented findings and plan of care. Patient was seen and examined. Objective - Vital Signs Vital signs: Vital Signs Temp 97.7 F 06/06/22 07:33 Pulse 85 06/06/22 09:01 Resp 18 06/06/22 07:33 BP 113/59 06/06/22 07:33 Pulse Ox 97 06/06/22 08:49 FiO2 Intake & Output 06/05/22 06/06/22 06/06/22 18:59 06:59 18:59 Output Total 300 150 Balance -300 -150 Weight 109 kg Output: Urine 300 150 Other: Voiding Method External Catheter External Catheter # Voids 1 - Labs CBC & Chem 7: 06/04/22 06:47 06/06/22 07:29 Labs: Abnormal Lab Results - Last 24 Hours (Table) 06/05/22 06/06/22 Range/Units 09:12 07:29 Sodium 135 L (137-145) mmol/L Carbon Dioxide 31 H (22-30) mmol/L BUN 35 H 36 H (7-17) mg/dL Creatinine 1.53 H 1.26 H (0.52-1.04) mg/dL Glucose 116 H (74-99) mg/dL Calcium 8.0 L 8.0 L (8.4-10.2) mg/dL
--- NOTE | 2022-06-06 12:17 | P.PN ---
Subjective Progress Note Date: 06/06/22 I'm seeing this patient in new consultation today 06/01/2022 in the intensive care unit for a pulmonary embolism. Patient is a 77-year-old white female with past medical history significant for previous pulmonary embolism, hypertension, and is a lifelong nonsmoker. She also has a family history of pulmonary embolism, her father "had a blood clot in the lung". Patient was taking Eliquis for her previous pulmonary embolism. Patient stopped taking her medications approximately 6 months ago due to financial constraints. Patient started to experience shortness of breath over the last couple days, and came to the emergency room yesterday. Denies any fever, cough, chest pain, lightheadedness, syncope. D-dimer was 17.31. Follow-up chest CTA demonstrated saddle pulmonary embolism with multiple additional subsegmental pulmonary emboli bilaterally. There was evidence of right heart strain demonstrated. There is also moderate size left pleural effusion with interlobular septal thickening and cardiomegaly. Troponins are elevated at 0.085. NT proBNP 18,000. Patient does have an echocardiogram scheduled for the morning. Patient is currently sitting up in bed, on 3 L nasal cannula, in no acute distress. Currently has high-density heparin infusion per protocol. A PTT is therapeutic. ECG shows normal sinus rhythm with left bundle branch block. CBC on arrival showed WBC count 11.4, he moglobin 14.2, hematocrit 43, platelets 220,000. Patient's BMP shows sodium 140, potassium 4.6, chloride 106, serum CO2 27, BMI 21, creatinine 1.17, glucose 123. Patient also has Lasix 40 mg twice a day. No IV maintenance fluids infusing. Vital signs are stable. The patient is seen today 06/02/2022 in follow-up in the intensive care unit. She is currently sitting up in bed. Awake alert no acute distress. She is maintaining O2 saturations in the 90s on 5 L/m per nasal cannula. She remains on heparin drip. Doppler of the lower extremities did reveal a left lower extremity DVT. No evidence of DVT on the right. Computed tomography scan of the abdomen and pelvis revealed prominent fluid seen throughout the abdominal and pelvis pannus, associated with cutaneous thickening. Dense left lower lung consolidation with surrounding pleural effusion. White count 9.1. Hemoglobin 12.7. Platelets 195. Sodium 138. Potassium 3.8. Bicarb 32. BUN 27. Creatinine 1.51. Glucose 92. She is continued on Lasix 40 mg IV every 12 hours. Currently in a -1.2 L balance. She she decided not to go ahead with the EKOS procedure. The patient seen today 06/03/2022 in follow-up in the intensive care unit. She is currently sitting up in bed. Awake and alert in no acute distress. Maintaining O2 saturations in the 90s on 4 L/m per nasal cannula. She does have home oxygen. No chest pain, palpitations, cough or congestion. No hemoptysis. She is continued on anticoagulation in the form of Eliquis. Remains on bronchodilators. IV diuretics. Currently in a negative balance. No new labs today. The patient is seen today 06/04/2022 in follow-up on the regular medical floor. She is currently sitting up in a chair at the bedside. Awake and alert in no acute distress. Maintaining good O2 saturations in the 90s on 4 L/m per nasal cannula. Denies any shortness of breath, cough or congestion. No hemoptysis. No chest pain or palpitations. She has been transitioned to Eliquis. Remains on IV diuretics. Remains on bronchodilators. She is currently in a positive balance. White count 7.2. Hemoglobin 12.0. Platelets 185. Sodium 136. Potassium 3.6. Bicarb 30. BUN 36. Creatinine 1.65. Progress note dated 06/05/2022. The patient is seen today in room 478. She remains on O2 at 4 L. We have converted her to a factor X a inhibitor for her blood thinner. The patient is not receiving any IV fluids. Clinically she is doing well. She sitting in the chair next to the bed. She denies any chest pain or chest discomfort. Denies any shortness of breath, cough, wheezing, or phlegm production. Labs today include a sodium 138, potassium 3.7, chlorides 100, CO2 31, BUN 35, and creatinine 1.53. Her calcium was 8. The patient was initially in the intensive care unit, and the plan was to possibly do ultrasound disruption of the clot, with catheter directed TPA. Once the patient heard about the procedure, she decided not to agree to it. On today's evaluation of 06/06/2022, the patient is back to her baseline oxygen requirement of 3 L nasal cannula. She is also on home oxygen. The patient has been hospital for worsening shortness of breath. She had DVT and pulmonary embolism. The patient underwent catheter directed thrombolytic therapy. She is also known to have severe systolic heart failure with an ejection fraction of 20-25%. There is severe reduction of the global LV function. The echocardiogram showed only mild pulmonary hypertension. No significant RV strain pattern. CAT scan of the abdomen and pelvis showed abdominal and pelvic pannus along with cutaneous thickening and left lower lobe consolidation/effusion. On today's blood work, BUN is at 36 with a creatinine of 1.26, renal function is improving and a sodium level is at 135. The patient is currently on antibiotic initially with Eliquis 10 mg by mouth twice a day. She is also on Lasix 40 mg IV every 24 hours pH is on Coreg which she is able to tolerate well. She is in negative fluid balance and there has been significant reduction in her body weight while being on Lasix. Objective - Vital Signs Vital signs: Vital Signs Temp 97.7 F 06/06/22 07:33 Pulse 82 06/06/22 10:19 Resp 18 06/06/22 10:19 BP 113/59 06/06/22 07:33 Pulse Ox 97 06/06/22 08:49 FiO2 Intake & Output 06/05/22 06/06/22 06/06/22 18:59 06:59 18:59 Output Total 300 150 Balance -300 -150 Weight 109 kg Output: Urine 300 150 Other: Voiding Method External Catheter External Catheter External Catheter # Voids 1 - Exam No acute distress, oriented 3. No respiratory difficulty or distress. Currently on 3 L. No conversational dyspnea. HEENT examination is grossly unremarkable. Mucous membranes are moist. No oral lesions. Neck supple. Full range of motion. No adenopathy thyromegaly or neck vein distention. Cardiovascular examination reveals regular rhythm rate. S1-S2 normal. No S3 or S4. No discernible murmur noted. Heart sounds are distant. Lungs reveal mostly clear breath sounds. Minimal scattered rhonchi are noted. Breath sounds are equal bilaterally. No adventitious lung sounds including wheezes or crackles. . Abdomen soft bowel sounds are heard. No masses or tenderness. Extremities are intact. No cyanosis clubbing or edema. Skin is without rash or lesion. Neurologic examination is brief but nonfocal. - Labs CBC & Chem 7: 06/04/22 06:47 06/06/22 07:29 Labs: Abnormal Lab Results - Last 24 Hours (Table) 06/06/22 Range/Units 07:29 Sodium 135 L (137-145) mmol/L BUN 36 H (7-17) mg/dL Creatinine 1.26 H (0.52-1.04) mg/dL Calcium 8.0 L (8.4-10.2) mg/dL Assessment and Plan Plan: Large saddle pulmonary embolism with evidence of right heart strain and left lower extremity DVT. Patient has history of pulmonary embolism. She was anticoagulated on Eliquis, but has stopped taking her Eliquis due to financial constraints approximately 6 months ago. Patient does have family history of pulmonary embolism. Transitioned to Eliquis. Acute exacerbation of chronic systolic congestive heart failure and ejection fraction 20-25%, remains on IV diuretics, remains in a negative balance. Moderate left pleural effusion secondary to above. Acute on chronic hypoxemic respiratory failure, currently requiring 4 L nasal cannula secondary to above. She does have home oxygen. His oxygen patient is improved and the patient is back to 3 L nasal cannula which is her baseline Acute kidney injury suspect secondary to diuretics. The renal function is improving and the creatinine is down to 1.26 Hypertension. Morbid obesity with BMI 52.7. Medication noncompliance. Plan The patient has chronic hypoxic respiratory failure and she is back on oxygen at 3 L nasal cannula Continue Lasix Continue anticoagulation with Eliquis The patient is being considered for transfer to [facility]/either [facility] or [facility] manner
--- NOTE | 2022-06-06 15:34 | P.GSCN ---
History of Present Illness Consult date: 06/06/22 History of present illness: CHIEF COMPLAINT: Shortness of breath HISTORY OF PRESENT ILLNESS: This is a 77-year-old female who presented to the hospital with complaints of shortness of breath and was found to have a large saddle pulmonary embolism with evidence of right heart strain and left lower extremity DVT. She does have a history of PE. She had stopped taking her blood thinner due to financial constraints. Patient is currently on Eliquis. Also had evidence of an acute CHF exacerbation with a known EF of 20-25% and is on IV diuretics. Patient has history of morbid obesity. She has a very large pannus surgical service has been consulted for evaluation of panniculectomy. Patient reports at one point she was weighing 300 pounds and has lost weight on purpose and now reports weighing about 260 pounds. Patient reports that the pannus is very burdensome. It gets in the way of getting dressed. She has difficulty with close. He gets hooked on things. She has issues with sores and skin irritation. She does currently have a cortisol is ulcer underneath the pannus on the left side. PAST MEDICAL HISTORY: See below PAST SURGICAL HISTORY: See below MEDICATIONS: See below ALLERGIES: See below SOCIAL HISTORY: No illicit drug use. REVIEW OF SYSTEMS: CONSTITUTIONAL: Denies fever or chills. HEENT: Denies blurred vision, vision changes, or eye pain. Denies hemoptysis CARDIOVASCULAR: Denies chest pain or pressure. RESPIRATORY: No shortness of breath. GASTROINTESTINAL: See HPI for pertinent findings HEMATOLOGIC: Denies bleeding disorders. GENITOURINARY: Denies any blood in urine or increased urinary frequency. SKIN: Denies pruitis. Denies rash. PHYSICAL EXAM: VITAL SIGNS: Reviewed GENERAL: Well-developed in no acute distress. HEENT: No sclera icterus. Extraocular movements grossly intact. Moist buccal mucosa. Head is atraumatic, normocephalic. No nasal drainage. ABDOMEN: Soft. Obese. Nondistended. Nontender. Large pannus with some skin irritation noted in the right abdomen a Underneath the pannus on the left side quarter-sized ulceration with granulation tissue. NEUROLOGIC: Alert and oriented. Cranial nerves II through XII grossly intact. LABORATORY DATA: WBC is 7.2 hgb 12 platelets 185 Sodium 135 potassium 3.9 creatinine 1.26 IMAGING: Computed tomography scan from 06/01/2022 of abdomen and pelvis prominent volume of fluid seen throughout the abdomen and pelvic pannus associated with cutaneous thickening. Dense left lower lobe consolidation with surrounding pleural effusion. ASSESSMENT: 1. Large pannus with ulceration 2. Morbid obesity 3. Large saddle pulmonary embolism with right heart strain and left lower extremity DVT 4. Acute CHF exacerbation PLAN: -Patient will require medical clearance before proceeding with a panniculectomy -Continue to follow -Continue supportive care -Continue local wound care to the abdomen ulceration Thank you for this consultation Physician [facility] note has been reviewed by physician. Signing provider agrees with the documented findings, assessment, and plan of care. Past Medical History Past Medical History: Hypertension, Pulmonary Embolus (PE) Additional Past Medical History / Comment(s): PE in lung, hypertention, cellulitis, mass on abdomen History of Any Multi-Drug Resistant Organisms: None Reported Past Surgical History: Hysterectomy Additional Past Surgical History / Comment(s): hysterectomy 9 years ago, arm tumor removal 15 years ago Past Anesthesia/Blood Transfusion Reactions: No Reported Reaction Past Psychological History: No Psychological Hx Reported Smoking Status: Never smoker Past Alcohol Use History: None Reported Additional Past Alcohol Use History / Comment(s): Patient is a lifelong nonsmoker, no illicit drug use, no alcohol use. She lives at home with her son Bridger. 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. Past Drug Use History: None Reported - Past Family History Mother Family Medical History: Cancer, Diabetes Mellitus Father Family Medical History: Pulmonary Embolus Additional Family Medical History / Comment(s): PE in lung, hip replacement Medications and Allergies Home Medications Medication Instructions Recorded Confirmed Type Apixaban [Eliquis Starter Pack 5 - 10 mg PO DIRECTED 30 Days 06/02/22 Rx (for VTE)] #1 each Allergies Allergy/AdvReac Type Severity Reaction Status Date / Time No Known Allergies Allergy Verified 05/31/22 10:54 Surgical - Exam Vital Signs Temp Pulse Resp BP Pulse Ox 97.4 F L 89 22 162/94 98 05/31/22 08:30 05/31/22 08:30 05/31/22 08:30 05/31/22 08:30 05/31/22 08:30 Results - Labs 06/04/22 06:47 06/06/22 07:29 Abnormal Lab Results - Last 24 Hours (Table) 06/06/22 Range/Units 07:29 Sodium 135 L (137-145) mmol/L BUN 36 H (7-17) mg/dL Creatinine 1.26 H (0.52-1.04) mg/dL Calcium 8.0 L (8.4-10.2) mg/dL Diabetes panel 06/06/22 Range/Units 07:29 Sodium 135 L (137-145) mmol/L Potassium 3.9 (3.5-5.1) mmol/L Chloride 101 (98-107) mmol/L Carbon Dioxide 29 (22-30) mmol/L BUN 36 H (7-17) mg/dL Creatinine 1.26 H (0.52-1.04) mg/dL Glucose 94 (74-99) mg/dL Calcium 8.0 L (8.4-10.2) mg/dL Calcium panel 06/06/22 Range/Units 07:29 Calcium 8.0 L (8.4-10.2) mg/dL Pituitary panel 06/06/22 Range/Units 07:29 Sodium 135 L (137-145) mmol/L Potassium 3.9 (3.5-5.1) mmol/L Chloride 101 (98-107) mmol/L Carbon Dioxide 29 (22-30) mmol/L BUN 36 H (7-17) mg/dL Creatinine 1.26 H (0.52-1.04) mg/dL Glucose 94 (74-99) mg/dL Calcium 8.0 L (8.4-10.2) mg/dL Adrenal panel 06/06/22 Range/Units 07:29 Sodium 135 L (137-145) mmol/L Potassium 3.9 (3.5-5.1) mmol/L Chloride 101 (98-107) mmol/L Carbon Dioxide 29 (22-30) mmol/L BUN 36 H (7-17) mg/dL Creatinine 1.26 H (0.52-1.04) mg/dL Glucose 94 (74-99) mg/dL Calcium 8.0 L (8.4-10.2) mg/dL
--- NOTE | 2022-06-06 20:30 | CDI ---
Documentation Clarification Form Date: 06/06/2022 8:28:59 PM From: Pau Drake RN, CCDS Email: [email or web address] Admit Date: 05/31/2022 11:31:00 AM Patient Name: Li Santamaria Visit Number: [id number] Discharge Date: ATTENTION: The Clinical Documentation Specialists (CDI) and [facility] Coding Staff appreciate your assistance in clarifying documentation. Please respond to the clarification below the line at the bottom and electronically sign. The CDI & [facility] Coding staff will review the response and follow-up if needed. Please note: Queries are made part of the Legal Health Record. If you have any questions, please contact the author of this message via ITS. Dr. Howie Ching Right heart strain is documented in the progress notes. Additional clarification is requested. History/Risk Factors: Pulmonary embolism but stopped taking Eliquis d/t financial constraints approximately 6 months ago. Admitted with CHF and BL saddle PE. Clinical Indicators: Pulmonary: "Large saddle pulmonary embolism with evidence of right heart strain." 05/31 CTA: Saddle pulmonary embolism with multiple additional segmental subsegmental pulmonary emboli bilaterally. Findings suggest right heart strain. 05/31 BNP: 32919 05/31 Echo results: EF 20-25%. No right heart strain noted. Mild tricuspid regurgitation. Mild pulmonary hypertension. Large pleural effusion. 05/31 CXR: Cardiomegaly with superimposed pulmonary vascular congestion correlate with serum BNP. Treatment: IV Lasix 40mg daily. 4L NC. Losartan 12.5mg daily. Optimize heart failure regimen as able. Please clarify if there is an additional diagnosis: [ ] Acute Cor pulmonale due to pulmonary embolism [ ] Acute Cor pulmonale due to (please specify) [ ] Chronic Cor pulmonale due to Pulmonary Hypertension [ ] Chronic Cor pulmonale due to (please specify) [ ] Unable to determine [ ] Other, please specify MTDD
--- NOTE | 2022-06-06 23:19 | PN ---
PROGRESS NOTE SUBJECTIVE: This 77-year-old white female came in with bilateral pulmonary embolism, lower extremity DVT, ran out of all her medicines for heart failure. She has severe pannus. CAT scan of the abdomen and pelvis showed no mass. She wants it surgically removed, get surgical consult that can do, maybe a plastic surgeon can be referred to her. She has acute on chronic respiratory failure secondary to COPD, diastolic heart failure, bilateral PE and DVT, morbid obesity, large pannus in abdomen which is chronic with her. Get surgical consult for this and wait for further orders per surgery. Continue with heparin. Switch her over to Eliquis. Get PT, OT involved. She wants to go to [facility] for rehab. Continue current treatment. PROGNOSIS: Guarded. MMODL / IJN: [id number] /
--- NOTE | 2022-06-07 02:19 | PN ---
PROGRESS NOTE Acute cor pulmonale secondary to pulmonary embolism. MMODL / IJN: [id number] /
--- NOTE | 2022-06-07 02:55 | PN ---
PROGRESS NOTE SUBJECTIVE: This is a 77-year-old white female, surgical consultation for pannus surgery has been done by Dr. Cramer who operated on this patient. Once cleared, she will have to be on anticoagulants for 3-6 months prior to surgery due to pulmonary embolism and DVTs. However, CHF medications have been reordered, oxygen has been reordered, on bronchodilators. She has severe systolic heart failure, ejection fraction 20% to 25%. She has been off all her medicines. She is on Coreg, Lasix. Vital signs are reviewed. She is sitting up in bed giving the appropriate answers. She appears to be breathing about normal. Creatinine is 1.26, BUN is 36. Sodium 135. She has modest pleural perfusion, acute exacerbation of chronic systolic, 20% to 25% ejection fraction. Bilateral pulmonary embolism and DVT left leg. Continue on Eliquis. IMPRESSION: Acute hypoxic respiratory failure, bilateral saddle pulmonary embolisms. Remains on 4 L oxygen. She wants to go to [facility] for physical therapy. Acute kidney injury due to possible diuretics, hypertension, morbid obesity. Continue on current oxygen, Lasix, breathing treatments, Eliquis, ECF at [facility]. PROGNOSIS: Extremely guarded. Pannus surgery outpatient down the road. MMODL / IJN: [id number] /
[2022-06-07] MEDS: LEVOTHYROXINE 100 MCG TAB PO SCH (05:59)
[2022-06-07] MEDS: PANTOPRAZOLE 40 MG TABLET PO SCH (05:59)
[2022-06-07] MEDS: IPRATROPIUM-ALBUTEROL 3 ML NEB INHALATION SCH ×4 (09:11→21:58)
[2022-06-07] MEDS: ATORVASTATIN 40 MG TAB PO SCH (09:12)
[2022-06-07] MEDS: DAPAGLIFLOZIN PROPANEDIOL 5 MG TABLET PO SCH (09:12)
[2022-06-07] MEDS: HYDROPHILIC CREAM 180 GM TUBE TOPICAL SCH (09:12)
[2022-06-07] MEDS: APIXABAN 5 MG TAB PO SCH ×2 (09:12→20:12)
[2022-06-07] MEDS: LOSARTAN 25 MG TAB PO SCH (09:12)
[2022-06-07] MEDS: carvediloL 3.125 MG TAB PO SCH ×2 (09:12→17:59)
[2022-06-07] MEDS: FUROSEMIDE 10 MG/ML 4 ML VIAL IV SCH (10:36)
--- NOTE | 2022-06-07 10:42 | P.PN ---
Subjective Progress Note Date: 06/07/22 HISTORY OF PRESENTING ILLNESS Patient is pleasant 77-year-old female with history of pulmonary embolism, DVT, hypertension, hysterectomy, bradycardia. She presented secondary shortness breath and had not been taking her medications for a few weeks. She was found to be in heart failure and started on diuretics. Additionally CTA showed pulmonary embolism and was started on anticoagulation. [place] not a good candidate for any further intervention. 06/03 Patient had been having intermittent bradycardia. Currently she denies any chest pain or pressure. She is still having some edema and has significant pannus with abdominal edema as well. Echo 05/31 showed EF 20-25% with mention of normal right ventricular size with RVSP of 34. Creatinine has been going up with diuresis with creatinine 1.5 yesterday, creatinine not available today. Some of this may be related to the IV contrast use. 06/04 She has been receiving Lasix 40 mg IV twice a day with good urine output. Blood pressure is borderline 100s to 120s. We therefore will decrease the losartan at 12.5 mg daily. Creatinine up to 1.6 today from 1.5. 06/05 Patient is seen today in follow-up on the [facility] floor. Yesterday, losartan was decreased due to acute kidney injury. Patient's blood has been drawn this morning but report is pending at the time of this dictation. She is currently on IV Lasix 40 mg daily and diuresing well. I&O and Weights appear to be in accurate. Heart rate has been in the 70s and 80s, blood pressure 108/61, pulse ox 96% on 4 L nasal cannula. 06/06 Patient is seen immediately following bed bath. She has shortness of breath with minimal movement within the bed. She denies having chest pain. She is currently on Lasix 40 mg IV daily. Sodium 135, potassium 3.9, BUN 36 creatinine 1.26 which is improved renal function from yesterday which was a BUN of 35 creatinine 1.53. Patient remains on 4 L of oxygen with pulse ox of 97%. Heart rate is in the 80s, blood pressure 113/59. 06/07 Patient is seen today in follow-up. She is found sitting up in recliner and had just finished breakfast. She denies having any shortness of breath at rest. She continues to diurese well on Lasix 40 mg IV daily. Blood pressure 104/66, heart rate in the 80s. Patient is expecting discharge to rehab. Note a surg ical consult was added for panniculectomy. PHYSICAL EXAMINATION Vital signs reviewed. CONSTITUTIONAL: No apparent distress, obese HEENT: Head is normocephalic. Pupils are equal, round. Sclerae anicteric. Mucous membranes of the mouth are moist. CHEST EXAMINATION: Decreased breath sounds bilateral bases HEART EXAMINATION: Regular rate and rhythm. S1, S2 heard. No murmurs, gallops or rub. ABDOMEN: Soft, nontender. Large abdominal apron EXTREMITIES: 2+ peripheral pulses, no lower extremity edema and no calf tenderness. NEUROLOGIC EXAMINATION: Patient is awake, alert and oriented x3. ASSESSMENT 1. Acute on chronic systolic heart failure 2. Cardiomyopathy EF 20-25% 3. Saddle pulmonary embolism 4. Noncompliance 5. Hypertension 6. Acute kidney injury, may be related to contrast use with CTA 7. Morbid obesity 8. Bradycardia mainly at night appears asymptomatic PLAN Transition IV Lasix to oral 40 mg daily Continue other cardiac medications Continue anticoagulation with eliquis Optimize heart failure regimen as able. Further recommendations to follow. Nurse practitioner note has been reviewed, I agree with the documented findings and plan of care. Patient was seen and examined. Objective - Vital Signs Vital signs: Vital Signs Temp 98.0 F 06/07/22 07:45 Pulse 80 06/07/22 09:25 Resp 16 06/07/22 07:45 BP 104/66 06/07/22 07:45 Pulse Ox 97 06/07/22 07:45 FiO2 Intake & Output 06/06/22 06/07/22 06/07/22 18:59 06:59 18:59 Intake Total 2160 Output Total 2300 300 Balance -140 -300 Weight 85.5 kg Intake: Oral 2160 Output: Urine 2300 300 Other: Voiding Method External Catheter # Voids 1 2 # Bowel Movements 1 1 - Labs CBC & Chem 7: 06/04/22 06:47 06/06/22 07:29
[2022-06-07 10:54] LABS: Basophils # (A) 0.03 X 10*3/uL (0.00-0.10); Basophils % (A) 0.5 %; Eosinophils # (A) 0.38 X 10*3/uL (0.04-0.35); HCT 36.5 % (37.2-46.3); HGB 11.3 g/dL (12.0-15.0); Immature Grans, Automated 0.3 %; Lymphocytes # (A) 0.97 X 10*3/uL (0.90-5.00); Lymphocytes % (A) 15.3 %; MCH 28.9 pg (27.0-32.0); MCV 93.4 fL (80.0-97.0); Mean Platelet Volume 9.9 fL (9.5-12.2); Monocytes # (A) 0.85 X 10*3/uL (0.20-1.00); Monocytes % (A) 13.4 %; NRBC Per 100 WBC 0 /100 WBCS (0.0-0.0); Neutrophils # (A) 4.11 X 10*3/uL (1.80-7.70); Neutrophils % (A) 64.5 %; Platelet Count 179 X 10*3/uL (140-440); RBC 3.91 X 10*6/uL (4.10-5.20); RDW 14.6 % (11.5-14.5); WBC 6.36 X 10*3/uL (4.50-10.00)
[2022-06-07 11:02] LABS: African American GFR (CKD) 38.8 (60.0-200.0); Albumin 2.9 g/dL (3.8-4.9); Albumin/Globulin Ratio 1.26 (1.60-3.17); BUN/Creat Ratio 23.33 Ratio (12.00-20.00); Calcium 8.4 mg/dL (8.7-10.3); Globulin 2.3 g/dL (1.6-3.3); Non-African American GFR(CKD) 33.5 (60.0-200.0); Total Bilirubin 0.3 mg/dL (0.30-1.20); Total Protein 5.2 g/dL (6.2-8.2)
[2022-06-07 12:31] VITALS: BMI 34.4
--- NOTE | 2022-06-07 14:01 | P.PN ---
Subjective Progress Note Date: 06/07/22 CHIEF COMPLAINT: Large pannus HISTORY OF PRESENT ILLNESS: Patient sitting in bedside chair. No new compl aints. Surgical service following regards to her large pannus. Patient hospitalized for PE and DVT. Afebrile. WBC is 6.36 hgb 11.3 platelets 179 creatinine 1.5 PHYSICAL EXAM: VITAL SIGNS: Reviewed. GENERAL: Well-developed in no acute distress. ABDOMEN: Soft. Nondistended. Nontender. Large pannus NEUROLOGIC: Alert and oriented. Cranial nerves II through XII grossly intact. ASSESSMENT: 1. Large pannus with fat necrosis ulceration 2. Morbid obesity 3. Large saddle pulmonary embolism with right heart strain and left lower extremity DVT 4. Acute CHF exacerbation PLAN: -No plans for panniculectomy during this admission -Patient will require medical clearance before proceeding with panniculectomy -Continue supportive care Physician Physicist [place] note has been reviewed by physician. Signing provider agrees with the documented findings, assessment, and plan of care. Objective - Vital Signs Vital signs: Vital Signs Temp 98.0 F 06/07/22 07:45 Pulse 86 06/07/22 12:01 Resp 16 06/07/22 07:45 BP 104/66 06/07/22 07:45 Pulse Ox 97 06/07/22 07:45 FiO2 Intake & Output 06/06/22 06/07/22 06/07/22 18:59 06:59 18:59 Intake Total 2160 Output Total 2300 300 Balance -140 -300 Weight 85.5 kg 85.5 kg Intake: Oral 2160 Output: Urine 2300 300 Other: Voiding Method External Catheter # Voids 1 2 # Bowel Movements 1 1 - Labs CBC & Chem 7: 06/07/22 05:54 06/07/22 05:54 Labs: Abnormal Lab Results - Last 24 Hours (Table) 06/07/22 06/07/22 Range/Units 05:54 05:54 RBC 3.91 L (4.10-5.20) X 10*6/uL Hgb 11.3 L (12.0-15.0) g/dL Hct 36.5 L (37.2-46.3) % MCHC 31.0 L (32.0-37.0) g/dL RDW 14.6 H (11.5-14.5) % Eosinophils # 0.38 H (0.04-0.35) X 10*3/uL Carbon Dioxide 31.0 H (20.0-27.5) mmol/L Anion Gap 6.00 L (10.00-18.00) mmol/L BUN 35.0 H (9.0-27.0) mg/dL Est GFR (CKD-EPI)AfAm 38.8 L (60.0-200.0) Est GFR (CKD-EPI)NonAf 33.5 L (60.0-200.0) BUN/Creatinine Ratio 23.33 H (12.00-20.00) Ratio Calcium 8.4 L (8.7-10.3) mg/dL Total Protein 5.2 L (6.2-8.2) g/dL Albumin 2.9 L (3.8-4.9) g/dL Albumin/Globulin Ratio 1.26 L (1.60-3.17) g/dL
--- NOTE | 2022-06-07 16:11 | P.PN ---
Subjective Progress Note Date: 06/07/22 I'm seeing this patient in new consultation today 06/01/2022 in the intensive care unit for a pulmonary embolism. Patient is a 77-year-old white female with past medical history significant for previous pulmonary embolism, hypertension, and is a lifelong nonsmoker. She also has a family history of pulmonary embolism, her father "had a blood clot in the lung". Patient was taking Eliquis for her previous pulmonary embolism. Patient stopped taking her medications approximately 6 months ago due to financial constraints. Patient started to experience shortness of breath over the last couple days, and came to the emergency room yesterday. Denies any fever, cough, chest pain, lightheadedness, syncope. D-dimer was 17.31. Follow-up chest CTA demonstrated saddle pulmonary embolism with multiple additional subsegmental pulmonary emboli bilaterally. There was evidence of right heart strain demonstrated. There is also moderate size left pleural effusion with interlobular septal thickening and cardiomegaly. Troponins are elevated at 0.085. NT proBNP 18,000. Patient does have an echocardiogram scheduled for the morning. Patient is currently sitting up in bed, on 3 L nasal cannula, in no acute distress. Currently has high-density heparin infusion per protocol. A PTT is therapeutic. ECG shows normal sinus rhythm with left bundle branch block. CBC on arrival showed WBC count 11.4, he moglobin 14.2, hematocrit 43, platelets 220,000. Patient's BMP shows sodium 140, potassium 4.6, chloride 106, serum CO2 27, BMI 21, creatinine 1.17, glucose 123. Patient also has Lasix 40 mg twice a day. No IV maintenance fluids infusing. Vital signs are stable. The patient is seen today 06/02/2022 in follow-up in the intensive care unit. She is currently sitting up in bed. Awake alert no acute distress. She is maintaining O2 saturations in the 90s on 5 L/m per nasal cannula. She remains on heparin drip. Doppler of the lower extremities did reveal a left lower extremity DVT. No evidence of DVT on the right. Computed tomography scan of the abdomen and pelvis revealed prominent fluid seen throughout the abdominal and pelvis pannus, associated with cutaneous thickening. Dense left lower lung consolidation with surrounding pleural effusion. White count 9.1. Hemoglobin 12.7. Platelets 195. Sodium 138. Potassium 3.8. Bicarb 32. BUN 27. Creatinine 1.51. Glucose 92. She is continued on Lasix 40 mg IV every 12 hours. Currently in a -1.2 L balance. She she decided not to go ahead with the EKOS procedure. The patient seen today 06/03/2022 in follow-up in the intensive care unit. She is currently sitting up in bed. Awake and alert in no acute distress. Maintaining O2 saturations in the 90s on 4 L/m per nasal cannula. She does have home oxygen. No chest pain, palpitations, cough or congestion. No hemoptysis. She is continued on anticoagulation in the form of Eliquis. Remains on bronchodilators. IV diuretics. Currently in a negative balance. No new labs today. The patient is seen today 06/04/2022 in follow-up on the regular medical floor. She is currently sitting up in a chair at the bedside. Awake and alert in no acute distress. Maintaining good O2 saturations in the 90s on 4 L/m per nasal cannula. Denies any shortness of breath, cough or congestion. No hemoptysis. No chest pain or palpitations. She has been transitioned to Eliquis. Remains on IV diuretics. Remains on bronchodilators. She is currently in a positive balance. White count 7.2. Hemoglobin 12.0. Platelets 185. Sodium 136. Potassium 3.6. Bicarb 30. BUN 36. Creatinine 1.65. Progress note dated 06/05/2022. The patient is seen today in room 478. She remains on O2 at 4 L. We have converted her to a factor X a inhibitor for her blood thinner. The patient is not receiving any IV fluids. Clinically she is doing well. She sitting in the chair next to the bed. She denies any chest pain or chest discomfort. Denies any shortness of breath, cough, wheezing, or phlegm production. Labs today include a sodium 138, potassium 3.7, chlorides 100, CO2 31, BUN 35, and creatinine 1.53. Her calcium was 8. The patient was initially in the intensive care unit, and the plan was to possibly do ultrasound disruption of the clot, with catheter directed TPA. Once the patient heard about the procedure, she decided not to agree to it. On today's evaluation of 06/06/2022, the patient is back to her baseline oxygen requirement of 3 L nasal cannula. She is also on home oxygen. The patient has been hospital for worsening shortness of breath. She had DVT and pulmonary embolism. The patient underwent catheter directed thrombolytic therapy. She is also known to have severe systolic heart failure with an ejection fraction of 20-25%. There is severe reduction of the global LV function. The echocardiogram showed only mild pulmonary hypertension. No significant RV strain pattern. CAT scan of the abdomen and pelvis showed abdominal and pelvic pannus along with cutaneous thickening and left lower lobe consolidation/effusion. On today's blood work, BUN is at 36 with a creatinine of 1.26, renal function is improving and a sodium level is at 135. The patient is currently on antibiotic initially with Eliquis 10 mg by mouth twice a day. She is also on Lasix 40 mg IV every 24 hours pH is on Coreg which she is able to tolerate well. She is in negative fluid balance and there has been significant reduction in her body weight while being on Lasix. 06/07/2022, I'm seeing the patient for a follow-up. Patient is stable on 3 L of O2 nasal cannula. She remains on anticoagulation. She was on IV Lasix and she was transitioned to oral Lasix. Doing well. She is less short of breath. She is quite stable and she is also hemodynamically stable. She remains on anticoagulants.Obesity count is at 6.3 with a hemoglobin of 11.3 and the patient has a platelet count of 179. Electrolytes are all within normal limits. The BUN is at 35 with a creatinine of 1.5. Objective - Vital Signs Vital signs: Vital Signs Temp 97.1 F L 06/07/22 14:41 Pulse 79 06/07/22 14:41 Resp 16 06/07/22 14:41 BP 121/71 06/07/22 14:41 Pulse Ox 97 06/07/22 14:41 FiO2 Intake & Output 06/06/22 06/07/22 06/07/22 18:59 06:59 18:59 Intake Total 2160 Output Total 2300 300 Balance -140 -300 Weight 85.5 kg 85.5 kg Intake: Oral 2160 Output: Urine 2300 300 Other: Voiding Method External Catheter External Catheter # Voids 1 2 8 # Bowel Movements 1 1 - Exam No acute distress, oriented 3. No respiratory difficulty or distress. Currently on 3 L. No conversational dyspnea. HEENT examination is grossly unremarkable. Mucous membranes are moist. No oral lesions. Neck supple. Full range of motion. No adenopathy thyromegaly or neck vein distention. Cardiovascular examination reveals regular rhythm rate. S1-S2 normal. No S3 or S4. No discernible murmur noted. Heart sounds are distant. Lungs reveal mostly clear breath sounds. Minimal scattered rhonchi are noted. Breath sounds are equal bilaterally. No adventitious lung sounds including wheezes or crackles. . Abdomen soft bowel sounds are heard. No masses or tenderness. Extremities are intact. No cyanosis clubbing or edema. Skin is without rash or lesion. Neurologic examination is brief but nonfocal. - Labs CBC & Chem 7: 06/07/22 05:54 06/07/22 05:54 Labs: Abnormal Lab Results - Last 24 Hours (Table) 06/07/22 06/07/22 Range/Units 05:54 05:54 RBC 3.91 L (4.10-5.20) X 10*6/uL Hgb 11.3 L (12.0-15.0) g/dL Hct 36.5 L (37.2-46.3) % MCHC 31.0 L (32.0-37.0) g/dL RDW 14.6 H (11.5-14.5) % Eosinophils # 0.38 H (0.04-0.35) X 10*3/uL Carbon Dioxide 31.0 H (20.0-27.5) mmol/L Anion Gap 6.00 L (10.00-18.00) mmol/L BUN 35.0 H (9.0-27.0) mg/dL Est GFR (CKD-EPI)AfAm 38.8 L (60.0-200.0) Est GFR (CKD-EPI)NonAf 33.5 L (60.0-200.0) BUN/Creatinine Ratio 23.33 H (12.00-20.00) Ratio Calcium 8.4 L (8.7-10.3) mg/dL Total Protein 5.2 L (6.2-8.2) g/dL Albumin 2.9 L (3.8-4.9) g/dL Albumin/Globulin Ratio 1.26 L (1.60-3.17) g/dL Assessment and Plan Plan: Large saddle pulmonary embolism with evidence of right heart strain and left lower extremity DVT. Patient has history of pulmonary embolism. She was anticoagulated on Eliquis, but has stopped taking her Eliquis due to financial constraints approximately 6 months ago. Patient does have family history of pulmonary embolism. Transitioned to Eliquis. Acute exacerbation of chronic systolic congestive heart failure and ejection fraction 20-25%, remains on IV diuretics, remains in a negative balance. Moderate left pleural effusion secondary to above. Acute on chronic hypoxemic respiratory failure, currently requiring 4 L nasal cannula secondary to above. She does have home oxygen. His oxygen patient is improved and the patient is back to 3 L nasal cannula which is her baseline Acute kidney injury suspect secondary to diuretics. The renal function is improving and the creatinine is down to 1.26 Hypertension. Morbid obesity with BMI 52.7. Medication noncompliance. Plan Continue weaning FiO2 as tolerated The patient has chronic hypoxic respiratory failure and she is back on oxygen at 3 L nasal cannula Continue Lasix and the patient was switched to oral Lasix and the creatinine is stable at 1.5 Continue anticoagulation with Eliquis The patient is being considered for transfer to [facility]/either [facility] or [facility] manner
[2022-06-07] MEDS: hydrOXYzine HCL 25 MG TAB PO PRN (21:59)
--- NOTE | 2022-06-08 04:29 | PN ---
PROGRESS NOTE SUBJECTIVE: This is a 77-year-old white female, discussed with having pannus surgery in about 3 months. Remains on blood thinners for the period of time for recurrent DVTs. Outpatient surgery concerning breathing has acute on chronic systolic diastolic heart, medications include diuresis, beta blockers. She will be cleared for discharge home, mcc and Eliquis 5 b.i.d. May need surgery on the pannus, will be done in lower abdomen in 3 months. She appears to be stable, will continue to check blood count at the hospital. MMODL / IJN: [id number] /
[2022-06-08] MEDS: PANTOPRAZOLE 40 MG TABLET PO SCH (06:27)
[2022-06-08] MEDS: LEVOTHYROXINE 100 MCG TAB PO SCH (06:27)
[2022-06-08] MEDS: ATORVASTATIN 40 MG TAB PO SCH (08:24)
[2022-06-08] MEDS: LOSARTAN 25 MG TAB PO SCH (08:24)
[2022-06-08] MEDS: DAPAGLIFLOZIN PROPANEDIOL 5 MG TABLET PO SCH (08:25)
[2022-06-08] MEDS: APIXABAN 5 MG TAB PO SCH ×2 (08:25→22:26)
[2022-06-08] MEDS: FUROSEMIDE 40 MG TAB PO SCH (08:25)
[2022-06-08] MEDS: carvediloL 3.125 MG TAB PO SCH ×2 (08:25→17:15)
[2022-06-08] MEDS: HYDROPHILIC CREAM 180 GM TUBE TOPICAL SCH (08:26)
[2022-06-08] MEDS: hydrOXYzine HCL 25 MG TAB PO PRN ×2 (09:24→22:26)
[2022-06-08] MEDS: IPRATROPIUM-ALBUTEROL 3 ML NEB INHALATION SCH ×4 (09:50→21:14)
--- NOTE | 2022-06-08 10:11 | P.PN ---
Subjective Progress Note Date: 06/08/22 HISTORY OF PRESENTING ILLNESS Patient is pleasant 77-year-old female with history of pulmonary embolism, DVT, hypertension, hysterectomy, bradycardia. She presented secondary shortness breath and had not been taking her medications for a few weeks. She was found to be in heart failure and started on diuretics. Additionally CTA showed pulmonary embolism and was started on anticoagulation. [place] not a good candidate for any further intervention. 06/03 Patient had been having intermittent bradycardia. Currently she denies any chest pain or pressure. She is still having some edema and has significant pannus with abdominal edema as well. Echo 05/31 showed EF 20-25% with mention of normal right ventricular size with RVSP of 34. Creatinine has been going up with diuresis with creatinine 1.5 yesterday, creatinine not available today. Some of this may be related to the IV contrast use. 06/04 She has been receiving Lasix 40 mg IV twice a day with good urine output. Blood pressure is borderline 100s to 120s. We therefore will decrease the losartan at 12.5 mg daily. Creatinine up to 1.6 today from 1.5. 06/05 Patient is seen today in follow-up on the [facility] floor. Yesterday, losartan was decreased due to acute kidney injury. Patient's blood has been drawn this morning but report is pending at the time of this dictation. She is currently on IV Lasix 40 mg daily and diuresing well. I&O and Weights appear to be in accurate. Heart rate has been in the 70s and 80s, blood pressure 108/61, pulse ox 96% on 4 L nasal cannula. 06/06 Patient is seen immediately following bed bath. She has shortness of breath with minimal movement within the bed. She denies having chest pain. She is currently on Lasix 40 mg IV daily. Sodium 135, potassium 3.9, BUN 36 creatinine 1.26 which is improved renal function from yesterday which was a BUN of 35 creatinine 1.53. Patient remains on 4 L of oxygen with pulse ox of 97%. Heart rate is in the 80s, blood pressure 113/59. 06/07 Patient is seen today in follow-up. She is found sitting up in recliner and had just finished breakfast. She denies having any shortness of breath at rest. She continues to diurese well on Lasix 40 mg IV daily. Blood pressure 104/66, heart rate in the 80s. Patient is expecting discharge to rehab. Note a surg ical consult was added for panniculectomy. 06/08 patient is seen today on the [facility] floor. She states her breathing seems to be better today and gradually improving slowly.we switch patient to oral Lasix yesterday 40 mg daily. Patient complains of rash to her abdomen and legs that is itchy.heart rate has been in the 70s and 80s, blood pressure 113/66, pulse ox 96% on 3 L nasal cannula.blood work from yesterday revealed hemoglobin 11.3. BUN 35 and creatinine 1.5. Patient plans to go to rehab PHYSICAL EXAMINATION Vital signs reviewed. CONSTITUTIONAL: No apparent distress, obese HEENT: Head is normocephalic. Pupils are equal, round. Sclerae anicteric. Mucous membranes of the mouth are moist. CHEST EXAMINATION: Decreased breath sounds bilateral bases HEART EXAMINATION: Regular rate and rhythm. S1, S2 heard. No murmurs, gallops or rub. ABDOMEN: Soft, nontender. Large abdominal apron EXTREMITIES: 2+ peripheral pulses, no lower extremity edema and no calf tenderness. NEUROLOGIC EXAMINATION: Patient is awake, alert and oriented x3. ASSESSMENT 1. Acute on chronic systolic heart failure 2. Cardiomyopathy EF 20-25% 3. Saddle pulmonary embolism 4. Noncompliance 5. Hypertension 6. Acute kidney injury, may be related to contrast use with CTA 7. Morbid obesity 8. Bradycardia mainly at night appears asymptomatic PLAN Continue oral Lasixl 40 mg daily Continue other cardiac medications Continue anticoagulation with eliquis Patient is cleared from cardiology for discharge and may follow-up with Dr. Chapman in 2 weeks. Nurse practitioner note has been reviewed, I agree with the documented findings and plan of care. Patient was seen and examined. Objective - Vital Signs Vital signs: Vital Signs Temp 99.1 F 06/08/22 07:23 Pulse 86 06/08/22 07:23 Resp 16 06/08/22 07:23 BP 113/66 06/08/22 07:23 Pulse Ox 96 06/08/22 07:23 FiO2 Intake & Output 06/07/22 06/08/22 06/08/22 18:59 06:59 18:59 Output Total 250 Balance -250 Weight 85.5 kg 92.5 kg Output: Urine 250 Other: Voiding Method External Catheter Bedside Commode External Catheter # Voids 3 1 - Labs CBC & Chem 7: 06/07/22 05:54 06/07/22 05:54 Labs: Abnormal Lab Results - Last 24 Hours (Table) 06/07/22 06/07/22 Range/Units 05:54 05:54 RBC 3.91 L (4.10-5.20) X 10*6/uL Hgb 11.3 L (12.0-15.0) g/dL Hct 36.5 L (37.2-46.3) % MCHC 31.0 L (32.0-37.0) g/dL RDW 14.6 H (11.5-14.5) % Eosinophils # 0.38 H (0.04-0.35) X 10*3/uL Carbon Dioxide 31.0 H (20.0-27.5) mmol/L Anion Gap 6.00 L (10.00-18.00) mmol/L BUN 35.0 H (9.0-27.0) mg/dL Est GFR (CKD-EPI)AfAm 38.8 L (60.0-200.0) Est GFR (CKD-EPI)NonAf 33.5 L (60.0-200.0) BUN/Creatinine Ratio 23.33 H (12.00-20.00) Ratio Calcium 8.4 L (8.7-10.3) mg/dL Total Protein 5.2 L (6.2-8.2) g/dL Albumin 2.9 L (3.8-4.9) g/dL Albumin/Globulin Ratio 1.26 L (1.60-3.17) g/dL
--- NOTE | 2022-06-08 13:13 | P.PN ---
Subjective Progress Note Date: 06/08/22 CHIEF COMPLAINT: Large pannus HISTORY OF PRESENT ILLNESS: Patient sitting up in bed. No new complaints. Surgical service following regards to her large pannus. Patient hospitalized for PE and DVT. Afebrile. Patient seen and examined with Dr. cartwright PHYSICAL EXAM: VITAL SIGNS: Reviewed. GENERAL: Well-developed in no acute distress. ABDOMEN: Soft. Nondistended. Nontender. Large pannus NEUROLOGIC: Alert and oriented. Cranial nerves II through XII grossly intact. ASSESSMENT: 1. Large pannus with fat necrosis ulceration 2. Morbid obesity 3. Large saddle pulmonary embolism with right heart strain and left lower extremity DVT 4. Acute CHF exacerbation PLAN: -No plans for panniculectomy during this admission -Patient will require medical clearance before proceeding with panniculectomy outpatient -Patient can be discharge from surgical standpoint when medically clear Physician Varnishing Unit Operator note has been reviewed by physician. Signing provider agrees with the documented findings, assessment, and plan of care. Objective - Vital Signs Vital signs: Vital Signs Temp 99.1 F 06/08/22 07:23 Pulse 84 06/08/22 13:08 Resp 16 06/08/22 10:22 BP 113/66 06/08/22 07:23 Pulse Ox 96 06/08/22 07:23 FiO2 Intake & Output 06/07/22 06/08/22 06/08/22 18:59 06:59 18:59 Intake Total 250 Output Total 250 900 Balance -250 -650 Weight 85.5 kg 92.5 kg Intake: Oral 250 Output: Urine 250 900 Other: Voiding Method External Catheter Bedside Commode Bedside Commode External Catheter External Catheter # Voids 3 1 - Labs CBC & Chem 7: 06/07/22 05:54 06/07/22 05:54
[2022-06-09] MEDS: PANTOPRAZOLE 40 MG TABLET PO SCH (05:58)
[2022-06-09] MEDS: LEVOTHYROXINE 100 MCG TAB PO SCH (05:58)
[2022-06-09 08:15] VITALS: RESP 16
[2022-06-09] MEDS: IPRATROPIUM-ALBUTEROL 3 ML NEB INHALATION SCH ×3 (09:20→16:18)
[2022-06-09] MEDS: DAPAGLIFLOZIN PROPANEDIOL 5 MG TABLET PO SCH (09:26)
[2022-06-09] MEDS: LOSARTAN 25 MG TAB PO SCH (09:26)
[2022-06-09] MEDS: ATORVASTATIN 40 MG TAB PO SCH (09:26)
[2022-06-09] MEDS: FUROSEMIDE 40 MG TAB PO SCH (09:27)
[2022-06-09] MEDS: carvediloL 3.125 MG TAB PO SCH ×2 (09:27→17:44)
[2022-06-09] MEDS: APIXABAN 5 MG TAB PO SCH (09:27)
--- NOTE | 2022-06-09 12:55 | P.PN ---
Subjective Progress Note Date: 06/09/22 CHIEF COMPLAINT: Large pannus HISTORY OF PRESENT ILLNESS: Patient sitting up in bed. No new complaints. Surgical service following regards to her large pannus. Patient hospitalized for PE and DVT. Afebrile. Patient seen and examined with Dr. cartwright PHYSICAL EXAM: VITAL SIGNS: Reviewed. GENERAL: Well-developed in no acute distress. ABDOMEN: Soft. Nondistended. Nontender. Large pannus NEUROLOGIC: Alert and oriented. Cranial nerves II through XII grossly intact. ASSESSMENT: 1. Large pannus with fat necrosis ulceration 2. Morbid obesity 3. Large saddle pulmonary embolism with right heart strain and left lower extremity DVT 4. Acute CHF exacerbation PLAN: -No plans for panniculectomy during this admission -Patient will require medical clearance before proceeding with panniculectomy outpatient -Patient can be discharge from surgical standpoint when medically clear Physician Maintenance Team Leader note has been reviewed by physician. Signing provider agrees with the documented findings, assessment, and plan of care. Objective - Vital Signs Vital signs: Vital Signs Temp 99.1 F 06/09/22 08:00 Pulse 88 06/09/22 09:34 Resp 16 06/09/22 08:00 BP 117/67 06/09/22 08:00 Pulse Ox 97 06/09/22 09:22 FiO2 Intake & Output 06/08/22 06/09/22 06/09/22 18:59 06:59 18:59 Intake Total 250 Output Total 902 Balance -652 Intake: Oral 250 Output: Urine 902 Other: Voiding Method Bedside Commode Bedside Commode Toilet External Catheter External Catheter # Voids 2 # Bowel Movements 2 - Labs CBC & Chem 7: 06/07/22 05:54 06/07/22 05:54
[2022-06-09 15:17] VITALS: BP 113/67; TEMP 97.9
[2022-06-09] MEDS: HYDROPHILIC CREAM 180 GM TUBE TOPICAL SCH (16:16)
--- NOTE | 2022-06-09 16:28 | DS ---
DISCHARGE SUMMARY DISCHARGE DIAGNOSES: Acute respiratory insufficiency, acute on chronic CHF, chronic venous hypertension, large pannus, abdomen, congestive heart failure with acute DVT on the left leg and saddle pulmonary embolus bilaterally, came in with respiratory insufficiency secondary to pulmonary embolism bilaterally and congestive heart failure, COPD, hypertension, morbid obesity, large pannus in the abdomen, stage II pressure ulcer, sacrum lesion, generalized weakness, syndrome, bilateral lower legs cellulitis, dehydration, edema, elevated D-dimer, elevated lactic acid. Degenerative disk disease, failure of outpatient treatment. Condition is guarded. Prognosis is guarded. The patient will go to the intermediate for strength training after having DVT and PEs bilaterally. She takes DuoNeb updrafts for her COPD q.i.d. She wears oxygen 24 hours a day, especially at nighttime. Elevate her bed 45 degrees in the hospital. She started on IV heparin high doses and switched over to Eliquis. Her breathing improved, COPD was treated, cellulitis of the legs was treated. She improved from a medical standpoint. She has been up into the chair. She will need PT, OT and then after being on 3 months of blood thinners may be she can get the pannus removed by Dr. Cramer. do the abdominal surgery for her. MMODL / IJN: [id number] /
[2022-06-09 16:33] VITALS: PULSE 82
[2022-06-09] MEDS ORDERED: APIXABAN 5 MG TAB PO SCH (21:00)
== END 2022-06-09 18:21 | DRG 175 ==
LOC: EC 08:29 → 3SCARD 11:31 → 2SICU 18:01 → 4SSUR 06-03 09:33
PROVIDERS: ADMIT Family Medicine; ATTEND Family Medicine
DX: I26.02 Saddle embolus of pulmonary artery with acute cor pulmonale (principal); I50.43 Acute on chronic combined systolic (congestive) and diastolic (congestive) heart failure; J96.21 Acute and chronic respiratory failure with hypoxia; I42.9 Cardiomyopathy, unspecified; E87.20 Acidosis, unspecified; I82.412 Acute embolism and thrombosis of left femoral vein; I87.332 Chronic venous hypertension (idiopathic) with ulcer and inflammation of left lower extremity; L03.115 Cellulitis of right lower limb; L03.116 Cellulitis of left lower limb; L03.311 Cellulitis of abdominal wall; L97.229 Non-pressure chronic ulcer of left calf with unspecified severity; N17.9 Acute kidney failure, unspecified; I27.20 Pulmonary hypertension, unspecified; I44.1 Atrioventricular block, second degree; I44.7 Left bundle-branch block, unspecified; I11.0 Hypertensive heart disease with heart failure; E66.01 Morbid (severe) obesity due to excess calories; E86.0 Dehydration; T45.516A Underdosing of anticoagulants, initial encounter; I87.321 Chronic venous hypertension (idiopathic) with inflammation of right lower extremity; L30.9 Dermatitis, unspecified; L89.152 Pressure ulcer of sacral region, stage 2; L98.492 Non-pressure chronic ulcer of skin of other sites with fat layer exposed; M79.3 Panniculitis, unspecified; T50.2X5A Adverse effect of carbonic-anhydrase inhibitors, benzothiadiazides and other diuretics, initial encounter; Z28.310 Unvaccinated for COVID-19; Z28.21 Immunization not carried out because of patient refusal; Z83.2 Family history of diseases of the blood and blood-forming organs and certain disorders involving the immune mechanism; Z91.120 Patient's intentional underdosing of medication regimen due to financial hardship; Z86.718 Personal history of other venous thrombosis and embolism; Z86.711 Personal history of pulmonary embolism
CPT/HCPCS: 36415; 71046; 71275; 74176; 80048; 80053; 82533; 83605; 83735; 83880; 84443; 84484; 85025; 85379; 85384; 85610; 85730; 93005; 93306; 93970; 94640; 94760; 96365; 96366; 96368; 96375; 96376; 99291

== ENCOUNTER → 2023-01-19 | Outpatient (CLI) | payer MEDICARE, OTHER ==
[~2023-01-19] MED LIST: REGADENOSON 0.4 MG/5 ML SYRINGE IV PRN
--- NOTE | 2023-01-19 11:02 | CT ---
Exam: CT Chest without contrast. Date: 01/19/2023. Comparison: None available. History: Pleural effusion. Technique: CT examination of the chest was performed without contrast. Coronal and sagittal reformats were performed. CT dose lowering techniques were used, to include: automated exposure control, adjus tment for patient size, and/or use of iterative reconstruction. FINDINGS: Mediastinum and Portia: There is no axillary, mediastinal or hilar lymphadenopathy. Pleural and Pericardial spaces: There are no pleural or pericardial effusions. Upper Abdomen: There is a small sliding hiatal hernia. Slight gallstone is seen within the gallbladde r. The visualized upper abdomen otherwise appears unremarkable. Cardiovascular: There is moderate vascular calcification throughout the thoracic aorta without eviden ce of aneurysmal dilation. There is moderate global cardiomegaly. Lung Parenchyma and Airways: The lungs are clear. Bones: No fracture or aggressive osseous lesion. IMPRESSION: 1. No acute abnormality in the chest. 2. Cardiomegaly. 3. Cholelithiasis. 3. Small sliding hiatal hernia.
--- NOTE | 2023-01-19 13:09 | NM ---
EXAMINATION TYPE: NM stress lexiscan cardiolite DATE OF EXAM: 01/19/2023 COMPARISON: NONE CLINICAL INDICATION: Female, 77 years old with history of R94.31 abnormal EKG; TECHNIQUE: After the intravenous administration of 10.7 mCi Tc 99m Sestamibi - Cardiolite resting SP ECT images acquired 45 minutes post injection. The patient received 0.4mg Lexiscan, 26.3 mCi Tc 99m Sestamibi - Stress images obtained [address] injection FINDINGS: Review of stress and rest SPECT images demonstrates a large area of fixed defect involving the apex, apical lateral and apical septal myocardium. There is a apicoinferior area of fixed defect.. Gated a nalysis shows reduced wall motion with an estimated left ventricular ejection fraction of 77 %. IMPRESSION: Large areas of fixed defect with reduced ejection fraction to correlate for previous myocardial infar ction.
== END | disposition home or self-care (01) ==
LOC: RADNMMAIN 08:55
PROVIDERS: ATTEND Family Medicine
DX: K44.9 Diaphragmatic hernia without obstruction or gangrene (principal); K80.20 Calculus of gallbladder without cholecystitis without obstruction; I51.7 Cardiomegaly; I44.7 Left bundle-branch block, unspecified; J91.8 Pleural effusion in other conditions classified elsewhere; R94.31 Abnormal electrocardiogram [ECG] [EKG]
CPT/HCPCS: 93017; 71250; 78452; A9500; J2785

== ENCOUNTER → 2023-02-13 | Outpatient (CLI) | payer MEDICARE, OTHER ==
--- NOTE | 2023-02-13 13:18 | CA ---
Transthoracic Echo Report Name: Li Santamaria Age: 77 Gender: F : 1945 Exam Date: 02/13/2023 08:32 Exam Location: [facility] Ht (in): 62 Wt (lb): 250 Ordering Physician: Howie Ching MD Attending/Referring Phys: Howie Ching MD Finishing Frame Runner Jessi Esposito RD Procedure CPT: Indications: I50.30 CHF Cardiac Hx: Technical Quality: Fair Contrast 1: Total Dose (mL): Contrast 2: Total Dose (mL): MEASUREMENTS (Male / Female) Normal Values 2D ECHO LV Diastolic Diameter PLAX 5.3 cm 4.2 - 5.9 / 3.9 - 5.3 cm LV Systolic Diameter PLAX 4.6 cm IVS Diastolic Thickness 1.4 cm 0.6 - 1.0 / 0.6 - 0.9 cm LVPW Diastolic Thickness 1.3 cm 0.6 - 1.0 / 0.6 - 0.9 cm LV Relative Wall Thickness 0.5 RV Internal Dim ED PLAX 3.0 cm LA Systolic Diameter LX 4.2 cm 3.0 - 4.0 / 2.7 - 3.8 cm LV Diastolic Volume MOD BP 75.7 cm??? 67 - 155 / 56 - 104 cm??? LV Systolic Volume MOD BP 51.3 cm??? 22 - 58 / 19 - 49 cm??? LV Ejection Fraction MOD BP 32.3 % >= 55 % LV Cardiac Index MOD BP 862.4 cm???/min???m??? LV Diastolic Volume MOD 4C 91.3 cm??? LV Systolic Volume MOD 4C 63.4 cm??? LV Ejection Fraction MOD 4C 30.6 % LV Cardiac Index MOD 4C 985.1 cm???/min???m??? LV Diastolic Length 4C 7.4 cm LV Systolic Length 4C 6.6 cm LV Diastolic Volume MOD 2C 61.2 cm??? LV Systolic Volume MOD 2C 42.3 cm??? LV Ejection Fraction MOD 2C 30.8 % LV Cardiac Index MOD 2C 665.8 cm???/min???m??? LV Diastolic Length 2C 7.1 cm LV Systolic Length 2C 6.7 cm LA Volume 54.8 cm??? 18 - 58 / 22 - 52 cm??? LA Volume Index 23.9 cm???/m??? 16 - 28 cm???/m??? M-MODE Aortic Root Diameter MM 3.5 cm MV E Point Septal Separation 1.8 cm AV Cusp Separation MM 2.5 cm DOPPLER AV Peak Velocity 102.5 cm/s AV Peak Gradient 4.2 mmHg MV Area PHT 3.0 cm??? Mitral E Point Velocity 32.4 cm/s Mitral A Point Velocity 72.3 cm/s Mitral E to A Ratio 0.4 MV Deceleration Time 255.3 ms MV E' Velocity 4.5 cm/s Mitral E to MV E' Ratio 7.1 FINDINGS Left Ventricle Left ventricular ejection fraction is estimated at 30-35 %. Left ventricular dilatation. Moderately increased septal wall thickness. Moderately increased posterior wall thickness. Mildly increased left ventricular systolic volume. Moderately to severe decreased left ventricular ejection fraction. Right Ventricle Normal right ventricular size. Unable to estimate the right ventricular systolic pressure. Right Atrium Normal right atrial size. Left Atrium Mildly increased left atrial diameter. Mildly increased left atrial volume. Mitral Valve Structurally normal mitral valve. Trace mitral regurgitation. Aortic Valve Trileaflet aortic valve. No aortic stenosis. Trace aortic regurgitation. Tricuspid Valve Structurally normal tricuspid valve. No tricuspid stenosis, regurgitation or prolapse. Pulmonic Valve Structurally normal pulmonic valve. Trace pulmonic regurgitation. Pericardium Normal pericardium without effusion. Aorta Normal aortic root dimension. CONCLUSIONS Left ventricular ejection fraction 30-35% Moderately increased left ventricular wall thickness Mildly dilated left atrium Trace mitral regurgitation Trace aortic regurgitation No pericardial to Previewed by: Dr. Jovan Wheeler DO (Electronically Signed) Final Date: 13 February 2023 13:17
== END | disposition home or self-care (01) ==
LOC: RADECHMAIN 08:20
PROVIDERS: ATTEND Family Medicine
DX: I50.30 Unspecified diastolic (congestive) heart failure (principal); I25.10 Atherosclerotic heart disease of native coronary artery without angina pectoris; I51.7 Cardiomegaly; I34.0 Nonrheumatic mitral (valve) insufficiency; I35.1 Nonrheumatic aortic (valve) insufficiency
CPT/HCPCS: 93306

== ENCOUNTER 2023-05-23 09:01 | Observation (INO) | payer MEDICARE, OTHER ==
[~2023-05-23 09:01] MED LIST changes: +LIDOCAINE 1% (10MG/ML) FOR IV START INTRADERMA PRN; +MIDAZOLAM 2 MG/2 ML VIAL IV PRN; -REGADENOSON 0.4 MG/5 ML SYRINGE IV PRN
[2023-05-23] MEDS: LACTATED RINGERS 1,000 ML IV SCH (09:05)
[2023-05-23] MEDS: ONDANSETRON 4 MG/2 ML VIAL IVP ONE (09:52)
[2023-05-23] MEDS: ACETAMINOPHEN TAB 500 MG TAB PO PRN (09:52)
[2023-05-23] MEDS: DEXAMETHASONE SOD PHOSPHATE 4 MG/ML 1 ML VIAL IV ONE (09:52)
[2023-05-23] MEDS: HEPARIN SODIUM,PORCINE 5,000 UNIT/ML 1 ML VIAL SQ PRN (09:52)
[2023-05-23] MEDS ORDERED: ETOMIDATE 2 MG/ML 10 ML VIAL ONE (09:57)
[2023-05-23] MEDS ORDERED: SUCCINYLCHOLINE CHLORIDE 200 MG/10 ML VIAL IV ONE (09:57)
[2023-05-23] MEDS ORDERED: LIDOCAINE 1% INJ 10MG/ML (20 ML MDV) ONE (09:57)
[2023-05-23] MEDS ORDERED: ROCURONIUM 10 MG/ML (5 ML VIAL) IV ONE (09:57)
[2023-05-23] MEDS ORDERED: NEOSTIGMINE 1 MG/ML 10 ML VIAL ONE (09:57)
[2023-05-23] MEDS ORDERED: GLYCOPYRROLATE 0.2 MG/ML 2 ML VIAL ONE (09:57)
[2023-05-23] MEDS ORDERED: fentaNYL (PF) 50 MCG/ML 2 ML AMP ONE (09:57)
[2023-05-23 10:03] LABS: Glucose,Whole Blood 123 mg/dL (70-110)
[2023-05-23] MEDS ORDERED: NALOXONE 0.4 MG/ML 1 ML VIAL IV PRN (11:55)
--- NOTE | 2023-05-23 12:05 | P.OP ---
Date of Procedure: 05/23/23 Preoperative Diagnosis: Massive panniculus Postoperative Diagnosis: Massive panniculus Procedure(s) Performed: Panniculectomy Repair of umbilical hernia Anesthesia: PURNIMA Surgeon: Daniel Cramer Estimated Blood Loss (ml): 50 Pathology: other (Skin sent for measurement and discard) Condition: stable Disposition: PACU Operative Findings: 27 pound panniculus Description of Procedure: Patient's placed in the operative table in the supine position. She received general endotracheal tube anesthesia. Her abdomen was prepped and draped usual sterile fashion. Patient had a massive panniculus. The panniculus extended to the floor when the patient was standing. The entire abdomen upper thighs and chest was prepped. An infraclavicular skin incision was made then using electrocautery sharp dissection the subcutaneous tissue divided. Several large perforating veins were ligated with 0 silk ties. The fascia abdominal wall was found. And then the panniculus was elevated off the fascia with dividing the subcutaneous layer. There was a hernia C the umbilicus. This was closed with 0 Vicryl suture. The superior pannicular skin incision was made. Then using the LigaSure device A cautery the subcutaneous tissue divided. The specimens of pathology. The specimens weight 27 pounds. This point Mindy's fascia was closed in the midline using 0 Vicryl [id number] sutures. The lateral aspects of the wound were left open for drainage. The skin in the middle of the wound was stapled and then the lateral aspects the wound had the wound VAC black foam placed into the wound. And then the wound VAC dressing was applied. Patient tolerated procedure well. She was sent to recovery room in stable condition.
[2023-05-23] MEDS: HYDROmorphone 0.5 MG/0.5 ML SYRINGE IVP PRN (12:09)
[2023-05-23 12:33] LABS: Glucose,Whole Blood 166 mg/dL (70-110)
[2023-05-23] MEDS: LABETALOL SYRINGE 5 MG/ML (4 ML SYR) IVP ONE (13:07)
[2023-05-23] MEDS: LACTATED RINGERS 1,000 ML IV ONE (14:24)
--- NOTE | 2023-05-23 14:43 | P.CNPUL ---
History of Present Illness Consult date: 05/23/23 Requesting physician: Daniel Cramer Reason for consult: asthma, COPD, other Chief complaint: Postoperative management of lung disease History of present illness: Pulmonary consult dated June 19, 2023. 78-year-old female that I saw in consultation, back on May 08, 2023. She has a history of pulmonary embolism x 2, hypothyroidism, hypertension, CHF, and cellulitis. The patient had surgery today with Dr. Cramer and I was asked to see her for her lung status after surgery. As mentioned, the patient was last seen in my office, May 07. She was here for preoperative clearance. The patient was going to have a panniculectomy, today. When I saw her last, she was not having any pulmonary complaints, denied any shortness of breath, cough, wheezing, chest tightness, or phlegm production. The plan in the office that day was to have her do some lung function, to determine her operative risk. In my office, the patient's FEV1 was 1.58 L which is 85% of predicted. The FVC was 1.76 L which is 70% of predicted. The MVV was 89 L/min. Based on this data, I thought the patient was at a low increased operative risk for surgery. She is seen in the [facility], room 515. She is getting 2 L of oxygen by nasal cannula, and lactated Ringer's at 125 cc an hour. The patient's home m edications included Coreg, Protonix, Cozaar, Synthroid, updrafts with albuterol sulfate and ipratropium bromide, Lasix, Farxiga, Lipitor, and Eliquis. No laboratory data as yet. Review of Systems REVIEW OF SYSTEMS: CONSTITUTIONAL: [Negative.] NEUROLOGIC: [ Negative.] HEENT: [ Negative.] CARDIAC: [Negative.] PULMONARY: [Negative.] GI: [Negative.] : [Negative.] RHEUMATOLOGIC: [ Negative.] IMMUNOLOGIC: [ Negative.] ENDOCRINE: [Negative. ] DERMATOLOGIC: [Negative.] Past Medical History Past Medical History: Asthma, COPD, Deep Vein Thrombosis (DVT), Hyperlipidemia, Hypertension, Myocardial Infarction (CO), Osteoarthritis (OA), Pulmonary Embolus (PE), Skin Disorder, Sleep Apnea/CPAP/BIPAP, Thyroid Disorder Additional Past Medical History / Comment(s): Hx DVT's, hx PE 06/11. Hx cellulitis. Uses O2 at night only @ 3L. No CPAP use. rash to pannis from rubbing skin on skin. Last Myocardial Infarction Date:: Unknown History of Any Multi-Drug Resistant Organisms: None Reported Past Surgical History: Hysterectomy Additional Past Surgical History / Comment(s): Arm tumor removal, ganglion cysts removed from hand and wrist. Past Anesthesia/Blood Transfusion Reactions: No Reported Reaction Additional Past Anesthesia/Blood Transfusion Reaction / Comment(s): no blood transfusions Smoking Status: Former smoker - Past Family History Mother Family Medical History: Cancer, Diabetes Mellitus Father Family Medical History: Pulmonary Embolus Additional Family Medical History / Comment(s): Partial lung removed. PE after hip replacement. Medications and Allergies Home Medications Medication Instructions Recorded Confirmed Type Apixaban [Eliquis] 5 mg PO BID tab 06/09/22 05/23/23 Rx Atorvastatin [Lipitor] 40 mg PO DAILY tab 06/09/22 05/23/23 Rx Dapagliflozin Propanediol [Farxiga] 5 mg PO DAILY tab 06/09/22 05/23/23 Rx Furosemide [Lasix] 40 mg PO DAILY tab 06/09/22 05/23/23 Rx Ipratropium-Albuterol Nebulize 3 ml INHALATION RT-QID each 06/09/22 05/23/23 Rx [Duoneb 0.5 mg-3 mg/3 ml Soln] Levothyroxine Sodium [Synthroid] 100 mcg PO DAILY@0630 tab 06/09/22 05/23/23 Rx Losartan [Cozaar] 12.5 mg PO DAILY tab 06/09/22 05/23/23 Rx Pantoprazole [Protonix] 40 mg PO AC-BRKFST tab 06/09/22 05/23/23 Rx carvediloL [Coreg] 3.125 mg PO BID-W/MEALS tab 06/09/22 05/23/23 Rx Allergies Allergy/AdvReac Type Severity Reaction Status Date / Time No Known Allergies Allergy Verified 05/23/23 09:52 Physical Exam Osteopathic Statement: *. No significant issues noted on an osteopathic structural exam other than those noted in the History and Physical/Consult. Vitals: Vital Signs Temp Pulse Resp BP BP Pulse Ox 05/23/23 13:45 52 L 14 152/70 96 05/23/23 13:28 50 L 14 150/68 98 05/23/23 13:14 157/68 05/23/23 13:09 57 L 16 175/74 95 05/23/23 12:49 57 L 16 184/81 93 L 05/23/23 12:34 60 16 166/74 94 L 05/23/23 12:31 60 14 173/66 94 L 05/23/23 12:27 62 16 181/79 94 L 05/23/23 12:14 68 16 165/75 94 L 05/23/23 12:02 97.0 F L 106 H 14 135/90 99 05/23/23 09:46 98 F 73 16 148/68 98 Intake and Output 05/22/23 05/23/23 05/23/23 22:59 06:59 14:59 Intake Total 550 Output Total 220 Balance 330 Intake: IV 550 Output: Urine 220 Other: Weight 107.05 kg No acute distress, oriented 3. No respiratory distress. Currently on 2 L of oxygen. HEENT examination is grossly unremarkable. Mucous membranes are moist. No oral lesions. Neck supple. Full range of motion. No adenopathy thyromegaly or neck vein distention. Cardiovascular examination reveals regular rhythm rate. S1-S2 normal. No S3 or S4. No discernible murmur noted. Heart rate 52 bpm. Lungs reveal clear breath sounds. Breath sounds are equal bilaterally. No adventitious lung sounds including wheezes rhonchi or crackles. Room air saturation 98%. Abdomen soft, without bowel sounds. Extremities are intact. No cyanosis clubbing or edema. Skin is without rash or lesion. Neurologic examination is brief but nonfocal. Results - Laboratory Findings CBC and BMP: 05/23/23 09:45 Abnormal lab findings: Abnormal Labs 05/23/23 05/23/23 05/23/23 09:45 09:48 12:33 Potassium 5.2 H POC Glucose (mg/dL) 123 H 166 H Assessment and Plan Assessment: Postop day #0, status post panniculectomy, for massive panniculus and repair of umbilical hernia. History of pulmonary embolism x 2. Morbid obesity. History of pulmonary embolism x 2. Hypothyroidism. History of diabetes mellitus. Hypertension. History of CHF. History of cellulitis. History of mild asthma. Plan: Plan dated May 23, 2023. The patient should get updrafts in the form of albuterol, and Atrovent, 4 times daily and as needed. In addition, I have asked her nurse, to provide her with an incentive spirometer. Labs, x-rays, medications are reviewed. We will continue to follow make recommendations along the way. Prognosis is guarded. She appears to have done very well with surgery. Time with Patient: Greater than 30
[2023-05-23] MEDS ORDERED: IPRATROPIUM-ALBUTEROL 3 ML NEB INHALATION PRN (14:44)
[2023-05-23] MEDS: LEVOFLOXACIN 500MG-D5W PMX 500 MG in DEXTROSE/WATER 1 100ML.BAG IVPB SCH (15:09)
[2023-05-23] MEDS: IPRATROPIUM-ALBUTEROL 3 ML NEB INHALATION SCH ×2 (16:35→20:37)
[2023-05-23] MEDS: ONDANSETRON 4 MG/2 ML VIAL IVP PRN (17:53)
[2023-05-23] MEDS: APIXABAN 5 MG TAB PO SCH (21:44)
--- NOTE | 2023-05-23 22:57 | CONS ---
CONSULTATION HISTORY OF PRESENT ILLNESS: This is a 78-year-old white female, status post panniculitis surgery. I restarted her home medicine. She is not having any chest pain, shortness of breath. No lightheadedness, dizziness, syncope. I started her back on her breathing treatments she takes at home. REVIEW OF SYSTEMS: A 14-point review of systems otherwise negative. PAST MEDICAL HISTORY: Asthma, COPD, DVT, hypertension, myocardial infarction, osteoarthritis, pulmonary embolus, 2 L oxygen, wears CPAP at night, hypothyroidism. FAMILY HISTORY: Mother with diabetes, cancer. Father pulmonary embolus. HOME MEDICINES: 1. Eliquis 5 b.i.d. 2. Lipitor 40 daily. 3. Farxiga 5 mg daily. 4. Lasix 40 daily. 5. DuoNeb q.i.d. 6. Synthroid 100 mcg daily. 7. Cozaar 12.5 daily. 8. Protonix 40 mg daily. 9. Coreg 3.125 b.i.d. ALLERGIES: Negative. PHYSICAL EXAMINATION: VITAL SIGNS: Pulse is 50s to 60s, respiratory rate 14 to 16, blood pressure is 150s to 180s over 60s to 70s, O2 94 to 96, and temperature 97 to 98. LUNGS: Decreased breath sounds x4. Mild wheeze. CARDIOVASCULAR: S1, S2. NECK: Supple. HEENT: Normocephalic, atraumatic. Pupils equal, round, reactive. NEUROLOGIC: Cranial nerves intact. PSYCH: Fair mood and affect. LABORATORY DATA: Potassium 5.2. ASSESSMENT AND PLAN: History of pulmonary embolism, status post panniculectomy, asthma, COPD, hypothyroidism, diabetes mellitus, hypertension, diastolic CHF, cellulitis of the legs. Continue current home medicines, restarted. The patient is stable from medical standpoint. Restart her home breathing treatments and medications. Cut her Lasix from 40 to 20 at this point. MMODL / IJN: [id number] /
[2023-05-24] MEDS: LEVOTHYROXINE 100 MCG TAB PO SCH (06:31)
[2023-05-24] MEDS: HYDROmorphone 1 MG/ML 1 ML SYRINGE IVP PRN (06:36)
[2023-05-24] MEDS: DAPAGLIFLOZIN PROPANEDIOL 5 MG TABLET PO SCH (08:38)
[2023-05-24] MEDS: FUROSEMIDE 20 MG TAB PO SCH (08:38)
[2023-05-24] MEDS: PANTOPRAZOLE 40 MG TABLET PO SCH (08:38)
[2023-05-24] MEDS: ATORVASTATIN 40 MG TAB PO SCH (08:38)
[2023-05-24] MEDS: carvediloL 3.125 MG TAB PO SCH (08:39)
[2023-05-24] MEDS: LOSARTAN 25 MG TAB PO SCH (08:39)
[2023-05-24] MEDS ORDERED: ENOXAPARIN 40 MG/0.4 ML SYRINGE SQ SCH (09:00)
[2023-05-24 09:07] LABS: Basophils # (A) 0.02 X 10*3/uL (0.00-0.10); Basophils % (A) 0.1 %; Eosinophils # (A) 0.02 X 10*3/uL (0.04-0.35); Eosinophils % (A) 0.1 %; HCT 37.8 % (37.2-46.3); HGB 12.3 g/dL (12.0-15.0); Lymphocytes % (A) 16.2 %; MCH 31.2 pg (27.0-32.0); MCHC 32.5 g/dL (32.0-37.0); MCV 95.9 FL (80.0-97.0); Mean Platelet Volume 9.8 FL (9.5-12.2); Monocytes % (A) 10.5 %; NRBC Per 100 WBC 0 X 10*3/uL (0.00-0.01); Neutrophils # (A) 10.31 X 10*3/uL (1.80-7.70); Neutrophils % (A) 72.6 %; Platelet Count 204 X 10*3/uL (140-440); RBC 3.94 X 10*6/uL (4.10-5.20); RDW 13.7 % (11.5-14.5); WBC 14.22 X 10*3/uL (4.50-10.00)
[2023-05-24 09:29] LABS: ALT 52 U/L (8-44); AST 41 U/L (13-35); Albumin 3.2 g/dL (3.8-4.9); Albumin/Globulin Ratio 1.33 Ratio (1.60-3.17); Alkaline Phosphatase 62 U/L (41-126); BUN/Creat Ratio 20.09 Ratio (12.00-20.00); Blood Urea Nitrogen 22.1 mg/dL (9.0-27.0); Calcium 8.8 mg/dL (8.7-10.3); Carbon Dioxide 25.1 mmol/L (21.6-31.8); Chloride 106 mmol/L (96-109); Globulin 2.4 g/dL (1.6-3.3); Glucose 114 mg/dL (70-110); Potassium 5.1 mmol/L (3.5-5.5); Sodium 139 mmol/L (135-145); Total Bilirubin 0.6 mg/dL (0.3-1.2); Total Protein 5.6 g/dL (6.2-8.2)
--- NOTE | 2023-05-24 11:24 | P.PN ---
Subjective Progress Note Date: 05/24/23 78-year-old female that I saw in consultation, back on May 08, 2023. She has a history of pulmonary embolism x 2, hypothyroidism, hypertension, CHF, and cellulitis. The patient had surgery today with Dr. Cramer and I was asked to see her for her lung status after surgery. As mentioned, the patient was last seen in my office, May 07. She was here for preoperative clearance. The patient was going to have a panniculectomy, today. When I saw her last, she was not having any pulmonary complaints, denied any shortness of breath, cough, wheezing, chest tightness, or phlegm production. The plan in the office that day was to have her do some lung function, to determine her operative risk. In my office, the patient's FEV1 was 1.58 L which is 85% of predicted. The FVC was 1.76 L which is 70% of predicted. The MVV was 89 L/min. Based on this data, I thought the patient was at a low increased operative risk for surgery. She is seen in the [facility], room 515. She is getting 2 L of oxygen by nasal cannula, and lactated Ringer's at 125 cc an hour. The patient's home medications included Coreg, Protonix, Cozaar, Synthroid, updrafts with albuterol sulfate and ipratropium bromide, Lasix, Farxiga, Lipitor, and Eliquis. No laboratory data as yet. The patient is seen today May 24, 2023 in follow-up on the regular medical floor. She is currently resting comfortably in bed. Awake and alert in no acute distress. Denies any worsening shortness of breath, cough or congestion. She is maintaining good O2 saturations in the 90s on 2 L/min per nasal cannula. She has lactated Ringer's at 20 MLS per hour. She is continued on Levaquin. This is postoperative day #1 following a panniculectomy. Wound VAC remains in place. Count 14.2. Hemoglobin 12.3. Platelets 204. Sodium 139. Potassium 5.1. Bicarb 25. BUN 22. Creatinine 1.1. Glucose 114. AST 41. ALT 52. She is receiving bronchodilators. She is working well with the incentive spirometer. She remains anticoagulated with Eliquis. Objective - Vital Signs Vital signs: Vital Signs Temp 98 F 05/24/23 07:03 Pulse 73 05/24/23 07:44 Resp 16 05/24/23 07:03 BP 101/59 05/24/23 07:03 Pulse Ox 97 05/24/23 07:35 FiO2 Intake & Output 05/23/23 05/24/23 05/24/23 18:59 06:59 18:59 Intake Total 790 590 Output Total 720 700 Balance 70 -110 Weight 107.05 kg Intake: IV 550 Oral 240 590 Output: Urine 720 700 Other: Voiding Method Indwelling Catheter - Exam GENERAL EXAM: Alert, very pleasant 78-year-old female, on 2 L nasal cannula, f airly comfortable in no apparent distress. HEAD: Normocephalic. EYES: Normal reaction of pupils, equal size. NOSE: Clear with pink turbinates. THROAT: No erythema or exudates. NECK: No masses, no JVD. CHEST: No chest wall deformity. LUNGS: Equal air entry with no crackles, wheeze, rhonchi or dullness. CVS: S1 and S2 normal with no audible murmur, regular rhythm. ABDOMEN: Wound VAC in place. No hepatosplenomegaly, normal bowel sounds, no guarding or rigidity. SPINE: No scoliosis or deformity SKIN: No rashes CENTRAL NERVOUS SYSTEM: No focal deficits, tone is normal in all 4 extremities. EXTREMITIES: There is no peripheral edema. No clubbing, no cyanosis. Peripheral pulses are intact. - Labs CBC & Chem 7: 05/24/23 06:32 05/24/23 06:32 Labs: Abnormal Lab Results - Last 24 Hours (Table) 05/23/23 05/24/23 05/24/23 Range/Units 12:33 06:32 06:32 WBC 14.22 H (4.50-10.00) X 10*3/uL RBC 3.94 L (4.10-5.20) X 10*6/uL Immature Gran # 0.07 H (0.00-0.04) X 10*3/uL Neutrophils # 10.31 H (1.80-7.70) X 10*3/uL Monocytes # 1.50 H (0.20-1.00) X 10*3/uL Eosinophils # 0.02 L (0.04-0.35) X 10*3/uL Est GFR (CKD-EPI) 52 L (>=60) BUN/Creatinine Ratio 20.09 H (12.00-20.00) Ratio Glucose 114 H (70-110) mg/dL POC Glucose (mg/dL) 166 H (70-110) mg/dL AST 41 H (13-35) U/L ALT 52 H (8-44) U/L Total Protein 5.6 L (6.2-8.2) g/dL Albumin 3.2 L (3.8-4.9) g/dL Albumin/Globulin Ratio 1.33 L (1.60-3.17) Ratio Assessment and Plan Assessment: Postop day #1, status post panniculectomy, for massive panniculus and repair of umbilical hernia History of pulmonary embolism x 2, resumed on Eliquis Morbid obesity with a BMI of 43.2 kg/m Hypothyroidism History of diabetes mellitus Hypertension History of CHF History of cellulitis History of mild asthma Plan: The patient was seen and evaluated Currently stable on 2 L nasal cannula Labs and medications reviewed Continue bronchodilators Continue increased use of the incentive spirometer Anticoagulated with Eliquis Home once cleared by surgical services This patient was seen independently bu the pulmonary nurse practitioner addressing pulmonary issues I have personally seen and examined the patient, performed the documentation and the assessment and plan as written. Number of minutes spent on the visit: 24.
--- NOTE | 2023-05-24 11:31 | P.CONS ---
History of Present Illness - Reason for Consult Consult date: 05/24/23 wound care - History of Present Illness This is a 78-year-old female who underwent a panniculectomy resulting in wound vacs x 2 to the abdomen. Lateral aspect of the wounds were left open for drainage. The skin in the middle of the wound was stapled negative pressure wound vacs were applied. Currently wound vacs are in place patient is tolerating with no difficulties. Patient states that she may go to rehab. Review Of Systems: Constitutional: No fever, no chills, no night sweats. No weight change. No weakness, fatigue or lethargy. No daytime sleepiness. Integumentary:reports wounds, no lesions. No rash or pruritus. No unusual bruising. No change in hair or nails. Physical exam: General Appearance: Alert, cooperative, no distress, appears stated age. Skin: See HPI all other Skin color, texture, tugor normal, no rashes or lesions. Neurologic: Alert oriented x3 Assessment: 1. Nonhealing ulceration with muscle involvement without necrosis 2. Massive panniculus Plan: 1. Continue with negative pressure wound VAC at 150 mmHg with black foam. Change Sunday. Utilize absorptive silver upon discharge cover with ABD and secure with tape. Reapplied negative pressure wound VAC once av ailable in outpatient setting. Thank you for the consultation any questions please contact the wound care center DNP note has been reviewed and discussed with Dr. Albarran and the impression and plan of care has been directed as dictated. Past Medical History Past Medical History: Asthma, COPD, Deep Vein Thrombosis (DVT), Hyperlipidemia, Hypertension, Myocardial Infarction ([place]), Osteoarthritis (OA), Pulmonary Embolus (PE), Skin Disorder, Sleep Apnea/CPAP/BIPAP, Thyroid Disorder Additional Past Medical History / Comment(s): Hx DVT's, hx PE 06/11. Hx cellulitis. Uses O2 at night only @ 3L. No CPAP use. rash to pannis from rubbing skin on skin. Last Myocardial Infarction Date:: Unknown History of Any Multi-Drug Resistant Organisms: None Reported Past Surgical History: Hysterectomy Additional Past Surgical History / Comment(s): Arm tumor removal, ganglion cysts removed from hand and wrist. Past Anesthesia/Blood Transfusion Reactions: No Reported Reaction Additional Past Anesthesia/Blood Transfusion Reaction / Comm: no blood transfusions Smoking Status: Former smoker - Past Family History Mother Family Medical History: Cancer, Diabetes Mellitus Father Family Medical History: Pulmonary Embolus Additional Family Medical History / Comment(s): Partial lung removed. PE after hip replacement. Medications and Allergies Home Medications Medication Instructions Recorded Confirmed Type Apixaban [Eliquis] 5 mg PO BID tab 06/09/22 05/23/23 Rx Atorvastatin [Lipitor] 40 mg PO DAILY tab 06/09/22 05/23/23 Rx Dapagliflozin Propanediol [Farxiga] 5 mg PO DAILY tab 06/09/22 05/23/23 Rx Furosemide [Lasix] 40 mg PO DAILY tab 06/09/22 05/23/23 Rx Ipratropium-Albuterol Nebulize 3 ml INHALATION RT-QID each 06/09/22 05/23/23 Rx [Duoneb 0.5 mg-3 mg/3 ml Soln] Levothyroxine Sodium [Synthroid] 100 mcg PO DAILY@0630 tab 06/09/22 05/23/23 Rx Losartan [Cozaar] 12.5 mg PO DAILY tab 06/09/22 05/23/23 Rx Pantoprazole [Protonix] 40 mg PO AC-BRKFST tab 06/09/22 05/23/23 Rx carvediloL [Coreg] 3.125 mg PO BID-W/MEALS tab 06/09/22 05/23/23 Rx Allergies Allergy/AdvReac Type Severity Reaction Status Date / Time No Known Allergies Allergy Verified 05/23/23 09:52 Physical Exam Vitals: Vital Signs Temp Pulse Pulse Resp BP BP Pulse Ox 05/24/23 11:16 71 05/24/23 07:44 73 05/24/23 07:35 97 05/24/23 07:32 72 05/24/23 07:03 98 F 76 16 101/59 98 05/24/23 02:00 97.9 F 76 16 140/79 98 05/23/23 20:47 54 L 05/23/23 20:39 58 L 05/23/23 20:00 97.9 F 60 18 138/75 100 05/23/23 15:14 54 L 128/71 91 L 05/23/23 14:59 55 L 130/74 98 05/23/23 14:44 54 L 135/81 98 05/23/23 14:29 55 L 118/69 100 05/23/23 14:15 55 L 16 104/55 94 L 05/23/23 13:45 52 L 14 152/70 96 05/23/23 13:28 50 L 14 150/68 98 05/23/23 13:14 157/68 05/23/23 13:09 57 L 16 175/74 95 05/23/23 12:49 57 L 16 184/81 93 L 05/23/23 12:34 60 16 166/74 94 L 05/23/23 12:31 60 14 173/66 94 L 05/23/23 12:27 62 16 181/79 94 L 05/23/23 12:14 68 16 165/75 94 L 05/23/23 12:02 97.0 F L 106 H 14 135/90 99 Intake and Output 05/23/23 05/24/23 05/24/23 22:59 06:59 14:59 Intake Total 240 590 Output Total 500 700 Balance -260 -110 Intake: Oral 240 590 Output: Urine 500 700 Other: Voiding Method Indwelling Catheter Results CBC & Chem 7: 05/24/23 06:32 05/24/23 06:32 Labs: Abnormal Lab Results - Last 24 Hours (Table) 05/23/23 05/24/23 05/24/23 Range/Units 12:33 06:32 06:32 WBC 14.22 H (4.50-10.00) X 10*3/uL RBC 3.94 L (4.10-5.20) X 10*6/uL Immature Gran # 0.07 H (0.00-0.04) X 10*3/uL Neutrophils # 10.31 H (1.80-7.70) X 10*3/uL Monocytes # 1.50 H (0.20-1.00) X 10*3/uL Eosinophils # 0.02 L (0.04-0.35) X 10*3/uL Est GFR (CKD-EPI) 52 L (>=60) BUN/Creatinine Ratio 20.09 H (12.00-20.00) Ratio Glucose 114 H (70-110) mg/dL POC Glucose (mg/dL) 166 H (70-110) mg/dL AST 41 H (13-35) U/L ALT 52 H (8-44) U/L Total Protein 5.6 L (6.2-8.2) g/dL Albumin 3.2 L (3.8-4.9) g/dL Albumin/Globulin Ratio 1.33 L (1.60-3.17) Ratio Assessment and Plan (1) Non-pressure chronic ulcer of skin of other sites with muscle involvement without evidence of necrosis Current Visit: Yes Status: Acute Code(s): L98.495 - NON-PRS CHR [facility] SKIN/ OTH SITE WITH MSL INVL W/O EVD OF NECR SNOMED Code(s): 64778114 (2) Morbid obesity with BMI of 50.0-59.9, adult Current Visit: No Status: Acute Code(s): E66.01 - MORBID (SEVERE) OBESITY DUE TO EXCESS CALORIES; Z68.43 - BODY MASS INDEX [BMI] 50.0-59.9, ADULT SNOMED Code(s): 783493741 (3) Abdominal panniculus, symptomatic Current Visit: Yes Status: Acute Code(s): E65 - LOCALIZED ADIPOSITY SNOMED Code(s): 5667723717632
--- NOTE | 2023-05-24 11:42 | P.PN ---
Subjective Progress Note Date: 05/24/23 CHIEF COMPLAINT: Massive panniculus HISTORY OF PRESENT ILLNESS: Patient postop day #1 status post panniculectomy and repair of umbilical hernia. Pain is controlled. She denies any nausea or vomiting. No flatus. Afebrile. Wound vacs in place. Patient seen by wound care service. Medicine service has resumed the Eliquis. WBC 14.2 Hgb 12.3 platelets 204 PHYSICAL EXAM: VITAL SIGNS: Reviewed. GENERAL: Well-developed in no acute distress. ABDOMEN: Soft. Nondistended. Tenderness at incision site. Patient has incision across the lower abdomen which is clean dry and intact. She has a wound VAC on the right lower and left lower abdomen. NEUROLOGIC: Alert and oriented. Cranial nerves II through XII grossly intact. ASSESSMENT: 1. Massive panniculus status post panniculectomy and umbilical hernia repair PLAN: -Continue wound vacs. Measurements of wounds are 10 x 10 x 5 cm on both sides of her abdomen and full-thickness in fascia. Patient will be going home with the wound vacs. -Burgess added for oral pain management -Encourage patient to increase activity level -Encourage incentive spirometer use -Continue regular diet -Covarrubias catheter to be discontinued Physician Stereoptic Projection Topographer note has been reviewed by physician. Signing provider agrees with the documented findings, assessment, and plan of care. I have personally seen and examined the patient, reviewed the DEVELOPMENT INTERN /PAs history, exam and MDM and agree with the assessment and plan as written. Based on total visit time, I have performed more than 50% of the visit. As above: Patient doing well today. Only mild discomfort. Wound vacs in place. Labs noted. Repeat labs tomorrow. Continue regular diet. Covarrubias catheter removed. Objective - Vital Signs Vital signs: Vital Signs Temp 98 F 05/24/23 07:03 Pulse 80 05/24/23 11:29 Resp 16 05/24/23 07:03 BP 101/59 05/24/23 07:03 Pulse Ox 97 05/24/23 07:35 FiO2 Intake & Output 05/23/23 05/24/23 05/24/23 18:59 06:59 18:59 Intake Total 790 590 Output Total 720 700 Balance 70 -110 Weight 107.05 kg Intake: IV 550 Oral 240 590 Output: Urine 720 700 Other: Voiding Method Indwelling Catheter - Labs CBC & Chem 7: 05/24/23 06:32 05/24/23 06:32 Labs: Abnormal Lab Results - Last 24 Hours (Table) 05/23/23 05/24/23 05/24/23 Range/Units 12:33 06:32 06:32 WBC 14.22 H (4.50-10.00) X 10*3/uL RBC 3.94 L (4.10-5.20) X 10*6/uL Immature Gran # 0.07 H (0.00-0.04) X 10*3/uL Neutrophils # 10.31 H (1.80-7.70) X 10*3/uL Monocytes # 1.50 H (0.20-1.00) X 10*3/uL Eosinophils # 0.02 L (0.04-0.35) X 10*3/uL Est GFR (CKD-EPI) 52 L (>=60) BUN/Creatinine Ratio 20.09 H (12.00-20.00) Ratio Glucose 114 H (70-110) mg/dL POC Glucose (mg/dL) 166 H (70-110) mg/dL AST 41 H (13-35) U/L ALT 52 H (8-44) U/L Total Protein 5.6 L (6.2-8.2) g/dL Albumin 3.2 L (3.8-4.9) g/dL Albumin/Globulin Ratio 1.33 L (1.60-3.17) Ratio
--- NOTE | 2023-05-24 16:44 | P.PN ---
Progress Note - Text Progress Note Date: 05/24/23 Hospital course: I am rounding for Dr. Howie Ching May 23: Patient is status post panniculectomy. Up in a recliner. Wound VAC in place. Patient has sleep apnea uses oxygen overnight. Does use a walker at baseline. Has not passed any flatus. Abdominal binder in place. Pain controlled. No nausea vomiting. Will DC Covarrubias catheter. Active Medications Hydrocodone Bitart/Acetaminophen (Hydrocodone/Apap 5-325mg 1 Each Tab) 1 each PO Q4HR PRN PRN Reason: Pain Albuterol/Ipratropium (Ipratropium-Albuterol 3 Ml Neb) 3 ml INHALATION RT-QID [facility] Last Admin: 05/24/23 14:58 Dose: 3 ml Apixaban (Apixaban 5 Mg Tab) 5 mg PO BID [facility]; Protocol Last Admin: 05/24/23 08:38 Dose: 5 mg Atorvastatin Calcium (Atorvastatin 40 Mg Tab) 40 mg PO DAILY [facility] Last Admin: 05/24/23 08:38 Dose: 40 mg Carvedilol (Carvedilol 3.125 Mg Tab) 3.125 mg PO BID-W/MEALS [facility] Last Admin: 05/24/23 08:39 Dose: 3.125 mg Dapagliflozin (Dapagliflozin Propanediol 5 Mg Tablet) 5 mg PO DAILY [facility] Last Admin: 05/24/23 08:38 Dose: 5 mg Furosemide (Furosemide 20 Mg Tab) 20 mg PO DAILY [facility] Last Admin: 05/24/23 08:38 Dose: 20 mg Hydromorphone HCl (Hydromorphone 1 Mg/Ml 1 Ml Syringe) 1 mg IVP Q4HR PRN PRN Reason: Severe Pain (Scale 7 to 10) Stop: 06/22/23 11:56 Last Admin: 05/24/23 06:36 Dose: 0.5 mg Lactated Ringer's (Lactated Ringers) 1,000 mls @ 20 mls/hr IV .Q24H [facility] Stop: 06/21/23 18:31 Last Admin: 05/23/23 17:52 Dose: Not Given Levofloxacin (Levofloxacin 500 Mg Tab) 500 mg PO Q48H [facility] Levothyroxine Sodium (Levothyroxine 100 Mcg Tab) 100 mcg PO DAILY@0630 [facility] Last Admin: 05/24/23 06:31 Dose: 100 mcg Lidocaine HCl (Lidocaine 1% (10mg/Ml) For Iv Start) 0.1 ml INTRADERMA PER PROTOCOL PRN PRN Reason: IV Start Stop: 06/21/23 18:23 Losartan Potassium (Losartan 25 Mg Tab) 12.5 mg PO DAILY [facility] Last Admin: 05/24/23 08:39 Dose: 12.5 mg Naloxone HCl (Naloxone 0.4 Mg/Ml 1 Ml Vial) 0.2 mg IV Q2M PRN PRN Reason: Opioid Reversal Stop: 06/22/23 11:56 Nystatin (Nystatin 100,000 Unit/Gm Powd 15 Gm) 1 applic TOPICAL TID [facility]; Protocol Ondansetron HCl (Ondansetron 4 Mg/2 Ml Vial) 4 mg IVP Q6HR PRN PRN Reason: Nausea And Vomiting Stop: 06/22/23 11:56 Last Admin: 05/23/23 17:53 Dose: 4 mg Pantoprazole Sodium (Pantoprazole 40 Mg Tablet) 40 mg PO -BRKFST [facility] Last Admin: 05/24/23 08:38 Dose: 40 mg On examination: VITAL SIGNS: [97.8, 81, 16, 105 x 63, 94% on 2 L] GENERAL APPEARANCE: BMI 43.2, up in a recliner HEENT: Normal external appearance of nose and ear. Oral cavity normal EYES: Pupils equal. Conjunctiva normal. NECK: JVD not raised. Mass not palpable. RESPIRATORY: Respiratory effort normal. Lungs clear to auscultation. CARDIOVASCULAR: First and second sounds normal. No edema. ABDOMEN: Some tenderness. Abdominal binder in place. Wound VAC in place. Covarrubias catheter. PSYCHIATRY: Alert and oriented x3. Mood and affect normal. INVESTIGATIONS, reviewed in the clinical context: May 23: White count 14.2 hemoglobin 12.3 platelets 204 sodium 139 potassium 5.1 creatinine 1.1 AST 41 ALT 52 Assessment plan: -Panniculectomy by Dr. Cramer on May [address] Abdominal binder -GERD Protonix 40 mg a day -Hypothyroid Synthroid 100 mcg a day -Hyperlipidemia Lipitor 40 mg a day -Morbid obesity BMI 43.2 Weight loss measures -Mild elevation in liver enzymes Check liver ultrasound -Asthma/COPD in a non-smoker DuoNeb -Acute left lower extremity DVT in the left femoral vein and popliteal vein with ultrasound confirmation on June 01. Eliquis 5 mg twice daily -Acute saddle pulmonary embolism with multiple additional segmental subsegmental pulmonary emboli bilaterally on May 31, 2022 Eliquis 5 mg twice daily -Chronic congestive heart failure from systolic dysfunction EF 20 to 25% Lasix 20 mg a day. Add Aldactone 25 mg a day. Add fluid restriction 2000 cc a day -Mild to moderate mitral regurgitation -Obstructive sleep apnea Uses nocturnal oxygen 2 L -Primary osteoarthritis -Chronic gait dysfunction uses a walker at baseline Change patient to a cardiac diet. Fluid restriction 2000 cc a day. I will Aldactone 25 mg a day.
--- NOTE | 2023-05-24 17:15 | XR ---
EXAMINATION: XR chest 1V portable DATE AND TIME: 05/24/2023 5:05 PM CLINICAL INDICATION: PHH; CHF. Inpatient. TECHNIQUE: AP upright portable COMPARISON: 05/31/2022 FINDINGS: The overlying soft tissues are prominent. No definite acute pulmonary process. The pleural spaces are negative. The cardiac silhouette appears mildly enlarged with a left ventricular configuration, unchanged. The skeletal structures and soft tissues are negative for acute findings. IMPRESSION: No definite acute radiographic process.
[2023-05-24] MEDS: NYSTATIN 100,000 UNIT/GM POWD 15 GM TOPICAL SCH (17:25)
[2023-05-24] MEDS: FUROSEMIDE 10 MG/ML 4 ML VIAL IV STA (17:25)
[2023-05-24] MEDS: SPIRONOLACTONE 25 MG TAB PO SCH (17:25)
[2023-05-24] MEDS: ZINC OXIDE PASTE (Z-GUARD) 1 APPLIC TOPICAL SCH (21:49)
[2023-05-24] MEDS: HYDROcodone/APAP 5-325MG 1 EACH TAB PO PRN (23:43)
[2023-05-25 06:52] LABS: African American GFR (CKD) 32 (>60 ml/min/1.73 sqM); Anion Gap 8 mmol/L; Blood Urea Nitrogen 34 mg/dL (7-17); Calcium 8.7 mg/dL (8.4-10.2); Carbon Dioxide 22 mmol/L (22-30); Chloride 104 mmol/L (98-107); Glucose 137 mg/dL (74-99); Non-African American GFR(CKD) 27 (>60 ml/min/1.73 sqM); Potassium 4.3 mmol/L (3.5-5.1); Sodium 134 mmol/L (137-145)
--- NOTE | 2023-05-25 08:37 | US ---
EXAMINATION TYPE: US abdomen limited DATE OF EXAM: 05/25/2023 Exam done portable COMPARISON: CT 2022 CLINICAL INDICATION: Female, 78 years old with history of Mild elevation of LFTs; TECHNIQUE: Multiple sonographic images of the right upper quadrant are obtained. FINDINGS: EXAM MEASUREMENTS: Liver Length: 14.3 cm Gallbladder Wall: not seen CBD: not seen Right Kidney: 9.0 x 4.2 x 4.0 cm Difficult and limited study due to morbidly obese patient Pancreas: visualized portions wnl, limited by overlying midline bowel gas Liver: visualized portions wnl, limited by overlying bowel gas Gallbladder: obscured by overlying bowel gas Evidence for sonographic Mayo's sign: no CBD: obscured by overlying bowel gas Right Kidney: visualized portions wnl, limited by overlying bowel gas IMPRESSION: Limited exam, no obvious acute process.
[2023-05-25 08:48] LABS: HCT 36.9 % (37.2-46.3); HGB 11.9 g/dL (12.0-15.0); MCH 30.7 pg (27.0-32.0); MCHC 32.2 g/dL (32.0-37.0); MCV 95.1 FL (80.0-97.0); NRBC Per 100 WBC 0 X 10*3/uL (0.00-0.01); Platelet Count 221 X 10*3/uL (140-440); RBC 3.88 X 10*6/uL (4.10-5.20); RDW 13.9 % (11.5-14.5); WBC 14.16 X 10*3/uL (4.50-10.00)
[2023-05-25] MEDS: LEVOFLOXACIN 500 MG TAB PO SCH (09:03)
[2023-05-25 09:43] LABS: Basophils # (A) 0.04 X 10*3/uL (0.00-0.10); Basophils % (A) 0.3 %; Eosinophils % (A) 2.1 %; Lymphocytes # (A) 2.47 X 10*3/uL (0.90-5.00); Lymphocytes % (A) 17.4 %; Monocytes # (A) 1.63 X 10*3/uL (0.20-1.00); Monocytes % (A) 11.5 %; Neutrophils # (A) 9.65 X 10*3/uL (1.80-7.70); Neutrophils % (A) 68.2 %
[2023-05-25] MEDS: SODIUM CHLORIDE 0.45% 1,000 ML IV SCH (11:31)
--- NOTE | 2023-05-25 11:59 | P.PN ---
Subjective Progress Note Date: 05/25/23 78-year-old female that I saw in consultation, back on May 08, 2023. She has a history of pulmonary embolism x 2, hypothyroidism, hypertension, CHF, and cellulitis. The patient had surgery today with Dr. Cramer and I was asked to see her for her lung status after surgery. As mentioned, the patient was last seen in my office, May 07. She was here for preoperative clearance. The patient was going to have a panniculectomy, today. When I saw her last, she was not having any pulmonary complaints, denied any shortness of breath, cough, wheezing, chest tightness, or phlegm production. The plan in the office that day was to have her do some lung function, to determine her operative risk. In my office, the patient's FEV1 was 1.58 L which is 85% of predicted. The FVC was 1.76 L which is 70% of predicted. The MVV was 89 L/min. Based on this data, I thought the patient was at a low increased operative risk for surgery. She is seen in the [facility], room 515. She is getting 2 L of oxygen by nasal cannula, and lactated Ringer's at 125 cc an hour. The patient's home medications included Coreg, Protonix, Cozaar, Synthroid, updrafts with albuterol sulfate and ipratropium bromide, Lasix, Farxiga, Lipitor, and Eliquis. No laboratory data as yet. The patient is seen today May 24, 2023 in follow-up on the regular medical floor. She is currently resting comfortably in bed. Awake and alert in no acute distress. Denies any worsening shortness of breath, cough or congestion. She is maintaining good O2 saturations in the 90s on 2 L/min per nasal cannula. She has lactated Ringer's at 20 MLS per hour. She is continued on Levaquin. This is postoperative day #1 following a panniculectomy. Wound VAC remains in place. Count 14.2. Hemoglobin 12.3. Platelets 204. Sodium 139. Potassium 5.1. Bicarb 25. BUN 22. Creatinine 1.1. Glucose 114. AST 41. ALT 52. She is receiving bronchodilators. She is working well with the incentive spirometer. She remains anticoagulated with Eliquis. The patient is seen today May 25, 2023 in follow-up on the regular medical floor. She is currently sitting up at the bedside. Awake and alert in no acute distress. Maintaining O2 saturations in the 90s on room air. 0.45% normal saline at 50 MLS per hour. Chest x-ray revealed no acute pulmonary process. Abdominal x-ray reveals no obvious acute process. White count 14.1. Hemoglobin 11.9. Platelets 221. Sodium 134. Potassium 4.3. Bicarb 22. BUN 34. Creatinine 1.77. Glucose 137. She is continued on DuoNeb inhalations. Working well with the incentive spirometer. Her Eliquis has been resumed. She is on antibiotics in the form of Levaquin. Objective - Vital Signs Vital signs: Vital Signs Temp 99.2 F 05/25/23 07:05 Pulse 96 05/25/23 11:10 Resp 18 05/25/23 08:00 BP 93/60 05/25/23 07:05 Pulse Ox 96 05/25/23 07:35 FiO2 Intake & Output 05/24/23 05/25/23 05/25/23 18:59 06:59 18:59 Intake Total 240 Output Total 400 Balance -400 240 Intake: Oral 240 Output: Urine 400 Other: Voiding Method Indwelling Catheter Bedside Commode # Voids 2 1 - Exam GENERAL EXAM: Alert, pleasant 78-year-old female, on room air, sitting up at the bedside, comfortable in no apparent distress. HEAD: Normocephalic. EYES: Normal reaction of pupils, equal size. NOSE: Clear with pink turbinates. THROAT: No erythema or exudates. NECK: No masses, no JVD. CHEST: No chest wall deformity. LUNGS: Equal air entry with no crackles, wheeze, rhonchi or dullness. CVS: S1 and S2 normal with no audible murmur, regular rhythm. ABDOMEN: Wound VAC in place. No hepatosplenomegaly, normal bowel sounds, no gu arding or rigidity. SPINE: No scoliosis or deformity SKIN: No rashes CENTRAL NERVOUS SYSTEM: No focal deficits, tone is normal in all 4 extremities. EXTREMITIES: There is no peripheral edema. No clubbing, no cyanosis. Peripheral pulses are intact. - Labs CBC & Chem 7: 05/25/23 06:02 05/25/23 06:02 Labs: Abnormal Lab Results - Last 24 Hours (Table) 05/25/23 05/25/23 Range/Units 06:02 06:02 WBC 14.16 H (4.50-10.00) X 10*3/uL RBC 3.88 L (4.10-5.20) X 10*6/uL Hgb 11.9 L (12.0-15.0) g/dL Hct 36.9 L (37.2-46.3) % Immature Gran # 0.07 H (0.00-0.04) X 10*3/uL Neutrophils # 9.65 H (1.80-7.70) X 10*3/uL Monocytes # 1.63 H (0.20-1.00) X 10*3/uL Sodium 134 L (137-145) mmol/L BUN 34 H (7-17) mg/dL Creatinine 1.77 H (0.52-1.04) mg/dL Glucose 137 H (74-99) mg/dL Assessment and Plan Assessment: Postop day #2, status post panniculectomy, for massive panniculus and repair of umbilical hernia History of pulmonary embolism x 2, resumed on Eliquis Morbid obesity with a BMI of 43.2 kg/m Hypothyroidism History of diabetes mellitus Hypertension History of CHF History of cellulitis History of mild asthma Plan: The patient was seen and evaluated Chest x-ray, labs and medications reviewed Currently stable on room air Continue bronchodilators Continue the use of the incentive spirometer Anticoagulated with Eliquis Home once cleared by surgical services This patient was seen independently by the pulmonary nurse practitioner addressing pulmonary issues I have personally seen and examined the patient, performed the documentation and the assessment and plan as written. Number of minutes spent on the visit: 22.
--- NOTE | 2023-05-25 13:52 | P.PN ---
Subjective Progress Note Date: 05/25/23 CHIEF COMPLAINT: Massive panniculus HISTORY OF PRESENT ILLNESS: Patient postop day #2 status post panniculectomy and repair of umbilical hernia. Pain is controlled. She denies any nausea or vomiting. No flatus or BM. Afebrile. Wound vacs in place. Patient seen by wound care service. Medicine service has resumed the Eliquis. Medicine service ordered abdominal ultrasound regarding elevated LFTs. Ultrasound reports limited exam no obvious acute process. Covarrubias catheter removed yesterday. Patie nt urinating without difficulty. Afebrile. WBC 14.16 Hgb 11.9 platelets 221 creatinine 1.77 sodium is 134. Mildly elevated LFTs. PHYSICAL EXAM: VITAL SIGNS: Reviewed. GENERAL: Well-developed in no acute distress. ABDOMEN: Soft. Nondistended. Nontender and right upper quadrant. Tenderness at incision site. Patient has incision across the lower abdomen which is clean dry and intact. She has a wound VAC on the right lower and left lower abdomen. NEUROLOGIC: Alert and oriented. Cranial nerves II through XII grossly intact. ASSESSMENT: 1. Massive panniculus status post panniculectomy and umbilical hernia repair PLAN: -Continue wound vacs. Measurements of wounds are 10 x 10 x 5 cm on both sides of her abdomen and full-thickness in fascia. Patient will be going home with the wound vacs. -Continue pain management -Encourage patient to increase activity level -Encourage incentive spirometer use -Continue regular diet -Covarrubias catheter to be discontinued -At time of discharge patient will be discharged home with home care -Mildly elevated Cr. fluid management per medicine service Physician Marine Architect note has been reviewed by physician. Signing provider agrees with the documented findings, assessment, and plan of care. I have personally seen and examined the patient, reviewed the CALL CENTER AGENT /PAs history, exam and MDM and agree with the assessment and plan as written. Based on total visit time, I have performed more than 50% of the visit. As above: Patient complaining of nausea today. Apparently she has decided to go home instead of rehab. Continue monitoring complaints of nausea. Continue wound VAC for now. Anticipate discharge Sunday or Sunday. Objective - Vital Signs Vital signs: Vital Signs Temp 98.4 F 05/25/23 12:24 Pulse 111 H 05/25/23 12:24 Resp 18 05/25/23 12:24 BP 93/59 05/25/23 12:24 Pulse Ox 99 05/25/23 12:24 FiO2 Intake & Output 05/24/23 05/25/23 05/25/23 18:59 06:59 18:59 Intake Total 720 Output Total 400 Balance -400 720 Intake: Oral 720 Output: Urine 400 Other: Voiding Method Indwelling Catheter Bedside Commode # Voids 2 1 - Labs CBC & Chem 7: 05/25/23 06:02 05/25/23 06:02 Labs: Abnormal Lab Results - Last 24 Hours (Table) 05/25/23 05/25/23 Range/Units 06:02 06:02 WBC 14.16 H (4.50-10.00) X 10*3/uL RBC 3.88 L (4.10-5.20) X 10*6/uL Hgb 11.9 L (12.0-15.0) g/dL Hct 36.9 L (37.2-46.3) % Immature Gran # 0.07 H (0.00-0.04) X 10*3/uL Neutrophils # 9.65 H (1.80-7.70) X 10*3/uL Monocytes # 1.63 H (0.20-1.00) X 10*3/uL Sodium 134 L (137-145) mmol/L BUN 34 H (7-17) mg/dL Creatinine 1.77 H (0.52-1.04) mg/dL Glucose 137 H (74-99) mg/dL
--- NOTE | 2023-05-25 15:27 | P.PN ---
Progress Note - Text Progress Note Date: 05/25/23 Hospital course: I am rounding for Dr. Howie Ching May 23: Patient is status post panniculectomy. Up in a recliner. Wound VAC in place. Patient has sleep apnea uses oxygen overnight. Does use a walker at baseline. Has not passed any flatus. Abdominal binder in place. Pain controlled. No nausea vomiting. Will DC Covarrubias catheter. May 24: Patient breathing is better today. Creatinine has gone up. Will hold off diuretics. Gentle hydration today. Repeat labs in the morning. Signi ficant output from the wound VAC. Plan is for patient to be discharged with wound VAC. Active Medications Hydrocodone Bitart/Acetaminophen (Hydrocodone/Apap 5-325mg 1 Each Tab) 1 each PO Q4HR PRN PRN Reason: Pain Last Admin: 05/25/23 05:46 Dose: 1 each Albuterol/Ipratropium (Ipratropium-Albuterol 3 Ml Neb) 3 ml INHALATION RT-QID [facility] Last Admin: 05/25/23 11:00 Dose: 3 ml Apixaban (Apixaban 5 Mg Tab) 5 mg PO BID [facility]; Protocol Last Admin: 05/25/23 09:03 Dose: 5 mg Atorvastatin Calcium (Atorvastatin 40 Mg Tab) 40 mg PO DAILY [facility] Last Admin: 05/25/23 09:03 Dose: 40 mg Carvedilol (Carvedilol 3.125 Mg Tab) 3.125 mg PO BID-W/MEALS [facility] Last Admin: 05/25/23 09:03 Dose: 3.125 mg Dapagliflozin (Dapagliflozin Propanediol 5 Mg Tablet) 5 mg PO DAILY [facility] Last Admin: 05/25/23 09:03 Dose: 5 mg Hydromorphone HCl (Hydromorphone 1 Mg/Ml 1 Ml Syringe) 1 mg IVP Q4HR PRN PRN Reason: Severe Pain (Scale 7 to 10) Stop: 06/22/23 11:56 Last Admin: 05/24/23 06:36 Dose: 0.5 mg Sodium Chloride (Saline 0.45%) 1,000 mls @ 50 mls/hr IV .Q20H [facility] Last Admin: 05/25/23 11:31 Dose: 50 mls/hr Levofloxacin (Levofloxacin 500 Mg Tab) 500 mg PO Q48H [facility] Last Admin: 05/25/23 09:03 Dose: 500 mg Levothyroxine Sodium (Levothyroxine 100 Mcg Tab) 100 mcg PO DAILY@0630 [facility] Last Admin: 05/25/23 05:46 Dose: 100 mcg Lidocaine HCl (Lidocaine 1% (10mg/Ml) For Iv Start) 0.1 ml INTRADERMA PER PROTOCOL PRN PRN Reason: IV Start Stop: 06/21/23 18:23 Naloxone HCl (Naloxone 0.4 Mg/Ml 1 Ml Vial) 0.2 mg IV Q2M PRN PRN Reason: Opioid Reversal Stop: 06/22/23 11:56 Nystatin (Nystatin 100,000 Unit/Gm Powd 15 Gm) 1 applic TOPICAL TID [facility]; Protocol Last Admin: 05/25/23 09:04 Dose: 1 applic Ondansetron HCl (Ondansetron 4 Mg/2 Ml Vial) 4 mg IVP Q6HR PRN PRN Reason: Nausea And Vomiting Stop: 06/22/23 11:56 Last Admin: 05/25/23 12:52 Dose: 4 mg Pantoprazole Sodium (Pantoprazole 40 Mg Tablet) 40 mg PO AC-BRKFST [facility] Last Admin: 05/25/23 09:03 Dose: 40 mg Petrolatum (Zinc Oxide Paste (Z-Guard) 1 Applic) 1 applic TOPICAL BID [facility]; Protocol Last Admin: 05/25/23 09:04 Dose: 1 applic On examination: VITAL SIGNS: 98.4, 96, 18, 93 x 59, 99% room air GENERAL APPEARANCE: Up in a recliner. HEENT: Normal external appearance of nose and ear. Oral cavity normal EYES: Pupils equal. Conjunctiva normal. NECK: JVD not raised. Mass not palpable. RESPIRATORY: Respiratory effort crease lungs, decreased breath sounds at bases CARDIOVASCULAR: First and second sounds normal. No edema. ABDOMEN: Some tenderness. Abdominal binder in place. Wound VAC in place. Covarrubias catheter. PSYCHIATRY: Alert and oriented x3. Mood and affect normal. INVESTIGATIONS, reviewed in the clinical context: Liver ultrasound: Limited study May 24: White count 14.1 hemoglobin 11.9 sodium 134 potassium 4.3 BUN 34 creatinine 1.77 May 23: White count 14.2 hemoglobin 12.3 platelets 204 sodium 139 potassium 5.1 creatinine 1.1 AST 41 ALT 52 Assessment plan: -Panniculectomy by Dr. Cramer on May [address] Abdominal binder -Acute kidney injury, prerenal, diuretics: New diagnosis Stop diuretics. Cut back on fluid restriction. Repeat labs. -GERD Protonix 40 mg a day -Hypothyroid Synthroid 100 mcg a day -Hyperlipidemia Lipitor 40 mg a day -Morbid obesity BMI 43.2 Weight loss measures -Mild elevation in liver enzymes Check liver ultrasound -Asthma/COPD in a non-smoker DuoNeb -Acute left lower extremity DVT in the left femoral vein and popliteal vein with ultrasound confirmation on June 01. Eliquis 5 mg twice daily -Acute saddle pulmonary embolism with multiple additional segmental subsegmental pulmonary emboli bilaterally on May 31, 2022 Eliquis 5 mg twice daily -Chronic congestive heart failure from systolic dysfunction EF 20 to 25% Lasix 20 mg a day. Add Aldactone 25 mg a day. Add fluid restriction 2000 cc a day -Mild to moderate mitral regurgitation -Obstructive sleep apnea Uses nocturnal oxygen 2 L -Primary osteoarthritis -Chronic gait dysfunction uses a walker at baseline Diuretics. Gentle hydration. Repeat labs. BMP and CBC. Discussed with patient. Not ready for discharge.
--- NOTE | 2023-05-26 08:38 | P.PN ---
Subjective Progress Note Date: 05/26/23 78-year-old female that I saw in consultation, back on May 08, 2023. She has a history of pulmonary embolism x 2, hypothyroidism, hypertension, CHF, and cellulitis. The patient had surgery today with Dr. Cramer and I was asked to see her for her lung status after surgery. As mentioned, the patient was last seen in my office, May 07. She was here for preoperative clearance. The patient was going to have a panniculectomy, today. When I saw her last, she was not having any pulmonary complaints, denied any shortness of breath, cough, wheezing, chest tightness, or phlegm production. The plan in the office that day was to have her do some lung function, to determine her operative risk. In my office, the patient's FEV1 was 1.58 L which is 85% of predicted. The FVC was 1.76 L which is 70% of predicted. The MVV was 89 L/min. Based on this data, I thought the patient was at a low increased operative risk for surgery. She is seen in the [facility], room 515. She is getting 2 L of oxygen by nasal cannula, and lactated Ringer's at 125 cc an hour. The patient's home medications included Coreg, Protonix, Cozaar, Synthroid, updrafts with albuterol sulfate and ipratropium bromide, Lasix, Farxiga, Lipitor, and Eliquis. No laboratory data as yet. The patient is seen today May 24, 2023 in follow-up on the regular medical floor. She is currently resting comfortably in bed. Awake and alert in no acute distress. Denies any worsening shortness of breath, cough or congestion. She is maintaining good O2 saturations in the 90s on 2 L/min per nasal cannula. She has lactated Ringer's at 20 MLS per hour. She is continued on Levaquin. This is postoperative day #1 following a panniculectomy. Wound VAC remains in place. Count 14.2. Hemoglobin 12.3. Platelets 204. Sodium 139. Potassium 5.1. Bicarb 25. BUN 22. Creatinine 1.1. Glucose 114. AST 41. ALT 52. She is receiving bronchodilators. She is working well with the incentive spirometer. She remains anticoagulated with Eliquis. The patient is seen today May 25, 2023 in follow-up on the regular medical floor. She is currently sitting up at the bedside. Awake and alert in no acute distress. Maintaining O2 saturations in the 90s on room air. 0.45% normal saline at 50 MLS per hour. Chest x-ray revealed no acute pulmonary process. Abdominal x-ray reveals no obvious acute process. White count 14.1. Hemoglobin 11.9. Platelets 221. Sodium 134. Potassium 4.3. Bicarb 22. BUN 34. Creatinine 1.77. Glucose 137. She is continued on DuoNeb inhalations. Working well with the incentive spirometer. Her Eliquis has been resumed. She is on antibiotics in the form of Levaquin. The patient is seen today May 26, 2023 in follow-up on the regular medical floor. She is currently sitting up in a chair at the bedside. Awake and alert in no acute distress. She is maintaining good O2 saturations in the 90s on room air. She has been afebrile. Hemodynamically stable. Her bilateral abdominal wound vacs are intact. Today's labs are pending. She remains on DuoNeb inhalations. Anticoagulated with Eliquis. Remains on antibiotics in the form of Levaquin. Objective - Vital Signs Vital signs: Vital Signs Temp 98.4 F 05/26/23 07:30 Pulse 104 H 05/26/23 07:30 Resp 16 05/26/23 07:30 BP 98/70 05/26/23 07:30 Pulse Ox 97 05/26/23 07:30 FiO2 Intake & Output 05/25/23 05/26/23 05/26/23 18:59 06:59 18:59 Intake Total 960 Balance 960 Intake: Oral 960 Other: Voiding Method Bedside Commode Bedside Commode # Voids 1 4 - Exam GENERAL EXAM: Alert, very pleasant 78-year-old female, on room air, up in a chair, in no apparent distress. HEAD: Normocephalic. EYES: Normal reaction of pupils, equal size. NOSE: Clear with pink turbinates. THROAT: No erythema or exudates. NECK: No masses, no JVD. CHEST: No chest wall deformity. LUNGS: Equal air entry with no crackles, wheeze, rhonchi or dullness. CVS: S1 and S2 normal with no audible murmur, regular rhythm. ABDOMEN: Wound VACs in place. No hepatosplenomegaly, normal bowel sounds, no guarding or rigidity. SPINE: No scoliosis or deformity SKIN: No rashes CENTRAL NERVOUS SYSTEM: No focal deficits, tone is normal in all 4 extremities. EXTREMITIES: There is no peripheral edema. No clubbing, no cyanosis. Peripheral pulses are intact. - Labs CBC & Chem 7: 05/25/23 06:02 05/25/23 06:02 Labs: Abnormal Lab Results - Last 24 Hours (Table) 05/25/23 Range/Units 06:02 WBC 14.16 H (4.50-10.00) X 10*3/uL RBC 3.88 L (4.10-5.20) X 10*6/uL Hgb 11.9 L (12.0-15.0) g/dL Hct 36.9 L (37.2-46.3) % Immature Gran # 0.07 H (0.00-0.04) X 10*3/uL Neutrophils # 9.65 H (1.80-7.70) X 10*3/uL Monocytes # 1.63 H (0.20-1.00) X 10*3/uL Assessment and Plan Assessment: Postop day # 3, status post panniculectomy, for massive panniculus and repair of umbilical hernia. Bilateral wound vacs in place History of pulmonary embolism x 2, on Eliquis Morbid obesity with a BMI of 43.2 kg/m Hypothyroidism History of diabetes mellitus Hypertension History of CHF History of cellulitis History of mild asthma Plan: The patient was seen and evaluated Medications reviewed Doing well, up in a chair Stable and on room air Continue bronchodilators Continue incentive spirometer Anticoagulated with Eliquis Plan is for home with home care and continued wound vacs This patient was seen independently by the pulmonary nurse practitioner addr kole pulmonary issues I have personally seen and examined the patient, performed the documentation and the assessment and plan as written. Number of minutes spent on the visit: 23.
[2023-05-26 09:04] LABS: Basophils % (A) 0 %; Eosinophils # (A) 0.4 k/uL (0-0.7); Eosinophils % (A) 4 %; HCT 37.4 % (34.0-46.0); HGB 12.4 gm/dL (11.4-16.0); Lymphocytes # (A) 2.1 k/uL (1.0-4.8); Lymphocytes % (A) 18 %; MCH 31.2 pg (25.0-35.0); MCHC 33.2 g/dL (31.0-37.0); MCV 94.1 fL (80.0-100.0); Mean Platelet Volume 7.6; Monocytes # (A) 0.7 k/uL (0-1.0); Monocytes % (A) 6 %; Neutrophils # (A) 8.2 k/uL (1.3-7.7); Neutrophils % (A) 70 %; Platelet Count 228 k/uL (150-450); RBC 3.98 m/uL (3.80-5.40); RDW 13.6 % (11.5-15.5); WBC 11.7 k/uL (3.8-10.6)
[2023-05-26 10:48] LABS: African American GFR (CKD) 36 (>60 ml/min/1.73 sqM); Anion Gap 9 mmol/L; Blood Urea Nitrogen 46 mg/dL (7-17); Calcium 8.5 mg/dL (8.4-10.2); Carbon Dioxide 20 mmol/L (22-30); Chloride 103 mmol/L (98-107); Glucose 113 mg/dL (74-99); Non-African American GFR(CKD) 31 (>60 ml/min/1.73 sqM); Potassium 4.3 mmol/L (3.5-5.1); Sodium 132 mmol/L (137-145)
--- NOTE | 2023-05-26 15:49 | P.PN ---
Progress Note - Text Progress Note Date: 05/26/23 Hospital course: I am rounding for Dr. Howie Ching May 23: Patient is status post panniculectomy. Up in a recliner. Wound VAC in place. Patient has sleep apnea uses oxygen overnight. Does use a walker at baseline. Has not passed any flatus. Abdominal binder in place. Pain controlled. No nausea vomiting. Will DC Covarrubias catheter. May 24: Patient breathing is better today. Creatinine has gone up. Will hold off diuretics. Gentle hydration today. Repeat labs in the morning. Signi ficant output from the wound VAC. Plan is for patient to be discharged with wound VAC. May 25: Sitting up in a chair. Has a visitor. Breathing stable. Some improvement in creatinine. Continue gentle hydration. Wound VAC in place. Active Medications Hydrocodone Bitart/Acetaminophen (Hydrocodone/Apap 5-325mg 1 Each Tab) 1 each PO Q4HR PRN PRN Reason: Pain Last Admin: 05/25/23 05:46 Dose: 1 each Albuterol/Ipratropium (Ipratropium-Albuterol 3 Ml Neb) 3 ml INHALATION RT-QID [facility] Last Admin: 05/26/23 12:06 Dose: 3 ml Apixaban (Apixaban 5 Mg Tab) 5 mg PO BID [facility]; Protocol Last Admin: 05/26/23 09:29 Dose: 5 mg Atorvastatin Calcium (Atorvastatin 40 Mg Tab) 40 mg PO DAILY [facility] Last Admin: 05/26/23 09:28 Dose: 40 mg Carvedilol (Carvedilol 3.125 Mg Tab) 3.125 mg PO BID-W/MEALS [facility] Last Admin: 05/26/23 09:29 Dose: 3.125 mg Dapagliflozin (Dapagliflozin Propanediol 5 Mg Tablet) 5 mg PO DAILY [facility] Last Admin: 05/26/23 09:29 Dose: 5 mg Hydromorphone HCl (Hydromorphone 1 Mg/Ml 1 Ml Syringe) 1 mg IVP Q4HR PRN PRN Reason: Severe Pain (Scale 7 to 10) Stop: 06/22/23 11:56 Last Admin: 05/24/23 06:36 Dose: 0.5 mg Sodium Chloride (Saline 0.45%) 1,000 mls @ 50 mls/hr IV .Q20H [facility] Last Admin: 05/26/23 05:53 Dose: 50 mls/hr Levofloxacin (Levofloxacin 500 Mg Tab) 500 mg PO Q48H [facility] Last Admin: 05/25/23 09:03 Dose: 500 mg Levothyroxine Sodium (Levothyroxine 100 Mcg Tab) 100 mcg PO DAILY@0630 [facility] Last Admin: 05/26/23 05:53 Dose: 100 mcg Lidocaine HCl (Lidocaine 1% (10mg/Ml) For Iv Start) 0.1 ml INTRADERMA PER PROTOCOL PRN PRN Reason: IV Start Stop: 06/21/23 18:23 Naloxone HCl (Naloxone 0.4 Mg/Ml 1 Ml Vial) 0.2 mg IV Q2M PRN PRN Reason: Opioid Reversal Stop: 06/22/23 11:56 Nystatin (Nystatin 100,000 Unit/Gm Powd 15 Gm) 1 applic TOPICAL TID [facility]; Protocol Last Admin: 05/26/23 09:29 Dose: 1 applic Ondansetron HCl (Ondansetron 4 Mg/2 Ml Vial) 4 mg IVP Q6HR PRN PRN Reason: Nausea And Vomiting Stop: 06/22/23 11:56 Last Admin: 05/25/23 12:52 Dose: 4 mg Pantoprazole Sodium (Pantoprazole 40 Mg Tablet) 40 mg PO AC-BRKFST [facility] Last Admin: 05/26/23 09:28 Dose: 40 mg Petrolatum (Zinc Oxide Paste (Z-Guard) 1 Applic) 1 applic TOPICAL BID [facility]; Protocol Last Admin: 05/26/23 09:29 Dose: 1 applic On examination: VITAL SIGNS: 97.8, 91, 18, 107/70, 98% room air GENERAL APPEARANCE: Sitting up in a chair, eating lunch HEENT: Normal external appearance of nose and ear. Oral cavity normal EYES: Pupils equal. Conjunctiva normal. NECK: JVD not raised. Mass not palpable. RESPIRATORY: Respiratory effort crease lungs, decreased breath sounds at bases CARDIOVASCULAR: First and second sounds normal. No edema. ABDOMEN: Some tenderness. Abdominal binder in place. Wound VAC in place. PSYCHIATRY: Alert and oriented x3. Mood and affect normal. INVESTIGATIONS, reviewed in the clinical context: May 25: White count 1.7 hemoglobin 12.4 potassium 4.3 BUN 46 creatinine 1.59 Liver ultrasound: Limited study May 24: White count 14.1 hemoglobin 11.9 sodium 134 potassium 4.3 BUN 34 creatinine 1.77 May 23: White count 14.2 hemoglobin 12.3 platelets 204 sodium 139 potassium 5.1 creatinine 1.1 AST 41 ALT 52 Assessment plan: -Panniculectomy by Dr. Cramer on May [address] Abdominal binder -Acute kidney injury, prerenal, diuretics: Stop diuretics. Cut back on fluid restriction. Follow -GERD Protonix 40 mg a day -Hypothyroid Synthroid 100 mcg a day -Hyperlipidemia Lipitor 40 mg a day -Morbid obesity BMI 43.2 Weight loss measures -Mild elevation in liver enzymes Check liver ultrasound -Asthma/COPD in a non-smoker DuoNeb -Acute left lower extremity DVT in the left femoral vein and popliteal vein with ultrasound confirmation on June 01. Eliquis 5 mg twice daily -Acute saddle pulmonary embolism with multiple additional segmental subsegmental pulmonary emboli bilaterally on May 31, 2022 Eliquis 5 mg twice daily -Chronic congestive heart failure from systolic dysfunction EF 20 to 25% Lasix 20 mg a day. Add Aldactone 25 mg a day. Add fluid restriction 2000 cc a day -Mild to moderate mitral regurgitation -Obstructive sleep apnea Uses nocturnal oxygen 2 L -Primary osteoarthritis -Chronic gait dysfunction uses a walker at baseline Continue gentle hydration. Check labs in the morning.
--- NOTE | 2023-05-26 20:40 | P.PN ---
Subjective Patient seen and evaluated at bedside. Patient doing well, denies abdominal pain, sitting in chair. Objective - Vital Signs Vital signs: Vital Signs Temp 98.5 F 05/26/23 20:00 Pulse 106 H 05/26/23 20:10 Resp 22 05/26/23 20:00 BP 120/67 05/26/23 20:00 Pulse Ox 98 05/26/23 20:00 FiO2 Intake & Output 05/26/23 05/26/23 05/27/23 06:59 18:59 06:59 Intake Total 480 Balance 480 Intake: Oral 480 Other: Voiding Method Bedside Commode Bedside Commode # Voids 4 4 - Exam gen: nad cv: rrr pul: non Labored breathing abd: soft, non tender no guarding or rebound tenderness, surgical drains intact, dressing intact. - Labs CBC & Chem 7: 05/26/23 08:47 05/26/23 08:47 Labs: Abnormal Lab Results - Last 24 Hours (Table) 05/26/23 05/26/23 Range/Units 08:47 08:47 WBC 11.7 H (3.8-10.6) k/uL Neutrophils # 8.2 H (1.3-7.7) k/uL Sodium 132 L (137-145) mmol/L Carbon Dioxide 20 L (22-30) mmol/L BUN 46 H (7-17) mg/dL Creatinine 1.59 H (0.52-1.04) mg/dL Glucose 113 H (74-99) mg/dL Assessment and Plan Assessment: pod #1 status post panniculectomy and umbilical hernia repair PLAN: -Continue wound vacs. Patient will be going home with the wound vacs. -Continue pain management -Encourage patient to increase activity level -Encourage incentive spirometer use -Continue regular diet -Covarrubias catheter to be discontinued
[2023-05-27 05:56] LABS: African American GFR (CKD) 29 (>60 ml/min/1.73 sqM); Anion Gap 10 mmol/L; Blood Urea Nitrogen 51 mg/dL (7-17); Calcium 8.6 mg/dL (8.4-10.2); Carbon Dioxide 20 mmol/L (22-30); Chloride 106 mmol/L (98-107); Glucose 123 mg/dL (74-99); Non-African American GFR(CKD) 25 (>60 ml/min/1.73 sqM); Potassium 4.3 mmol/L (3.5-5.1); Sodium 136 mmol/L (137-145)
--- NOTE | 2023-05-27 08:15 | P.PN ---
Subjective Progress Note Date: 05/27/23 78-year-old female that I saw in consultation, back on May 08, 2023. She has a history of pulmonary embolism x 2, hypothyroidism, hypertension, CHF, and cellulitis. The patient had surgery today with Dr. Cramer and I was asked to see her for her lung status after surgery. As mentioned, the patient was last seen in my office, May 07. She was here for preoperative clearance. The patient was going to have a panniculectomy, today. When I saw her last, she was not having any pulmonary complaints, denied any shortness of breath, cough, wheezing, chest tightness, or phlegm production. The plan in the office that day was to have her do some lung function, to determine her operative risk. In my office, the patient's FEV1 was 1.58 L which is 85% of predicted. The FVC was 1.76 L which is 70% of predicted. The MVV was 89 L/min. Based on this data, I thought the patient was at a low increased operative risk for surgery. She is seen in the [facility], room 515. She is getting 2 L of oxygen by nasal cannula, and lactated Ringer's at 125 cc an hour. The patient's home medications included Coreg, Protonix, Cozaar, Synthroid, updrafts with albuterol sulfate and ipratropium bromide, Lasix, Farxiga, Lipitor, and Eliquis. No laboratory data as yet. The patient is seen today May 24, 2023 in follow-up on the regular medical floor. She is currently resting comfortably in bed. Awake and alert in no acute distress. Denies any worsening shortness of breath, cough or congestion. She is maintaining good O2 saturations in the 90s on 2 L/min per nasal cannula. She has lactated Ringer's at 20 MLS per hour. She is continued on Levaquin. This is postoperative day #1 following a panniculectomy. Wound VAC remains in place. Count 14.2. Hemoglobin 12.3. Platelets 204. Sodium 139. Potassium 5.1. Bicarb 25. BUN 22. Creatinine 1.1. Glucose 114. AST 41. ALT 52. She is receiving bronchodilators. She is working well with the incentive spirometer. She remains anticoagulated with Eliquis. The patient is seen today May 25, 2023 in follow-up on the regular medical floor. She is currently sitting up at the bedside. Awake and alert in no acute distress. Maintaining O2 saturations in the 90s on room air. 0.45% normal saline at 50 MLS per hour. Chest x-ray revealed no acute pulmonary process. Abdominal x-ray reveals no obvious acute process. White count 14.1. Hemoglobin 11.9. Platelets 221. Sodium 134. Potassium 4.3. Bicarb 22. BUN 34. Creatinine 1.77. Glucose 137. She is continued on DuoNeb inhalations. Working well with the incentive spirometer. Her Eliquis has been resumed. She is on antibiotics in the form of Levaquin. The patient is seen today May 26, 2023 in follow-up on the regular medical floor. She is currently sitting up in a chair at the bedside. Awake and alert in no acute distress. She is maintaining good O2 saturations in the 90s on room air. She has been afebrile. Hemodynamically stable. Her bilateral abdominal wound vacs are intact. Today's labs are pending. She remains on DuoNeb inhalations. Anticoagulated with Eliquis. Remains on antibiotics in the form of Levaquin. The patient is seen today May 27, 2023 in follow-up on the regular medical floor. She is awake and alert in no acute distress. Sitting up in a chair. Denies any shortness of breath, cough or congestion. No fever or chills. Abdominal surgical pain is well-controlled. She is continued on DuoNeb inhalations. Anticoagulated with Eliquis. Remains on antibiotics in the form of Levaquin. Sodium 136. Potassium 4.3. Bicarb 20. BUN 51. Creatinine 1.88. Glucose 123. Objective - Vital Signs Vital signs: Vital Signs Temp 98.4 F 05/27/23 07:08 Pulse 100 05/27/23 07:44 Resp 18 05/27/23 07:08 BP 92/54 05/27/23 07:08 Pulse Ox 97 05/27/23 07:08 FiO2 Intake & Output 05/26/23 05/27/23 05/27/23 18:59 06:59 18:59 Intake Total 480 240 Balance 480 240 Intake: Oral 480 240 Other: Voiding Method Bedside Commode Toilet # Voids 4 3 - Exam GENERAL EXAM: Alert, 78-year-old female, on room air, in no apparent distress. HEAD: Normocephalic. EYES: Normal reaction of pupils, equal size. NOSE: Clear with pink turbinates. THROAT: No erythema or exudates. NECK: No masses, no JVD. CHEST: No chest wall deformity. LUNGS: Equal air entry with no crackles, wheeze, rhonchi or dullness. CVS: S1 and S2 normal with no audible murmur, regular rhythm. ABDOMEN: Wound VACs in place. No hepatosplenomegaly, normal bowel sounds, no guarding or rigidity. SPINE: No scoliosis or deformity SKIN: No rashes CENTRAL NERVOUS SYSTEM: No focal deficits, tone is normal in all 4 extremities. EXTREMITIES: There is no peripheral edema. No clubbing, no cyanosis. Peripheral pulses are intact. - Labs CBC & Chem 7: 05/26/23 08:47 05/27/23 04:38 Labs: Abnormal Lab Results - Last 24 Hours (Table) 05/26/2305/25/05/27/23 Range/Units 08:47 08:47 04:38 WBC 11.7 H (3.8-10.6) k/uL Neutrophils # 8.2 H (1.3-7.7) k/uL Sodium 132 L 136 L (137-145) mmol/L Carbon Dioxide 20 L 20 L (22-30) mmol/L BUN 46 H 51 H (7-17) mg/dL Creatinine 1.59 H 1.88 H (0.52-1.04) mg/dL Glucose 113 H 123 H (74-99) mg/dL Assessment and Plan Assessment: Postop day # 4, status post panniculectomy, for massive panniculus and repair of umbilical hernia. Bilateral wound vacs in place History of pulmonary embolism x 2, on Eliquis Morbid obesity with a BMI of 43.2 kg/m Hypothyroidism History of diabetes mellitus Hypertension History of CHF History of cellulitis History of mild asthma Plan: The patient was seen and evaluated Medications and labs reviewed Stable and on room air Continue bronchodilators Continue incentive spirometer Anticoagulated with Eliquis Plan is for home with home care and continued wound vacs This patient was seen independently by the pulmonary nurse practitioner addressing pulmonary issues I have personally seen and examined the patient, performed the documentation and the assessment and plan as written. Number of minutes spent on the visit: 22.
--- NOTE | 2023-05-27 10:58 | P.PN ---
Subjective Progress Note Date: 05/27/23 Principal diagnosis: Panniculectomy Patient feels fairly well. Minimal pain. Her BUN and creatinine have increased somewhat today. Patient was hoping to go home however home care not set up to meet her at the house today. Objective - Vital Signs Vital signs: Vital Signs Temp 98.4 F 05/27/23 07:08 Pulse 129 H 05/27/23 08:00 Resp 18 05/27/23 08:00 BP 92/54 05/27/23 07:08 Pulse Ox 97 05/27/23 07:08 FiO2 Intake & Output 05/26/23 05/27/23 05/27/23 18:59 06:59 18:59 Intake Total 480 240 240 Balance 480 240 240 Intake: Oral 480 240 240 Other: Voiding Method Bedside Commode Toilet Toilet # Voids 4 3 - Exam Abdomen soft, mild tenderness, wound vacs in place - Labs CBC & Chem 7: 05/26/23 08:47 05/27/23 04:38 Labs: Abnormal Lab Results - Last 24 Hours (Table) 05/27/23 Range/Units 04:38 Sodium 136 L (137-145) mmol/L Carbon Dioxide 20 L (22-30) mmol/L BUN 51 H (7-17) mg/dL Creatinine 1.88 H (0.52-1.04) mg/dL Glucose 123 H (74-99) mg/dL Assessment and Plan (1) Abdominal panniculus, symptomatic Narrative/Plan: Continue increasing activity. Recheck labs tomorrow. Possible discharge tomorrow if home care arranged and cleared by medicine. Current Visit: Yes Status: Acute Code(s): E65 - LOCALIZED ADIPOSITY SNOMED Code(s): [id number]
[2023-05-27] MEDS: SODIUM CHLORIDE 0.45% 1,000 ML IV SCH (11:29)
--- NOTE | 2023-05-27 12:37 | P.PN ---
Progress Note - Text Progress Note Date: 05/27/23 Hospital course: I am rounding for Dr. Howie Ching May 23: Patient is status post panniculectomy. Up in a recliner. Wound VAC in place. Patient has sleep apnea uses oxygen overnight. Does use a walker at baseline. Has not passed any flatus. Abdominal binder in place. Pain controlled. No nausea vomiting. Will DC Covarrubias catheter. May 24: Patient breathing is better today. Creatinine has gone up. Will hold off diuretics. Gentle hydration today. Repeat labs in the morning. Signi ficant output from the wound VAC. Plan is for patient to be discharged with wound VAC. May 25: Sitting up in a chair. Has a visitor. Breathing stable. Some improvement in creatinine. Continue gentle hydration. Wound VAC in place. May 26: Wound VAC in place. IV came out yesterday evening. Creatinine still up. Resume IV fluids 75 cc an hour. Repeat labs in the morning. Breathing stable. Active Medications Hydrocodone Bitart/Acetaminophen (Hydrocodone/Apap 5-325mg 1 Each Tab) 1 each PO Q4HR PRN PRN Reason: Pain Last Admin: 05/25/23 05:46 Dose: 1 each Albuterol/Ipratropium (Ipratropium-Albuterol 3 Ml Neb) 3 ml INHALATION RT-QID [facility] Last Admin: 05/27/23 11:13 Dose: 3 ml Apixaban (Apixaban 5 Mg Tab) 5 mg PO BID [facility]; Protocol Last Admin: 05/27/23 09:08 Dose: 5 mg Atorvastatin Calcium (Atorvastatin 40 Mg Tab) 40 mg PO DAILY [facility] Last Admin: 05/27/23 09:08 Dose: 40 mg Carvedilol (Carvedilol 3.125 Mg Tab) 3.125 mg PO BID-W/MEALS [facility] Last Admin: 05/27/23 09:08 Dose: 3.125 mg Dapagliflozin (Dapagliflozin Propanediol 5 Mg Tablet) 5 mg PO DAILY [facility] Last Admin: 05/27/23 09:07 Dose: 5 mg Hydromorphone HCl (Hydromorphone 1 Mg/Ml 1 Ml Syringe) 1 mg IVP Q4HR PRN PRN Reason: Severe Pain (Scale 7 to 10) Stop: 06/22/23 11:56 Last Admin: 05/24/23 06:36 Dose: 0.5 mg Sodium Chloride (Saline 0.45%) 1,000 mls @ 50 mls/hr IV .Q20H [facility] Last Admin: 05/27/23 11:08 Dose: 50 mls/hr Sodium Chloride (Saline 0.45%) 1,000 mls @ 75 mls/hr IV .[id number] [facility] Last Admin: 05/27/23 11:29 Dose: 75 mls/hr Levofloxacin (Levofloxacin 500 Mg Tab) 500 mg PO Q48H [facility] Last Admin: 05/27/23 09:08 Dose: 500 mg Levothyroxine Sodium (Levothyroxine 100 Mcg Tab) 100 mcg PO DAILY@0630 [facility] Last Admin: 05/27/23 05:17 Dose: 100 mcg Lidocaine HCl (Lidocaine 1% (10mg/Ml) For Iv Start) 0.1 ml INTRADERMA PER PROTOCOL PRN PRN Reason: IV Start Stop: 06/21/23 18:23 Naloxone HCl (Naloxone 0.4 Mg/Ml 1 Ml Vial) 0.2 mg IV Q2M PRN PRN Reason: Opioid Reversal Stop: 06/22/23 11:56 Nystatin (Nystatin 100,000 Unit/Gm Powd 15 Gm) 1 applic TOPICAL TID [facility]; Protocol Last Admin: 05/27/23 09:08 Dose: 1 applic Ondansetron HCl (Ondansetron 4 Mg/2 Ml Vial) 4 mg IVP Q6HR PRN PRN Reason: Nausea And Vomiting Stop: 06/22/23 11:56 Last Admin: 05/25/23 12:52 Dose: 4 mg Pantoprazole Sodium (Pantoprazole 40 Mg Tablet) 40 mg PO AC-BRKFST [facility] Last Admin: 05/27/23 09:08 Dose: 40 mg Petrolatum (Zinc Oxide Paste (Z-Guard) 1 Applic) 1 applic TOPICAL BID [facility]; Protocol Last Admin: 05/27/23 09:08 Dose: 1 applic On examination: VITAL SIGNS: 98.3, 129, 18, 193 x 57, 98% room air GENERAL APPEARANCE: Sitting up in a chair, eating lunch HEENT: Normal external appearance of nose and ear. Oral cavity normal EYES: Pupils equal. Conjunctiva normal. NECK: JVD not raised. Mass not palpable. RESPIRATORY: Respiratory effort crease lungs, decreased breath sounds at bases CARDIOVASCULAR: First and second sounds normal. No edema. ABDOMEN: Some tenderness. Abdominal binder in place. Wound VAC in place. PSYCHIATRY: Alert and oriented x3. Mood and affect normal. INVESTIGATIONS, reviewed in the clinical context: May 25: White count 1.7 hemoglobin 12.4 potassium 4.3 BUN 46 creatinine 1.59 Liver ultrasound: Limited study May 24: White count 14.1 hemoglobin 11.9 sodium 134 potassium 4.3 BUN 34 creatinine 1.77 May 23: White count 14.2 hemoglobin 12.3 platelets 204 sodium 139 potassium 5.1 creatinine 1.1 AST 41 ALT 52 Assessment plan: -Panniculectomy by Dr. Cramer on May [address]. Abdominal binder -Acute kidney injury, prerenal, diuretics: Stop diuretics. Cut back on fluid restriction. Follow Renal ultrasound not a good quality Gentle hydration -GERD Protonix 40 mg a day -Hypothyroid Synthroid 100 mcg a day -Hyperlipidemia Lipitor 40 mg a day -Morbid obesity BMI 43.2 Weight loss measures -Mild elevation in liver enzymes Liver ultrasound not good quality -Asthma/COPD in a non-smoker DuoNeb -Acute left lower extremity DVT in the left femoral vein and popliteal vein with ultrasound confirmation on June 01. Eliquis 5 mg twice daily -Acute saddle pulmonary embolism with multiple additional segmental subsegmental pulmonary emboli bilaterally on May 31, 2022 Eliquis 5 mg twice daily -Chronic congestive heart failure from systolic dysfunction EF 20 to 25% Lasix 20 mg a day. Add Aldactone 25 mg a day. Add fluid restriction 2000 cc a day -Mild to moderate mitral regurgitation -Obstructive sleep apnea Uses nocturnal oxygen 2 L -Primary osteoarthritis -Chronic gait dysfunction uses a walker at baseline Gentle hydration. Consult nephrology. Strict I's and O's. UA
[2023-05-27 14:50] LABS: Appearance,Urine Clear (Clear); Bilirubin,Urine Negative (Negative); Blood,Urine Trace (Negative); Color,Urine Light Yellow; Glucose,Urine (UA) 2+ (Negative); Hyaline Casts,Urine 1 /lpf (0-2); Ketones,Urine Negative (Negative); Leukocyte Esterase,Urine Small (Negative); Mucus,Urine Rare /hpf; Nitrite,Urine Negative (Negative); Protein,Urine Negative (Negative); RBC,Urine 2 /hpf (0-5); Specific Gravity,Urine 1.019 (1.001-1.035); Squamous Epithelial Cell,Urine 4 /hpf (0-4); Urobilinogen,Urine <2.0 mg/dL (<2.0); WBC,Urine 5 /hpf (0-5)
--- NOTE | 2023-05-28 09:23 | P.NPCON ---
History of Present Illness - Reason for Consult acute renal failure, chronic renal failure - History of Present Illness Reason for consultation: Acute kidney injury on chronic kidney disease History of present illness: Patient is a 78-year-old female seen in renal consultation for acute kidney injury on chronic kidney disease. Patient has chronic kidney disease stage IIIa with baseline creatinine 1.2-1.5 from May 2022. Creatinine has been as low as 1.1 dated May 24, 2023. Creatinine peaked at 1.88 dated yesterday. She is currently receiving IV fluids. Patient underwent panniculectomy and repair of umbilical hernia on May 23, 2023. Currently she is tolerating a normal diet. She denies any chest pain or shortness of breath. She does take Lasix at home which are currently held. Additionally she also takes losartan which is currently held. Blood pressure the last 1 to 2 days has been well-controlled. It is noted to be as low as 93/59 on May 25, 2023. This morning her blood pressure was 115/63. She has been voiding. Denies gross hematuria or dysuria. Denies history of diabetes. Denies history of coronary artery disease. Denies regular use of nonsteroidals. She denies family history of renal disease. She is currently receiving IV fluids. No vomiting or diarrhea. Vital signs are stable. General: No acute distress. HEENT: Head exam is unremarkable. LUNGS: No audible rhonchi or wheezes. HEART: Tachycardic. ABDOMEN: Nontender. Wound VAC noted. EXTREMITITES: 1+ edema. Chronic changes noted. Past Medical History Past Medical History: Asthma, COPD, Deep Vein Thrombosis (DVT), Hyperlipidemia, Hypertension, Myocardial Infarction (MS), Osteoarthritis (OA), Pulmonary Embolus (PE), Skin Disorder, Sleep Apnea/CPAP/BIPAP, Thyroid Disorder Additional Past Medical History / Comment(s): Hx DVT's, hx PE 06/11. Hx cellulitis. Uses O2 at night only @ 3L. No CPAP use. rash to pannis from rubbing skin on skin. Last Myocardial Infarction Date:: Unknown History of Any Multi-Drug Resistant Organisms: None Reported Past Surgical History: Hysterectomy Additional Past Surgical History / Comment(s): Arm tumor removal, ganglion cysts removed from hand and wrist. Past Anesthesia/Blood Transfusion Reactions: No Reported Reaction Additional Past Anesthesia/Blood Transfusion Reaction / Comment(s): no blood transfusions Smoking Status: Former smoker - Past Family History Mother Family Medical History: Cancer, Diabetes Mellitus Father Family Medical History: Pulmonary Embolus Additional Family Medical History / Comment(s): Partial lung removed. PE after hip replacement. Medications and Allergies Home Medications Medication Instructions Recorded Confirmed Type Apixaban [Eliquis] 5 mg PO BID tab 06/09/22 05/23/23 Rx Atorvastatin [Lipitor] 40 mg PO DAILY tab 06/09/22 05/23/23 Rx Dapagliflozin Propanediol [Farxiga] 5 mg PO DAILY tab 06/09/22 05/23/23 Rx Furosemide [Lasix] 40 mg PO DAILY tab 06/09/22 05/23/23 Rx Ipratropium-Albuterol Nebulize 3 ml INHALATION RT-QID each 06/09/22 05/23/23 Rx [Duoneb 0.5 mg-3 mg/3 ml Soln] Levothyroxine Sodium [Synthroid] 100 mcg PO DAILY@0630 tab 06/09/22 05/23/23 Rx Losartan [Cozaar] 12.5 mg PO DAILY tab 06/09/22 05/23/23 Rx Pantoprazole [Protonix] 40 mg PO AC-BRKFST tab 06/09/22 05/23/23 Rx carvediloL [Coreg] 3.125 mg PO BID-W/MEALS tab 06/09/22 05/23/23 Rx Allergies Allergy/AdvReac Type Severity Reaction Status Date / Time No Known Allergies Allergy Verified 05/23/23 09:52 Physical Exam Vitals: Vital Signs Temp Pulse Pulse Resp BP BP Pulse Ox 05/28/23 07:52 119 H 05/28/23 07:40 99 05/28/23 07:37 124 H 05/28/23 07:03 97.4 F L 124 H 20 115/63 98 05/28/23 01:42 98.0 F 130 H 18 100/68 96 05/27/23 20:00 97.7 F 120 H 18 145/85 96 05/27/23 19:45 100 05/27/23 19:35 99 05/27/23 18:42 101/70 05/27/23 15:15 100 05/27/23 15:05 100 05/27/23 11:59 98.3 F 129 H 18 93/57 98 05/27/23 11:24 104 H 05/27/23 11:14 104 H Intake and Output 05/27/23 05/28/23 05/28/23 22:59 06:59 14:59 Intake Total 240 480 Balance 240 480 Intake: Oral 240 480 Other: Voiding Method Toilet # Voids 1 2 Results - Lab Results Most recent lab results Calcium 8.6 mg/dL (8.4-10.2) 05/27/23 04:38 05/26/23 08:47 05/27/23 04:38 Assessment and Plan Plan: Assessment: 1. Acute kidney injury secondary to hemodynamic ATN/hypotension. Creatinine peaked at 1.88 yesterday. No proteinuria on UA. 2. Chronic kidney disease stage IIIa with baseline creatinine 1.2-1.5 from May 2022. Creatinine as low as 1.1 dated May 24, 2023. Etiology is nephrosclerosis. 3. Status post panniculectomy May 23, 2023. 4. History of PE and DVT maintained on anticoagulation. 5. Chronic systolic CHF with ejection fraction of 30 to 35%. 6. Mild volume overload. Plan: Hep-Lock IV fluids. Lasix 20 mg IV once today. Check bladder scan to rule out urinary retention. Encouraged oral intake. Avoid nephrotoxins. Check renal ultrasound. Morning labs pending. Thank you for the consultation. I will continue to follow the patient with you during her hospital stay.
[2023-05-28 09:31] LABS: Blood Urea Nitrogen 52.2 mg/dL (9.0-27.0); Calcium 8.8 mg/dL (8.7-10.3); Carbon Dioxide 20.6 mmol/L (21.6-31.8); Chloride 103 mmol/L (96-109); Glucose 120 mg/dL (70-110); Potassium 4.5 mmol/L (3.5-5.5); Sodium 136 mmol/L (135-145)
[2023-05-28 09:50] LABS: Basophils # (A) 0.1 k/uL (0-0.2); Basophils % (A) 0 %; Eosinophils # (A) 0.5 k/uL (0-0.7); Eosinophils % (A) 4 %; HCT 37.8 % (34.0-46.0); HGB 12.5 gm/dL (11.4-16.0); Lymphocytes # (A) 2.4 k/uL (1.0-4.8); Lymphocytes % (A) 19 %; MCH 31.8 pg (25.0-35.0); MCHC 33.1 g/dL (31.0-37.0); MCV 96.1 fL (80.0-100.0); Mean Platelet Volume 8.5; Monocytes # (A) 1.1 k/uL (0-1.0); Monocytes % (A) 9 %; Neutrophils # (A) 8.6 k/uL (1.3-7.7); Neutrophils % (A) 67 %; Platelet Count 264 k/uL (150-450); RBC 3.93 m/uL (3.80-5.40); WBC 12.9 k/uL (3.8-10.6)
[2023-05-28] MEDS: FUROSEMIDE 10 MG/ML 2 ML VIAL IV STA (10:16)
--- NOTE | 2023-05-28 11:02 | US ---
EXAMINATION TYPE: US kidneys/renal and bladder DATE OF EXAM: 05/28/2023 COMPARISON: US 05/25/2023 01/30/2019 CLINICAL INDICATION: Female, 78 years old with history of nancy; EXAM MEASUREMENTS: Right Kidney: 8.8 x 4.8 x 3.9 cm Left Kidney: 7.4 x 4.7 x 4.2 cm Post Void Residual Volume: mL Right Kidney: Limited visualization due to patient body habitus Left Kidney: Limited visualization due to patient body habitus Bladder: Unable to assess due to pritesh and bandages Difficult exam due to patient body habitus, limited visualization of right kidney, next to non-visual ized left kidney; Inability to assess bladder due to surgical scars IMPRESSION: Essentially nondiagnostic assessment as discussed above.
--- NOTE | 2023-05-28 14:40 | P.PN ---
Subjective Progress Note Date: 05/28/23 On today's evaluation of 05/28/2023, the patient is being seen for a follow-up. The patient is calm and comfortable. No significant respiratory distress and the patient is currently on room air oxygen with a pulse ox of 95%. No cough. No sputum production. No chest tightness. No wheezing. Nephrology has been consulted in regards to her ongoing renal failure. Creatinine stable at 1.8. The patient has a wound VAC in place and the patient is status post panniculectomy. The white cell count is at 12.9, hemoglobin 12.5 and a platelet count is up to 64. BUN is at 32 with a creatinine of 1.8 and a sodium levels at 136. The patient is currently on long-term anticoagulation with Eliquis 5 mg p.o. twice daily and the patient has previous history of pulmonary embolism. She is also on empiric antibiotic coverage with Levaquin. No fever. No chills. Using the incentive spirometer. Objective - Vital Signs Vital signs: Vital Signs Temp 98.1 F 05/28/23 12:00 Pulse 127 H 05/28/23 12:00 Resp 16 05/28/23 12:00 BP 90/62 05/28/23 12:00 Pulse Ox 95 05/28/23 12:00 FiO2 Intake & Output 05/27/23 05/28/23 05/28/23 18:59 06:59 18:59 Intake Total 720 480 Balance 720 480 Intake: Oral 720 480 Other: Voiding Method Toilet Toilet # Voids 1 2 - Exam GENERAL EXAM: Alert, 78-year-old female, on room air, in no apparent distress. HEAD: Normocephalic. EYES: Normal reaction of pupils, equal size. NOSE: Clear with pink turbinates. THROAT: No erythema or exudates. NECK: No masses, no JVD. CHEST: No chest wall deformity. LUNGS: Equal air entry with no crackles, wheeze, rhonchi or dullness. CVS: S1 and S2 normal with no audible murmur, regular rhythm. ABDOMEN: Wound VACs in place. No hepatosplenomegaly, normal bowel sounds, no guarding or rigidity. SPINE: No scoliosis or deformity SKIN: No rashes CENTRAL NERVOUS SYSTEM: No focal deficits, tone is normal in all 4 extremities. EXTREMITIES: There is no peripheral edema. No clubbing, no cyanosis. Peripheral pulses are intact. - Labs CBC & Chem 7: 05/28/23 05:54 05/28/23 05:54 Labs: Abnormal Lab Results - Last 24 Hours (Table) 05/27/23 05/28/23 05/28/23 Range/Units 14:00 05:54 05:54 WBC 12.9 H (3.8-10.6) k/uL Neutrophils # 8.6 H (1.3-7.7) k/uL Monocytes # 1.1 H (0-1.0) k/uL Carbon Dioxide 20.6 L (21.6-31.8) mmol/L Anion Gap 12.40 H (4.00-12.00) mmol/L BUN 52.2 H (9.0-27.0) mg/dL Creatinine 1.8 H (0.6-1.5) mg/dL Est GFR (CKD-EPI) 29 L (>=60) BUN/Creatinine Ratio 29.00 H (12.00-20.00) Ratio Glucose 120 H (70-110) mg/dL Urine Glucose (UA) 2+ H (Negative) Urine Blood Trace H (Negative) Ur Leukocyte Esterase Small H (Negative) Urine Mucus Rare H (None) /hpf Assessment and Plan Plan: Postop day # 5, status post panniculectomy, for massive panniculus and repair of umbilical hernia. Bilateral wound vacs in place. Clinically and hemodynamically stable at this point in time. History of pulmonary embolism x 2, on Eliquis, no signs of any respiratory distress and the patient is currently on room air oxygen. Acute kidney injury, creatinine stable at 1.8 and nephrology on the case. Ultrasound of the kidneys were nondiagnostic. Morbid obesity with a BMI of 43.2 kg/m Hypothyroidism History of diabetes mellitus Hypertension History of CHF History of cellulitis History of mild asthma Plan: Stable and on room air Continue bronchodilators Continue incentive spirometer Anticoagulated with Eliquis Monitor renal function creatinine stable at 1.8. Nephrology consultation has been appreciated Continues incentive spirometer. Will continue to follow.
--- NOTE | 2023-05-28 15:41 | P.PN ---
Subjective Progress Note Date: 05/28/23 CHIEF COMPLAINT: Massive panniculus HISTORY OF PRESENT ILLNESS: Patient postop day #5 status post panniculectomy and repair of umbilical hernia. Patient denies any abdominal pain. Denies any nausea or vomiting. Wound vacs in place. Patient had elevated creatinine has been evaluated by nephrology. They have Hep-Lock fluids and given a dose of Lasix. She has been mildly tachycardic. Afebrile. WBC 12.9 Hgb 12.5 platelets 264 creatinine 1.8 PHYSICAL EXAM: VITAL SIGNS: Reviewed. GENERAL: Well-developed in no acute distress. ABDOMEN: Soft. Nondistended. Nontender. Incision site clean dry and intact. [address] NEUROLOGIC: Alert and oriented. Cranial nerves II through XII grossly intact. ASSESSMENT: 1. Massive panniculus status post panniculectomy and umbilical hernia repair PLAN: -Patient's wound VAC scheduled to be changed today -Acute kidney injury being managed by nephrology -Anticipate discharge when cleared by consulting physicians Physician Rn Lpn Lvn note has been reviewed by physician. Signing provider agrees with the documented findings, assessment, and plan of care. Objective - Vital Signs Vital signs: Vital Signs Temp 98.1 F 05/28/23 12:00 Pulse 102 H 05/28/23 15:37 Resp 16 05/28/23 12:00 BP 90/62 05/28/23 12:00 Pulse Ox 95 05/28/23 12:00 FiO2 Intake & Output 05/27/23 05/28/23 05/28/23 18:59 06:59 18:59 Intake Total 720 480 Balance 720 480 Intake: Oral 720 480 Other: Voiding Method Toilet Toilet # Voids 1 2 - Labs CBC & Chem 7: 05/28/23 05:54 05/28/23 05:54 Labs: Abnormal Lab Results - Last 24 Hours (Table) 05/28/23 05/28/23 Range/Units 05:54 05:54 WBC 12.9 H (3.8-10.6) k/uL Neutrophils # 8.6 H (1.3-7.7) k/uL Monocytes # 1.1 H (0-1.0) k/uL Carbon Dioxide 20.6 L (21.6-31.8) mmol/L Anion Gap 12.40 H (4.00-12.00) mmol/L BUN 52.2 H (9.0-27.0) mg/dL Creatinine 1.8 H (0.6-1.5) mg/dL Est GFR (CKD-EPI) 29 L (>=60) BUN/Creatinine Ratio 29.00 H (12.00-20.00) Ratio Glucose 120 H (70-110) mg/dL
--- NOTE | 2023-05-28 20:21 | P.PN ---
Progress Note - Text Progress Note Date: 05/28/23 Hospital course: I am rounding for Dr. Howie Ching May 23: Patient is status post panniculectomy. Up in a recliner. Wound VAC in place. Patient has sleep apnea uses oxygen overnight. Does use a walker at baseline. Has not passed any flatus. Abdominal binder in place. Pain controlled. No nausea vomiting. Will DC Covarrubias catheter. May 24: Patient breathing is better today. Creatinine has gone up. Will hold off diuretics. Gentle hydration today. Repeat labs in the morning. Signi ficant output from the wound VAC. Plan is for patient to be discharged with wound VAC. May 25: Sitting up in a chair. Has a visitor. Breathing stable. Some improvement in creatinine. Continue gentle hydration. Wound VAC in place. May 26: Wound VAC in place. IV came out yesterday evening. Creatinine still up. Resume IV fluids 75 cc an hour. Repeat labs in the morning. Breathing stable. May 27: Wound VAC was supposed to be changed earlier today. IV fluids discontinued,. 20 mg of IV Lasix per nephrology. Discussed with patient. Had a bowel movement. Eating fair. Active Medications Hydrocodone Bitart/Acetaminophen (Hydrocodone/Apap 5-325mg 1 Each Tab) 1 each PO Q4HR PRN PRN Reason: Pain Last Admin: 05/25/23 05:46 Dose: 1 each Albuterol/Ipratropium (Ipratropium-Albuterol 3 Ml Neb) 3 ml INHALATION RT-QID [facility] Last Admin: 05/28/23 15:37 Dose: 3 ml Apixaban (Apixaban 5 Mg Tab) 5 mg PO BID [facility]; Protocol Last Admin: 05/28/23 19:51 Dose: 5 mg Atorvastatin Calcium (Atorvastatin 40 Mg Tab) 40 mg PO DAILY [facility] Last Admin: 05/28/23 08:44 Dose: 40 mg Carvedilol (Carvedilol 3.125 Mg Tab) 3.125 mg PO BID-W/MEALS [facility] Last Admin: 05/28/23 17:47 Dose: 3.125 mg Dapagliflozin (Dapagliflozin Propanediol 5 Mg Tablet) 5 mg PO DAILY [facility] Last Admin: 05/28/23 08:44 Dose: 5 mg Hydromorphone HCl (Hydromorphone 1 Mg/Ml 1 Ml Syringe) 1 mg IVP Q4HR PRN PRN Reason: Severe Pain (Scale 7 to 10) Stop: 06/22/23 11:56 Last Admin: 05/24/23 06:36 Dose: 0.5 mg Levofloxacin (Levofloxacin 500 Mg Tab) 500 mg PO Q48H [facility] Last Admin: 05/27/23 09:08 Dose: 500 mg Levothyroxine Sodium (Levothyroxine 100 Mcg Tab) 100 mcg PO DAILY@0630 [facility] Last Admin: 05/28/23 06:01 Dose: 100 mcg Lidocaine HCl (Lidocaine 1% (10mg/Ml) For Iv Start) 0.1 ml INTRADERMA PER PROTOCOL PRN PRN Reason: IV Start Stop: 06/21/23 18:23 Naloxone HCl (Naloxone 0.4 Mg/Ml 1 Ml Vial) 0.2 mg IV Q2M PRN PRN Reason: Opioid Reversal Stop: 06/22/23 11:56 Nystatin (Nystatin 100,000 Unit/Gm Powd 15 Gm) 1 applic TOPICAL TID [facility]; Protocol Last Admin: 05/28/23 19:48 Dose: Not Given Ondansetron HCl (Ondansetron 4 Mg/2 Ml Vial) 4 mg IVP Q6HR PRN PRN Reason: Nausea And Vomiting Stop: 06/22/23 11:56 Last Admin: 05/25/23 12:52 Dose: 4 mg Pantoprazole Sodium (Pantoprazole 40 Mg Tablet) 40 mg PO AC-BRKFST [facility] Last Admin: 05/28/23 08:44 Dose: 40 mg Petrolatum (Zinc Oxide Paste (Z-Guard) 1 Applic) 1 applic TOPICAL BID [facility]; Protocol Last Admin: 05/28/23 19:48 Dose: 1 applic On examination: VITAL SIGNS: 98.1, 60, 16, 90/62, 95% room air GENERAL APPEARANCE: Sitting up in a chair, wound VAC in place HEENT: Normal external appearance of nose and ear. Oral cavity normal EYES: Pupils equal. Conjunctiva normal. NECK: JVD not raised. Mass not palpable. RESPIRATORY: Respiratory effort normal lungs, decreased breath sounds at bases CARDIOVASCULAR: First and second sounds normal. No edema. ABDOMEN: Some tenderness. Abdominal binder in place. Wound VAC connected PSYCHIATRY: Alert and oriented x3. Mood and affect normal. INVESTIGATIONS, reviewed in the clinical context: May 27: White count 12.9 hemoglobin 12.5 potassium 4.5 BUN 52.2 creatinine 1.8 May 25: White count 11.7 hemoglobin 12.4 potassium 4.3 BUN 46 creatinine 1.59 Liver ultrasound: Limited study May 24: White count 14.1 hemoglobin 11.9 sodium 134 potassium 4.3 BUN 34 creatinine 1.77 May 23: White count 14.2 hemoglobin 12.3 platelets 204 sodium 139 potassium 5.1 creatinine 1.1 AST 41 ALT 52 Assessment plan: -Panniculectomy by Dr. Cramer on May [address]. Abdominal binder -Acute kidney injury, likely secondary to hemodynamic, hypotension/ATN Stop diuretics. Cut back on fluid restriction. Follow Renal ultrasound not a good quality Today-IV fluids stopped 1 dose of IV Lasix given by nephrology -GERD Protonix 40 mg a day -Hypothyroid Synthroid 100 mcg a day -Hyperlipidemia Lipitor 40 mg a day -Morbid obesity BMI 43.2 Weight loss measures -Mild elevation in liver enzymes Liver ultrasound not good quality -Asthma/COPD in a non-smoker DuoNeb -Acute left lower extremity DVT in the left femoral vein and popliteal vein with ultrasound confirmation on June 01. Eliquis 5 mg twice daily -Acute saddle pulmonary embolism with multiple additional segmental subsegmental pulmonary emboli bilaterally on May 31, 2022 Eliquis 5 mg twice daily -Chronic congestive heart failure from systolic dysfunction EF 20 to 25% Diuretics held for now. Given IV Lasix x 1 today Add fluid restriction 2000 cc a day -Mild to moderate mitral regurgitation -Obstructive sleep apnea Uses nocturnal oxygen 2 L -Primary osteoarthritis -Chronic gait dysfunction uses a walker at baseline Fluids stopped 1 dose of IV Lasix per nephrology. Follow. Wound VAC is supposed to be changed today. Discussed with patient
--- NOTE | 2023-05-29 10:06 | P.PN ---
Subjective Patient is seen in follow-up for acute kidney injury on chronic kidney disease. Morning labs pending. Good urine output. Oral intake fair. Vital signs are stable. General: No acute distress. HEENT: Head exam is unremarkable. LUNGS: No audible rhonchi or wheezes. HEART: Rate and Rhythm are regular. ABDOMEN: Obese, nontender. EXTREMITITES: 2+ edema noted. Chronic changes noted. Objective - Vital Signs Vital signs: Vital Signs Temp 98.8 F 05/29/23 02:00 Pulse 100 05/29/23 08:25 Resp 16 05/29/23 02:00 BP 125/70 05/29/23 02:00 Pulse Ox 100 05/29/23 08:10 FiO2 Intake & Output 05/28/23 05/29/23 05/29/23 18:59 06:59 18:59 Intake Total 720 Balance 720 Intake: Oral 720 Other: Voiding Method Toilet Toilet - Labs CBC & Chem 7: 05/28/23 05:54 05/28/23 05:54 Assessment and Plan Plan: Assessment: 1. Acute kidney injury secondary to hemodynamic ATN/hypotension. Creatinine peaked at 1.88 this admission and was stable at 1.8 yesterday. No proteinuria on UA. Kidneys noted to be atrophic but no hydronephrosis noted on ultrasound. However the ultrasound was nondiagnostic. 2. Chronic kidney disease stage IIIa with baseline creatinine 1.2-1.5 from May 2022. Creatinine as low as 1.1 dated May 24, 2023. Etiology is nephrosclerosis. 3. Status post panniculectomy May 23, 2023. 4. History of PE and DVT maintained on anticoagulation. 5. Chronic systolic CHF with ejection fraction of 30 to 35%. 6. Volume overload. Status post IV Lasix given yesterday. Plan: Add Lasix 40 mg once daily. Also on Farxiga. Encouraged oral intake. Avoid nephrotoxins. Morning labs pending. Repeat BMP and magnesium level 2 to 3 days postdischarge. Follow-up outpatient in 1 week.
[2023-05-29] MEDS: FUROSEMIDE 40 MG TAB PO SCH (10:16)
[2023-05-29 11:01] LABS: BUN/Creat Ratio 30.39 Ratio (12.00-20.00); Blood Urea Nitrogen 54.7 mg/dL (9.0-27.0); Calcium 8.5 mg/dL (8.7-10.3); Carbon Dioxide 21.6 mmol/L (21.6-31.8); Chloride 102 mmol/L (96-109); Glucose 124 mg/dL (70-110); Magnesium 2.1 mg/dL (1.5-2.4); Potassium 4.2 mmol/L (3.5-5.5); Sodium 134 mmol/L (135-145)
--- NOTE | 2023-05-29 12:19 | P.PN ---
Subjective Progress Note Date: 05/29/23 On today's evaluation of 05/28/2023, the patient is being seen for a follow-up. The patient is calm and comfortable. No significant respiratory distress and the patient is currently on room air oxygen with a pulse ox of 95%. No cough. No sputum production. No chest tightness. No wheezing. Nephrology has been consulted in regards to her ongoing renal failure. Creatinine stable at 1.8. The patient has a wound VAC in place and the patient is status post panniculectomy. The white cell count is at 12.9, hemoglobin 12.5 and a platelet count is up to 64. BUN is at 32 with a creatinine of 1.8 and a sodium levels at 136. The patient is currently on long-term anticoagulation with Eliquis 5 mg p.o. twice daily and the patient has previous history of pulmonary embolism. She is also on empiric antibiotic coverage with Levaquin. No fever. No chills. Using the incentive spirometer. On today's evaluation of 05/29/2023, the patient is being seen for a follow-up. Night was uneventful. The patient continues to have some renal dysfunction. Creatinine is unchanged compared to yesterday and the level is at 1.8. Nephrology on the case. Sodium is at 134, potassium is at 4.2 and a bicarb is at 21. The patient remains on anticoagulation with Eliquis 5 mg p.o. twice a day. The patient is currently on room air oxygen with a pulse ox of 99%. No chest pain. No hemoptysis or pleurisy. No other issues otherwise. Objective - Vital Signs Vital signs: Vital Signs Temp 98.3 F 05/29/23 07:55 Pulse 78 05/29/23 11:38 Resp 17 05/29/23 07:55 BP 119/67 05/29/23 07:55 Pulse Ox 100 05/29/23 08:10 FiO2 Intake & Output 05/28/23 05/29/23 05/29/23 18:59 06:59 18:59 Intake Total 720 Balance 720 Intake: Oral 720 Other: Voiding Method Toilet Toilet - Exam GENERAL EXAM: Alert, 78-year-old female, on room air, in no apparent distress. HEAD: Normocephalic. EYES: Normal reaction of pupils, equal size. NOSE: Clear with pink turbinates. THROAT: No erythema or exudates. NECK: No masses, no JVD. CHEST: No chest wall deformity. LUNGS: Equal air entry with no crackles, wheeze, rhonchi or dullness. CVS: S1 and S2 normal with no audible murmur, regular rhythm. ABDOMEN: Wound VACs in place. No hepatosplenomegaly, normal bowel sounds, no guarding or rigidity. SPINE: No scoliosis or deformity SKIN: No rashes CENTRAL NERVOUS SYSTEM: No focal deficits, tone is normal in all 4 extremities. EXTREMITIES: There is no peripheral edema. No clubbing, no cyanosis. Peripheral pulses are intact. - Labs CBC & Chem 7: 05/28/23 05:54 05/29/23 06:34 Labs: Abnormal Lab Results - Last 24 Hours (Table) 05/29/23 Range/Units 06:34 Sodium 134 L (135-145) mmol/L BUN 54.7 H (9.0-27.0) mg/dL Creatinine 1.8 H (0.6-1.5) mg/dL Est GFR (CKD-EPI) 29 L (>=60) BUN/Creatinine Ratio 30.39 H (12.00-20.00) Ratio Glucose 124 H (70-110) mg/dL Calcium 8.5 L (8.7-10.3) mg/dL Assessment and Plan Plan: Postop day # 6, status post panniculectomy, for massive panniculus and repair of umbilical hernia. Bilateral wound vacs in place. Clinically and hemodynamically stable at this point in time. History of pulmonary embolism x 2, on Eliquis, no signs of any respiratory dis tress and the patient is currently on room air oxygen. Acute kidney injury, creatinine stable at 1.8 and nephrology on the case. Ultrasound of the kidneys were nondiagnostic. Morbid obesity with a BMI of 43.2 kg/m Hypothyroidism History of diabetes mellitus Hypertension History of CHF History of cellulitis History of mild asthma Plan: Stable and on room air Continue bronchodilators Continue incentive spirometer Anticoagulated with Eliquis Monitor renal function creatinine stable at 1.8. The level of creatinine is unchanged compared to yesterday. Nephrology consultation has been appreciated Continues incentive spirometer. Will continue to follow.
[2023-05-29 13:51] VITALS: BP 117/73; PULSE 96; RESP 16; TEMP 98.2
--- NOTE | 2023-05-29 14:26 | P.DS ---
Providers Date of admission: 05/29/23 11:02 Expected date of discharge: 05/29/23 Attending physician: Daniel Cramer Consults: 05/23/23 11:55 Consult Physician Routine Consulting Provider: Jonathon Daniels Consult Reason/Comments: asthma, copd and known to pt Do you want consulting provider notified?: Yes Consult Physician Routine Consulting Provider: Howie Ching Consult Reason/Comments: Medical management Do you want consulting provider notified?: Yes 05/27/23 12:36 Consult Physician Routine Consulting Provider: Courtney Villavicencio Consult Reason/Comments: Renal failure Do you want consulting provider notified?: Yes Primary care physician: Howie Ching Hospital Course: Discharge diagnosis 1. Massive panniculus status post panniculectomy and umbilical hernia repair 2. Leukocytosis Hospital course This is a 78-year-old female with a massive panniculus. She is status post panniculectomy and umbilical hernia repair. Patient tolerated surgery well. Pain is controlled. She her wound vacs are in place. Outpatient wound vacs arranged. She is ambulating. She is tolerating diet. She is afebrile. She has been cleared by consulting physicians for discharge. Patient discharged with antibiotics. Please refer to chart for any further details. Physician Jigmaker note has been reviewed by physician. Signing provider agrees with the documented findings, assessment, and plan of care. Patient Condition at Discharge: Stable Plan - Discharge Summary Discharge Rx Participant: No New Discharge Prescriptions: New Acetaminophen Tab [Tylenol] 1,000 mg PO Q6HR PRN #30 tablet PRN Reason: Pain Levofloxacin [Levaquin] 250 mg PO DAILY 5 Days #5 tablet Continue Dapagliflozin Propanediol [Farxiga] 5 mg PO DAILY tab Furosemide [Lasix] 40 mg PO DAILY tab Atorvastatin [Lipitor] 40 mg PO DAILY tab Pantoprazole [Protonix] 40 mg PO AC-BRKFST tab carvediloL [Coreg] 3.125 mg PO BID-W/MEALS tab Ipratropium-Albuterol Nebulize [Duoneb 0.5 mg-3 mg/3 ml Soln] 3 ml INHALATION RT-QID each Apixaban [Eliquis] 5 mg PO BID tab Levothyroxine Sodium [Synthroid] 100 mcg PO DAILY@0630 tab No Action Losartan [Cozaar] 12.5 mg PO DAILY tab Discharge Medication List Apixaban [Eliquis] 5 mg PO BID tab 06/09/22 [Rx] Atorvastatin [Lipitor] 40 mg PO DAILY tab 06/09/22 [Rx] Dapagliflozin Propanediol [Farxiga] 5 mg PO DAILY tab 06/09/22 [Rx] Furosemide [Lasix] 40 mg PO DAILY tab 06/09/22 [Rx] Ipratropium-Albuterol Nebulize [Duoneb 0.5 mg-3 mg/3 ml Soln] 3 ml INHALATION RT-QID each 06/09/22 [Rx] Levothyroxine Sodium [Synthroid] 100 mcg PO DAILY@0630 tab 06/09/22 [Rx] Losartan [Cozaar] 12.5 mg PO DAILY tab 06/09/22 [Rx] Pantoprazole [Protonix] 40 mg PO AC-BRKFST tab 06/09/22 [Rx] carvediloL [Coreg] 3.125 mg PO BID-W/MEALS tab 06/09/22 [Rx] Acetaminophen Tab [Tylenol] 1,000 mg PO Q6HR PRN #30 tablet 05/29/23 [Rx] Levofloxacin [Levaquin] 250 mg PO DAILY 5 Days #5 tablet 05/29/23 [Rx] Follow up Appointment(s)/Referral(s): Howie Ching MD [Primary Care Provider] - 3 Days [facility] [NON-STAFF] - 1 Week [facility], [NON-STAFF] - 1 Week Daniel Cramer MD [STAFF PHYSICIAN] - 05/31/23 2:40 pm Ambulatory/Diagnostic Orders: Basic Metabolic Panel [LAB.AMB] Time Frame: 3 Days, Location: None Selected Activity/Diet/Wound Care/Special Instructions: [facility] 1 Week [address] while taking Uneeda No lifting over 10 pounds You may shower. No soaking or tub baths for 2 weeks Very light activity until you are reevaluated at your follow up appointment with your surgeon Wound VAC to be changed on Sunday, Sunday and Fridays Discharge Disposition: HOME WITH HOME HEALTH SERVICES
--- NOTE | 2023-06-22 17:28 | CDI ---
Documentation Clarification Form Date: 07/18/23 From: Duke Caro Admit Date: 05/29/2023 11:02:00 AM Patient Name: Li Santamaria Visit Number: [id number] Discharge Date: 05/29/2023 05:08:00 PM ATTENTION: The Clinical Documentation Specialists (CDI) and [facility] Coding Staff appreciate your assistance in clarifying documentation. Please respond to the clarification below the line at the bottom and electronically sign. The CDI & [facility] Coding staff will review the response and follow-up if needed. Please note: Queries are made part of the Legal Health Record. If you have any questions, please contact the author of this message via ITS. Dear Dr Cramer, The patients principal diagnosis - the diagnosis that was chiefly responsible for the inpatient admission on 05/28- has not been clearly identified and clarification is requested. Was admitted to observ status on 05/22 after the procedure. Then admitted as Inpatient on 05/28. Need to know the diagnosis that prompted change from observ status to inpatient status on 05/28.. The patient presented with the following Date of Procedure: 05/23/23 Postoperative Diagnosis: Massive panniculus Procedure(s) Performed: Panniculectomy History/Risk factors: Consult 05/23/23 Admit for postoperative management of lung disease Consult 05/24/23 This is a 78-year-old female who underwent a panniculectomy resulting in wound vacs x 2 to the abdomen.Lateral aspect of the wounds were left open for drainage.The skin in the middle of the wound was stapled negative pressure wound vacs were applied.Currently wound vacs are in place patient is tolerating with no difficulties.Patient states that she may go to rehab. Consult 05/28/23 Patient is a 78-year-old female seen in renal consultation for acute kidney injury on chronic kidney disease. Patient has chronic kidney disease stage IIIa with baseline creatinine 1.2-1.5 from May 2022. Creatinine has been as low as1.1 dated May 24, 2023. Creatinine peaked at 1.88 dated yesterday.She is currently receiving IV fluids. Hx of Pulmonary Embolism Radiology findings: CXR 05/23 No findings Treatment:Patient is getting 2 L of oxygen by nasal cannula, and lactated Ringer's at 125 cc an hour The patient's home medications included Coreg, Protonix, Cozaar, Synthroid, updrafts with albuterol sulfate and ipratropium bromide, Lasix, Farxiga, Lipitor, and Eliquis Treatment: IV Fluids Please specify diagnosis to support reason for inpatient admission status on 05/29/23 from observation status (which was 6 days after the panniculectomy on 05/23/23) Thank you, electolytes and sob MTDD
== END 2023-05-29 17:08 | disposition home health service (06) ==
LOC: OR 09:01 → 5NMEDONC 11:55 → OR 11:55 → 5NMEDONC 12:01 → OR 05-25 13:47 → 5NMEDONC 05-25 13:47 → UNDOADMOB 05-25 13:47 → INTOOBSV 05-29 11:02 → OBSVTOIN 05-29 11:02 → UNDODISIN 05-29 17:08 → UNDODISOB 06-18 17:08
PROVIDERS: ADMIT Surgery; ATTEND Surgery
DX: E65 Localized adiposity (principal); K42.9 Umbilical hernia without obstruction or gangrene; L98.495 Non-pressure chronic ulcer of skin of other sites with muscle involvement without evidence of necrosis; D72.829 Elevated white blood cell count, unspecified; N17.9 Acute kidney failure, unspecified; I13.0 Hypertensive heart and chronic kidney disease with heart failure and stage 1 through stage 4 chronic kidney disease, or unspecified chronic kidney disease; I50.42 Chronic combined systolic (congestive) and diastolic (congestive) heart failure; N18.31 Chronic kidney disease, stage 3a; E11.22 Type 2 diabetes mellitus with diabetic chronic kidney disease; E03.9 Hypothyroidism, unspecified; J44.9 Chronic obstructive pulmonary disease, unspecified; L03.116 Cellulitis of left lower limb; L03.115 Cellulitis of right lower limb; K21.9 Gastro-esophageal reflux disease without esophagitis; E78.5 Hyperlipidemia, unspecified; R74.8 Abnormal levels of other serum enzymes; I34.0 Nonrheumatic mitral (valve) insufficiency; G47.33 Obstructive sleep apnea (adult) (pediatric); M19.91 Primary osteoarthritis, unspecified site; R26.9 Unspecified abnormalities of gait and mobility; I25.2 Old myocardial infarction; E66.01 Morbid (severe) obesity due to excess calories; Z68.41 Body mass index [BMI] 40.0-44.9, adult; Z86.711 Personal history of pulmonary embolism; Z86.718 Personal history of other venous thrombosis and embolism; Z87.891 Personal history of nicotine dependence; Z99.81 Dependence on supplemental oxygen; Z79.01 Long term (current) use of anticoagulants; Z79.84 Long term (current) use of oral hypoglycemic drugs; Z79.890 Hormone replacement therapy; Z79.899 Other long term (current) drug therapy
CPT/HCPCS: 15830; 96376 ×3; 96361 ×5; 96365; 96375 ×2; 94640 ×13; 94760 ×4; 97530 ×4; 97162; 97166; 80053; 80048 ×5; 83735; 84132; 85025 ×4; 81001; 71045; 76705; 76770; G0378 ×8; J0330; J1644; J1100; J1940 ×2; J2710; J0690; J2405 ×2; J1956; J2001; J3010; J1170 ×2; J1920

== ENCOUNTER 2023-06-03 12:41 | Inpatient (IN) | payer MEDICARE, OTHER ==
--- NOTE | 2023-06-03 13:04 | ED ---
General Adult HPI - General Stated complaint: Post Op Comp Time Seen by Provider: 06/03/23 12:55 Source: patient, RN notes reviewed - History of Present Illness Initial comments: This is a 78 year old female presents to the emergency department chief complaint of potential infection. Patient states that she had a large 20 pound mass removed from her pannus on with bilateral surgical drainage tubes places on her lower abdomen. Patient states that and at home nurse has been frequently visiting her for wound care and Sunday afternoon the drainage tubes were removed. Patient states that with at home. Came to evaluate the patient this morning they were concerned to place the tubes due to signs of potential infection at the surgical site and instructed the patient to follow-up with the emergency department. Patient denies fevers, nausea, vomiting, chills. That she has a follow-up appointment with wound care scheduled for this week. - Related Data Home Medications Medication Instructions Recorded Confirmed Albuterol Inhaler [Ventolin Hfa 2 puff INHALATION RT-Q6H PRN 06/03/23 06/03/23 Inhaler] Budesonide 0.5 mg INHALATION RT-BID 06/03/23 06/03/23 Ipratropium-Albuterol Nebulize 3 ml INHALATION RT-BID 06/03/23 06/03/23 [Duoneb 0.5 mg-3 mg/3 ml Soln] Previous Rx's Medication Instructions Recorded Apixaban [Eliquis] 5 mg PO BID tab 06/09/22 Atorvastatin [Lipitor] 40 mg PO DAILY tab 06/09/22 Dapagliflozin Propanediol [Farxiga] 5 mg PO DAILY tab 06/09/22 Furosemide [Lasix] 40 mg PO DAILY tab 06/09/22 Levothyroxine Sodium [Synthroid] 100 mcg PO DAILY@0630 tab 06/09/22 Losartan [Cozaar] 12.5 mg PO DAILY tab 06/09/22 Pantoprazole [Protonix] 40 mg PO AC-BRKFST tab 06/09/22 carvediloL [Coreg] 3.125 mg PO BID-W/MEALS tab 06/09/22 Acetaminophen Tab [Tylenol] 1,000 mg PO Q6HR PRN #30 tablet 05/29/23 Allergies Allergy/AdvReac Type Severity Reaction Status Date / Time No Known Allergies Allergy Verified 06/03/23 18:41 Review of Systems ROS Statement: Those systems with pertinent positive or pertinent negative responses have been documented in the HPI. ROS Other: All systems not noted in ROS Statement are negative. Past Medical History Past Medical History: Asthma, COPD, Deep Vein Thrombosis (DVT), Hyperlipidemia, Hypertension, Myocardial Infarction (IA), Osteoarthritis (OA), Pulmonary Embolus (PE), Skin Disorder, Sleep Apnea/CPAP/BIPAP, Thyroid Disorder Additional Past Medical History / Comment(s): Hx DVT's, hx PE 06/11. Hx cellulitis. Uses O2 at night only @ 3L. No CPAP use. rash to pannis from rubbing skin on skin. Last Myocardial Infarction Date:: Unknown History of Any Multi-Drug Resistant Organisms: None Reported Past Surgical History: Hysterectomy Additional Past Surgical History / Comment(s): Arm tumor removal, ganglion cysts removed from hand and wrist. Past Anesthesia/Blood Transfusion Reactions: No Reported Reaction Additional Past Anesthesia/Blood Transfusion Reaction / Comment(s): no blood transfusions Smoking Status: Former smoker - Past Family History Mother Family Medical History: Cancer, Diabetes Mellitus Father Family Medical History: Pulmonary Embolus Additional Family Medical History / Comment(s): Partial lung removed. PE after hip replacement. General Exam - General Exam Comments Initial Comments: Visual Physical Exam Vital signs reviewed General: Well-appearing, nontoxic, no acute distress. Head: Normocephalic, atraumatic Eyes: PERRLA, EOMI ENT: Airway patent Chest: Nonlabored breathing Skin: No visual rash, normal skin tone Neuro: Alert and oriented 3 Musculoskeletal: No gross abnormalities General appearance: alert, in no apparent distress Head exam: Present: atraumatic, normocephalic, normal inspection Eye exam: Present: normal appearance, PERRL, EOMI. Absent: scleral icterus, conjunctival injection, periorbital swelling ENT exam: Present: normal exam, mucous membranes moist Neck exam: Present: normal inspection. Absent: tenderness, meningismus, lymphadenopathy Respiratory exam: Present: normal lung sounds bilaterally. Absent: respiratory distress, wheezes, rales, rhonchi, stridor Cardiovascular Exam: Present: regular rate, normal rhythm, normal heart sounds. Absent: systolic murmur, diastolic murmur, rubs, gallop, clicks GI/Abdominal exam: Present: soft, tenderness, other (large post surgical incision with numerous pritesh on the lower abdomen with open wounds on bilateral left and right lower quadrants, surrounding erythema and drainage). Absent: distended Extremities exam: Present: normal inspection, full ROM, normal capillary refill. Absent: tenderness, pedal edema, joint swelling, calf tenderness Back exam: Present: normal inspection Neurological exam: Present: alert, oriented X3, CN II-XII intact Psychiatric exam: Present: normal affect, normal mood Skin exam: Present: warm, dry, intact, normal color, other (large transverse post surgical incision on lower abdomen with open area of skin and surrounding erythema). Absent: rash Course Vital Signs 06/03/23 06/03/23 06/03/23 13:17 16:36 16:42 Temperature 97.9 F 98.4 F Pulse Rate 81 67 Respiratory 18 20 Rate Blood Pressure 115/69 84/51 89/54 O2 Sat by Pulse 98 96 Oximetry 06/03/23 06/03/23 06/03/23 17:11 18:17 21:33 Temperature Pulse Rate 65 78 66 Respiratory 22 20 18 Rate Blood Pressure 131/69 140/47 112/58 O2 Sat by Pulse 96 97 99 Oximetry Medical Decision Making - Medical Decision Making Was pt. sent in by a medical professional or institution (, PA, INFORMATION SYSTEMS SECURITY DEVELOPER, urgent care, hospital, or [place] health care facility...) When possible be specific @ -No Did you speak to anyone other than the patient for history (EMS, parent, family, police, friend...)? What history was obtained from this source @ -No Did you review nursing and triage notes (agree or disagree)? Why? @ -I reviewed and agree with nursing and triage notes Were old charts reviewed (outside hosp., previous admission, EMS record, old EKG, old radiological studies, urgent care reports/EKG's, [place] health care facility records)? Report findings @ -No old charts were reviewed Differential Diagnosis (chest pain, altered mental status, abdominal pain women, abdominal pain men, vaginal bleeding, weakness, fever, dyspnea, syncope, headache, dizziness, GI bleed, back pain, seizure, CVA, palpatations, mental health, musculoskeletal)? @ -Differential Abdominal Pain Men: Appendicitis, cholecystitis, diverticulosis, ischemic bowel, pancreatitis, hepatitis, UTI, gastroenteritis, AAA, incarcerated hernia, bowel obstruction, constipation, inflammatory bowel, hepatitis, peptic ulcer disease, splenic infarction, perforated viscus, testicular torsion, this is not meant to be an all-inclusive list EKG interpreted by me (3pts min.). @ -None X-rays interpreted by me (1pt min.). @ -Pelvis x-ray reveals severe deformity of the right hip and a multilevel degeneration. CT interpreted by me (1pt min.). @ -CT of the abdomen and reveals postsurgical changes of the anterior abdominal wall with edema identified and a small focus of gas in the soft tissues likely related to postsurgical changes. No large collections identified within limits of the contrast exam. U/S interpreted by me (1pt. min.). @ -None done What testing was considered but not performed or refused? (CT, X-rays, U/S, labs)? Why? @ -None What meds were considered but not given or refused? Why? @ -None Did you discuss the management of the patient with other professionals (professionals i.e. Dr., PA, INFORMATION SYSTEMS SECURITY DEVELOPER, lab, RT, psych nurse, social service worker, filler block inserter remover, teacher, biosecurity officer, bilingual case manager)? Give summary @ -I discussed patient's hypotension and presentation with Dr. Jiménez who sugg ested that patient receive a CT of the abdomen for evaluation of postsurgery. After CT. Spoke with Dr. Moura of general surgery who recommend patient admission where general surgery will be on consult. I spoke with Dr. Zachary CARRANZA, [facility], who is in agreement with admission for the patient. Agrees with starting patient on Zosyn. Was smoking cessation discussed for >3mins.? @ -No Was critical care preformed (if so, how long)? @ -No Were there social determinants of health that impacted care today? How? (Homelessness, low income, unemployed, alcoholism, drug addiction, transportatio n, low edu. Level, literacy, decrease access to med. care, [facility], rehab)? @ -No Was there de-escalation of care discussed even if they declined (Discuss DNR or withdrawal of care, Hospice)? DNR status @ -No What co-morbidities impacted this encounter? (DM, HTN, Smoking, COPD, CAD, Cancer, CVA, ARF, Chemo, Hep., AIDS, mental health diagnosis, sleep apnea, morbid obesity)? @ -morbid obesity, HTN Was patient admitted / discharged? Hospital course, mention meds given and route, prescriptions, significant lab abnormalities, going to OR and other pertinent info. @ -78 year old female with complaint of potential for surgical site infection. On physical examination patient was noted to have large transverse surgical incision along the lower abdomen with 2 areas of surgical incision at the lower abdomen and open areas of incison over the right and Left lower quadrants. Surrounding area underneath incision is closed, and erythematous with foul odor noted. Patient's laboratory results remarkable for an elevated BUN of 47 and creatinine of 1.48, no signs of leukocytosis or metabolic disturbances, recheck of patient's vital signs revealed hypotension 80s over 60s. Patient was given 2 L fluid bolus, blood pressure reevaluated which was within normal range. At this time, patient sent for CT of the abdomen for further evaluation of postsurgical changes. CT unremarkable for acute changes postsurgery. Due to patient's presentation in the emergency department with complaints of feeling chilled, and documented hypotension, patient will be admitted to general medicine and consult general surgery for potential cellulitis in addition to infection of surgical site. Follow-up with Dr. Moura who is in agreement with admission and will be on consult of the patient. I spoke with Dr. Francis, patient'c PCP, who is in agreement with admission for the patient as well. Patient started on IV zosyn, scheduled Q8 and admitted to medicine. Discussed with Dr. Jiménez. Undiagnosed new problem with uncertain prognosis? @ -No Drug Therapy requiring intensive monitoring for toxicity (Heparin, Nitro, Insulin, Cardizem)? @ -No Were any procedures done? @ -No Diagnosis/symptom? @ -cellulicits, post surgical incision site infection Acute, or Chronic, or Acute on Chronic? @ -acute Uncomplicated (without systemic symptoms) or Complicated (systemic symptoms)? @ uncomplicated Side effects of treatment? @ -No Exacerbation, Progression, or Severe Exacerbation? @ -No Poses a threat to life or bodily function? How? (Chest pain, USA, IA, pneumonia, PE, COPD, DKA, ARF, appy, cholecystitis, CVA, Diverticulitis, Homicidal, Suicidal, threat to staff... and all critical care pts) @ -Possibly. Postsurgical site infection can lead to sepsis, bacteremia or organ dysfunction and failure. - Lab Data Result diagrams: 06/04/23 06:30 06/04/23 06:30 Lab Results 06/03/23 06/03/23 06/03/23 Range/Units 14:14 14:14 14:14 WBC 11.0 H (3.8-10.6) k/uL RBC 3.93 (3.80-5.40) m/uL Hgb 12.3 (11.4-16.0) gm/dL Hct 36.2 (34.0-46.0) % MCV 92.1 (80.0-100.0) fL MCH 31.2 (25.0-35.0) pg MCHC 33.9 (31.0-37.0) g/dL RDW 13.9 (11.5-15.5) % Plt Count 287 (150-450) k/uL MPV 8.0 Neutrophils % 68 % Lymphocytes % 15 % Monocytes % 9 % Eosinophils % 5 % Basophils % 0 % Neutrophils # 7.4 (1.3-7.7) k/uL Lymphocytes # 1.7 (1.0-4.8) k/uL Monocytes # 1.0 (0-1.0) k/uL Eosinophils # 0.5 (0-0.7) k/uL Basophils # 0.0 (0-0.2) k/uL Sodium 138 (137-145) mmol/L Potassium 3.9 (3.5-5.1) mmol/L Chloride 108 H (98-107) mmol/L Carbon Dioxide 22 (22-30) mmol/L Anion Gap 8 mmol/L BUN 47 H (7-17) mg/dL Creatinine 1.48 H (0.52-1.04) mg/dL Est GFR (CKD-EPI)AfAm 39 (>60 ml/min/1.73 sqM) Est GFR (CKD-EPI)NonAf 34 (>60 ml/min/1.73 sqM) Glucose 113 H (74-99) mg/dL Plasma Lactic Acid Braydon 2.0 (0.7-2.0) mmol/L Calcium 9.0 (8.4-10.2) mg/dL Total Bilirubin 0.9 (0.2-1.3) mg/dL AST 32 (14-36) U/L ALT 25 (4-34) U/L Alkaline Phosphatase 84 (38-126) U/L Total Protein 6.2 L (6.3-8.2) g/dL Albumin 3.1 L (3.5-5.0) g/dL Disposition Clinical Impression: Surgical complication, Cellulitis Disposition: ADMITTED IP TO THIS [facility] Condition: Good Decision to Admit Reason: Admit from EC Decision Date: 06/03/23 Decision Time: 18:03
--- NOTE | 2023-06-03 13:38 | XR ---
EXAMINATION TYPE: XR pelvis AP view DATE OF EXAM: 06/03/2023 1:15 PM CLINICAL INDICATION:Female, 78 years old with history of wound vac, potential infection; [facility] COMPARISON: None TECHNIQUE: The pelvis was examined in a single projection. FINDINGS/IMPRESSION: 1. Severe deformity to the right hip with the right hip subluxing superiorly. Left hip demonstrates mild joint space narrowing osteophyte formation. 2. Multilevel degeneration changes throughout the spine.
[2023-06-03 14:38] LABS: ALT 25 U/L (4-34); AST 32 U/L (14-36); African American GFR (CKD) 39 (>60 ml/min/1.73 sqM); Albumin 3.1 g/dL (3.5-5.0); Alkaline Phosphatase 84 U/L (38-126); Anion Gap 8 mmol/L; Blood Urea Nitrogen 47 mg/dL (7-17); Carbon Dioxide 22 mmol/L (22-30); Chloride 108 mmol/L (98-107); Glucose 113 mg/dL (74-99); Non-African American GFR(CKD) 34 (>60 ml/min/1.73 sqM); Potassium 3.9 mmol/L (3.5-5.1); Sodium 138 mmol/L (137-145); Total Bilirubin 0.9 mg/dL (0.2-1.3); Total Protein 6.2 g/dL (6.3-8.2)
[2023-06-03 14:55] LABS: Basophils % (A) 0 %; Eosinophils # (A) 0.5 k/uL (0-0.7); Eosinophils % (A) 5 %; HCT 36.2 % (34.0-46.0); HGB 12.3 gm/dL (11.4-16.0); Lymphocytes # (A) 1.7 k/uL (1.0-4.8); Lymphocytes % (A) 15 %; MCH 31.2 pg (25.0-35.0); MCHC 33.9 g/dL (31.0-37.0); MCV 92.1 fL (80.0-100.0); Monocytes % (A) 9 %; Neutrophils # (A) 7.4 k/uL (1.3-7.7); Neutrophils % (A) 68 %; Platelet Count 287 k/uL (150-450); RBC 3.93 m/uL (3.80-5.40); RDW 13.9 % (11.5-15.5)
[2023-06-03] MEDS: SODIUM CHLORIDE 0.9% 2,000 ML IV STA (17:07)
--- NOTE | 2023-06-03 17:37 | CT ---
EXAMINATION TYPE: CT ChestAbdPelvis wo con CT DLP: 1753.1 mGycm, Automated exposure control for dose reduction was used. DATE OF EXAM: 06/03/2023 5:09 PM COMPARISON: CT chest 01/19/2023, CT abdomen 06/01/2022. CLINICAL INDICATION:Female, 78 years old with history of recent surgery, pain; PHH, hx of abd surgery on sunday. pain and bleeding. Technique: Multiple axial images of the chest, abdomen, and pelvis were obtained. Two-dimensional cor onal and sagittal reconstructions were obtained. Contrast used: None Oral contrast used: without Oral Contrast Findings: CHEST: LUNGS/ PLEURA: The lung parenchyma appears unremarkable. AIRWAY: Patent and unremarkable. HEART: Size within normal limits. MEDIASTINUM: No gross evidence of adenopathy. VASCULATURE: Atherosclerotic calcifications are present throughout the aorta and its branches. MUSCULOSKELETAL: Moderate disc degeneration changes are present throughout the thoracolumbar spine. D egenerative changes of the bilateral glenohumeral joints. SOFT TISSUES/LYMPH NODES: Unremarkable. LOWER NECK: No significant findings. ABDOMEN: ABDOMEN LIVER: Unremarkable GALLBLADDER AND BILE DUCTS: Cholelithiasis. PANCREAS: Unremarkable. SPLEEN: Unremarkable. ADRENAL GLANDS: Unremarkable. KIDNEYS AND URETERS: No evidence of hydronephrosis or renal calculus. The ureters are unremarkable. Right renal cyst is identified. PELVIS BLADDER: Unremarkable REPRODUCTIVE: Unremarkable. ABDOMEN & PELVIS STOMACH AND BOWEL: Small hiatal hernia.. Scattered diverticula are noted throughout the colon. No raine dence of bowel obstruction. PERITONEUM: No evidence of pneumoperitoneum or free fluid. VASCULATURE: Mild atherosclerotic calcifications are present throughout the abdominal aorta and its b ranches. MUSCULOSKELETAL: No acute osseous abnormalities. Moderate disc degeneration changes are present throu ghout the thoracolumbar spine. Severe osteoarthritic of the right hip joint are identified. LYMPH NODES: No gross evidence for lymphadenopathy. SOFT TISSUE/ABDOMINAL WALL: Postsurgical changes of lower intra-abdominal wall are identified. Edemat ous changes are seen throughout the soft tissues. No identifiable flexions are identified, however ev aluation is limited due to lack of IV contrast. IMPRESSION: CT chest: 1. No acute process. CT ABDOMEN: 1. Postsurgical changes of anterior abdominal wall with edema identified, small focus of gas in the s oft tissues likely related to postsurgical change. No large collections are identified within limits of this noncontrast exam. 2. Cholelithiasis.
[2023-06-03] MEDS ORDERED: MORPHINE SULFATE 4 MG/ML SYRINGE IV PRN (17:59)
[2023-06-03] MEDS ORDERED: NALOXONE 0.4 MG/ML 1 ML VIAL IV PRN (17:59)
[2023-06-03] MEDS: HYDROmorphone 0.5 MG/0.5 ML SYRINGE IVP PRN (19:50)
[2023-06-03] MEDS: PIPERACILLIN-TAZOBACTAM 3.375 GM in SODIUM CHLORIDE 0.9% 100 ML IVPB STA (19:50)
[2023-06-03] MEDS: PIPERACILLIN-TAZOBACTAM 3.375 GM in SODIUM CHLORIDE 0.9% 100 ML IVPB SCH (23:55)
[2023-06-04 11:18] LABS: Basophils # (A) 0.05 X 10*3/uL (0.00-0.10); Basophils % (A) 0.5 %; Eosinophils % (A) 4.6 %; HCT 32.5 % (37.2-46.3); HGB 9.9 g/dL (12.0-15.0); Lymphocytes # (A) 1.64 X 10*3/uL (0.90-5.00); MCH 30.6 pg (27.0-32.0); MCHC 30.5 g/dL (32.0-37.0); MCV 100.3 FL (80.0-97.0); Mean Platelet Volume 9.5 FL (9.5-12.2); Monocytes # (A) 1.32 X 10*3/uL (0.20-1.00); Monocytes % (A) 12.1 %; NRBC Per 100 WBC 0 X 10*3/uL (0.00-0.01); Neutrophils # (A) 7.36 X 10*3/uL (1.80-7.70); Neutrophils % (A) 67.4 %; Platelet Count 216 X 10*3/uL (140-440); RBC 3.24 X 10*6/uL (4.10-5.20); RDW 14.3 % (11.5-14.5); WBC 10.91 X 10*3/uL (4.50-10.00)
--- NOTE | 2023-06-04 11:27 | P.GSCN ---
History of Present Illness Consult date: 06/04/23 History of present illness: CHIEF COMPLAINT: Postop complication HISTORY OF PRESENT ILLNESS: This is a 78-year-old female with a massive panniculus. She is status post panniculectomy and repair of umbilical hernia on May 23, 2023. Patient had 2 wound vacs on each side of the transverse pelvic incision. The wound vacs were to be continued outpatient. Patient has had issues with the home care service. The wound vacs were supposed to be placed the day after she was discharged which was May 29. Wound vacs have still not been placed by the home care service. Apparently the home care service came out yesterday and told the patient that the areas were infected and told her to report to the ER. Patient does have some drainage noted. There is a lot of skin irritation around the areas where the wound vacs were to be placed. Otherwise the lower transverse incision is clean dry and intact. Patient denies any fever chills or sweats. Denies any nausea or vomiting. PAST MEDICAL HISTORY: See list. PAST SURGICAL HISTORY: See list. MEDICATIONS: See list. ALLERGIES: See list. SOCIAL HISTORY: No illicit drug use. REVIEW OF SYSTEMS: CONSTITUTIONAL: Denies fever or chills. HEENT: Denies blurred vision, vision changes, or eye pain. Denies hemoptysis ENDOCRINE: Denies heat or cold intolerance. CARDIOVASCULAR: Denies chest pain or pressure. RESPIRATORY: No shortness of breath. GASTROINTESTINAL: Please refer to HPI otherwise unremarkable NEURO: Denies history of seizures. PSYCH: No depression or suicidal ideation HEMATOLOGIC: Denies bleeding disorders. LYMPHATIC: The patient denies any lumps and bumps around the neck. GENITOURINARY: Denies any blood in urine or increased urinary frequency. MUSCULOSKELETAL: Denies myalgias. Denies joint swelling. Denies decreased range of motion beyond patients baseline. SKIN: Denies pruitis. Denies rash. PHYSICAL EXAM: VITAL SIGNS: Reviewed GENERAL: Well-developed in no acute distress. HEENT: No sclera icterus. Extraocular movements grossly intact. Moist buccal mucosa. Head is atraumatic, normocephalic. Hears conversational speech. No nasal drainage. NECK: Supple without lymphadenopathy. CHEST: Non-labored respirations and equal bilateral excursions. CARDIOVASCULAR: Palpable 2+ radial pulses. ABDOMEN: Soft. Nondistended. Transverse pelvic incision clean dry and intact. 2 open areas on each side of the incision. With drainage noted and skin irritation on the skin around the open areas and mild erythema. MUSCULOSKELETAL: No clubbing or cyanosis. NEUROLOGIC: No focal or lateralizing signs. Cranial nerves II through XII grossly intact. PSYCH: Appropriate affect. Alert and oriented to person, place and time. SKIN: Well perfused. Good skin turgor. LABORATORY DATA: WBC 11 Hgb 12.3-9.9 platelets 216 Sodium is 1 3 potassium 3.9 creatinine 1.48 Albumin 3.1 IMAGING: CT scan chest abdomen pelvis reports postsurgical changes of anterior abdominal wall with edema identified. Small focus of gas in the soft tissue may be related to postsurgical changes. No large collections are identified within the limits of noncontrast exam. Cholelithiasis. ASSESSMENT: 1. Panniculectomy incisional infection 2. Status post recent panniculectomy 3. History of DVT and PE on Eliquis 4. Moderate protein calorie malnutrition PLAN: -Continue antibiotics -Culture drainage -Patient can shower -Wet-to-dry dressing changes twice a day -Continue to monitor -Laz protein supplement added to increase protein intake and to promote healing Physician Ecdis N Navigation Operator note has been reviewed by physician. Signing provider agrees with the documented findings, assessment, and plan of care. Past Medical History Past Medical History: Asthma, COPD, Deep Vein Thrombosis (DVT), Hyperlipidemia, Hypertension, Myocardial Infarction ([place]), Osteoarthritis (OA), Pulmonary Embolus (PE), Skin Disorder, Sleep Apnea/CPAP/BIPAP, Thyroid Disorder Additional Past Medical History / Comment(s): Hx DVT's, hx PE 06/11. Hx celluliti s. Uses O2 at night only @ 3L. No CPAP use. rash to pannis from rubbing skin on skin. Last Myocardial Infarction Date:: Unknown History of Any Multi-Drug Resistant Organisms: None Reported Past Surgical History: Hysterectomy Additional Past Surgical History / Comment(s): Arm tumor removal, ganglion cysts removed from hand and wrist. Past Anesthesia/Blood Transfusion Reactions: No Reported Reaction Additional Past Anesthesia/Blood Transfusion Reaction / Comm: no blood transfusions Past Psychological History: No Psychological Hx Reported Smoking Status: Former smoker Past Alcohol Use History: None Reported Additional Past Alcohol Use History / Comment(s): Patient is a lifelong nonsmoker, no illicit drug use, no alcohol use. She lives at home by herself. 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. Past Drug Use History: None Reported - Past Family History Mother Family Medical History: Cancer, Diabetes Mellitus Father Family Medical History: Pulmonary Embolus Additional Family Medical History / Comment(s): Partial lung removed. PE after hip replacement. Medications and Allergies Home Medications Medication Instructions Recorded Confirmed Type Apixaban [Eliquis] 5 mg PO BID tab 06/09/22 06/03/23 Rx Atorvastatin [Lipitor] 40 mg PO DAILY tab 06/09/22 06/03/23 Rx Dapagliflozin Propanediol [Farxiga] 5 mg PO DAILY tab 06/09/22 06/03/23 Rx Furosemide [Lasix] 40 mg PO DAILY tab 06/09/22 06/03/23 Rx Levothyroxine Sodium [Synthroid] 100 mcg PO DAILY@0630 tab 06/09/22 06/03/23 Rx Losartan [Cozaar] 12.5 mg PO DAILY tab 06/09/22 06/03/23 Rx Pantoprazole [Protonix] 40 mg PO AC-BRKFST tab 06/09/22 06/03/23 Rx carvediloL [Coreg] 3.125 mg PO BID-W/MEALS tab 06/09/22 06/03/23 Rx Acetaminophen Tab [Tylenol] 1,000 mg PO Q6HR PRN #30 tablet 05/29/23 06/03/23 Rx Albuterol Inhaler [Ventolin Hfa 2 puff INHALATION RT-Q6H PRN 06/03/23 06/03/23 History Inhaler] Budesonide 0.5 mg INHALATION RT-BID 06/03/23 06/03/23 History Ipratropium-Albuterol Nebulize 3 ml INHALATION RT-BID 06/03/23 06/03/23 History [Duoneb 0.5 mg-3 mg/3 ml Soln] Allergies Allergy/AdvReac Type Severity Reaction Status Date / Time No Known Allergies Allergy Verified 06/03/23 18:41 Surgical - Exam Vital Signs Temp Pulse Resp BP Pulse Ox 97.9 F 81 18 115/69 98 06/03/23 13:17 06/03/23 13:17 06/03/23 13:17 06/03/23 13:17 06/03/23 13:17 Results - Labs 06/03/23 14:14 06/03/23 14:14 Abnormal Lab Results - Last 24 Hours (Table) 06/03/23 06/03/23 Range/Units 14:14 14:14 WBC 11.0 H (3.8-10.6) k/uL Chloride 108 H (98-107) mmol/L BUN 47 H (7-17) mg/dL Creatinine 1.48 H (0.52-1.04) mg/dL Glucose 113 H (74-99) mg/dL Total Protein 6.2 L (6.3-8.2) g/dL Albumin 3.1 L (3.5-5.0) g/dL Diabetes panel 06/03/23 Range/Units 14:14 Sodium 138 (137-145) mmol/L Potassium 3.9 (3.5-5.1) mmol/L Chloride 108 H (98-107) mmol/L Carbon Dioxide 22 (22-30) mmol/L BUN 47 H (7-17) mg/dL Creatinine 1.48 H (0.52-1.04) mg/dL Glucose 113 H (74-99) mg/dL Calcium 9.0 (8.4-10.2) mg/dL AST 32 (14-36) U/L ALT 25 (4-34) U/L Alkaline Phosphatase 84 (38-126) U/L Total Protein 6.2 L (6.3-8.2) g/dL Albumin 3.1 L (3.5-5.0) g/dL Calcium panel 06/03/23 Range/Units 14:14 Calcium 9.0 (8.4-10.2) mg/dL Albumin 3.1 L (3.5-5.0) g/dL Pituitary panel 06/03/23 Range/Units 14:14 Sodium 138 (137-145) mmol/L Potassium 3.9 (3.5-5.1) mmol/L Chloride 108 H (98-107) mmol/L Carbon Dioxide 22 (22-30) mmol/L BUN 47 H (7-17) mg/dL Creatinine 1.48 H (0.52-1.04) mg/dL Glucose 113 H (74-99) mg/dL Calcium 9.0 (8.4-10.2) mg/dL Adrenal panel 06/03/23 Range/Units 14:14 Sodium 138 (137-145) mmol/L Potassium 3.9 (3.5-5.1) mmol/L Chloride 108 H (98-107) mmol/L Carbon Dioxide 22 (22-30) mmol/L BUN 47 H (7-17) mg/dL Creatinine 1.48 H (0.52-1.04) mg/dL Glucose 113 H (74-99) mg/dL Calcium 9.0 (8.4-10.2) mg/dL Total Bilirubin 0.9 (0.2-1.3) mg/dL AST 32 (14-36) U/L ALT 25 (4-34) U/L Alkaline Phosphatase 84 (38-126) U/L Total Protein 6.2 L (6.3-8.2) g/dL Albumin 3.1 L (3.5-5.0) g/dL
[2023-06-04] MEDS ORDERED: ZINC OXIDE PASTE (Z-GUARD) 1 APPLIC TOPICAL PRN (11:28)
[2023-06-04 12:47] LABS: ALT 21 U/L (8-44); AST 32 U/L (13-35); Albumin 2.8 g/dL (3.8-4.9); Albumin/Globulin Ratio 1.12 Ratio (1.60-3.17); Alkaline Phosphatase 63 U/L (41-126); BUN/Creat Ratio 22.59 Ratio (12.00-20.00); Blood Urea Nitrogen 38.4 mg/dL (9.0-27.0); Calcium 8.3 mg/dL (8.7-10.3); Carbon Dioxide 17.9 mmol/L (21.6-31.8); Chloride 108 mmol/L (96-109); Globulin 2.5 g/dL (1.6-3.3); Glucose 90 mg/dL (70-110); Potassium 3.9 mmol/L (3.5-5.5); Sodium 141 mmol/L (135-145); Total Bilirubin 0.5 mg/dL (0.3-1.2); Total Protein 5.3 g/dL (6.2-8.2)
[2023-06-04] MEDS: NYSTATIN 100,000 UNIT/GM POWD 15 GM TOPICAL SCH (17:45)
[2023-06-04] MEDS: SODIUM CHLORIDE 0.9% 1,000 ML IV SCH (19:49)
[2023-06-04] MEDS: BUDESONIDE 0.5 MG/2 ML NEBU INHALATION SCH (20:14)
[2023-06-04] MEDS: IPRATROPIUM-ALBUTEROL 3 ML NEB INHALATION SCH (20:14)
[2023-06-04] MEDS: APIXABAN 5 MG TAB PO SCH (20:30)
--- NOTE | 2023-06-05 03:27 | HP ---
HISTORY AND PHYSICAL HISTORY OF PRESENT ILLNESS: This 78-year-old white female admitted for cellulitis of the abdominal wound, status post surgery for excessive lower abdomen tissue, 20 pounds of mass was removed. Surgical drainage through the cyst removed. Wound care started after this morning she is concerned for sign of potential infection at surgical site in the ER for which she is admitted for IV antibiotics. HOME MEDICINES: 1. DuoNeb. 2. Budesonide b.i.d. 3. Albuterol p.r.n. 4. Eliquis 5 b.i.d. 5. Lipitor 40 daily. 6. Farxiga 10 daily. 7. Lasix 40 daily. 8. Cozaar 12.5 daily. 9. Synthroid 100 daily. 10.Protonix 40 mg daily. 11.Coreg 3.125 b.i.d. ALLERGIES: Negative. REVIEW OF SYSTEMS: A 14-point review of systems otherwise negative. REVIEW OF PAST MEDICAL HISTORY: Asthma, COPD, DVT, dyslipidemia, hypertension, myocardial infarction, osteoarthritis, pulmonary embolism, skin disorder, sleep apnea, and hypothyroidism. SURGICAL HISTORY: Arm tumor removal, ganglion cyst removal. FAMILY HISTORY: Mother diabetes mellitus, father pulmonary embolus. PHYSICAL EXAMINATION: VITAL SIGNS: Reviewed. Blood pressure 112 to 130s over 70s to 80s, temp 97 to 98, respiratory rate 18 to 20, pulse 70s to 80s. GENERAL: Well appearing, in no acute distress. BMI is over 40. HEENT: Head normocephalic, atraumatic. Pupils equal, round, reactive. Wears glasses. LUNGS: Clear. NEUROLOGIC: Cranial nerves intact. PSYCH: Fair mood and affect. INTEGUMENT: Shows status post surgical incision on low abdomen with open area on skin and surrounding erythema. ASSESSMENT: Cellulitis of the abdomen, status post with possible wound dehiscence, status post with a white count of 10.91, hemoglobin is 9.9, dehydration, acute tubular injury, surgical complications, cellulitis abdomen. Broad-spectrum antibiotics. Infectious Disease consult. Lactic acidosis secondary to dehydration with protein-calorie malnutrition, mild to moderate COPD, pulmonary hypertension, history of PE. Continue current treatment. Prognosis guarded. Please see orders. IV Zosyn. Wait for Infectious Disease consult. MMODL / IJN: [id number] /
[2023-06-05] MEDS: carvediloL 3.125 MG TAB PO SCH (06:06)
[2023-06-05] MEDS: PANTOPRAZOLE 40 MG TABLET PO SCH (06:06)
[2023-06-05] MEDS: LEVOTHYROXINE 100 MCG TAB PO SCH (06:06)
[2023-06-05] MEDS: FUROSEMIDE 40 MG TAB PO SCH (08:40)
[2023-06-05] MEDS: DAPAGLIFLOZIN PROPANEDIOL 5 MG TABLET PO SCH (08:40)
[2023-06-05] MEDS: LOSARTAN 25 MG TAB PO SCH (08:41)
[2023-06-05] MEDS: ATORVASTATIN 40 MG TAB PO SCH (08:41)
--- NOTE | 2023-06-05 11:53 | P.PN ---
Subjective Progress Note Date: 06/05/23 CHIEF COMPLAINT: Panniculectomy incisional infection HISTORY OF PRESENT ILLNESS: Patient sitting up in chair. Pain controlled. They have been doing the wet-to-dry dressing changes. Afebrile. Cultures obtained of open areas on bilateral sides of incision. CBC pending. PHYSICAL EXAM: VITAL SIGNS: Reviewed. GENERAL: Well-developed in no acute distress. HEENT: No sclera icterus. Extraocular movements grossly intact. Moist buccal mucosa. Head is atraumatic, normocephalic. ABDOMEN: Soft. Nondistended. Wet-to-dry dressing in place NEUROLOGIC: Alert and oriented. Cranial nerves II through XII grossly intact. ASSESSMENT: 1. Panniculectomy incisional infection 2. Status post recent panniculectomy 3. History of DVT and PE on Eliquis 4. Moderate protein calorie malnutrition PLAN: -Continue antibiotics -Follow-up on culture results -Antibiotics per infectious disease -Continue protein supplement -Repeat CBC in a.m. Physician Director [employer] note has been reviewed by physician. Signing provider agrees with the documented findings, assessment, and plan of care. Objective - Vital Signs Vital signs: Vital Signs Temp 98.1 F 06/05/23 07:20 Pulse 80 06/05/23 09:25 Resp 16 06/05/23 07:20 BP 97/60 06/05/23 07:20 Pulse Ox 98 06/05/23 09:13 FiO2 Intake & Output 06/04/23 06/05/23 06/05/23 18:59 06:59 18:59 Intake Total 456 118 Balance 456 118 Intake: Oral 456 118 Other: Voiding Method Toilet Toilet # Voids 1 - Labs CBC & Chem 7: 06/04/23 06:30 06/04/23 06:30 Labs: Abnormal Lab Results - Last 24 Hours (Table) 06/04/23 Range/Units 06:30 Carbon Dioxide 17.9 L (21.6-31.8) mmol/L Anion Gap 15.10 H (4.00-12.00) mmol/L BUN 38.4 H (9.0-27.0) mg/dL Creatinine 1.7 H (0.6-1.5) mg/dL Est GFR (CKD-EPI) 31 L (>=60) BUN/Creatinine Ratio 22.59 H (12.00-20.00) Ratio Calcium 8.3 L (8.7-10.3) mg/dL Total Protein 5.3 L (6.2-8.2) g/dL Albumin 2.8 L (3.8-4.9) g/dL Albumin/Globulin Ratio 1.12 L (1.60-3.17) Ratio Microbiology - Last 24 Hours (Table) 06/04/23 16:53 Gram Stain - Preliminary Abdomen 06/03/23 19:00 Blood Culture - Preliminary Blood 06/03/23 18:45 Blood Culture - Preliminary Blood
[2023-06-05 12:50] LABS: HCT 29.7 % (37.2-46.3); HGB 9.7 g/dL (12.0-15.0); MCH 31.1 pg (27.0-32.0); MCHC 32.7 g/dL (32.0-37.0); MCV 95.2 FL (80.0-97.0); Mean Platelet Volume 9.2 FL (9.5-12.2); NRBC Per 100 WBC 0 X 10*3/uL (0.00-0.01); Platelet Count 229 X 10*3/uL (140-440); RBC 3.12 X 10*6/uL (4.10-5.20); RDW 13.9 % (11.5-14.5); WBC 10.16 X 10*3/uL (4.50-10.00)
[2023-06-05 12:51] LABS: Basophils # (A) 0.04 X 10*3/uL (0.00-0.10); Basophils % (A) 0.4 %; Eosinophils # (A) 0.54 X 10*3/uL (0.04-0.35); Eosinophils % (A) 5.3 %; Lymphocytes # (A) 1.75 X 10*3/uL (0.90-5.00); Lymphocytes % (A) 17.2 %; Monocytes # (A) 1.14 X 10*3/uL (0.20-1.00); Monocytes % (A) 11.2 %; Neutrophils # (A) 6.63 X 10*3/uL (1.80-7.70); Neutrophils % (A) 65.3 %
[2023-06-05] MEDS: ACETAMINOPHEN TAB 500 MG TAB PO PRN (22:31)
--- NOTE | 2023-06-05 23:24 | P.CONS ---
History of Present Illness - Reason for Consult Consult date: 06/05/23 Cellulitis Requesting physician: Howie Ching - Chief Complaint Drainage from abdominal wound x few days - History of Present Illness Patient is a 78-year-old female with a past medical history significant for COPD hypertension hyperlipidemia [place] osteoarthritis PE sleep apnea patient recently did have a massive panniculectomy and repair of the umbilical hernia on May 23, 2023 patient did have a wound vacs on the side of the transverse pelvic incision and the patient was supposed to continue with the wound VAC in the outpatient setting unfortunately those has not been applied by the home care nurse have elevation was noticed to have a significant maceration along the wound especially to the left side of the wound and some drainage concerning for wound infection for the patient was advised to go to the hospital patient denies high-grade fever or any chills has been complaining of pain to the lower abdominal wall leading to mostly dull aching to sharp moderate intensity without radiation did have associated swelling and redness along with some drainage patient on presentation to the hospital was afebrile and no fever have been recorded subsequently patient was not tachycardic hypotensive or hypoxic did have a white count of 11,000 with a left shift BUN/creatinine has been mildly elevated liver enzymes are normal local cultures times are currently pending patient was started on Zosyn infectious disease was consulted for further management of antibiotic therapy Review of Systems Positive point and negatives has been mentioned in the HPI, complete review of systems was performed and all other systems are negative Past Medical History Past Medical History: Asthma, COPD, Deep Vein Thrombosis (DVT), Hyperlipidemia, Hypertension, Myocardial Infarction ([place]), Osteoarthritis (OA), Pulmonary Embolus (PE), Skin Disorder, Sleep Apnea/CPAP/BIPAP, Thyroid Disorder Additional Past Medical History / Comment(s): Hx DVT's, hx PE 06/11. Hx cellulitis. Uses O2 at night only @ 3L. No CPAP use. rash to pannis from rubbing skin on skin. Last Myocardial Infarction Date:: Unknown History of Any Multi-Drug Resistant Organisms: None Reported Past Surgical History: Hysterectomy Additional Past Surgical History / Comment(s): Arm tumor removal, ganglion cysts removed from hand and wrist. Past Anesthesia/Blood Transfusion Reactions: No Reported Reaction Additional Past Anesthesia/Blood Transfusion Reaction / Comm: no blood transfusions Smoking Status: Former smoker - Past Family History Mother Family Medical History: Cancer, Diabetes Mellitus Father Family Medical History: Pulmonary Embolus Additional Family Medical History / Comment(s): Partial lung removed. PE after hip replacement. Medications and Allergies Home Medications Medication Instructions Recorded Confirmed Type Apixaban [Eliquis] 5 mg PO BID tab 06/09/22 06/03/23 Rx Atorvastatin [Lipitor] 40 mg PO DAILY tab 06/09/22 06/03/23 Rx Dapagliflozin Propanediol [Farxiga] 5 mg PO DAILY tab 06/09/22 06/03/23 Rx Furosemide [Lasix] 40 mg PO DAILY tab 06/09/22 06/03/23 Rx Levothyroxine Sodium [Synthroid] 100 mcg PO DAILY@0630 tab 06/09/22 06/03/23 Rx Losartan [Cozaar] 12.5 mg PO DAILY tab 06/09/22 06/03/23 Rx Pantoprazole [Protonix] 40 mg PO AC-BRKFST tab 06/09/22 06/03/23 Rx carvediloL [Coreg] 3.125 mg PO BID-W/MEALS tab 06/09/22 06/03/23 Rx Acetaminophen Tab [Tylenol] 1,000 mg PO Q6HR PRN #30 tablet 05/29/23 06/03/23 Rx Albuterol Inhaler [Ventolin Hfa 2 puff INHALATION RT-Q6H PRN 06/03/23 06/03/23 History Inhaler] Budesonide 0.5 mg INHALATION RT-BID 06/03/23 06/03/23 History Ipratropium-Albuterol Nebulize 3 ml INHALATION RT-BID 06/03/23 06/03/23 History [Duoneb 0.5 mg-3 mg/3 ml Soln] Nystatin 100,000 Unit/gm Powd 1 applic TOPICAL BID 5 Days #60 g 06/08/23 Rx [Mycostatin Powder] Potassium Chloride [Potassium 20 meq PO DAILY 3 Days #3 tab 06/08/23 Rx Chloride ER (K-Dur GEQ)] Allergies Allergy/AdvReac Type Severity Reaction Status Date / Time No Known Allergies Allergy Verified 06/03/23 18:41 Physical Exam Vitals: Vital Signs Temp Pulse Pulse Resp BP BP Pulse Ox 06/05/23 09:25 80 06/05/23 09:13 98 06/05/23 09:11 80 04/16/24 07:20 98.1 F 70 16 97/60 98 06/05/23 02:00 98.5 F 73 16 135/69 98 06/04/23 20:26 80 06/04/23 20:15 80 06/04/23 19:16 98.3 F 80 16 108/59 99 06/04/23 14:20 98.0 F 72 16 107/49 99 Intake and Output 06/04/23 06/05/23 06/05/23 22:59 06:59 14:59 Intake Total 120 118 Balance 120 118 Intake: Oral 120 118 Other: Voiding Method Toilet # Voids 1 GENERAL DESCRIPTION: Elderly female lying in bed, no distress. No tachypnea or accessory muscle of respiration use. HEENT: Shows Pallor , no scleral icterus. Oral mucous membrane is dry. No pharyngeal erythema or thrush NECK: Trachea central, no thyromegaly. LUNGS: Unlabored breathing. Clear to auscultation anteriorly. No wheeze or crackle. HEART: S1, S2, regular rate and rhythm. No loud murmur ABDOMEN: Soft, no tenderness patient did have a 2 wound to lower abdominal wall especially in the left side with some drainage minimal erythema noticed to the lower abdominal wall EXTREMITIES: No edema of feet. SKIN: No rash, no masses palpable. NEUROLOGICAL: The patient is awake, alert, oriented x3, mood and affect normal. Results CBC & Chem 7: 06/07/23 06:12 06/08/23 04:03 Labs: Abnormal Lab Results - Last 24 Hours (Table) 06/04/23 Range/Units 06:30 Carbon Dioxide 17.9 L (21.6-31.8) mmol/L Anion Gap 15.10 H (4.00-12.00) mmol/L BUN 38.4 H (9.0-27.0) mg/dL Creatinine 1.7 H (0.6-1.5) mg/dL Est GFR (CKD-EPI) 31 L (>=60) BUN/Creatinine Ratio 22.59 H (12.00-20.00) Ratio Calcium 8.3 L (8.7-10.3) mg/dL Total Protein 5.3 L (6.2-8.2) g/dL Albumin 2.8 L (3.8-4.9) g/dL Albumin/Globulin Ratio 1.12 L (1.60-3.17) Ratio Microbiology - Last 24 Hours (Table) 06/04/23 16:53 Gram Stain - Preliminary Abdomen 06/03/23 19:00 Blood Culture - Preliminary Blood 06/03/23 18:45 Blood Culture - Preliminary Blood Assessment and Plan (1) Abdominal wall cellulitis Current Visit: Yes Status: Acute Code(s): L03.311 - CELLULITIS OF ABDOMINAL WALL SNOMED Code(s): 92426557 Plan: 1patient presented hospital with abdominal wound infection in this patient who recently did have a extensive panniculectomy with an open wound on both side of the abdomen with more drainage from the left lower abdominal wound concerning for cellulitis likely from gram-positive skin jb underlying gram-negative infection not entirely excluded 2-local cultures obtained results will be followed 3-patient benefit from application of the wound VAC for now continue the wet-to-dry dressing changes 4-continue with Zosyn 3.375 g every 8 hours while waiting for the culture to finalize We will follow on clinical condition and cultures to further adjust medication if needed Thank you for this consultation we will follow the patient along with you Dictation was produced using [employer] dictation software. please excuse any grammatical, word or spelling errors. Time with Patient: Greater than 30
--- NOTE | 2023-06-06 03:45 | PN ---
PROGRESS NOTE SUBJECTIVE: This is a 78-year-old white female, significant COPD, hypertension, diastolic heart failure. Sleep apnea, coronary artery disease, status post wound dehiscence, surgery for panniculectomy. She came back due to open wound and is packed. She has open wound and redness from the wound down to her groin. has been restarted for hypertension, GERD, COPD, history of atrial fibrillation, diastolic CHF. White count 10.6, hemoglobin is 9.7, BUN is 38, creatinine 1.7. OBJECTIVE: VITAL SIGNS: Blood pressure 107/49 to 97/60, temp 98.1, pulse 78, respiratory rate 16 to 18. LUNGS: Clear. CARDIOVASCULAR: S1, S2. PSYCH: Fair mood and affect. Extensive panniculectomy with open wound of the abdomen, cellulitis with tinea corporis candidiasis, cultures OB are pending. Possibly wound VAC, wet-to-dry dressing changes. Zosyn 3.375 every 8 hours. Wait for cultures to finalize, prognosis guarded. MMODL / IJN: [id number] /
[2023-06-06 11:22] LABS: Basophils # (A) 0.03 X 10*3/uL (0.00-0.10); Basophils % (A) 0.3 %; Eosinophils # (A) 0.46 X 10*3/uL (0.04-0.35); Eosinophils % (A) 4.9 %; HGB 9.5 g/dL (12.0-15.0); Lymphocytes # (A) 1.52 X 10*3/uL (0.90-5.00); Lymphocytes % (A) 16.3 %; MCH 30.6 pg (27.0-32.0); MCHC 32.8 g/dL (32.0-37.0); MCV 93.5 FL (80.0-97.0); Mean Platelet Volume 9.3 FL (9.5-12.2); Monocytes # (A) 0.99 X 10*3/uL (0.20-1.00); Monocytes % (A) 10.6 %; NRBC Per 100 WBC 0 X 10*3/uL (0.00-0.01); Neutrophils # (A) 6.28 X 10*3/uL (1.80-7.70); Neutrophils % (A) 67.2 %; Platelet Count 213 X 10*3/uL (140-440); RDW 13.9 % (11.5-14.5); WBC 9.35 X 10*3/uL (4.50-10.00)
[2023-06-06 11:33] LABS: BUN/Creat Ratio 22.89 Ratio (12.00-20.00); Blood Urea Nitrogen 43.5 mg/dL (9.0-27.0); Calcium 7.8 mg/dL (8.7-10.3); Chloride 105 mmol/L (96-109); Glucose 102 mg/dL (70-110); Potassium 3.2 mmol/L (3.5-5.5); Sodium 136 mmol/L (135-145)
--- NOTE | 2023-06-06 15:06 | P.PN ---
Subjective Progress Note Date: 06/06/23 CHIEF COMPLAINT: Panniculectomy, abdominal wound infection HISTORY OF PRESENT ILLNESS: Patient sitting up in chair. Her pain is controlled. They have been doing the wet-to-dry dressing changes. She did shower yesterday. Afebrile. WBC has normalized at 9.35 potassium is 3.2 PHYSICAL EXAM: VITAL SIGNS: Reviewed. GENERAL: Well-developed in no acute distress. HEENT: No sclera icterus. Extraocular movements grossly intact. Moist buccal mucosa. Head is atraumatic, normocephalic. ABDOMEN: Soft. Nondistended. Wet-to-dry dressing in place NEUROLOGIC: Alert and oriented. Cranial nerves II through XII grossly intact. Extremities: Bilateral lower extremity edema ASSESSMENT: 1. Panniculectomy, abdominal wound infection 2. Status post recent panniculectomy 3. History of DVT and PE on Eliquis 4. Moderate protein calorie malnutrition 5. Hypokalemia PLAN: -Continue antibiotics -Follow-up on culture results -Antibiotics per infectious disease -Continue protein supplement -Repeat CBC in a.m. -Replace potassium. Repeat potassium in a.m. Physician Deburrer Strip note has been reviewed by physician. Signing provider agrees with the documented findings, assessment, and plan of care. Objective - Vital Signs Vital signs: Vital Signs Temp 97.8 F 06/06/23 08:00 Pulse 87 06/06/23 09:22 Resp 16 06/06/23 08:00 BP 106/63 06/06/23 08:00 Pulse Ox 95 06/06/23 09:06 FiO2 Intake & Output 06/05/23 06/06/23 06/06/23 18:59 06:59 18:59 Intake Total 354 118 Balance 354 118 Intake: Oral 354 118 Other: Voiding Method Toilet Toilet Toilet # Voids 1 2 1 # Bowel Movements 1 - Labs CBC & Chem 7: 06/06/23 07:42 06/06/23 07:42 Labs: Abnormal Lab Results - Last 24 Hours (Table) 06/06/23 06/06/23 Range/Units 07:42 07:42 RBC 3.10 L (4.10-5.20) X 10*6/uL Hgb 9.5 L (12.0-15.0) g/dL Hct 29.0 L (37.2-46.3) % MPV 9.3 L (9.5-12.2) FL Immature Gran # 0.07 H (0.00-0.04) X 10*3/uL Eosinophils # 0.46 H (0.04-0.35) X 10*3/uL Potassium 3.2 L (3.5-5.5) mmol/L Carbon Dioxide 20.0 L (21.6-31.8) mmol/L BUN 43.5 H (9.0-27.0) mg/dL Creatinine 1.9 H (0.6-1.5) mg/dL Est GFR (CKD-EPI) 27 L (>=60) BUN/Creatinine Ratio 22.89 H (12.00-20.00) Ratio Calcium 7.8 L (8.7-10.3) mg/dL Microbiology - Last 24 Hours (Table) 06/03/23 19:00 Blood Culture - Preliminary Blood 06/03/23 18:45 Blood Culture - Preliminary Blood
[2023-06-06] MEDS: POTASSIUM CHLORIDE ER 20 MEQ TAB.ER PO STA (16:10)
--- NOTE | 2023-06-06 17:13 | P.PN ---
Subjective Progress Note Date: 06/06/23 Principal diagnosis: Reason for follow-up is abdominal wound infection Patient is a 78-year-old female with a past medical history significant for COPD hypertension hyperlipidemia [place] osteoarthritis PE sleep apnea patient recently did have a massive panniculectomy and repair of the umbilical hernia on May 23, 2023, presented to hospital with worsening wound to the left lower abdominal wall concerning for wound infection. On today's visit that is 06/06/2023, Patient is afebrile patient is currently on room air and denies having any shortness of breath, the patient denies any chest pain or cough, the patient denies any nausea vomiting denies any worsening abdominal pain and no diarrhea. Patient white count down to 9.35, creatinine is 1.9 cultures currently pending Objective - Vital Signs Vital signs: Vital Signs Temp 97.8 F 06/06/23 14:00 Pulse 60 06/06/23 14:00 Resp 16 06/06/23 14:00 BP 88/54 06/06/23 14:00 Pulse Ox 95 06/06/23 14:00 FiO2 Intake & Output 06/05/23 06/06/23 06/06/23 18:59 06:59 18:59 Intake Total 354 358 Balance 354 358 Intake: Oral 354 358 Other: Voiding Method Toilet Toilet Toilet # Voids 1 2 5 # Bowel Movements 1 - Exam GENERAL DESCRIPTION: An elderly female lying in bed in no distress RESPIRATORY SYSTEM: Unlabored breathing , decreased breath sounds at bases HEART: S1 S2 regular rate and rhythm , ABDOMEN: Soft , no tenderness abdominal wounds are currently dressed EXTREMITIES: No edema feet - Labs CBC & Chem 7: 06/06/23 07:42 06/06/23 07:42 Labs: Abnormal Lab Results - Last 24 Hours (Table) 06/06/23 06/06/23 Range/Units 07:42 07:42 RBC 3.10 L (4.10-5.20) X 10*6/uL Hgb 9.5 L (12.0-15.0) g/dL Hct 29.0 L (37.2-46.3) % MPV 9.3 L (9.5-12.2) FL Immature Gran # 0.07 H (0.00-0.04) X 10*3/uL Eosinophils # 0.46 H (0.04-0.35) X 10*3/uL Potassium 3.2 L (3.5-5.5) mmol/L Carbon Dioxide 20.0 L (21.6-31.8) mmol/L BUN 43.5 H (9.0-27.0) mg/dL Creatinine 1.9 H (0.6-1.5) mg/dL Est GFR (CKD-EPI) 27 L (>=60) BUN/Creatinine Ratio 22.89 H (12.00-20.00) Ratio Calcium 7.8 L (8.7-10.3) mg/dL Microbiology - Last 24 Hours (Table) 06/03/23 19:00 Blood Culture - Preliminary Blood 06/03/23 18:45 Blood Culture - Preliminary Blood Assessment and Plan (1) Abdominal wall cellulitis Current Visit: Yes Status: Acute Code(s): L03.311 - CELLULITIS OF ABDOMINAL WALL SNOMED Code(s): 70141797 Plan: 1patient presented hospital with abdominal wound infection in this patient who recently did have a extensive panniculectomy with an open wound on both side of the abdomen with more drainage from the left lower abdominal wound concerning for cellulitis likely from gram-positive skin jb underlying gram-negative infection not entirely excluded 2-local cultures obtained which are currently pending 3-patient to continue with Zosyn 3.375 g every 8 hours while waiting for the culture to finalize Dictation was produced using [employer] dictation software. please excuse any grammatical, word or spelling errors. Time with Patient: Less than 30
[2023-06-06] MEDS: SODIUM CHLORIDE 0.45% 1,000 ML IV SCH (20:28)
--- NOTE | 2023-06-07 02:12 | PN ---
PROGRESS NOTE SUBJECTIVE: This is a 78-year-old white female, cellulitis infection of the lower pannus below panniculectomy wound. She also has open area which is being packed IV broad-spectrum antibiotics per Dr. Cleary. Waiting for cultures, Dr. Saenz is coming back tomorrow. OBJECTIVE: CARDIOVASCULAR: S1, S2. LUNGS: Clear. GI: Soft. INTEGUMENT: As mentioned above. Dressings applied. ASSESSMENT: Cellulitis, wound dehiscence of the abdomen, status post panniculectomy. She has COPD, diastolic heart failure. Continue current treatments. Home medications have been reordered. Prognosis guarded. MMODL / IJN: [id number] /
--- NOTE | 2023-06-07 02:50 | PN ---
PROGRESS NOTE SUBJECTIVE: The patient was seen by Dr. Cleary for abdominal wound, status post panniculectomy. Her surgeon is going to be back in town tomorrow. White count is down to 9.35, creatinine is 1.9. Cultures are still pending. OBJECTIVE: VITAL SIGNS: Blood pressure is 88/54, O2 95, pulse 60, respiratory rate 16 to 18, and temperature 97.8. CARDIOVASCULAR: S1, S2. LUNGS: Decreased breath sounds. ABDOMEN: Soft. Potassium 3.2, BUN is 49, creatinine 1.9, sodium is 9.5. Suspect she is dehydrated. Acute kidney injury prerenal azotemia abdominal cellulitis. Dr. Cleary saw her for, continue with Zosyn. Waiting for cultures. Wait for surgical interventions. Give her fluids. Prognosis guarded. MMODL / IJN: [id number] /
[2023-06-07 08:48] LABS: Basophils # (A) 0.03 X 10*3/uL (0.00-0.10); Basophils % (A) 0.3 %; Eosinophils # (A) 0.35 X 10*3/uL (0.04-0.35); Eosinophils % (A) 3.8 %; HCT 25.9 % (37.2-46.3); HGB 8.5 g/dL (12.0-15.0); Lymphocytes # (A) 1.49 X 10*3/uL (0.90-5.00); Lymphocytes % (A) 16.4 %; MCH 30.5 pg (27.0-32.0); MCHC 32.8 g/dL (32.0-37.0); MCV 92.8 FL (80.0-97.0); Mean Platelet Volume 9.2 FL (9.5-12.2); Monocytes # (A) 0.81 X 10*3/uL (0.20-1.00); Monocytes % (A) 8.9 %; NRBC Per 100 WBC 0 X 10*3/uL (0.00-0.01); Neutrophils # (A) 6.37 X 10*3/uL (1.80-7.70); Neutrophils % (A) 70.1 %; Platelet Count 218 X 10*3/uL (140-440); RBC 2.79 X 10*6/uL (4.10-5.20); RDW 14.1 % (11.5-14.5)
[2023-06-07 09:01] LABS: ALT 15 U/L (8-44); AST 27 U/L (13-35); Albumin 2.5 g/dL (3.8-4.9); Albumin/Globulin Ratio 1.19 Ratio (1.60-3.17); Alkaline Phosphatase 50 U/L (41-126); BUN/Creat Ratio 24.29 Ratio (12.00-20.00); Blood Urea Nitrogen 41.3 mg/dL (9.0-27.0); Calcium 7.7 mg/dL (8.7-10.3); Carbon Dioxide 20.8 mmol/L (21.6-31.8); Chloride 111 mmol/L (96-109); Globulin 2.1 g/dL (1.6-3.3); Glucose 95 mg/dL (70-110); Potassium 3.4 mmol/L (3.5-5.5); Sodium 142 mmol/L (135-145); Total Bilirubin 0.3 mg/dL (0.3-1.2); Total Protein 4.6 g/dL (6.2-8.2)
--- NOTE | 2023-06-07 11:50 | P.PN ---
Subjective Progress Note Date: 06/07/23 CHIEF COMPLAINT: Panniculectomy, abdominal wound HISTORY OF PRESENT ILLNESS: Patient lying in bed comfortably. No new complaints of pain. Patient continues to have wet to dry dressings in place. Denies any nausea or vomiting. No complaints of pain. Afebrile. WBC 9.10 PHYSICAL EXAM: VITAL SIGNS: Reviewed. GENERAL: Well-developed in no acute distress. HEENT: No sclera icterus. Extraocular movements grossly intact. Moist buccal mucosa. Head is atraumatic, normocephalic. ABDOMEN: Soft. Nondistended. Incision is clean dry and intact. Dressings from both wounds were pulled back by Dr. Cramer. There is minimal drainage present. Granulation tissue present. No erythema noted. NEUROLOGIC: Alert and oriented. Cranial nerves II through XII grossly intact. Extremities: Bilateral lower extremity edema ASSESSMENT: 1. Panniculectomy, abdominal wound. Per Dr. Cramer no evidence of infection at the abdominal wound sites. Drainage is likely colonized. Will resume wound vacs 2. Status post recent panniculectomy 3. History of DVT and PE on Eliquis 4. Moderate protein calorie malnutrition 5. Hypokalemia PLAN: -Wound vacs ordered for both abdominal wounds. Will monitor patient for 24 hours with the wound vacs -Consults case planner for home care and outpatient wound VAC arrangement -Continue protein supplement -Replace potassium. Repeat potassium in a.m. -Check magnesium level Physician Manager Administrative note has been reviewed by physician. Signing provider agrees with the documented findings, assessment, and plan of care. Objective - Vital Signs Vital signs: Vital Signs Temp 98.2 F 06/07/23 08:00 Pulse 97 06/07/23 09:30 Resp 40 H 06/07/23 09:14 BP 142/64 06/07/23 08:00 Pulse Ox 96 06/07/23 09:14 FiO2 Intake & Output 06/06/23 06/07/23 06/07/23 18:59 06:59 18:59 Intake Total 358 118 Balance 358 118 Intake: Oral 358 118 Other: Voiding Method Toilet # Voids 5 1 # Bowel Movements 1 - Labs CBC & Chem 7: 06/07/23 06:12 06/07/23 06:12 Labs: Abnormal Lab Results - Last 24 Hours (Table) 06/07/23 06/07/23 Range/Units 06:12 06:12 RBC 2.79 L (4.10-5.20) X 10*6/uL Hgb 8.5 L (12.0-15.0) g/dL Hct 25.9 L (37.2-46.3) % MPV 9.2 L (9.5-12.2) FL Immature Gran # 0.05 H (0.00-0.04) X 10*3/uL Potassium 3.4 L (3.5-5.5) mmol/L Chloride 111 H (96-109) mmol/L Carbon Dioxide 20.8 L (21.6-31.8) mmol/L BUN 41.3 H (9.0-27.0) mg/dL Creatinine 1.7 H (0.6-1.5) mg/dL Est GFR (CKD-EPI) 31 L (>=60) BUN/Creatinine Ratio 24.29 H (12.00-20.00) Ratio Calcium 7.7 L (8.7-10.3) mg/dL Total Protein 4.6 L (6.2-8.2) g/dL Albumin 2.5 L (3.8-4.9) g/dL Albumin/Globulin Ratio 1.19 L (1.60-3.17) Ratio Microbiology - Last 24 Hours (Table) 06/03/23 19:00 Blood Culture - Preliminary Blood 06/03/23 18:45 Blood Culture - Preliminary Blood 06/04/23 16:53 Anaerobic Culture - Preliminary Abdomen
[2023-06-07] MEDS: POTASSIUM CHLORIDE ER 20 MEQ TAB.ER PO STA (12:42)
--- NOTE | 2023-06-07 14:10 | P.PN ---
Subjective Progress Note Date: 06/07/23 Principal diagnosis: Reason for follow-up is abdominal wound infection Patient is a 78-year-old female with a past medical history significant for COPD hypertension hyperlipidemia [place] osteoarthritis PE sleep apnea patient recently did have a massive panniculectomy and repair of the umbilical hernia on May 23, 2023, presented to hospital with worsening wound to the left lower abdominal wall concerning for wound infection. On today's visit that is 06/07/2023, patient has been afebrile, patient is breathing comfortably and is currently on room air, patient denies having any significant cough no chest pain shortness of breath, patient denies nausea vomiting or diarrhea and no abdominal pain and drainage from the wound has decreased in intensity. Patient white count is down to 9.10 creatinine is 1.7 cultures so far pending Objective - Vital Signs Vital signs: Vital Signs Temp 98.2 F 06/07/23 08:00 Pulse 97 06/07/23 09:30 Resp 40 H 06/07/23 09:14 BP 142/64 06/07/23 08:00 Pulse Ox 96 06/07/23 09:14 FiO2 Intake & Output 06/06/23 06/07/23 06/07/23 18:59 06:59 18:59 Intake Total 358 118 Balance 358 118 Intake: Oral 358 118 Other: Voiding Method Toilet # Voids 5 1 # Bowel Movements 1 - Exam GENERAL DESCRIPTION: An elderly female lying in bed in no distress RESPIRATORY SYSTEM: Unlabored breathing , decreased breath sounds at bases HEART: S1 S2 regular rate and rhythm , ABDOMEN: Soft , no tenderness abdominal wounds are currently dressed EXTREMITIES: No edema feet - Labs CBC & Chem 7: 06/07/23 06:12 06/07/23 06:12 Labs: Abnormal Lab Results - Last 24 Hours (Table) 06/07/23 06/07/23 Range/Units 06:12 06:12 RBC 2.79 L (4.10-5.20) X 10*6/uL Hgb 8.5 L (12.0-15.0) g/dL Hct 25.9 L (37.2-46.3) % MPV 9.2 L (9.5-12.2) FL Immature Gran # 0.05 H (0.00-0.04) X 10*3/uL Potassium 3.4 L (3.5-5.5) mmol/L Chloride 111 H (96-109) mmol/L Carbon Dioxide 20.8 L (21.6-31.8) mmol/L BUN 41.3 H (9.0-27.0) mg/dL Creatinine 1.7 H (0.6-1.5) mg/dL Est GFR (CKD-EPI) 31 L (>=60) BUN/Creatinine Ratio 24.29 H (12.00-20.00) Ratio Calcium 7.7 L (8.7-10.3) mg/dL Total Protein 4.6 L (6.2-8.2) g/dL Albumin 2.5 L (3.8-4.9) g/dL Albumin/Globulin Ratio 1.19 L (1.60-3.17) Ratio Microbiology - Last 24 Hours (Table) 06/03/23 19:00 Blood Culture - Preliminary Blood 06/03/23 18:45 Blood Culture - Preliminary Blood 06/04/23 16:53 Anaerobic Culture - Preliminary Abdomen Assessment and Plan (1) Abdominal wall cellulitis Current Visit: Yes Status: Acute Code(s): L03.311 - CELLULITIS OF ABDOMINAL WALL SNOMED Code(s): 73115053 Plan: 1patient presented hospital with abdominal wound infection in this patient who recently did have a extensive panniculectomy with an open wound on both side of the abdomen with more drainage from the left lower abdominal wound concerning for cellulitis likely from gram-positive skin jb underlying gram-negative infection not entirely excluded 2-local cultures obtained which are currently pending 3-patient is afebrile patient white count has normalized, patient to continue w ith Zosyn 3.375 g every 8 hours while waiting for the culture to finalize Dictation was produced using [employer] dictation software. please excuse any grammatical, word or spelling errors. Time with Patient: Less than 30
[2023-06-08 08:28] VITALS: RESP 18
[2023-06-08 08:41] LABS: BUN/Creat Ratio 24.65 Ratio (12.00-20.00); Blood Urea Nitrogen 41.9 mg/dL (9.0-27.0); Calcium 7.7 mg/dL (8.7-10.3); Carbon Dioxide 21.5 mmol/L (21.6-31.8); Chloride 110 mmol/L (96-109); Glucose 89 mg/dL (70-110); Potassium 3.3 mmol/L (3.5-5.5); Sodium 141 mmol/L (135-145)
[2023-06-08 11:28] VITALS: BMI 43.1
--- NOTE | 2023-06-08 13:15 | P.PN ---
Subjective Progress Note Date: 06/08/23 Principal diagnosis: Reason for follow-up is abdominal wound infection Patient is a 78-year-old female with a past medical history significant for COPD hypertension hyperlipidemia [place] osteoarthritis PE sleep apnea patient recently did have a massive panniculectomy and repair of the umbilical hernia on May 23, 2023, presented to hospital with worsening wound to the left lower abdominal wall concerning for wound infection. On today's visit that is 06/08/2023,the patient denies any fever or any chills, patient is breathing comfortably on room air, the patient denies chest pain shortness of breath and no significant cough, patient denies abdominal pain, no nausea vomiting or diarrhea. Feeling better. Patient did have creatinine 1.7 white count was 9.10 yesterday abdominal cultures have been negative blood culture negative Objective - Vital Signs Vital signs: Vital Signs Temp 98.6 F 06/08/23 07:32 Pulse 70 06/08/23 08:21 Resp 18 06/08/23 07:32 BP 111/61 06/08/23 07:32 Pulse Ox 96 06/08/23 08:23 FiO2 Intake & Output 06/07/23 06/08/23 06/08/23 18:59 06:59 18:59 Intake Total 118 Balance 118 Intake: Oral 118 Other: Voiding Method Toilet # Voids 8 1 1 # Bowel Movements 1 - Exam GENERAL DESCRIPTION: An elderly female lying in bed in no distress RESPIRATORY SYSTEM: Unlabored breathing , decreased breath sounds at bases HEART: S1 S2 regular rate and rhythm , ABDOMEN: Soft , no tenderness abdominal wounds are currently covered with a wound VAC EXTREMITIES: No edema feet - Labs CBC & Chem 7: 06/07/23 06:12 06/08/23 04:03 Labs: Abnormal Lab Results - Last 24 Hours (Table) 06/07/23 06/07/23 Range/Units 06:12 06:12 RBC 2.79 L (4.10-5.20) X 10*6/uL Hgb 8.5 L (12.0-15.0) g/dL Hct 25.9 L (37.2-46.3) % MPV 9.2 L (9.5-12.2) FL Immature Gran # 0.05 H (0.00-0.04) X 10*3/uL Potassium 3.4 L (3.5-5.5) mmol/L Chloride 111 H (96-109) mmol/L Carbon Dioxide 20.8 L (21.6-31.8) mmol/L BUN 41.3 H (9.0-27.0) mg/dL Creatinine 1.7 H (0.6-1.5) mg/dL Est GFR (CKD-EPI) 31 L (>=60) BUN/Creatinine Ratio 24.29 H (12.00-20.00) Ratio Calcium 7.7 L (8.7-10.3) mg/dL Total Protein 4.6 L (6.2-8.2) g/dL Albumin 2.5 L (3.8-4.9) g/dL Albumin/Globulin Ratio 1.19 L (1.60-3.17) Ratio Microbiology - Last 24 Hours (Table) 06/04/23 16:53 Gram Stain - Final Abdomen Wound Culture - Final Assessment and Plan (1) Abdominal wall cellulitis Current Visit: Yes Status: Acute Code(s): L03.311 - CELLULITIS OF ABDOMINAL WALL SNOMED Code(s): 61477562 Plan: 1patient presented hospital with concern for possible abdominal wound infection for advice of her home care nurse, in this patient who recently did have a extensive panniculectomy with an open wound on both side of the abdomen with more drainage from the left lower abdominal wound with initial concern for possible wound infection cellulitis however the patient cultures have been negative as per discussion with a surgeon who has evaluated the wound no suspicious for cellulitis we will discontinue Zosyn local care to continue with the wound VAC no need for antibiotic on discharge Dictation was produced using [employer] dictation software. please excuse any grammatical, word or spelling errors. Time with Patient: Less than 30
[2023-06-08] MEDS: POTASSIUM CHLORIDE ER 20 MEQ TAB.ER PO STA (13:24)
[2023-06-08] MEDS: PIPERACILLIN-TAZOBACTAM 3.375 GM in SODIUM CHLORIDE 0.9% 100 ML IVPB SCH (13:26)
[2023-06-08 14:20] VITALS: BP 118/74; PULSE 79; TEMP 97.9
--- NOTE | 2023-06-08 14:30 | P.PN ---
Subjective Progress Note Date: 06/08/23 CHIEF COMPLAINT: Panniculectomy, abdominal wound HISTORY OF PRESENT ILLNESS: Patient sitting up at bedside chair. She has wound vacs in place. They are functioning. Drainage without evidence of infection. Afebrile. No new complaints. Last WBC 9.10 potassium 3.3 and being replaced magnesium 1.7 PHYSICAL EXAM: VITAL SIGNS: Reviewed. GENERAL: Well-developed in no acute distress. HEENT: No sclera icterus. Extraocular movements grossly intact. Moist buccal mucosa. Head is atraumatic, normocephalic. ABDOMEN: Soft. Nondistended. Incision is clean dry and intact. Patient has a wound VAC with bridging on both sides of the abdominal incision NEUROLOGIC: Alert and oriented. Cranial nerves II through XII grossly intact. Extremities: Bilateral lower extremity edema ASSESSMENT: 1. Panniculectomy, abdominal wound. Per Dr. Cramer no evidence of infection at the abdominal wound sites. Drainage is likely colonized. Wound vacs are in place 2. Status post recent panniculectomy 3. History of DVT and PE on Eliquis 4. Moderate protein calorie malnutrition 5. Hypokalemia PLAN: -Patient can be discharged from surgical standpoint -Patient has home care arranged for outpatient. She has outpatient wound VAC at home Physician Puller Machine note has been reviewed by physician. Signing provider agrees with the documented findings, assessment, and plan of care. Objective - Vital Signs Vital signs: Vital Signs Temp 97.9 F 06/08/23 13:48 Pulse 79 06/08/23 13:48 Resp 18 06/08/23 13:48 BP 118/74 06/08/23 13:48 Pulse Ox 99 06/08/23 13:48 FiO2 Intake & Output 06/07/23 06/08/23 06/08/23 18:59 06:59 18:59 Intake Total 118 Balance 118 Weight 107.048 kg Intake: Oral 118 Other: Voiding Method Toilet # Voids 8 1 1 # Bowel Movements 1 - Labs CBC & Chem 7: 06/07/23 06:12 06/08/23 04:03 Labs: Abnormal Lab Results - Last 24 Hours (Table) 06/08/23 Range/Units 04:03 Potassium 3.3 L (3.5-5.5) mmol/L Chloride 110 H (96-109) mmol/L Carbon Dioxide 21.5 L (21.6-31.8) mmol/L BUN 41.9 H (9.0-27.0) mg/dL Creatinine 1.7 H (0.6-1.5) mg/dL Est GFR (CKD-EPI) 31 L (>=60) BUN/Creatinine Ratio 24.65 H (12.00-20.00) Ratio Calcium 7.7 L (8.7-10.3) mg/dL Microbiology - Last 24 Hours (Table) 06/04/23 16:53 Gram Stain - Final Abdomen Wound Culture - Final
--- NOTE | 2023-06-08 14:35 | P.DS ---
Providers Date of admission: 06/05/23 14:54 Expected date of discharge: 06/08/23 Attending physician: Howie Ching Consults: 06/04/23 10:06 Consult Physician Routine Consulting Provider: Daniel Cramer Consult Reason/Comments: post surgical complication Do you want consulting provider notified?: Already Contacted 06/04/23 17:38 Consult Physician Routine Consulting Provider: Indy Cleary Consult Reason/Comments: cellulitis Do you want consulting provider notified?: Yes Primary care physician: [facility] Hospital Course: * 78 year old female past medical history significant for COPD hypertension hyperlipidemia [place] osteoarthritis PE sleep apnea patient recently did have a massive panniculectomy and repair of the umbilical hernia on May 23, 2023 patient did have a wound vacs on the side of the transverse pelvic incision and the patient was supposed to continue with the wound VAC in the outpatient setting unfortunately those has not been applied by the home care nurse have elevation was noticed to have a significant maceration along the wound especially to the left side of the wound and some drainage concerning for wound infection for the patient was advised to go to the hospital patient denies high-grade fever or any chills has been complaining of pain to the lower abdominal wall leading to mostly dull aching to sharp moderate intensity without radiation did have associated swelling and redness along with some drainage * Patient seen by infectious disease and treated for panniculitis with antibiotics * 06/08/2023: Patient seen and evaluated bedside. Vitals reviewed, blood work reviewed, potassium replaced, creatinine 1.7. antibiotic was completed, cleared for discharge by surgery PHYSICAL EXAMINATION: GENERAL: The patient is alert and oriented x3, not in any acute distress. Well developed, well nourished. HEENT: Pupils are round and equally reacting to light. EOMI. No scleral icterus. No conjunctival pallor. Normocephalic, atraumatic. CARDIOVASCULAR: S1 and S2 present. No murmurs, rubs, or gallops. PULMONARY: Chest is clear to auscultation, no wheezing or crackles. ABDOMEN: Soft, nontender, nondistended, normoactive bowel sounds. No palpable organomegaly. MUSCULOSKELETAL: No joint swelling or deformity. EXTREMITIES: No cyanosis, clubbing, or pedal edema. NEUROLOGICAL: Gross neurological examination did not reveal any focal deficits. SKIN: wound VAC in place Assessment and plan * Abdominal wall cellulitis s/p panniculectomy with abdominal wound * History of DVT and pulm embolism on Eliquis * Electrolyte abnormality hypokalemia * Protein calorie malnutrition * S/p wound VAC placement * Consult obtained from infectious disease and general surgery * Status post wound VAC placement * Patient wason IV Zosyn, to be managed by infectious disease, completed course of antibiotic * Potassium replaced Patient Condition at Discharge: Good Plan - Discharge Summary New Discharge Prescriptions: New Nystatin 100,000 Unit/gm Powd [Mycostatin Powder] 1 applic TOPICAL BID 5 Days #60 g Potassium Chloride [Potassium Chloride ER (K-Dur GEQ)] 20 meq PO DAILY 3 Days #3 tab Continue Losartan [Cozaar] 12.5 mg PO DAILY tab Dapagliflozin Propanediol [Farxiga] 5 mg PO DAILY tab Furosemide [Lasix] 40 mg PO DAILY tab Atorvastatin [Lipitor] 40 mg PO DAILY tab Pantoprazole [Protonix] 40 mg PO AC-BRKFST tab Acetaminophen Tab [Tylenol] 1,000 mg PO Q6HR PRN #30 tablet PRN Reason: Pain Budesonide 0.5 mg INHALATION RT-BID Albuterol Inhaler [Ventolin Hfa Inhaler] 2 puff INHALATION RT-Q6H PRN PRN Reason: Shortness Of Breath Ipratropium-Albuterol Nebulize [Duoneb 0.5 mg-3 mg/3 ml Soln] 3 ml INHALATION RT-BID carvediloL [Coreg] 3.125 mg PO BID-W/MEALS tab Apixaban [Eliquis] 5 mg PO BID tab Levothyroxine Sodium [Synthroid] 100 mcg PO DAILY@0630 tab Discharge Medication List Apixaban [Eliquis] 5 mg PO BID tab 06/09/22 [Rx] Atorvastatin [Lipitor] 40 mg PO DAILY tab 06/09/22 [Rx] Dapagliflozin Propanediol [Farxiga] 5 mg PO DAILY tab 06/09/22 [Rx] Furosemide [Lasix] 40 mg PO DAILY tab 06/09/22 [Rx] Levothyroxine Sodium [Synthroid] 100 mcg PO DAILY@0630 tab 06/09/22 [Rx] Losartan [Cozaar] 12.5 mg PO DAILY tab 06/09/22 [Rx] Pantoprazole [Protonix] 40 mg PO AC-BRKFST tab 06/09/22 [Rx] carvediloL [Coreg] 3.125 mg PO BID-W/MEALS tab 06/09/22 [Rx] Acetaminophen Tab [Tylenol] 1,000 mg PO Q6HR PRN #30 tablet 05/29/23 [Rx] Albuterol Inhaler [Ventolin Hfa Inhaler] 2 puff INHALATION RT-Q6H PRN 06/03/23 [History] Budesonide 0.5 mg INHALATION RT-BID 06/03/23 [History] Ipratropium-Albuterol Nebulize [Duoneb 0.5 mg-3 mg/3 ml Soln] 3 ml INHALATION RT-BID 06/03/23 [History] Nystatin 100,000 Unit/gm Powd [Mycostatin Powder] 1 applic TOPICAL BID 5 Days #60 g 06/08/23 [Rx] Potassium Chloride [Potassium Chloride ER (K-Dur GEQ)] 20 meq PO DAILY 3 Days #3 tab 06/08/23 [Rx] Follow up Appointment(s)/Referral(s): [facility] [NON-STAFF] - 06/09/23 9:00 am Howie Ching MD [Primary Care Provider] - 1-2 days [facility] [NON-STAFF] - As Needed Patient Instructions/Handouts: Cellulitis (GEN) Discharge Disposition: HOME WITH HOME HEALTH SERVICES
== END 2023-06-08 14:52 | disposition home health service (06) | DRG 863 ==
LOC: EC 12:41 → 5NMEDONC 18:29 → 6NMEDSUR 06-04 00:25 → OBSVTOIN 06-05 14:54
PROVIDERS: ADMIT Family Medicine; ATTEND Family Medicine
DX: T81.49XA Infection following a procedure, other surgical site, initial encounter (principal); T81.30XA Disruption of wound, unspecified, initial encounter; E44.0 Moderate protein-calorie malnutrition; J44.0 Chronic obstructive pulmonary disease with (acute) lower respiratory infection; N17.9 Acute kidney failure, unspecified; L03.311 Cellulitis of abdominal wall; Z68.43 Body mass index [BMI] 50.0-59.9, adult; E87.20 Acidosis, unspecified; I50.32 Chronic diastolic (congestive) heart failure; M79.3 Panniculitis, unspecified; B96.89 Other specified bacterial agents as the cause of diseases classified elsewhere; Z48.89 Encounter for other specified surgical aftercare; Y84.8 Other medical procedures as the cause of abnormal reaction of the patient, or of later complication, without mention of misadventure at the time of the procedure; Z86.718 Personal history of other venous thrombosis and embolism; G47.30 Sleep apnea, unspecified; I11.0 Hypertensive heart disease with heart failure; E78.5 Hyperlipidemia, unspecified; Z86.711 Personal history of pulmonary embolism; I25.2 Old myocardial infarction; E07.9 Disorder of thyroid, unspecified; E87.6 Hypokalemia; L98.8 Other specified disorders of the skin and subcutaneous tissue; E66.01 Morbid (severe) obesity due to excess calories; E86.0 Dehydration; I25.10 Atherosclerotic heart disease of native coronary artery without angina pectoris; I27.20 Pulmonary hypertension, unspecified; I48.91 Unspecified atrial fibrillation; Z79.01 Long term (current) use of anticoagulants; Z79.84 Long term (current) use of oral hypoglycemic drugs; Z79.890 Hormone replacement therapy; M21.951 Unspecified acquired deformity of right thigh; Z79.899 Other long term (current) drug therapy; Z90.710 Acquired absence of both cervix and uterus
CPT/HCPCS: 36415; 71250; 72170; 74176; 80048; 80053; 83605; 83735; 85025; 87040; 87070; 87075; 87205; 94640; 94760; 96365; 96366; 96375; 99285